=== PATIENT | female | born 1935 | race African-American/Black ===

== ENCOUNTER 2018-05-03 12:08 | Emergency (ER) | payer OTHER ==
[~2018-05-03] VITALS: Ht 167.6 cm; Wt 79.9 kg
[~2018-05-03 12:08] MED LIST: AMLO5TAB4 PO; CLOP75TA PO; DOXA4TAB2 PO; GLIM4TAB2 PO; HYDR-2868 PO; LISI20TA PO; LOSA100T6 PO; LOSA50TA6 PO; METO200T46 PO; OLME40TA12 PO; POTA20TA12 PO; PRAV40TA2 PO; UNABLE MC; VERA240C2 PO
--- NOTE | 2018-05-03 12:20 | PHYS DOC ---
Past Medical History Past Medical History: Cancer, Diabetes-Type II, Hypertension, Other Additional Past Medical Histor: HTN, CANCER "anal" has had chemo rad, no surgery Past Surgical History: Hysterectomy, Other Alcohol Use: None Drug Use: None Adult General Chief Complaint Chief Complaint: HYPOTENSION HPI HPI Patient is a 82 year old brought in by ambulance with generalized weakness apparently she had a pacemaker replaced [address] Omer she was doing okay and no chest pain no shortness of breath however this morning she woke up and she was feeling quite weak overall. Blood pressure in the field was in the mid 80s over 50s paramedics did give 250 of normal saline. Denies vomiting denies chest pain just overall very weak. She is compliant with her medications she says normally her blood pressure is quite high. Review of Systems Review of Systems Limited by acuity Current Medications Current Medications Current Medications Medications (Trade) Dose Ordered Sig/Sebastián Start Time Stop Time Status Last Admin Dose Admin Calcium Gluconate (Calcium Gluconate) 1,000 mg 1X ONCE 05/03/18 14:00 05/03/18 14:01 DC 05/03/18 14:34 1,000 MG Dextrose (Dextrose 50%-Water Syringe) 25 gm 1X ONCE 05/03/18 14:00 05/03/18 14:01 DC 05/03/18 14:34 25 GM Fentanyl Citrate (Fentanyl 2ml Vial) 25 mcg 1X ONCE 05/03/18 13:30 05/03/18 13:31 DC 05/03/18 13:31 25 MCG Glucagon (Glucagen) 1 mg 1X ONCE 05/03/18 15:00 05/03/18 15:34 DC Hydrocortisone Sodium Succinate (Solu-CORTEF) 80 mg 1X ONCE 05/03/18 14:45 05/03/18 15:34 DC Insulin Human Regular (HumuLIN R VIAL) 10 unit 1X ONCE 05/03/18 14:00 05/03/18 14:01 DC 05/03/18 14:36 10 UNIT Iohexol (Omnipaque 300 Mg/ml) 50 ml 1X ONCE 05/03/18 13:30 05/03/18 13:31 DC 05/03/18 13:30 50 ML Norepinephrine Bitartrate 250 ml @ As Directed STK-MED ONCE 05/03/18 13:16 05/03/18 13:17 DC Ondansetron HCl (Zofran) 4 mg 1X ONCE 05/03/18 15:00 05/03/18 15:14 DC Piperacillin Sod/ Tazobactam Sod 3.375 gm/Sodium Chloride 50 ml @ 100 mls/hr 1X ONCE 05/03/18 14:30 05/03/18 14:59 DC 05/03/18 14:45 100 MLS/HR Sodium Bicarbonate (Sodium Bicarb Adult 8.4% Syr) 50 meq 1X ONCE 05/03/18 14:00 05/03/18 14:01 DC 05/03/18 14:35 50 MEQ Sodium Chloride 1,000 ml @ 1,000 mls/hr 1X ONCE 05/03/18 14:45 05/03/18 15:44 DC 05/03/18 14:46 1,000 MLS/HR Vancomycin HCl (Vanco Per Pharmacy) 1 each PRN DAILY PRN 05/03/18 12:30 UNV Vancomycin HCl 2 gm/Sodium Chloride 500 ml @ 250 mls/hr 1X ONCE 05/03/18 13:00 05/03/18 14:59 DC 05/03/18 13:01 250 MLS/HR Allergies Allergies Allergies Coded Allergies Type Severity Reaction Last Updated Verified No Known Drug Allergies 09/19/13 No Physical Exam Physical Exam Constitutional: Well developed, well nourished mildly ill appearing HENT: Normocephalic, atraumatic, bilateral external ears normal, oropharynx moist, no oral exudates, nose normal. [] Eyes: PERRLA, EOMI, conjunctiva normal, no discharge. [] Neck: Normal range of motion, no tenderness, supple, no stridor. [] Cardiovascular:Heart rate regular rhythm, 2/6 systolic murmur. The pacemaker pocket does have some mild erythema surrounding and no obvious fluctuance. Lungs & Thorax: Faint crackles at the lung bases Abdomen: Bowel sounds normal, soft, no tenderness, no masses, no pulsatile masses. [] Skin: Warm, dry, no erythema, no rash. [] Back: No tenderness, no CVA tenderness. [] Extremities: No tenderness, no cyanosis, no clubbing, ROM intact, no edema. [] Neurologic: Alert and oriented X 3, normal motor function, normal sensory function, no focal deficits noted. [] Psychologic: Affect normal, judgement normal, mood normal. [] Current Patient Data Vital Signs Vital Signs Date Time Temp Pulse Resp B/P (MAP) Pulse Ox O2 Delivery O2 Flow Rate FiO2 05/03/18 15:45 60 30 106/67 (80) 94 Nasal Cannula 2.0 05/03/18 12:08 98.3 98.3 Lab Values Laboratory Tests Test 05/03/18 12:17 05/03/18 12:30 05/03/18 12:33 05/03/18 15:20 Glucose (Fingerstick) 280 mg/dL (70-99) H White Blood Count 6.2 x10^3/uL (4.0-11.0) Red Blood Count 3.16 x10^6/uL (3.50-5.40) L Hemoglobin 9.7 g/dL (12.0-15.5) L Hematocrit 29.5 % (36.0-47.0) L Mean Corpuscular Volume 94 fL (79-100) Mean Corpuscular Hemoglobin 31 pg (25-35) Mean Corpuscular Hemoglobin Concent 33 g/dL (31-37) Red Cell Distribution Width 14.1 % (11.5-14.5) Platelet Count 223 x10^3/uL (140-400) Neutrophils (%) (Auto) 66 % (31-73) Lymphocytes (%) (Auto) 25 % (24-48) Monocytes (%) (Auto) 6 % (0-9) Eosinophils (%) (Auto) 3 % (0-3) Basophils (%) (Auto) 1 % (0-3) Neutrophils # (Auto) 4.1 x10^3uL (1.8-7.7) Lymphocytes # (Auto) 1.5 x10^3/uL (1.0-4.8) Monocytes # (Auto) 0.4 x10^3/uL (0.0-1.1) Eosinophils # (Auto) 0.2 x10^3/uL (0.0-0.7) Basophils # (Auto) 0.0 x10^3/uL (0.0-0.2) Sodium Level 134 mmol/L (136-145) L Potassium Level 6.0 mmol/L (3.5-5.1) H Chloride Level 104 mmol/L (98-107) Carbon Dioxide Level 22 mmol/L (21-32) Anion Gap 8 (6-14) Blood Urea Nitrogen 36 mg/dL (7-20) H Creatinine 1.6 mg/dL (0.6-1.0) H Estimated GFR (Cockcroft-Gault) 37.4 BUN/Creatinine Ratio 23 (6-20) H Glucose Level 353 mg/dL (70-99) H Lactic Acid Level 2.3 mmol/L (0.4-2.0) H Calcium Level 8.7 mg/dL (8.5-10.1) Total Bilirubin 0.7 mg/dL (0.2-1.0) Aspartate Amino Transferase (AST) 36 U/L (15-37) Alanine Aminotransferase (ALT) 27 U/L (14-59) Alkaline Phosphatase 76 U/L (46-116) Troponin I Quantitative < 0.017 ng/mL (0.000-0.055) HC-Vep-X-Type Natriuretic Peptide 330 pg/mL (0-449) Total Protein 6.4 g/dL (6.4-8.2) Albumin 2.8 g/dL (3.4-5.0) L Albumin/Globulin Ratio 0.8 (1.0-1.7) L Prothrombin Time 13.9 SEC (11.7-14.0) Prothrombin Time INR 1.1 (0.8-1.1) Urine Collection Type Unknown Urine Color Yellow Urine Clarity Clear Urine pH 6.0 Urine Specific [place] >=1.030 Urine Protein >=300 mg/dL (NEG-TRACE) Urine Glucose (UA) 250 mg/dL (NEG) Urine Ketones (Stick) Negative mg/dL (NEG) Urine Blood Negative (NEG) Urine Nitrite Negative (NEG) Urine Bilirubin Negative (NEG) Urine Urobilinogen Dipstick 1.0 mg/dL (0.2 mg/dL) Urine Leukocyte Esterase Negative (NEG) Urine RBC Occ /HPF (0-2) Urine WBC Occ /HPF (0-4) Urine Squamous Epithelial Cells Few /LPF Urine Transitional Epithelial Cells Occ /LPF Urine Bacteria 0 /HPF (0-FEW) Urine Mucus Slight /LPF Laboratory Tests 05/03/18 12:30 Laboratory Tests 05/03/18 12:30 EKG EKG [] Interpretation Time: EKG shows a paced rhythm probably underlying A. fib rate of 62 in light of the paced rhythm no obvious ischemia was identified. Radiology/Procedures Radiology/Procedures [] Impressions: t, abdomen and pelvis with intravenous contrast. HISTORY: Pacemaker placement. Pain. Dissection. TECHNIQUE: Computed tomographic images of the chest, abdomen and pelvis were obtained following the administration of 50 cc Omnipaque 300 intravenous contrast according to angiography protocol. Multiplanar reformatting was performed and 3-dimensional maximum intensity projection images were obtained. *One or more of the following individualized dose reduction techniques were utilized for this examination: 1. Automated exposure control. 2. Adjustment of the mA and/or kV according to patient size. 3. Use of iterative reconstruction technique. COMPARISON: None. FINDINGS: There is suboptimal contrast opacification of the aorta and iliac bifurcation due to timing of contrast administration and a decreased contrast bolus due to renal insufficiency at the time of the exam. There is mixing of contrast within the thoracic aorta and distal abdominal aorta and iliac bifurcation. There is ill-defined somewhat linear decreased opacification the distal abdominal aorta which extends into the right common iliac artery, also likely due to mixing of contrast. The imaging appearance does not favor a dissection in this location. There is fluid density along the left aspect of the descending thoracic aorta measuring approximately 11 cm in length and 10 mm in maximum thickness. This is hypodense to the aorta on precontrast images. The differential includes a descending periaortic hematoma, or less likely, intramural hematoma. The imaging appearance does not favor a thrombosed dissection. There is a common origin of the right innominate and left common carotid arteries, a normal variant. There is no aortic aneurysm. There is a tortuous proximal left subclavian artery. No aortic great vessel occlusion or dissection is seen. There is a left chest wall cardiac pacemaker generator. There are foci of gas within the subclavian and internal jugular veins due to recent peripheral catheterization. There is a right internal jugular catheter with the tip in the superior right atrium. The pacemaker leads are within the right atrium and right ventricle. There is a circumscribed hypodense lesion within the anterior mediastinum measuring 3.4 cm, possibly thymic in etiology. The imaging appearance does not favor a hematoma. There is a small amount of fluid within the pericardial recesses. There are prominent bilateral hilar lymph nodes. There is cardiomegaly. There is no pneumothorax. There is bilateral posterior dependent and basilar atelectasis. There is trace right pleural fluid. There is a heterogeneously enlarged left thyroid lobe possibly due to underlying nodule. There is a 1.7 cm nodule within the inferior left breast. There is hepatomegaly. No hepatic lesion is seen. There is trace perihepatic ascites. The spleen is relatively small in size. The adrenal glands and pancreas are grossly unremarkable. The kidneys are unremarkable. There are colonic diverticula. There is moderate colonic stool. There are calcifications within the gonadal veins. The uterus is surgically absent. The bladder is decompressed. There is degenerative change throughout the thoracolumbar spine. There is bone demineralization. No pathologically enlarged lymph node is seen. There is calcified plaque at the origin of the celiac axis, resulting in approximately 50 percent stenosis. There is also calcified plaque within the origins and proximal renal arteries with suspected greater than 75 percent stenosis on the right and 50 percent stenosis on the left. The distal aspects of these vessels are not adequately opacified to assess patency. There is a punctate right renal stone. There are tiny hypodense lesions within the left kidney which may be due to tiny hemorrhagic cysts. IMPRESSION: 1. Elongated hypodense collection along the left lateral aspect of the descending thoracic aorta measuring approximately 11.0 cm in length and 10 mm in thickness. Given a history of recent cardiac pacemaker surgery, the possibility of a periaortic hematoma or intramural hematoma is not excluded. The imaging appearance does not suggest a thrombosed dissection. Evaluation of the aorta and aortic branch vessels is significantly limited due to the limited contrast bolus and timing of contrast administration. This is due to renal insufficiency at the time of the exam. 2. Mixing of contrast within the thoracic and abdominal aorta was suboptimal contrast opacification of the iliac bifurcation and abdominal aortic branch vessels. There is suspected hemodynamically significant stenosis involving the right renal artery which cannot be characterized on this exam due to aforementioned study limitations. 3. Cardiomegaly. There is a cardiac pacemaker with leads in the right atrium and right ventricle. There is also a right internal jugular catheter in the right atrium. 4. 3.4 cm anterior superior mediastinal mass. The attenuation of this collection is greater than expected for a cystic lesion. This may be thymic in etiology. Correlation with any prior studies is recommended. 5. Bilateral posterior dependent and basilar atelectasis with trace right pleural effusion. 6. Hepatomegaly and trace perihepatic ascites. 7. Colonic diverticulosis. 8. Suspected left thyroid nodule or nodules. This can be assessed with a thyroid sonogram. 9. Inferior left breast nodule. Correlate with mammography findings. Findings were discussed with Dr. Sanchez at 1500 hours on 05/03/2018. Electronically signed by: Chantel Michelle MD (05/03/2018 3:01 PM) [facility] DICTATED and SIGNED BY: CHANTEL MICHELLE MD DATE: 05/03/18 1436 Course & Med Decision Making Course & Med Decision Making Pertinent Labs and Imaging studies reviewed. (See chart for details) []Hypotension following pacemaker placement differential is broad infection, tamponade, pe, lead complication, hypovolemia. 82-year-old female brought in by ambulance with generalized weakness and hypotension initially on my first eval was in the 90s over 50s however approximately 20-30 minutes into the ER course the patient developed a blood pressure of 60/40 and began to complain of severe epigastric abdominal pain radiating to the back she was noted to have distended neck veins I was quite concerned about the possibility of obstructive shock such as cardiac Or not. I did speak with Dr. Omer who did confirm that he did not go into the blood vessels he just change the back. The pacemaker couple days back nevertheless he was quite gracious to come to the emergency room and evaluate the patient he did a echocardiogram which showed generalized hypokinesis but no laterality at all. no tamponade on echo per dr rinaldi. Patient was given 2 L of fluid and still was hypotensive so I placed a central line I did also give some antibiotics in case of sepsis some front given the initial hypotension of unclear etiology. In addition the potassium level was elevated and I did give treatment for that as noted above. Central line note: Verbal consent was obtained emergent conditions the area was prepped and draped in the usual sterile fashion a triple lumen pressure injectable catheter was inserted into the right IJ under ultrasound guidance in the usual Seldinger technique patient tolerated this well there was a small amount of oozing that was controlled with pressure this was confirmed by chest x -ray with no pneumothorax it was sutured in place patient tolerated well overall. Patient was then placed on levo fed blood pressure came up into the low 90s the low 100s at one point. Then patient went to a stat CT scanner with the following above results in summary there was a periaortic descending hematoma and visualization of the intra-aortic area was difficult due to contrast timing and limited contrast secondary to renal insufficiency. Differential would be a contained rupture versus a dissection although I dissection was not clearly seen. I did review these test results with multiple specialists including mitchell from vascular surgery who recommended to talk to the CT surgery . from cardiothoracic surgery who said this treatment if there is in fact a contained rupture would be a Tva R which he does not do recommend to talk to vascular surgery Then I spoke with Dr. medrano again who said that he does not do [facility] and recommended transfer to . I did also confirm with IR automation technician himsel who agreed. I spoke with the transfer Center accepting cardiothoracic surgeon is Dr. zabala On reevaluation the patient's blood pressure was in the 110 systolic range asked the nurses to try titrated to keep a systolic pressure around 100-110. Patient's was much more alert had improved pain after dose of fentanyl. 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 I discussed at length with the patient in their family the likely diagnosis and disposition to they're aware of the risks and benefits of transfer and consent to the transfer. Critical care time was 110 minutes exclusive of procedures. Dragon Disclaimer Dragon Disclaimer This electronic medical record was generated, in whole or in part, using a voice recognition dictation system. Departure Departure Impression: Primary Impression: Hypotension Disposition: 02 TRANSFER [facility] Condition: STABLE Referrals: LUPE SCHAEFER MD (PCP) BLAIR SANCHEZ MD May 03, 2018 12:20
--- NOTE | 2018-05-03 12:21 | EKG ---
[facility] [address] [place] [address] Test Date: 2018-05-03 Test Time: 12:08:59 Pat Name: BARRY GONZALEZ Department: Room: Gender: F Survey Interviewer: : 1935 Requested By: BLAIR VALLADARES Order Number: [id number] Reading MD: August Omer MD Measurements Intervals [place] Rate: 62 P: PA: QRS: -56 QRSD: 178 T: 100 QT: 474 QTc: 483 Interpretive Statements ATRIAL FIBRILLATION V-PACING Electronically Signed On 05-06-2018 9:09:10 CDT by August Omer MD
[2018-05-03] MEDS ORDERED: IV NORMAL SALINE 500ML BAG 500 ML IV ONE (12:30)
[2018-05-03] MEDS ORDERED: VANCOMYCIN PER PHARMACY MC PRN (12:30)
[2018-05-03 12:44] LABS: BASO % 1 % (0-3); EOS # 0.2 x10^3/uL (0.0-0.7); EOS % 3 % (0-3); HEMATOCRIT 29.5 % (36.0-47.0); HEMOGLOBIN 9.7 g/dL (12.0-15.5); LYMPH # 1.5 x10^3/uL (1.0-4.8); LYMPH % 25 % (24-48); MEAN CORPUSCULAR HEMOGLOBIN 31 pg (25-35); MEAN CORPUSCULAR HGB CONC 33 g/dL (31-37); MEAN CORPUSCULAR VOLUME 94 fL (79-100); MONO # 0.4 x10^3/uL (0.0-1.1); MONO % 6 % (0-9); NEUT # 4.1 x10^3uL (1.8-7.7); NEUT % 66 % (31-73); PLATELET COUNT 223 x10^3/uL (140-400); RED BLOOD COUNT 3.16 x10^6/uL (3.50-5.40); RED CELL DISTRIBUTION WIDTH 14.1 % (11.5-14.5); WHITE BLOOD COUNT 6.2 x10^3/uL (4.0-11.0)
[2018-05-03 12:52] LABS: CALCIUM 8.7 mg/dL (8.5-10.1); CREATININE 1.6 mg/dL (0.6-1.0); GFR 37.4
[2018-05-03 12:58] LABS: ALBUMIN 2.8 g/dL (3.4-5.0); ALBUMIN/GLOBULIN RATIO 0.8 (1.0-1.7); TOTAL BILIRUBIN 0.7 mg/dL (0.2-1.0); TOTAL PROTEIN 6.4 g/dL (6.4-8.2)
[2018-05-03] MEDS ORDERED: IV NORMAL SALINE 1000ML BAG 1,000 ML IV ONE ×2 (13:00→14:45)
[2018-05-03] MEDS ORDERED: VANCOMYCIN 2 GM in IV NORMAL SALINE 500ML BAG 500 ML IV ONE (13:00)
--- NOTE | 2018-05-03 13:13 | RAD ---
Exam: AP portable chest History: Shortness air. Recent pacemaker procedure. Hypotension. Comparison: March 11, 2013. Findings: The heart and mediastinal structures are within normal limits for size. Lungs are without infiltrate. No pleural effusion or pneumothorax is identified. Bilateral shoulder degeneration is seen. Impression: 1. No acute cardiopulmonary process. Electronically signed by: Efraín Patel MD (05/03/2018 1:10 PM) [facility]
[2018-05-03 13:15] LABS: PROTHROMBIN TIME PATIENT 13.9 SEC (11.7-14.0)
[2018-05-03] MEDS ORDERED: ONDANSETRON PF 4 MG/2 ML VIAL. IV ONE ×2 (13:15→15:00)
[2018-05-03] MEDS ORDERED: NOREPINEPHRIN 8MG/250ML PREMIX 250 ML IV ONE (13:16)
[2018-05-03] MEDS ORDERED: fentaNYL PF VIAL 100 MCG/2 ML VIAL IV ONE (13:30)
[2018-05-03] MEDS ORDERED: IOHEXOL 300 MG/ML 100ML VIAL. IV ONE (13:30)
--- NOTE | 2018-05-03 13:38 | EKG ---
[facility] [address] [place] [address] Test Date: 2018-05-03 Test Time: 13:14:44 Pat Name: BARRY GONZALEZ Department: Room: Gender: F Jewel Stringer: : 1935 Requested By: BLAIR VALLADARES Order Number: [id number] Reading MD: August Omer MD Measurements Intervals [place] Rate: 67 P: TN: QRS: 24 QRSD: 84 T: -8 QT: 408 QTc: 434 Interpretive Statements INTERMITTENT PACED RHYTHM, PVCS Electronically Signed On 05-06-2018 9:11:12 CDT by August Omer MD
[2018-05-03] MEDS ORDERED: DEXTROSE 50% 25 GM / 50ML DISP.SYRIN. IV ONE (14:00)
[2018-05-03] MEDS ORDERED: SODIUM BICARB ADULT 8.4% 50 MEQ/50 ML DISP.SYRIN. IV ONE (14:00)
[2018-05-03] MEDS ORDERED: CALCIUM GLUCONATE 1,000 MG/10 ML VIAL. IVP ONE (14:00)
[2018-05-03] MEDS ORDERED: INSULIN REGULAR 100 UNIT/ML 3ML VIAL. IV ONE (14:00)
--- NOTE | 2018-05-03 14:04 | RAD ---
EXAM: Chest, single view. HISTORY: Central line placement. COMPARISON: 05/03/2018 FINDINGS: A frontal view of the chest is obtained. There is a right internal jugular catheter with the tip in the superior right atrium. There is a cardiac pacemaker with lead overlying expected position. There is no pneumothorax or pleural effusion. There is stable interstitial prominence. There is a stable prominent cardiac silhouette. IMPRESSION: 1. Right internal jugular catheter with the tip in the superior right atrium. 2. No acute pulmonary finding. Electronically signed by: Chantel Carbone MD (05/03/2018 2:01 PM) [facility]
[2018-05-03] MEDS ORDERED: PIPERACILLIN/TAZOBACTAM 3.375 GM in IV NORMAL SALINE 50ML 50 ML IV ONE (14:30)
[2018-05-03] MEDS ORDERED: HYDROCORTISONE SOD SUCC/PF 100 MG/2 ML VIAL. IV ONE (14:45)
[2018-05-03] MEDS ORDERED: GLUCAGON,HUMAN RECOMBINANT 1 MG/ML VIAL. IV ONE (15:00)
--- NOTE | 2018-05-03 15:04 | RAD ---
EXAM: CT angiography of the chest, abdomen and pelvis with intravenous contrast. HISTORY: Pacemaker placement. Pain. Dissection. TECHNIQUE: Computed tomographic images of the chest, abdomen and pelvis were obtained following the administration of 50 cc Omnipaque 300 intravenous contrast according to angiography protocol. Multiplanar reformatting was performed and 3-dimensional maximum intensity projection images were obtained. *One or more of the following individualized dose reduction techniques were utilized for this examination: 1. Automated exposure control. 2. Adjustment of the mA and/or kV according to patient size. 3. Use of iterative reconstruction technique. COMPARISON: None. FINDINGS: There is suboptimal contrast opacification of the aorta and iliac bifurcation due to timing of contrast administration and a decreased contrast bolus due to renal insufficiency at the time of the exam. There is mixing of contrast within the thoracic aorta and distal abdominal aorta and iliac bifurcation. There is ill-defined somewhat linear decreased opacification the distal abdominal aorta which extends into the right common iliac artery, also likely due to mixing of contrast. The imaging appearance does not favor a dissection in this location. There is fluid density along the left aspect of the descending thoracic aorta measuring approximately 11 cm in length and 10 mm in maximum thickness. This is hypodense to the aorta on precontrast images. The differential includes a descending periaortic hematoma, or less likely, intramural hematoma. The imaging appearance does not favor a thrombosed dissection. There is a common origin of the right innominate and left common carotid arteries, a normal variant. There is no aortic aneurysm. There is a tortuous proximal left subclavian artery. No aortic great vessel occlusion or dissection is seen. There is a left chest wall cardiac pacemaker generator. There are foci of gas within the subclavian and internal jugular veins due to recent peripheral catheterization. There is a right internal jugular catheter with the tip in the superior right atrium. The pacemaker leads are within the right atrium and right ventricle. There is a circumscribed hypodense lesion within the anterior mediastinum measuring 3.4 cm, possibly thymic in etiology. The imaging appearance does not favor a hematoma. There is a small amount of fluid within the pericardial recesses. There are prominent bilateral hilar lymph nodes. There is cardiomegaly. There is no pneumothorax. There is bilateral posterior dependent and basilar atelectasis. There is trace right pleural fluid. There is a heterogeneously enlarged left thyroid lobe possibly due to underlying nodule. There is a 1.7 cm nodule within the inferior left breast. There is hepatomegaly. No hepatic lesion is seen. There is trace perihepatic ascites. The spleen is relatively small in size. The adrenal glands and pancreas are grossly unremarkable. The kidneys are unremarkable. There are colonic diverticula. There is moderate colonic stool. There are calcifications within the gonadal veins. The uterus is surgically absent. The bladder is decompressed. There is degenerative change throughout the thoracolumbar spine. There is bone demineralization. No pathologically enlarged lymph node is seen. There is calcified plaque at the origin of the celiac axis, resulting in approximately 50 percent stenosis. There is also calcified plaque within the origins and proximal renal arteries with suspected greater than 75 percent stenosis on the right and 50 percent stenosis on the left. The distal aspects of these vessels are not adequately opacified to assess patency. There is a punctate right renal stone. There are tiny hypodense lesions within the left kidney which may be due to tiny hemorrhagic cysts. IMPRESSION: 1. Elongated hypodense collection along the left lateral aspect of the descending thoracic aorta measuring approximately 11.0 cm in length and 10 mm in thickness. Given a history of recent cardiac pacemaker surgery, the possibility of a periaortic hematoma or intramural hematoma is not excluded. The imaging appearance does not suggest a thrombosed dissection. Evaluation of the aorta and aortic branch vessels is significantly limited due to the limited contrast bolus and timing of contrast administration. This is due to renal insufficiency at the time of the exam. 2. Mixing of contrast within the thoracic and abdominal aorta was suboptimal contrast opacification of the iliac bifurcation and abdominal aortic branch vessels. There is suspected hemodynamically significant stenosis involving the right renal artery which cannot be characterized on this exam due to aforementioned study limitations. 3. Cardiomegaly. There is a cardiac pacemaker with leads in the right atrium and right ventricle. There is also a right internal jugular catheter in the right atrium. 4. 3.4 cm anterior superior mediastinal mass. The attenuation of this collection is greater than expected for a cystic lesion. This may be thymic in etiology. Correlation with any prior studies is recommended. 5. Bilateral posterior dependent and basilar atelectasis with trace right pleural effusion. 6. Hepatomegaly and trace perihepatic ascites. 7. Colonic diverticulosis. 8. Suspected left thyroid nodule or nodules. This can be assessed with a thyroid sonogram. 9. Inferior left breast nodule. Correlate with mammography findings. Findings were discussed with Dr. Sanchez at 1500 hours on 05/03/2018. Electronically signed by: Chantel Carbone MD (05/03/2018 3:01 PM) [facility]
[2018-05-03 15:31] LABS: BILIRUBIN,URINE NEGATIVE (NEG); CLARITY,URINE CLEAR; COLOR,URINE YELLOW; NITRITE,URINE NEGATIVE (NEG); PROTEIN,URINE >=300 mg/dL (NEG-TRACE)
[2018-05-03 15:48] LABS: RBC,URINE OCC /HPF (0-2); WBC,URINE OCC /HPF (0-4)
[2018-05-03 15:49] LABS: BACTERIA,URINE 0 /HPF (0-FEW); SQUAMOUS EPITHELIAL CELL,UR FEW /LPF
[2018-05-03 16:45] VITALS: BP 105/68
--- NOTE | 2018-05-05 09:37 | CARD ---
MR#: [id number] Date of Study: 05/03/2018 Ordering Physician: SUREKHA FAUST, Referring Physician: BLAIR VALLADARES, Tech: JUAN MIGUEL Escudero APPROVED REPORT EXAM: Two-dimensional and M-mode echocardiogram with Doppler and color Doppler. Other Information Quality : AverageHR: 62bpm INDICATION Post Op, Hypotension Surgery/Intervention Pacemaker: Date: 04/29/2018 2D DIMENSIONS RVDd3.5 (2.9-3.5cm)Left Atrium(2D)3.6 (1.6-4.0cm) IVSd1.9 (0.7-1.1cm)Aortic Root(2D)2.5 (2.0-3.7cm) LVDd3.5 (3.9-5.9cm)LVOT Diameter1.8 (1.8-2.4cm) PWd1.9 (0.7-1.1cm)IVSs1.8 (0.8-1.2cm) LVDs3.2 (2.5-4.0cm)FS (%) 15.0 % PWs1.9 (0.8-1.2cm)SV9.4 ml LVEF(%)30.0 (>50%) M-Mode DIMENSIONS IVSd1.10 (0.7-1.1cm)LVDd5.51 (4.0-5.6cm) PWd1.07 (0.7-1.1cm)IVSs1.74 cm LVDs3.77 (2.0-3.8cm)PWs1.78 cm Aortic Valve AoV Peak Mino.103.1cm/sAoV VTI17.9cm AO Peak GR.4.2mmHgLVOT Peak Mino.57.9cm/s LVOT VTI 10.13cmAO Mean GR.2mmHg WALKER (VMAX)1.25eo2PEQ (VTI)1.49cm2 Mitral Valve MV E Jtalrdeo70.0cm/sMV E Peak Gr.42mmHg MV DECEL [id number] A Xsdzzbuh24.3cm/s MV BFK11miL/A Ratio2.7 MVA (PHT)3.57cm2 TDI E/Lateral E'24.6E/Medial E'27.1 Pulmonary Valve PV Peak Kahaithq02.9cm/sPV Peak Grad.1mmHg Tricuspid Valve TR P. Gqcajzbd503yh/sRAP ABWBATXQ90wpEv TR Peak Gr.76ocIoWKUD98ztUl LEFT VENTRICLE The left ventricle cavity is small. There is moderate concentric left ventricular hypertrophy. Left v entricle systolic function is moderately to severely impaired. The Ejection Fraction is 25-30%. There is global hypokinesis of the left ventricle. Tissue Doppler imaging reveals moderate left ventricula r diastolic dysfunction. RIGHT VENTRICLE The right ventricle is borderline dilated. Systolic function is mildly reduced. There is a pacemaker lead in the right ventricle. ATRIA The left atrium size is normal. A pacemaker is seen in the right atrium consistent with history. The right atrium size is normal. The interatrial septum is intact with no evidence for an atrial septal d efect or patent foramen ovale as noted on 2-D or Doppler imaging. AORTIC VALVE The aortic valve is thickened but opens well. Doppler and Color Flow revealed trace aortic regurgitat ion. There is no significant aortic valvular stenosis. There is no aortic valvular vegetation. MITRAL VALVE The mitral valve is mildly thickened. There is no evidence of mitral valve prolapse. There is no mitr al valve stenosis. Doppler and Color-flow revealed mild mitral regurgitation. TRICUSPID VALVE The tricuspid valve leaflets are thickened , but open well. Doppler and Color Flow revealed moderate to severe tricuspid regurgitation. There is mild pulmonary hypertension. The PA pressure was estimate d at 33 mmHg. There is no tricuspid valve prolapse or vegetation. There is no tricuspid valve stenosi s. PULMONIC VALVE The pulmonic valve is not well visualized. Doppler and Color Flow revealed no pulmonic valvular regur gitation. There is no pulmonic valvular stenosis. GREAT VESSELS The aortic root is normal in size. The IVC is dilated and collapses <50% with inspiration. PERICARDIAL EFFUSION There is no pleural effusion. There is no evidence of significant pericardial effusion. Critical Notification Critical Value: No <Conclusion> Left ventricle systolic function is moderately to severely impaired. The Ejection Fraction is 25-30%. There is global hypokinesis of the left ventricle. There is a pacemaker lead in the right ventricle. Signed by : Surekha Faust, Electronically Approved : 05/05/2018 09:36:47
== END 2018-05-03 17:00 | disposition short-term general hospital (02) ==
LOC: ER 12:08
DX: I95.9 Hypotension, unspecified (principal); R53.1 Weakness; E11.9 Type 2 diabetes mellitus without complications; I10 Essential (primary) hypertension
CPT/HCPCS: 36415; 36556; 51702; 71045; 71275; 74174; 80053; 81001; 82962; 83605; 83880; 84484; 85025; 85610; 87040; 93005; 93306; 96365; 96366; 96375; 99291; 99292; J0610; J1815; J2405; J2543; J3010; J3370; J7030; J7040; Q9967; J7042

== ENCOUNTER 2018-12-26 12:05 | Emergency (ER) | payer OTHER ==
[~2018-12-26] VITALS: Ht 167.6 cm; Wt 81.6 kg
[~2018-12-26 12:05] MED LIST changes: +LOSA-73 PO; +LOSA100T14 PO; -LOSA100T6 PO; -LOSA50TA6 PO
[2018-12-26] MEDS ORDERED: cloNIDine HCL 0.1 MG TABLET PO ONE (12:30)
[2018-12-26 12:34] VITALS: BP 227/105
--- NOTE | 2018-12-26 13:16 | RAD ---
Lumbar spine, 3 views, 12/26/2018: HISTORY: Fall, back and right hip pain The lumbar vertebral heights are well-maintained. There is mild disc space narrowing with vacuum disc phenomena at multiple levels. There are mild scattered marginal spurs. There are moderate degenerative changes involving the facet joints in the lower lumbar spine. There is a mild associated anterolisthesis at L4-5, and a minimal anterolisthesis at L3-4. No fracture is identified. Scattered vascular calcifications are noted. IMPRESSION: 1. Moderate multilevel degenerative change. 2. Mild anterolisthesis at L4-5 and to a lesser degree at L3-4, due to facet joint arthropathy. 3. No acute bony abnormality is detected. Electronically signed by: Alexi Pearson MD (12/26/2018 1:13 PM) [facility]
--- NOTE | 2018-12-26 13:18 | RAD ---
Pelvis with right hip, 3 views, 12/26/2018: HISTORY: Fall, hip and back pain No fracture or dislocation is identified. There is mild narrowing of both hip joints. There are mild degenerative changes at the symphysis pubis and the sacroiliac joints. IMPRESSION: No acute bony abnormality is detected. Electronically signed by: Alexi Pearson MD (12/26/2018 1:15 PM) [facility]
--- NOTE | 2018-12-26 13:35 | PHYS DOC ---
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 She denies any loss of consciousness. Denies hitting her head on the ground. She describes the pain as sharp and intermittent. Denies anything specifically exacerbating or alleviating the pain. Patient states she has been ambulating with no difficulties. Review of Systems Review of Systems Constitutional: Denies fever or chills [] Musculoskeletal: Reports right hip pain radiating to the right lower extremity Integument: Denies rash or skin lesions [] Neurologic: Denies headache, focal weakness or sensory changes [] All other systems were reviewed and found to be within normal limits, except as documented in this note. Current Medications Current Medications Current Medications Medications (Trade) Dose Ordered Sig/Sebastián Start Time Stop Time Status Last Admin Dose Admin Clonidine HCl (Catapres) 0.2 mg 1X ONCE 12/26/18 12:30 12/26/18 12:31 DC 12/26/18 12:34 0.2 MG Allergies Allergies Allergies Coded Allergies Type Severity Reaction Last Updated Verified No Known Drug Allergies 09/19/13 No Physical Exam Physical Exam Constitutional: Well developed, well nourished, no acute distress, non-toxic appearance. [] Neck: Normal range of motion, no tenderness, supple, no stridor. [] Cardiovascular:Heart rate regular rhythm, no murmur [] Lungs & Thorax: Bilateral breath sounds clear to auscultation [] Abdomen: Bowel sounds normal, soft, no tenderness, no masses, no pulsatile masses. [] Skin: Warm, dry, no erythema, no rash. [] Back: No tenderness, no CVA tenderness. [] Extremities: Bilateral lower extremities extremity with no obvious deformity. No tenderness on palpation of the right lower extremity. Full active active as well as passive range of motion to the right lower extremity. +2 bilateral pedal pulses. Sensation intact to bilateral lower extremities. Neurologic: Alert and oriented X 3, normal motor function, normal sensory function, no focal deficits noted. [] Psychologic: Affect normal, judgement normal, mood normal. [] Current Patient Data Vital Signs Vital Signs Date Time Temp Pulse Resp B/P (MAP) Pulse Ox O2 Delivery O2 Flow Rate FiO2 12/26/18 12:34 64 227/105 12/26/18 12:22 97.9 14 95 Room Air 97.9 EKG EKG [] Radiology/Procedures Radiology/Procedures []PROCEDURE: LUMBAR SPINE 2-3V Lumbar spine, 3 views, 12/26/2018: HISTORY: Fall, back and right hip pain The lumbar vertebral heights are well-maintained. There is mild disc space narrowing with vacuum disc phenomena at multiple levels. There are mild scattered marginal spurs. There are moderate degenerative changes involving the facet joints in the lower lumbar spine. There is a mild associated anterolisthesis at L4-5, and a minimal anterolisthesis at L3-4. No fracture is identified. Scattered vascular calcifications are noted. IMPRESSION: 1. Moderate multilevel degenerative change. 2. Mild anterolisthesis at L4-5 and to a lesser degree at L3-4, due to facet joint arthropathy. 3. No acute bony abnormality is detected. Electronically signed by: Alexi Pearson MD (12/26/2018 1:13 PM) [facility] DICTATED and SIGNED BY: ALEXI PEARSON MD DATE: 12/26/18 1313 PROCEDURE: HIP RIGHT 2V WITH PELVIS Pelvis with right hip, 3 views, 12/26/2018: HISTORY: Fall, hip and back pain No fracture or dislocation is identified. There is mild narrowing of both hip joints. There are mild degenerative changes at the symphysis pubis and the sacroiliac joints. IMPRESSION: No acute bony abnormality is detected. Electronically signed by: Alexi Pearson MD (12/26/2018 1:15 PM) [facility] DICTATED and SIGNED BY: ALEXI PEARSON MD DATE: 12/26/18 1310 Course & Med Decision Making Course & Med Decision Making Pertinent Labs and Imaging studies reviewed. (See chart for details) This is a 83-year-old female patient presenting to the ED today with right hip pain that began 2 weeks ago after she fell. Right hip x-rays including pelvis, lumbar spine x-rays are negative for any acute findings. Informed patient if she is not able to ambulate to be we need to do a CT to make sure nothing is fractured. patient refused. Her blood pressure was 246/120 with a heart rate of 66 and oriented to the ED. She states she takes a lot of blood pressure medications and did not take any of them prior to coming to the ED. She does not remember the name of the medications either. She is denying any chest pain, denies any headache. She was given clonidine in the ED. Blood pressure coming down currently 203/100. Offered admission, patient refused, she states she can ambulate, i requested patient to get up and ambulate with me in the room, she was actually able to get up and ambulated from the bed to the door with standby assist, I recommended she gets a walker to use at home. She declined. She states she will return if she has to. Follow-up with PCP and orthopedic doctor in 1-2 weeks. Dragon Disclaimer Dragon Disclaimer This electronic medical record was generated, in whole or in part, using a voice recognition dictation system. Departure Departure Impression: Primary Impression: Accelerated hypertension Additional Impressions: Contusion of hip, right Fall from standing Disposition: 01 HOME, SELF-CARE Condition: STABLE Referrals: LUPE SCHAEFER MD (PCP) follow up next week Patient Instructions: Contusion, Magb-yl-Kpvy, Fall Prevention and Home Safety Additional Instructions: You were evaluated in the emergency room hip pain after falling. Your x-rays of the hip as well as low back are negative. Take yacj-[id number] pain medication as needed. Try to ice and elevate the extremity. Ensure you take your blood pressure medications every day as prescribed. Problem Qualifiers Additional Impressions: Contusion of hip, right Encounter type: initial encounter Qualified Codes: S70.01XA - Contusion of right hip, initial encounter Fall from standing Encounter type: initial encounter Qualified Codes: W19.XXXA - Unspecified fall, initial encounter DONATONED [employer] Dec 26, 2018 13:35
[2018-12-27] MEDS ORDERED: TRAM50TA PO (17:26)
== END 2018-12-26 13:45 | disposition home or self-care (01) ==
LOC: ER 12:05
DX: S70.01XA Contusion of right hip, initial encounter (principal); I10 Essential (primary) hypertension; M79.604 Pain in right leg; Z90.710 Acquired absence of both cervix and uterus; W18.39XA Other fall on same level, initial encounter; Y93.89 Activity, other specified; Y92.090 Kitchen in other non-institutional residence as the place of occurrence of the external cause; Y99.8 Other external cause status
CPT/HCPCS: 72100; 73502; 99284-25

== ENCOUNTER 2018-12-27 14:54 | Emergency (ER) | payer OTHER ==
[~2018-12-27] VITALS: Ht 162.6 cm; Wt 72.6 kg
[2018-12-27] MEDS ORDERED: cloNIDine HCL 0.1 MG TABLET PO ONE (16:15)
--- NOTE | 2018-12-27 16:49 | RAD ---
PQRS Compliance Statement: One or more of the following individualized dose reduction techniques were utilized for this examination: 1. Automated exposure control 2. Adjustment of the mA and/or kV according to patient size 3. Use of iterative reconstruction technique CT PELVIS WO CONTRAST, CT LUMBAR SPINE WO CONTRAST Clinical Indication: FALL X2 DAYS AGO PAIN AT LOWER BACK, AND PELVIS Comparison: None. TECHNIQUE: Helical CT imaging of the lumbar spine and of the pelvis is performed without IV contrast. Findings: Grade 1 anterolisthesis of L4 on L5 and L3 on L4. Mild grade 1 retrolisthesis of L2 on L3. No acute vertebral body fracture is identified. There is vacuum disc phenomenon at each level. There is degenerative endplate spurring. Disc space narrowing of T12/L1 and L1/L2. There is minimal left convexity lumbar scoliosis. There is multilevel facet hypertrophy of the lumbar spine. There are multilevel spondylitic discs of the lumbar spine. Central canal stenosis of L1/L2 is mild, L2/L3 is moderate to severe, L3/L4 is moderate. And at L4/L5 central canal stenosis is severe. There appears to be a large disc extrusion extending superior to the disc space. Minimal atelectasis or scarring in the posterior lower lobes bilaterally. There is ectasia of the infrarenal abdominal aorta. Left adrenal gland hyperplasia. The appendix is normal. There is no acute pelvic fracture. The sacral alignment appears maintained on the sagittal view. There is mild degenerative arthropathy of the hips. Urinary bladder is normal. Hysterectomy. No pelvic free fluid. No intramuscular or subcutaneous hematoma in the region of the hips. IMPRESSION: 1. No acute lumbar spine or pelvis fracture. 2. 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 There is severe central canal stenosis of L4/L5. Electronically signed by: Yoan Vyas MD (12/27/2018 4:46 PM) [facility]
--- NOTE | 2018-12-27 17:19 | PHYS DOC ---
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 Patient was in the ED yesterday, we did x-rays which were negative, she decided to go home. She is back today, she states we did not give her anything for pain and she still has pain. I had recommended CT is yesterday, she declined, today she would like the CT is done. Patient denies any loss of consciousness when she fell. Review of Systems Review of Systems Constitutional: Denies fever or chills [] Eyes: Denies change in visual acuity, redness, or eye pain [] HENT: Denies nasal congestion or sore throat [] Respiratory: Denies cough or shortness of breath [] Cardiovascular: No additional information not addressed in HPI [] GI: Denies abdominal pain, nausea, vomiting, bloody stools or diarrhea [] : Denies dysuria or hematuria [] Musculoskeletal: Reports right hip pain for 2 weeks Integument: Denies rash or skin lesions [] Neurologic: Denies headache, focal weakness or sensory changes [] All other systems were reviewed and found to be within normal limits, except as documented in this note. Current Medications Current Medications Current Medications Medications (Trade) Dose Ordered Sig/Sebastián Start Time Stop Time Status Last Admin Dose Admin Clonidine HCl (Catapres) 0.2 mg 1X ONCE 12/27/18 16:15 12/27/18 16:16 DC 12/27/18 16:38 0.2 MG Allergies Allergies Allergies Coded Allergies Type Severity Reaction Last Updated Verified No Known Drug Allergies 09/19/13 No Physical Exam Physical Exam Constitutional: Well developed, well nourished, no acute distress, non-toxic appearance. [] HENT: Normocephalic, atraumatic, bilateral external ears normal, oropharynx moist, no oral exudates, nose normal. [] Eyes: PERRLA, EOMI, conjunctiva normal, no discharge. [] Neck: Normal range of motion, no tenderness, supple, no stridor. [] Cardiovascular:Heart rate regular rhythm, no murmur [] Lungs & Thorax: Bilateral breath sounds clear to auscultation [] Abdomen: Bowel sounds normal, soft, no tenderness, no masses, no pulsatile masses. [] Skin: Warm, dry, no erythema, no rash. [] Back: No tenderness, no CVA tenderness. [] Extremities: Bilateral lower extremities extremity with no obvious deformity. No tenderness on palpation of the right lower extremity. Full active active as well as passive range of motion to the right lower extremity. +2 bilateral pedal pulses. Sensation intact to bilateral lower extremities. Patient is up and ambulating in the room. Neurologic: Alert and oriented X 3, normal motor function, normal sensory function, no focal deficits noted. [] Psychologic: Affect normal, judgement normal, mood normal. [] Current Patient Data Vital Signs Vital Signs Date Time Temp Pulse Resp B/P (MAP) Pulse Ox O2 Delivery O2 Flow Rate FiO2 12/27/18 16:38 69 262/132 12/27/18 15:14 98.1 16 100 Room Air 98.1 EKG EKG [] Radiology/Procedures Radiology/Procedures []PROCEDURE: CT LUMBAR SPINE WO CONTRAST PQRS Compliance Statement: One or more of the following individualized dose reduction techniques were utilized for this examination: 1. Automated exposure control 2. Adjustment of the mA and/or kV according to patient size 3. Use of iterative reconstruction technique CT PELVIS WO CONTRAST, CT LUMBAR SPINE WO CONTRAST Clinical Indication: FALL X2 DAYS AGO PAIN AT LOWER BACK, AND PELVIS Comparison: None. TECHNIQUE: Helical CT imaging of the lumbar spine and of the pelvis is performed without IV contrast. Findings: Grade 1 anterolisthesis of L4 on L5 and L3 on L4. Mild grade 1 retrolisthesis of L2 on L3. No acute vertebral body fracture is identified. There is vacuum disc phenomenon at each level. There is degenerative endplate spurring. Disc space narrowing of T12/L1 and L1/L2. There is minimal left convexity lumbar scoliosis. There is multilevel facet hypertrophy of the lumbar spine. There are multilevel spondylitic discs of the lumbar spine. Central canal stenosis of L1/L2 is mild, L2/L3 is moderate to severe, L3/L4 is moderate. And at L4/L5 central canal stenosis is severe. There appears to be a large disc extrusion extending superior to the disc space. Minimal atelectasis or scarring in the posterior lower lobes bilaterally. There is ectasia of the infrarenal abdominal aorta. Left adrenal gland hyperplasia. The appendix is normal. There is no acute pelvic fracture. The sacral alignment appears maintained on the sagittal view. There is mild degenerative arthropathy of the hips. Urinary bladder is normal. Hysterectomy. No pelvic free fluid. No intramuscular or subcutaneous hematoma in the region of the hips. IMPRESSION: 1. No acute lumbar spine or pelvis fracture. 2. 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 There is severe central canal stenosis of L4/L5. Electronically signed by: Yoan Vyas MD (12/27/2018 4:46 PM) [facility] [place] DICTATED and SIGNED BY: YOAN VYAS MD DATE: 12/27/18 6339 Course & Med Decision Making Course & Med Decision Making Pertinent Labs and Imaging studies reviewed. (See chart for details) This is a 83-year-old. Patient presenting to the ED today for right hip pain for 2 weeks, patient fell down 2 weeks ago, with sore in the ED yesterday, we did x-rays which were negative, she refused CTs yesterday, she presents today complaining of right hip pain and stating we did not send her home with any pain medication. She would like the CT done to make sure nothing is broken. CT of the lumbar spine and pelvic were done which are negative for any acute findings. Patient is up and ambulating with no difficulties. Discharged with tramadol. Follow-up with her PCP or orthopedic doctor provided in the course of this week. Her blood pressures were in the low 200s over 80s, she again did not take her blood pressure medications today. She was given clonidine. She was encouraged to consider taking her medications every day as prescribed. Dragon Disclaimer Dragon Disclaimer This electronic medical record was generated, in whole or in part, using a voice recognition dictation system. Departure Departure Impression: Primary Impression: Accelerated hypertension Additional Impressions: Fall from standing Contusion of hip, right Disposition: 01 HOME, SELF-CARE Condition: STABLE Referrals: LUPE SCHAEFER MD (PCP) Follow-up next week CHARITY HAYDEN II, MD Follow-up in one week Patient Instructions: Hip Pain, Hypertension Additional Instructions: You were evaluated in the medicine for right hip pain, take the prescribed medication as needed for pain. Please ensure you take your blood pressure medicines. Follow-up with the orthopedic doctor provided or your own primary care doctor in the next 1 week. Scripts Tramadol Hcl (TRAMADOL HCL) 50 Mg Tablet 50 MG PO Q8HRS PRN for PAIN, #20 TAB Prov: NED CASILLAS APRN 12/27/18 Problem Qualifiers Additional Impressions: Fall from standing Encounter type: initial encounter Qualified Codes: W19.XXXA - Unspecified fall, initial encounter Contusion of hip, right Encounter type: initial encounter Qualified Codes: S70.01XA - Contusion of right hip, initial encounter NED CASILLAS APRN Dec 27, 2018 17:19
[2018-12-27] MEDS ORDERED: TRAM50TA PO (17:26)
[2018-12-27 17:30] VITALS: BP 174/101
== END 2018-12-27 17:32 | disposition home or self-care (01) ==
LOC: ER 14:54
DX: S70.01XA Contusion of right hip, initial encounter (principal); I10 Essential (primary) hypertension; Z90.710 Acquired absence of both cervix and uterus; W18.39XA Other fall on same level, initial encounter; Y93.89 Activity, other specified; Y92.090 Kitchen in other non-institutional residence as the place of occurrence of the external cause; Y99.8 Other external cause status
CPT/HCPCS: 72131; 72192; 99284-25

== ENCOUNTER 2019-01-17 11:24 | Emergency (ER) | payer OTHER ==
[~2019-01-17] VITALS: Ht 172.7 cm; Wt 74.8 kg
[~2019-01-17 11:24] MED LIST changes: +TRAM50TA PO
--- NOTE | 2019-01-17 12:08 | PHYS DOC ---
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 Patient complaining of intermittent episodes of right hip pain with standing up and bearing weight for the last 3 weeks and states she was seen in emergency room and had unremarkable x-ray and treated with pain medication without improvement of her condition. Patient states she had a fall 3 weeks ago and denies focal neurodeficit. Patient states she did not take her blood pressure medication today. Blood pressure was 230/115 on arrival to ER. Review of Systems Review of Systems Constitutional: Denies fever or chills [] Eyes: Denies change in visual acuity, redness, or eye pain [] HENT: Denies nasal congestion or sore throat [] Respiratory: Denies cough or shortness of breath [] Cardiovascular: No additional information not addressed in HPI [] GI: Denies abdominal pain, nausea, vomiting, bloody stools or diarrhea [] : Denies dysuria or hematuria [] Musculoskeletal: Denies back pain, joint pain [] Integument: Denies rash or skin lesions [] Neurologic: Denies headache, focal weakness or sensory changes [] Endocrine: Denies polyuria or polydipsia [] All other systems were reviewed and found to be within normal limits, except as documented in this note. Current Medications Current Medications Current Medications Medications (Trade) Dose Ordered Sig/Sebastián Start Time Stop Time Status Last Admin Dose Admin Clonidine HCl (Catapres) 0.2 mg 1X ONCE 01/17/19 12:30 01/17/19 12:31 DC 01/17/19 12:11 0.2 MG Fentanyl Citrate (Fentanyl 2ml Vial) 50 mcg 1X ONCE 01/17/19 12:30 01/17/19 12:31 DC 01/17/19 12:43 50 MCG Allergies Allergies Allergies Coded Allergies Type Severity Reaction Last Updated Verified No Known Drug Allergies 01/17/19 No Physical Exam Physical Exam Constitutional: Well nourished, mild distress, non-toxic appearance, poor hygiene, smell of urine. [] HENT: Normocephalic, atraumatic. Eyes: PERRLA, EOMI, conjunctiva normal, no discharge. [] Neck: Normal range of motion, no tenderness, supple, no stridor. [] Cardiovascular:Heart rate regular rhythm, no murmur [] Lungs & Thorax: Bilateral breath sounds clear to auscultation [] Abdomen: Bowel sounds normal, soft, no tenderness, no masses, no pulsatile masses. [] Skin: Warm, dry, no erythema, no rash. [] Back: No tenderness, no CVA tenderness. [] Extremities: Right hip without deformity or shortening, normal range of motion, no tenderness, no cyanosis, no clubbing, ROM intact, no edema. [] Neurologic: Alert and oriented X 3, normal motor function, normal sensory function, no focal deficits noted. [] Psychologic: Affect normal, judgement normal, mood normal. [] Current Patient Data Vital Signs Vital Signs Date Time Temp Pulse Resp B/P (MAP) Pulse Ox O2 Delivery O2 Flow Rate FiO2 01/17/19 14:21 80 16 178/84 (115 96 01/17/19 11:30 97.8 Room Air 97.8 EKG EKG [] Radiology/Procedures Radiology/Procedures [facility] [address] [place] [address] IMAGING REPORT Signed PATIENT: BARRY GONZALEZ ACCOUNT: [id number] : 1935 LOCATION: ER AGE: 83 SEX: F EXAM STATUS: REG ER ORD. PHYSICIAN: MAYRA PICHARDO MD REASON: right hip pain, FALL x1 month, negative x-ray PROCEDURE: CT PELVIS WO CONTRAST CT scan of the pelvis without contrast 01/17/2019 CLINICAL HISTORY: Fall last month. Right hip pain. TECHNIQUE: Unenhanced, contiguous, 0.625 mm axial sections were obtained through the pelvis and both hips. 3 mm reconstructed sagittal, axial and coronal images were obtained. One or more of the following individualized dose reduction techniques were utilized for this study: 1. Automated exposure control. 2. Adjustment of the mA and/or kV according to patient size. 3. Use of iterative reconstruction technique. FINDINGS: Comparison study is dated 12/27/2018. No pelvic bone fracture is seen. No fracture or dislocation of either hip is noted. Mild to moderate degenerative changes are seen involving both hips. Degenerative changes are seen involving the facet joints of the lower lumbar spine. Mild degenerative changes are seen involving both SI joints. Atherosclerotic calcification of the abdominal aorta and its branches is noted. Calcifications are seen within the pelvis consistent with phleboliths. Scattered diverticula are seen involving the sigmoid colon. No inflammatory changes are seen adjacent fat. IMPRESSION: No acute abnormality is seen. Electronically signed by: Mansoor Hills MD (01/17/2019 12:39 PM) [facility] DICTATED and SIGNED BY: MANSOOR HILLS MD DATE: 01/17/19 1231 Course & Med Decision Making Course & Med Decision Making Pertinent Imaging studies reviewed. (See chart for details) Evaluation of patient in ER showed 83-year-old female patient with complaining of right hip pain after fall 3 weeks ago with unremarkable physical exam and CT of the week. Patient had blood pressure of more than 200 and stated she didn't take her blood pressure medication today. Blood pressure improved with treatment in ER and patient was advised to take her medication and follow up with her primary care physician regarding hip pain. Dragon Disclaimer Dragon Disclaimer This electronic medical record was generated, in whole or in part, using a voice recognition dictation system. Departure Departure Impression: Primary Impression: Injury of hip, right Additional Impressions: Right hip pain Hypertensive urgency Disposition: 01 HOME, SELF-CARE (at 1414) Condition: IMPROVED Referrals: UNKNOWN PCP NAME (PCP) CHARITY HAYDEN II, MD Patient Instructions: Form - Blood Pressure Record Sheet, Hip Pain, How to Take Your Blood Pressure, [id number], Managing Your High Blood Pressure Additional Instructions: Take your blood pressure medication Follow-up with your primary care physician in 3-5 days Return to ER if not getting better Scripts Acetaminophen With Codeine (TYLENOL WITH CODEINE #3 TABLET) 1 Each Tablet 1 TAB PO PRN Q6HRS PRN for PAIN, #10 TAB Prov: MAYRA PICHARDO MD 01/17/19 Problem Qualifiers Primary Impression: Injury of hip, right Encounter type: subsequent encounter Qualified Codes: S79.911D - Unspecified injury of right hip, subsequent encounter MAYRA PICHARDO MD January 17, 2019 12:08
[2019-01-17] MEDS ORDERED: cloNIDine HCL 0.1 MG TABLET PO ONE (12:30)
[2019-01-17] MEDS ORDERED: fentaNYL PF VIAL 100 MCG/2 ML VIAL IV ONE (12:30)
--- NOTE | 2019-01-17 12:42 | RAD ---
CT scan of the pelvis without contrast 01/17/2019 CLINICAL HISTORY: Fall last month. Right hip pain. TECHNIQUE: Unenhanced, contiguous, 0.625 mm axial sections were obtained through the pelvis and both hips. 3 mm reconstructed sagittal, axial and coronal images were obtained. One or more of the following individualized dose reduction techniques were utilized for this study: 1. Automated exposure control. 2. Adjustment of the mA and/or kV according to patient size. 3. Use of iterative reconstruction technique. FINDINGS: Comparison study is dated 12/27/2018. No pelvic bone fracture is seen. No fracture or dislocation of either hip is noted. Mild to moderate degenerative changes are seen involving both hips. Degenerative changes are seen involving the facet joints of the lower lumbar spine. Mild degenerative changes are seen involving both SI joints. Atherosclerotic calcification of the abdominal aorta and its branches is noted. Calcifications are seen within the pelvis consistent with phleboliths. Scattered diverticula are seen involving the sigmoid colon. No inflammatory changes are seen adjacent fat. IMPRESSION: No acute abnormality is seen. Electronically signed by: Mansoor Hills MD (01/17/2019 12:39 PM) [facility] [place]
[2019-01-17 14:21] VITALS: BP 178/84
[2019-01-17] MEDS ORDERED: ACET-704 PO (14:21)
== END 2019-01-17 14:30 | disposition home or self-care (01) ==
LOC: ER 11:24
DX: S79.911D Unspecified injury of right hip, subsequent encounter (principal); M25.551 Pain in right hip; I16.0 Hypertensive urgency; I10 Essential (primary) hypertension; W18.39XD Other fall on same level, subsequent encounter
CPT/HCPCS: 72192; 96374; 99284; J3010

== ENCOUNTER 2019-01-30 14:38 | Emergency (ER) | payer OTHER ==
[~2019-01-30] VITALS: Ht 167.6 cm; Wt 72.6 kg
[~2019-01-30 14:38] MED LIST changes: +ACET-704 PO
[2019-01-30] MEDS ORDERED: CYCLOBENZAPRINE 10 MG TABLET. PO ONE (15:15)
[2019-01-30] MEDS ORDERED: fentaNYL PF VIAL 100 MCG/2 ML VIAL IV ONE (15:15)
[2019-01-30] MEDS ORDERED: LABETALOL 20 MG/4 ML DISP.SYRIN. IVP ONE (15:15)
--- NOTE | 2019-01-30 15:30 | EKG ---
[facility] [address] [place] [address] Test Date: 2019-01-30 Test Time: 15:24:31 Pat Name: BARRY GONZALEZ Department: Room: Gender: F [place]: : 1935 Requested By: KENNEDI HERCULES Order Number: [id number] Reading MD: Measurements Intervals [place] Rate: 80 P: 30 OR: 210 QRS: -9 QRSD: 94 T: -20 QT: 360 QTc: 419 Interpretive Statements SINUS RHYTHM LEFTWARD AXIS T ABNORMALITY IN INFERIOR LEADS ABNORMAL ECG RI6.01 Unconfirmed report No previous ECG available for comparison
[2019-01-30 16:23] LABS: BASO % 1 % (0-3); EOS # 0.1 x10^3/uL (0.0-0.7); EOS % 2 % (0-3); HEMATOCRIT 32.9 % (36.0-47.0); HEMOGLOBIN 10.7 g/dL (12.0-15.5); LYMPH # 1.4 x10^3/uL (1.0-4.8); LYMPH % 25 % (24-48); MEAN CORPUSCULAR HEMOGLOBIN 30 pg (25-35); MEAN CORPUSCULAR HGB CONC 33 g/dL (31-37); MEAN CORPUSCULAR VOLUME 91 fL (79-100); MONO # 0.4 x10^3/uL (0.0-1.1); MONO % 7 % (0-9); NEUT # 3.8 x10^3uL (1.8-7.7); NEUT % 65 % (31-73); PLATELET COUNT 214 x10^3/uL (140-400); RED BLOOD COUNT 3.62 x10^6/uL (3.50-5.40); RED CELL DISTRIBUTION WIDTH 14.6 % (11.5-14.5); WHITE BLOOD COUNT 5.8 x10^3/uL (4.0-11.0)
[2019-01-30 16:28] LABS: BILIRUBIN,URINE NEGATIVE (NEG); CLARITY,URINE CLOUDY; COLOR,URINE YELLOW; NITRITE,URINE NEGATIVE (NEG); PROTEIN,URINE NEGATIVE (NEG-TRACE)
[2019-01-30 16:40] LABS: BACTERIA,URINE FEW /HPF (0-FEW); RBC,URINE OCC /HPF (0-2); SQUAMOUS EPITHELIAL CELL,UR OCC /LPF
[2019-01-30 17:38] LABS: CALCIUM 9.7 mg/dL (8.5-10.1); CREATININE 0.8 mg/dL (0.6-1.0); GFR 83.1; POTASSIUM 3.8 mmol/L (3.5-5.1)
[2019-01-30 17:44] LABS: ALBUMIN 3.3 g/dL (3.4-5.0); ALBUMIN/GLOBULIN RATIO 0.9 (1.0-1.7); MAGNESIUM 1.5 mg/dL (1.8-2.4); TOTAL BILIRUBIN 0.6 mg/dL (0.2-1.0); TOTAL PROTEIN 6.9 g/dL (6.4-8.2)
[2019-01-30] MEDS ORDERED: ORPH100T PO (18:24)
[2019-01-30] MEDS ORDERED: ACET-704 PO (18:24)
--- NOTE | 2019-01-30 18:24 | PHYS DOC ---
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, no surgery Past Surgical History: Hysterectomy Alcohol Use: None Drug Use: None Adult General Chief Complaint Chief Complaint: HIP PAIN HPI HPI Patient is a 83 year old [f__sex] who presents with [] Review of Systems Review of Systems Constitutional: Denies fever or chills [] Eyes: Denies change in visual acuity, redness, or eye pain [] HENT: Denies nasal congestion or sore throat [] Respiratory: Denies cough or shortness of breath [] Cardiovascular: No additional information not addressed in HPI [] GI: Denies abdominal pain, nausea, vomiting, bloody stools or diarrhea [] : Denies dysuria or hematuria [] Musculoskeletal: Denies back pain or joint pain [] Integument: Denies rash or skin lesions [] Neurologic: Denies headache, focal weakness or sensory changes [] Endocrine: Denies polyuria or polydipsia [] All other systems were reviewed and found to be within normal limits, except as documented in this note. Current Medications Current Medications Current Medications Medications (Trade) Dose Ordered Sig/Sebastián Start Time Stop Time Status Last Admin Dose Admin Cyclobenzaprine HCl (Flexeril) 10 mg 1X ONCE 01/30/19 15:15 01/30/19 15:18 DC 01/30/19 15:46 10 MG Fentanyl Citrate (Fentanyl 2ml Vial) 50 mcg 1X ONCE 01/30/19 15:15 01/30/19 15:18 DC 01/30/19 15:53 50 MCG Labetalol HCl (Normodyne Iv Push) 10 mg 1X ONCE 01/30/19 15:15 01/30/19 15:18 DC 01/30/19 16:25 10 MG Allergies Allergies Allergies Coded Allergies Type Severity Reaction Last Updated Verified No Known Drug Allergies 01/17/19 No Physical Exam Physical Exam Constitutional: Well developed, well nourished, no acute distress, non-toxic appearance. [] HENT: Normocephalic, atraumatic, bilateral external ears normal, oropharynx moist, no oral exudates, nose normal. [] Eyes: PERRLA, EOMI, conjunctiva normal, no discharge. [] Neck: Normal range of motion, no tenderness, supple, no stridor. [] Cardiovascular:Heart rate regular rhythm, no murmur [] Lungs & Thorax: Bilateral breath sounds clear to auscultation [] Abdomen: Bowel sounds normal, soft, no tenderness, no masses, no pulsatile masses. [] Skin: Warm, dry, no erythema, no rash. [] Back: No tenderness, no CVA tenderness. [] Extremities: No tenderness, no cyanosis, no clubbing, ROM intact, no edema. [] Neurologic: Alert and oriented X 3, normal motor function, normal sensory function, no focal deficits noted. [] Psychologic: Affect normal, judgement normal, mood normal. [] Current Patient Data Vital Signs Vital Signs Date Time Temp Pulse Resp B/P (MAP) Pulse Ox O2 Delivery O2 Flow Rate FiO2 01/30/19 16:25 83 253/131 01/30/19 15:05 98.4 18 97 Room Air 98.4 Lab Values Laboratory Tests Test 01/30/19 15:45 01/30/19 16:20 01/30/19 17:05 White Blood Count 5.8 x10^3/uL (4.0-11.0) Red Blood Count 3.62 x10^6/uL (3.50-5.40) Hemoglobin 10.7 g/dL (12.0-15.5) L Hematocrit 32.9 % (36.0-47.0) L Mean Corpuscular Volume 91 fL (79-100) Mean Corpuscular Hemoglobin 30 pg (25-35) Mean Corpuscular Hemoglobin Concent 33 g/dL (31-37) Red Cell Distribution Width 14.6 % (11.5-14.5) H Platelet Count 214 x10^3/uL (140-400) Neutrophils (%) (Auto) 65 % (31-73) Lymphocytes (%) (Auto) 25 % (24-48) Monocytes (%) (Auto) 7 % (0-9) Eosinophils (%) (Auto) 2 % (0-3) Basophils (%) (Auto) 1 % (0-3) Neutrophils # (Auto) 3.8 x10^3uL (1.8-7.7) Lymphocytes # (Auto) 1.4 x10^3/uL (1.0-4.8) Monocytes # (Auto) 0.4 x10^3/uL (0.0-1.1) Eosinophils # (Auto) 0.1 x10^3/uL (0.0-0.7) Basophils # (Auto) 0.0 x10^3/uL (0.0-0.2) Urine Color Yellow Urine Clarity Cloudy Urine pH 7.0 Urine Specific [place] 1.020 Urine Protein Negative mg/dL (NEG-TRACE) Urine Glucose (UA) Negative mg/dL (NEG) Urine Ketones (Stick) Negative mg/dL (NEG) Urine Blood Negative (NEG) Urine Nitrite Negative (NEG) Urine Bilirubin Negative (NEG) Urine Urobilinogen Dipstick 1.0 mg/dL (0.2 mg/dL) Urine Leukocyte Esterase Small (NEG) Urine RBC Occ /HPF (0-2) Urine WBC 1-4 /HPF (0-4) Urine Squamous Epithelial Cells Occ /LPF Urine Bacteria Few /HPF (0-FEW) Urine Mucus Slight /LPF Sodium Level 141 mmol/L (136-145) Potassium Level 3.8 mmol/L (3.5-5.1) Chloride Level 105 mmol/L (98-107) Carbon Dioxide Level 24 mmol/L (21-32) Anion Gap 12 (6-14) Blood Urea Nitrogen 13 mg/dL (7-20) Creatinine 0.8 mg/dL (0.6-1.0) Estimated GFR (Cockcroft-Gault) 83.1 BUN/Creatinine Ratio 16 (6-20) Glucose Level 149 mg/dL (70-99) H Calcium Level 9.7 mg/dL (8.5-10.1) Magnesium Level 1.5 mg/dL (1.8-2.4) L Total Bilirubin 0.6 mg/dL (0.2-1.0) Aspartate Amino Transferase (AST) 15 U/L (15-37) Alanine Aminotransferase (ALT) 12 U/L (14-59) L Alkaline Phosphatase 62 U/L (46-116) Creatine Kinase 93 U/L (26-192) Creatine Kinase MB (Mass) 1.1 ng/mL (0.0-3.6) Creatine Kinase MB Relative Index 1.2 % (0-4) Troponin I Quantitative 0.022 ng/mL (0.000-0.055) Total Protein 6.9 g/dL (6.4-8.2) Albumin 3.3 g/dL (3.4-5.0) L Albumin/Globulin Ratio 0.9 (1.0-1.7) L Laboratory Tests 01/30/19 15:45 Laboratory Tests 01/30/19 17:05 EKG EKG @1524 NSR at 80bpm, NO ST elevation, t wave inversion III Radiology/Procedures Radiology/Procedures [] Course & Med Decision Making Course & Med Decision Making Pertinent Labs and Imaging studies reviewed. (See chart for details) [] Dragon Disclaimer Dragon Disclaimer This electronic medical record was generated, in whole or in part, using a voice recognition dictation system. Departure Departure Impression: Primary Impression: Back pain Additional Impressions: Hip pain Hypertension Disposition: HOME, SELF-CARE Condition: STABLE Referrals: LUPE SCHAEFER MD (PCP) GREGORIO FERRO MD Patient Instructions: Back Pain, Adult, [id number], Hip Pain, Hypertension, [id number] Scripts Acetaminophen With Codeine (TYLENOL WITH CODEINE #3 TABLET) 1 Each Tablet 1 TAB PO PRN Q6HRS PRN for PAIN, #14 TAB Prov: KENNEDI HERCULES DO 01/30/19 Orphenadrine Citrate (ORPHENADRINE CITRATE) 100 Mg Tablet.er 100 MG PO BID PRN for MUSCLE PAIN, #14 Prov: KENNEDI HERCULES DO 01/30/19 Problem Qualifiers Primary Impression: Back pain Back pain location: low back pain Chronicity: acute Back pain laterality: right Sciatica presence: with sciatica Sciatica laterality: sciatica of right side Qualified Codes: M54.41 - Lumbago with sciatica, right side Additional Impressions: Hip pain Laterality: right Qualified Codes: M25.551 - Pain in right hip Hypertension Hypertension type: unspecified Qualified Codes: I10 - Essential (primary) hypertension KENNEDI HERCULES DO January 30, 2019 18:24
[2019-01-30 18:34] VITALS: BP 188/98
== END 2019-01-30 18:36 | disposition home or self-care (01) ==
LOC: ER 14:38
DX: M25.551 Pain in right hip (principal); M54.41 Lumbago with sciatica, right side; I10 Essential (primary) hypertension
CPT/HCPCS: 36415; 80053; 81001; 82553; 83735; 84484; 85025; 87086; 93005; 96374; 96375; 99285; J3010; J3490

== ENCOUNTER 2019-07-19 12:54 | Emergency (ER) | payer OTHER ==
[~2019-07-19] VITALS: Ht 165.1 cm; Wt 72.6 kg
[~2019-07-19 12:54] MED LIST changes: -GLIM4TAB2 PO; +GLIM4TAB4 PO; +ORPH100T PO
--- NOTE | 2019-07-19 13:29 | PHYS DOC ---
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 She states she's had a headache for a couple of days and presents to the emergency department for treatment. She states that she has had similar headaches numerous times in the past, and gets such headaches "frequently". She denies any vision changes, numbness, weakness, chest pain, shortness of breath, dizziness, or lightheadedness. She has not had any fevers, chills, or neck pain. She has a history of hypertension and her blood pressure is noted to be elevated. She states she is uncertain of what blood pressure medications she t akes, but states that she had been taking them until today when she has not taken any medication today. There are no alleviating or exacerbating factors to her symptoms. Review of Systems Review of Systems Constitutional: Denies fever or chills [] Eyes: Denies change in visual acuity, redness, or eye pain [] HENT: Denies nasal congestion or sore throat [] Respiratory: Denies cough or shortness of breath [] Cardiovascular: The patient denies any shortness of breath, chest pain, palpitations, or orthopnea [] GI: Denies abdominal pain, nausea, vomiting, bloody stools or diarrhea [] : Denies dysuria or hematuria [] Musculoskeletal: Denies back pain or joint pain [] Integument: Denies rash or skin lesions [] Neurologic: Denies focal weakness or sensory changes [] Endocrine: Denies polyuria or polydipsia [] All other systems were reviewed and found to be within normal limits, except as documented in this note. Current Medications Current Medications Current Medications Medications (Trade) Dose Ordered Sig/Sebastián Start Time Stop Time Status Last Admin Dose Admin Acetaminophen (Tylenol) 1,000 mg 1X ONCE 07/19/19 13:30 07/19/19 13:31 DC 07/19/19 13:59 1,000 MG Clonidine HCl (Catapres) 0.1 mg 1X ONCE 07/19/19 13:30 07/19/19 13:31 DC 07/19/19 13:59 0.1 MG Labetalol HCl (Normodyne Iv Push) 40 mg 1X ONCE 07/19/19 15:45 07/19/19 15:46 DC 07/19/19 15:41 40 MG Allergies Allergies Allergies Coded Allergies Type Severity Reaction Last Updated Verified No Known Drug Allergies 01/17/19 No Physical Exam Physical Exam PHYSICAL EXAM: CONSTITUTIONAL: Well developed, well nourished HEAD: normocephalic, atraumatic. Temporal arteries are palpable bilaterally and nontender. EENT: PERRL, EOMI. Conjunctivae normal color, sclerae non-icteric; moist mucous membranes. NECK: Supple, non-tender; no meningismus. LUNGS: Lungs CTA, breathing even and unlabored. Normal air movement. HEART: Regular rate and rhythm, no murmur CHEST: No deformity; non-tender ABDOMEN: The abdomen is soft, and non-tender, no masses or bruits. EXTREM: Normal ROM; no deformity, no calf tenderness. Normal pulses palpable in all extremities. There is no pedal edema. SKIN: No rash; no diaphoresis NEURO: Alert; normal speech and cognition; CN's grossly intact; strength grossly intact without focal deficit. There is no cerebellar deficit. BACK: No CVA TTP. Current Patient Data Vital Signs Vital Signs Date Time Temp Pulse Resp B/P (MAP) Pulse Ox O2 Delivery O2 Flow Rate FiO2 07/19/19 15:41 65 196/103 07/19/19 15:07 15 95 07/19/19 13:00 98.1 Room Air 98.1 Lab Values Laboratory Tests Test 07/19/19 13:50 White Blood Count 6.6 x10^3/uL (4.0-11.0) Red Blood Count 3.81 x10^6/uL (3.50-5.40) Hemoglobin 11.2 g/dL (12.0-15.5) L Hematocrit 34.9 % (36.0-47.0) L Mean Corpuscular Volume 92 fL (79-100) Mean Corpuscular Hemoglobin 30 pg (25-35) Mean Corpuscular Hemoglobin Concent 32 g/dL (31-37) Red Cell Distribution Width 14.8 % (11.5-14.5) H Platelet Count 228 x10^3/uL (140-400) Neutrophils (%) (Auto) 65 % (31-73) Lymphocytes (%) (Auto) 25 % (24-48) Monocytes (%) (Auto) 7 % (0-9) Eosinophils (%) (Auto) 2 % (0-3) Basophils (%) (Auto) 1 % (0-3) Neutrophils # (Auto) 4.3 x10^3/uL (1.8-7.7) Lymphocytes # (Auto) 1.6 x10^3/uL (1.0-4.8) Monocytes # (Auto) 0.4 x10^3/uL (0.0-1.1) Eosinophils # (Auto) 0.2 x10^3/uL (0.0-0.7) Basophils # (Auto) 0.1 x10^3/uL (0.0-0.2) Erythrocyte Sedimentation Rate 41 (0-25) H Prothrombin Time 12.7 SEC (11.7-14.0) Prothrombin Time INR 1.0 (0.8-1.1) Sodium Level 142 mmol/L (136-145) Potassium Level 4.4 mmol/L (3.5-5.1) Chloride Level 106 mmol/L (98-107) Carbon Dioxide Level 28 mmol/L (21-32) Anion Gap 8 (6-14) Blood Urea Nitrogen 18 mg/dL (7-20) Creatinine 1.0 mg/dL (0.6-1.0) Estimated GFR (Cockcroft-Gault) 64.2 BUN/Creatinine Ratio 18 (6-20) Glucose Level 145 mg/dL (70-99) H Calcium Level 9.5 mg/dL (8.5-10.1) Total Bilirubin 0.5 mg/dL (0.2-1.0) Aspartate Amino Transferase (AST) 21 U/L (15-37) Alanine Aminotransferase (ALT) 11 U/L (14-59) L Alkaline Phosphatase 88 U/L (46-116) Troponin I Quantitative < 0.017 ng/mL (0.000-0.055) C-Reactive Protein, Quantitative 6.7 mg/L (0-3.3) H Total Protein 8.1 g/dL (6.4-8.2) Albumin 3.4 g/dL (3.4-5.0) Albumin/Globulin Ratio 0.7 (1.0-1.7) L Laboratory Tests 07/19/19 13:50 Laboratory Tests 07/19/19 13:50 EKG EKG Normal sinus rhythm at a rate of 60 beats for minute, left axis deviation, first-degree AV block with otherwise normal intervals, left ventricular hypertrophy, nonspecific ST/T changes.[] Radiology/Procedures Radiology/Procedures PROCEDURE: CT HEAD WO CONTRAST CT HEAD WO CONTRAST Indication: Headaches, worse today. Exposure: One or more of the following individualized dose reduction techniques were utilized for this examination: 1. Automated exposure control 2. Adjustment of the mA and/or kV according to patient size 3. Use of iterative reconstruction technique. Technique: Standard imaging without intravenous contrast. Comparison: 04/27/2018 No acute intracranial hemorrhage, mass effect, midline shift or abnormal extra-axial fluid collection. Enlargement of ventricles and sulci compatible with atrophy is again seen. Low-density in the white matter bilaterally, a nonspecific finding, but which is commonly due to chronic small vessel ischemic disease in a patient of this age. Orbits appear unremarkable. No significant scalp swelling. Partially visualized sinuses are essentially clear. Mastoids and auditory canals are grossly clear. No evidence of acute skull abnormality. IMPRESSION: 1. No evidence of acute intracranial hemorrhage. 2. Chronic findings as discussed above.[] Course & Med Decision Making Course & Med Decision Making Pertinent Labs and Imaging studies reviewed. (See chart for details) []2:45 PM: The patient's condition remains stable. She is feeling significantly better at this time. Her headache has improved. I discussed importance of close follow-up, compliance with her blood pressure medication, and return precautions in detail. 3:50 PM: The patient's condition remains stable. She is feeling somewhat better. I do not think she has temporal arteritis, she has no temporal artery tenderness, and her sedimentation rate is too low. She will be given a short course of steroids and I discussed importance of close PCP follow-up for further evaluation and return precautions. The patient states she did not take her blood pressure medication today. However she states she knows where it is at home and has an adequate supply. I stressed importance of compliance including taking her blood pressure medication upon returning home. Dragon Disclaimer Dragon Disclaimer This electronic medical record was generated, in whole or in part, using a voice recognition dictation system. Departure Departure Impression: Primary Impression: Headache Additional Impression: Hypertension Disposition: HOME, SELF-CARE Condition: STABLE Referrals: LUPE SCHAEFER MD (PCP) Patient Instructions: General Headache Without Cause, Hypertension Scripts Prednisone (PREDNISONE) 20 Mg Tablet 40 MG PO DAILY for 5 Days, #10 TAB Prov: YUDI LOPEZ MD 07/19/19 Problem Qualifiers YUDI LOPEZ MD Jul 19, 2019 13:29
[2019-07-19] MEDS ORDERED: cloNIDine HCL 0.1 MG TABLET PO ONE (13:30)
[2019-07-19] MEDS ORDERED: ACETAMINOPHEN 500 MG TABLET PO ONE (13:30)
[2019-07-19 14:00] LABS: BASO # 0.1 x10^3/uL (0.0-0.2); BASO % 1 % (0-3); EOS # 0.2 x10^3/uL (0.0-0.7); EOS % 2 % (0-3); HEMATOCRIT 34.9 % (36.0-47.0); HEMOGLOBIN 11.2 g/dL (12.0-15.5); LYMPH # 1.6 x10^3/uL (1.0-4.8); LYMPH % 25 % (24-48); MEAN CORPUSCULAR HEMOGLOBIN 30 pg (25-35); MEAN CORPUSCULAR HGB CONC 32 g/dL (31-37); MEAN CORPUSCULAR VOLUME 92 fL (79-100); MONO # 0.4 x10^3/uL (0.0-1.1); MONO % 7 % (0-9); NEUT # 4.3 x10^3/uL (1.8-7.7); NEUT % 65 % (31-73); PLATELET COUNT 228 x10^3/uL (140-400); RED BLOOD COUNT 3.81 x10^6/uL (3.50-5.40); RED CELL DISTRIBUTION WIDTH 14.8 % (11.5-14.5); WHITE BLOOD COUNT 6.6 x10^3/uL (4.0-11.0)
[2019-07-19 14:11] LABS: CALCIUM 9.5 mg/dL (8.5-10.1); GFR 64.2; POTASSIUM 4.4 mmol/L (3.5-5.1)
[2019-07-19 14:13] LABS: PROTHROMBIN TIME PATIENT 12.7 SEC (11.7-14.0)
--- NOTE | 2019-07-19 14:15 | RAD ---
CT HEAD WO CONTRAST Indication: Headaches, worse today. Exposure: One or more of the following individualized dose reduction techniques were utilized for this examination: 1. Automated exposure control 2. Adjustment of the mA and/or kV according to patient size 3. Use of iterative reconstruction technique. Technique: Standard imaging without intravenous contrast. Comparison: 04/27/2018 No acute intracranial hemorrhage, mass effect, midline shift or abnormal extra-axial fluid collection. Enlargement of ventricles and sulci compatible with atrophy is again seen. Low-density in the white matter bilaterally, a nonspecific finding, but which is commonly due to chronic small vessel ischemic disease in a patient of this age. Orbits appear unremarkable. No significant scalp swelling. Partially visualized sinuses are essentially clear. Mastoids and auditory canals are grossly clear. No evidence of acute skull abnormality. IMPRESSION: 1. No evidence of acute intracranial hemorrhage. 2. Chronic findings as discussed above. Electronically signed by: Efraín Joe MD (07/19/2019 2:12 PM) [facility]
[2019-07-19 14:17] LABS: ALBUMIN 3.4 g/dL (3.4-5.0); ALBUMIN/GLOBULIN RATIO 0.7 (1.0-1.7); C-REACTIVE PROTEIN 6.7 mg/L (0-3.3); TOTAL BILIRUBIN 0.5 mg/dL (0.2-1.0); TOTAL PROTEIN 8.1 g/dL (6.4-8.2)
--- NOTE | 2019-07-19 14:37 | EKG ---
[facility] [address] [place] [address] Test Date: 2019-07-19 Test Time: 13:48:20 Pat Name: BARRY GONZALEZ Department: Room: Gender: F Newsagent: : 1935 Requested By: YUDI LOPEZ Order Number: [id number] Reading MD: Measurements Intervals Rutledge Rate: 60 P: 35 IA: 224 QRS: -8 QRSD: 96 T: -15 QT: 404 QTc: 408 Interpretive Statements SINUS RHYTHM PROLONGED IA INTERVAL LEFTWARD AXIS QRS(T) CONTOUR ABNORMALITY CONSIDER ANTEROSEPTAL MYOCARDIAL DAMAGE T ABNORMALITY IN INFERIOR LEADS ABNORMAL ECG RI6.01 No previous ECG available for comparison
[2019-07-19] MEDS ORDERED: LABETALOL 20 MG/4 ML DISP.SYRIN. IVP ONE ×2 (14:45→15:45)
[2019-07-19] MEDS ORDERED: PRED20TA PO (15:52)
[2019-07-19 15:57] VITALS: BP 161/92
[2019-07-20] MEDS ORDERED: AMLO10TA8 PO (09:43)
[2019-07-20] MEDS ORDERED: CHLO25TA10 PO (09:43)
[2019-07-20] MEDS ORDERED: POTA20TA82 PO (09:43)
[2019-07-20] MEDS ORDERED: LOSA-73 PO ×2 (09:43→09:58)
[2019-07-20] MEDS ORDERED: ACET500T68 PO (09:43)
[2019-07-20] MEDS ORDERED: HYDR-2869 PO (09:43)
[2019-07-24] MEDS ORDERED: DONE10TA61 PO (17:26)
== END 2019-07-19 16:00 | disposition home or self-care (01) ==
LOC: ER 12:54
DX: R51 Headache (principal); I10 Essential (primary) hypertension
CPT/HCPCS: 99285; J3490; 36415; 70450; 80053; 84484; 85025; 85610; 85651; 86140; 93005; 96374; 96376

== ENCOUNTER 2019-07-25 01:37 | Emergency (ER) | payer OTHER ==
[~2019-07-25] VITALS: Ht 162.6 cm; Wt 68.0 kg
[~2019-07-25 01:37] MED LIST changes: +ACET500T68 PO; +AMLO10TA8 PO; +CHLO25TA10 PO; +DONE10TA61 PO; +HYDR-2869 PO; +POTA20TA82 PO; +PRED20TA PO
[2019-07-25] MEDS ORDERED: HYDROcodone/APAP 5/325MG 1 TAB TABLET PO ONE (02:15)
--- NOTE | 2019-07-25 02:51 | RAD ---
THORACOLUMBAR 2V History: Back pain Technique: 2 views thoracic lumbar spine. Comparison: December 27, 2018. Findings: Mild leftward curvature of the lumbar spine. Grade 1 anterolisthesis L4 on L5, unchanged. Advanced multilevel degenerative disc changes and facet arthropathy. Chronic T11 and T12 anterior vertebral body wedging, unchanged. No acute fracture. Impression: 1. Advanced multilevel thoracal lumbar spondylosis. 2. Grade 1 anterolisthesis L4 on L5, unchanged. Electronically signed by: Jay Jay Islas DO (07/25/2019 2:48 AM) [facility]
[2019-07-25 02:54] VITALS: BP 167/81
[2019-07-25] MEDS ORDERED: HYDR-2163 PO (02:58)
--- NOTE | 2019-07-25 03:12 | PHYS DOC ---
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 Symptom onset was earlier this evening. Patient has history of chronic intermittent back pain hypertension and anal cancer. She recently enrolled in hospice. Denies trauma or repetitive strain injury. Pain does reproduce with palpation and movement. Pain is rated moderate. [] Review of Systems Review of Systems Review symptoms as per history of present illness. All other review symptoms are negative. All other systems were reviewed and found to be within normal limits, except as documented in this note. Current Medications Current Medications Current Medications Medications (Trade) Dose Ordered Sig/Sebastián Start Time Stop Time Status Last Admin Dose Admin Acetaminophen/ Hydrocodone Bitart (Lortab 5/325) 1 tab 1X ONCE 07/25/19 02:15 07/25/19 02:16 DC 07/25/19 02:20 1 TAB Allergies Allergies Allergies Coded Allergies Type Severity Reaction Last Updated Verified No Known Drug Allergies 01/17/19 No Physical Exam Physical Exam Constitutional: Well developed, well nourished, no acute distress, non-toxic appearance. [] HENT: Normocephalic, atraumatic, bilateral external ears normal, oropharynx moist, nose normal. [] Eyes: PERRLA, EOMI, conjunctiva normal. [] Neck: Normal range of motion, no tenderness. [] Cardiovascular:Heart rate regular rhythm, no murmur. [] Lungs & Thorax: Bilateral breath sounds clear to auscultation [] Abdomen: Bowel sounds normal, soft, no tenderness, no masses, no pulsatile masses. [] Back: Lower thoracic pain, tenderness to palpation, no CVA tenderness. [] Neurologic: Alert and oriented X 3, normal motor function, normal sensory function, no focal deficits noted. [] Psychologic: Affect normal, judgement normal, mood normal. [] Current Patient Data Vital Signs Vital Signs Date Time Temp Pulse Resp B/P (MAP) Pulse Ox O2 Delivery O2 Flow Rate FiO2 07/25/19 01:42 98.5 67 18 152/92 (112) 96 Room Air 98.5 EKG EKG [] Radiology/Procedures Radiology/Procedures Thoraco-lumbar x-ray: No acute disease per radiology report] Course & Med Decision Making Course & Med Decision Making Pertinent Labs and Imaging studies reviewed. (See chart for details) [Mechanical back pain improved with tx. No acute xr findings. No neuro deficits. Recommendations are supportive care with hospice follow-up] Ailyn Disclaimer Dragon Disclaimer This electronic medical record was generated, in whole or in part, using a voice recognition dictation system. Departure Departure Impression: Primary Impression: Thoracolumbar back pain Disposition: HOME/RESIDENCE PRIOR TO ADM Condition: GOOD Patient Instructions: Back Pain, Adult, [id number] Additional Instructions: Please take medications as directed and follow up with your PCP and hospice provider. Scripts Hydrocodone Bit/Acetaminophen (HYDROCODONE-APAP 5-300) 1 Each Tablet 1 TAB PO PRN TID PRN for pain MDD 3 Tablet(s) for 5 Days, #15 TAB 0 Refills Prov: LELAND SCHAEFER DO 07/25/19 LELAND SCHAEFER DO Jul 25, 2019 03:12
== END 2019-07-25 03:05 | disposition home or self-care (01) ==
LOC: ER 01:37
DX: M54.5 Low back pain (principal); M54.6 Pain in thoracic spine; G89.29 Other chronic pain; I10 Essential (primary) hypertension; E11.9 Type 2 diabetes mellitus without complications; Z90.710 Acquired absence of both cervix and uterus; Z95.0 Presence of cardiac pacemaker
CPT/HCPCS: 72080; 99284

== ENCOUNTER 2019-07-30 06:26 | Inpatient (IN) | payer MEDICARE, OTHER ==
[~2019-07-30] VITALS: Ht 162.6 cm; Wt 68.0 kg
[~2019-07-30 06:26] MED LIST changes: +HYDR-2163 PO
[2019-07-30] MEDS ORDERED: IV NORMAL SALINE 1000ML BAG 1,000 ML IV ONE (06:45)
[2019-07-30 07:06] LABS: BASO % 1 % (0-3); EOS % 1 % (0-3); HEMATOCRIT 31.6 % (36.0-47.0); HEMOGLOBIN 10.1 g/dL (12.0-15.5); LYMPH % 12 % (24-48); MEAN CORPUSCULAR HEMOGLOBIN 29 pg (25-35); MEAN CORPUSCULAR HGB CONC 32 g/dL (31-37); MEAN CORPUSCULAR VOLUME 91 fL (79-100); MONO # 0.7 x10^3/uL (0.0-1.1); MONO % 8 % (0-9); NEUT # 6.5 x10^3/uL (1.8-7.7); NEUT % 79 % (31-73); PLATELET COUNT 357 x10^3/uL (140-400); RED BLOOD COUNT 3.48 x10^6/uL (3.50-5.40); RED CELL DISTRIBUTION WIDTH 14.4 % (11.5-14.5); WHITE BLOOD COUNT 8.2 x10^3/uL (4.0-11.0)
--- NOTE | 2019-07-30 07:19 | PHYS DOC ---
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 Patient lives at home with her daughter had several recent emergency room visits and hospitalization including 5 days admission for altered level of consciousness. Patient able to give history and family member stated that she is dehydrated because she is not eating and drinking and her blood sugar was high. EMS reported blood sugar was 225 that according to family member it is her usual blood sugar. Review of Systems Review of Systems Unable to obtain because of advanced dementia Current Medications Current Medications Current Medications Medications (Trade) Dose Ordered Sig/Sebastián Start Time Stop Time Status Last Admin Dose Admin Sodium Chloride 1,000 ml @ 125 mls/hr 1X ONCE 07/30/19 06:45 07/30/19 14:44 DC 07/30/19 07:08 125 MLS/HR Allergies Allergies Allergies Coded Allergies Type Severity Reaction Last Updated Verified No Known Drug Allergies 01/17/19 No Physical Exam Physical Exam Constitutional: Patient keeps her eyes closed, no distress, non-toxic appearance. [] HENT: Normocephalic, atraumatic. Eyes: Does not open her eyes Neck: Normal range of motion, no tenderness, supple, no stridor. [] Cardiovascular:Heart rate regular rhythm, no murmur [] Lungs & Thorax: Bilateral breath sounds clear to auscultation [] Abdomen: Bowel sounds normal, soft, no tenderness, no masses, no pulsatile masses. [] Skin: Warm, dry, no erythema, no rash. [] Extremities: Moves all extremities Neurologic: awake but closing her eyes Psychologic: unable to evaluate Current Patient Data Vital Signs Vital Signs Date Time Temp Pulse Resp B/P (MAP) Pulse Ox O2 Delivery O2 Flow Rate FiO2 07/30/19 07:30 62 18 96 07/30/19 06:27 98.3 127/73 (91) Room Air 98.3 Lab Values Laboratory Tests Test 07/30/19 06:50 White Blood Count 8.2 x10^3/uL (4.0-11.0) Red Blood Count 3.48 x10^6/uL (3.50-5.40) L Hemoglobin 10.1 g/dL (12.0-15.5) L Hematocrit 31.6 % (36.0-47.0) L Mean Corpuscular Volume 91 fL (79-100) Mean Corpuscular Hemoglobin 29 pg (25-35) Mean Corpuscular Hemoglobin Concent 32 g/dL (31-37) Red Cell Distribution Width 14.4 % (11.5-14.5) Platelet Count 357 x10^3/uL (140-400) Neutrophils (%) (Auto) 79 % (31-73) H Lymphocytes (%) (Auto) 12 % (24-48) L Monocytes (%) (Auto) 8 % (0-9) Eosinophils (%) (Auto) 1 % (0-3) Basophils (%) (Auto) 1 % (0-3) Neutrophils # (Auto) 6.5 x10^3/uL (1.8-7.7) Lymphocytes # (Auto) 1.0 x10^3/uL (1.0-4.8) Monocytes # (Auto) 0.7 x10^3/uL (0.0-1.1) Eosinophils # (Auto) 0.0 x10^3/uL (0.0-0.7) Basophils # (Auto) 0.0 x10^3/uL (0.0-0.2) Laboratory Tests 07/30/19 06:50 EKG EKG [] Radiology/Procedures Radiology/Procedures [] Course & Med Decision Making Course & Med Decision Making Pertinent Labs reviewed. (See chart for details) Evaluation of patient in ER showed 83-year-old male patient with history of advanced dementia who lives at home brought in by EMS because of altered level of consciousness and not eating and drinking. Patient started on IV fluids. Family member requesting admission for retirement placement. Patient requiring admission for further evaluation and treatment. Discussed with Dr. Morrow agreed with admission. Discussed findings and plan with patient and family, who acknowledge understanding and agreement. Dragon Disclaimer Dragon Disclaimer This electronic medical record was generated, in whole or in part, using a voice recognition dictation system. Departure Departure Impression: Primary Impression: Generalized weakness Additional Impressions: Advanced dementia Chronic anemia Renal insufficiency Disposition: ADMITTED INPATIENT (at 0801) Admitting Physician: MAURICIO (Dr. Morrow accepted admission at 0800) Condition: IMPROVED Referrals: LUPE SCHAEFER MD (PCP) Problem Qualifiers MAYRA PICHARDO MD Jul 30, 2019 07:18
[2019-07-30] MEDS: IV NORMAL SALINE 1000ML BAG 1,000 ML IV SCH ×4 (08:06→21:19)
[2019-07-30 09:32] LABS: POTASSIUM 4.5 mmol/L (3.5-5.1)
[2019-07-30 09:33] LABS: CREATININE 1.3 mg/dL (0.6-1.0); GFR 47.5
[2019-07-30 09:42] LABS: MAGNESIUM 1.8 mg/dL (1.8-2.4)
[2019-07-30 09:47] VITALS: BP 137/80
--- NOTE | 2019-07-30 11:02 | PDOC1 ---
History and Physical Date of Admission Date of Admission DATE: 07/30/19 TIME: 11:02 Identification/Chief Complaint Chief Complaint seen in er , 83 year old female with history of hypertension, diabetes mellitus and advanced dementia on hospice care who presents via EMS with complaint of confusion not eating and drinking. Patient lives at home with her daughter had several recent emergency room visits and hospitalization including 5 days admission for altered level of consciousness. Patient able to give history and family member stated that she is dehydrated family member stated that she is dehydrated because she is not eating and drinking and her blood sugar was high. EMS reported blood sugar was 225 that according to family member it is her usual blood sugar. 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 PAST SURGICAL HISTORY: Pacemaker, hysterectomy. FAMILY HISTORY: As per HPI. ALLERGIES: No known drug allergies. SOCIAL HISTORY: Lives with her son at home. Denies smoking, ETOH, or illicit drug use. Family History: Diabetes Social History Smoke: No ALCOHOL: none Drugs: None Current Problem List Problem List Problems Medical Problems: (1) Advanced dementia Status: Acute (2) Chronic anemia Status: Acute (3) Generalized weakness Status: Acute Current Medications Current Medications Current Medications Sodium Chloride 1,000 ml @ 125 mls/hr 1X ONCE IV Last administered on 07/30/19at 07:08; Start 07/30/19 at 06:45; Stop 07/30/19 at 14:44 Sodium Chloride 1,000 ml @ 125 mls/hr Q8H IV ; Start 07/30/19 at 08:06; Stop 07/31/19 at 08:05 Active Scripts Active Hydrocodone-Apap 5-300 (Hydrocodone Bit/Acetaminophen) 1 Each Tablet 1 Tab PO PRN TID PRN MDD 3 Tablet(s) 5 Days Reported Aricept (Donepezil Hcl) 10 Mg Tablet 10 Mg PO DAILY Losartan Potassium 50 Mg Tablet 50 Mg PO DAILY Potassium Chloride 20 Meq Tablet.er 1 Tab PO DAILY 30 Days Losartan Potassium 50 Mg Tablet 50 Mg PO DAILY Hydralazine Hcl 50 Mg Tablet 1 Tab PO TID Chlorthalidone (Chlorthalidone) 25 Mg Tablet 25 Mg PO DAILY Amlodipine Besylate 10 Mg Tablet 10 Mg PO DAILY Acetaminophen 500 Mg Tablet 2 Tab PO PRN Q6HRS PRN 15 Days Metoprolol Succinate ( Xl ) (Metoprolol Succinate) 200 Mg Tab.er.24h 1 Tab PO IN THE MORNING Glimepiride 4 Mg Tablet 1 Tab PO DAILY Allergies Allergies: Coded Allergies: No Known Drug Allergies (Unverified , 01/17/19) ROS Review of System unable to review due to AMS General: YES: Fatigue PSYCHOLOGICAL ROS: YES: Disorientation ALLERGY AND IMMUNOLOGY: No: Hives, Insect Bite Sensitivity, Itchy/Watery Eyes, Nasal Congestion, Post Nasal Drip, Seasonal Allergies, Other Neurological: Yes Confusion, Yes Gait Disturbance, Yes Memory Loss Physical Exam Physical Exam Neck: Normal range of motion, no tenderness, supple, no stridor. [] FEW TEETH REMAIN Cardiovascular:Heart rate regular rhythm, no murmur [] Lungs & Thorax: Bilateral breath sounds clear to auscultation [] Abdomen: Bowel sounds normal, soft, no tenderness, no masses, no pulsatile masses. [] Skin: Warm, dry, no erythema, no rash. [] Extremities: Moves all extremities Neurologic: awake but closing her eyes, SEEMS MORE AWAKE NOW IN NAD Psychologic: unable to evaluate General: Cooperative, No acute distress HEENT: Atraumatic, Mucous membr. moist/pink Lungs: Clear to auscultation, Normal air movement Heart: RRR Breasts: Not examined Abdomen: Soft Rectal Exam: not examined PELVIC: Examination not indicated Extremities: No cyanosis Neuro: Normal speech, Cranial nerves 3-12 NL Vitals Vitals Vital Signs Date Time Temp Pulse Resp B/P (MAP) Pulse Ox O2 Delivery O2 Flow Rate FiO2 07/30/19 09:47 98.2 68 18 137/80 (99) 97 Room Air 98.2 Labs Labs Laboratory Tests Test 07/30/19 06:50 07/30/19 08:33 07/30/19 08:35 White Blood Count 8.2 x10^3/uL (4.0-11.0) Red Blood Count 3.48 x10^6/uL (3.50-5.40) Hemoglobin 10.1 g/dL (12.0-15.5) Hematocrit 31.6 % (36.0-47.0) Mean Corpuscular Volume 91 fL (79-100) Mean Corpuscular Hemoglobin 29 pg (25-35) Mean Corpuscular Hemoglobin Concent 32 g/dL (31-37) Red Cell Distribution Width 14.4 % (11.5-14.5) Platelet Count 357 x10^3/uL (140-400) Neutrophils (%) (Auto) 79 % (31-73) Lymphocytes (%) (Auto) 12 % (24-48) Monocytes (%) (Auto) 8 % (0-9) Eosinophils (%) (Auto) 1 % (0-3) Basophils (%) (Auto) 1 % (0-3) Neutrophils # (Auto) 6.5 x10^3/uL (1.8-7.7) Lymphocytes # (Auto) 1.0 x10^3/uL (1.0-4.8) Monocytes # (Auto) 0.7 x10^3/uL (0.0-1.1) Eosinophils # (Auto) 0.0 x10^3/uL (0.0-0.7) Basophils # (Auto) 0.0 x10^3/uL (0.0-0.2) DM-Inn-T-Type Natriuretic Peptide 393 pg/mL (0-449) Sodium Level 138 mmol/L (136-145) Potassium Level 4.5 mmol/L (3.5-5.1) Chloride Level 102 mmol/L (98-107) Carbon Dioxide Level 25 mmol/L (21-32) Anion Gap 11 (6-14) Blood Urea Nitrogen 30 mg/dL (7-20) Creatinine 1.3 mg/dL (0.6-1.0) Estimated GFR (Cockcroft-Gault) 47.5 Glucose Level 154 mg/dL (70-99) Calcium Level 10.0 mg/dL (8.5-10.1) Magnesium Level 1.8 mg/dL (1.8-2.4) Laboratory Tests Test 07/30/19 06:50 07/30/19 08:33 07/30/19 08:35 White Blood Count 8.2 x10^3/uL (4.0-11.0) Red Blood Count 3.48 x10^6/uL (3.50-5.40) Hemoglobin 10.1 g/dL (12.0-15.5) Hematocrit 31.6 % (36.0-47.0) Mean Corpuscular Volume 91 fL (79-100) Mean Corpuscular Hemoglobin 29 pg (25-35) Mean Corpuscular Hemoglobin Concent 32 g/dL (31-37) Red Cell Distribution Width 14.4 % (11.5-14.5) Platelet Count 357 x10^3/uL (140-400) Neutrophils (%) (Auto) 79 % (31-73) Lymphocytes (%) (Auto) 12 % (24-48) Monocytes (%) (Auto) 8 % (0-9) Eosinophils (%) (Auto) 1 % (0-3) Basophils (%) (Auto) 1 % (0-3) Neutrophils # (Auto) 6.5 x10^3/uL (1.8-7.7) Lymphocytes # (Auto) 1.0 x10^3/uL (1.0-4.8) Monocytes # (Auto) 0.7 x10^3/uL (0.0-1.1) Eosinophils # (Auto) 0.0 x10^3/uL (0.0-0.7) Basophils # (Auto) 0.0 x10^3/uL (0.0-0.2) WF-Ech-D-Type Natriuretic Peptide 393 pg/mL (0-449) Sodium Level 138 mmol/L (136-145) Potassium Level 4.5 mmol/L (3.5-5.1) Chloride Level 102 mmol/L (98-107) Carbon Dioxide Level 25 mmol/L (21-32) Anion Gap 11 (6-14) Blood Urea Nitrogen 30 mg/dL (7-20) Creatinine 1.3 mg/dL (0.6-1.0) Estimated GFR (Cockcroft-Gault) 47.5 Glucose Level 154 mg/dL (70-99) Calcium Level 10.0 mg/dL (8.5-10.1) Magnesium Level 1.8 mg/dL (1.8-2.4) VTE Prophylaxis Ordered VTE Prophylaxis Devices: No VTE Pharmacological Prophylaxi: Yes Assessment/Plan Assessment/Plan impression acute Metabolic encephalopathy, NOW IMPROVING hypertensive encephalopathy, dementia, history of anal cancer. 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 EEG, not able to perform after 2 attempts. MRI contraindicated due to non compatible of her pacemaker. 54 min pt exam, chart review, > 50% of time spent with exam, chart review, pt care coordination VASILE PUGH MD Jul 30, 2019 11:02
[2019-07-30] MEDS ORDERED: ALBUTEROL SULFATE 2.5 MG/3 ML NEBU. NEB PRN (11:30)
[2019-07-30] MEDS ORDERED: 0.9 % SODIUM CHLORIDE 10 ML DISP.SYRIN. IV PRN (11:30)
[2019-07-30] MEDS ORDERED: SODIUM PHOSPHATES 19/7GM 133 ML ENEMA. PR PRN (11:30)
[2019-07-30] MEDS ORDERED: guaiFENesin ORAL 200 MG/10 ML LIQUID. PO PRN (11:30)
[2019-07-30] MEDS ORDERED: DOCUSATE SODIUM 100 MG CAPSULE. PO PRN (11:30)
[2019-07-30] MEDS ORDERED: cloNIDine HCL 0.1 MG TABLET PO PRN (11:30)
[2019-07-30] MEDS ORDERED: ONDANSETRON PF 4 MG/2 ML VIAL. IV PRN (11:30)
[2019-07-30] MEDS ORDERED: ACETAMINOPHEN 325 MG TABLET. PO PRN (11:30)
[2019-07-30] MEDS: POTASSIUM CHLORIDE 20 MEQ TABLET.ER. PO SCH (12:00)
[2019-07-30] MEDS: CHLORTHALIDONE 25 MG TABLET. PO SCH (12:00)
[2019-07-30] MEDS: GLIMEPIRIDE 2 MG TABLET. PO SCH (12:00)
[2019-07-30] MEDS: METOPROLOL SUCC 24HR ER 100 MG TAB.ER.24H. PO SCH (12:00)
[2019-07-30] MEDS: amLODIPine BESYLATE 10 MG TABLET PO SCH (12:00)
[2019-07-30] MEDS: LOSARTAN POTASSIUM 50 MG TABLET. PO SCH (12:00)
[2019-07-30] MEDS: DONEPEZIL HCL 10 MG TABLET. PO SCH (12:00)
[2019-07-30 15:00] VITALS: BP 147/79
--- NOTE | 2019-07-30 16:11 | NUR ---
SW following for discharge planning. Chart reviewed, discussed with RN. Pt is from home with [facility]. SW contacted [facility] to confirm. SW also discussed with [facility] if they are able to assist families get their family members placement if this is what a family wants. [facility] reported their social workers can assist with this, however the [facility] addiction social worker did not know this is what the family wanted. SW to contact pt's family tomorrow (07/31/19) to discuss placement and discharge planning. Pt's chart is not showing medicaid, family may have to pay out of pocket for half-way placement if this is what they are wanting. SW will continue to follow.
[2019-07-30 19:00] VITALS: BP 155/87
[2019-07-30 23:00] VITALS: BP 149/90
[2019-07-31] MEDS: IV NORMAL SALINE 1000ML BAG 1,000 ML IV SCH ×3 (00:06→19:23)
[2019-07-31 03:00] VITALS: BP 131/65
[2019-07-31] MEDS: HYDROmorphone 2 MG/ML VIAL IV PRN (03:15)
[2019-07-31 07:00] VITALS: BP 136/70
[2019-07-31] MEDS: POTASSIUM CHLORIDE 20 MEQ TABLET.ER. PO SCH (08:00)
[2019-07-31] MEDS: CHLORTHALIDONE 25 MG TABLET. PO SCH (09:00)
[2019-07-31] MEDS: DONEPEZIL HCL 10 MG TABLET. PO SCH (09:00)
[2019-07-31] MEDS: GLIMEPIRIDE 2 MG TABLET. PO SCH (09:00)
[2019-07-31] MEDS: LOSARTAN POTASSIUM 50 MG TABLET. PO SCH (09:00)
[2019-07-31] MEDS: METOPROLOL SUCC 24HR ER 100 MG TAB.ER.24H. PO SCH (09:00)
[2019-07-31] MEDS: amLODIPine BESYLATE 10 MG TABLET PO SCH ×2 (09:00→17:10)
--- NOTE | 2019-07-31 10:40 | NUR ---
JULIEN following. Discussed with RN. JULIEN met with pt and pt's granddaughter at bedside. Pt's granddaughter advised her mom is on the way and would like JULIEN to come back when her mom is here. RN notified to contact JULIEN to return. Addendum: 07/31/19 at 1233 by ISIS VICTORIA JULIEN attempted to contact pt's daughter, Lacey ([phone]) to discuss discharge planning. JULIEN left voicemail requesting a call back. Addendum: 07/31/19 at 4068 by [facility] VICTORIA JULIEN finally able to meet with pt's daughterLacey at 1605 today. Lacey says pt needs 24 hour care and they cannot provide this at home. Lacey believes pt has Medicaid and the card is at home. Family is going to check for the medicaid card at home and visit some facilities over the weekend. SW needs doctor input to determine if pt would be appropriate for a hospice house, and where pt is at in her end of life journey. PT/OT recommending SNU, family could possibly decide to do SNU to [facility]. RN notified. SW will continue to follow.
[2019-07-31 11:00] VITALS: BP 135/76
--- NOTE | 2019-07-31 11:41 | PDOC ---
[employer] PROGRESS NOTE Chief Complaint Chief Complaint acute Metabolic encephalopathy, NOW IMPROVING hypertensive encephalopathy, dementia, history of anal cancer. 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, pacemaker in place, diabetes, hypertension, FAILED OUT PT HOSPICE MANAGEMENT History of Present Illness History of Present Illness 07/31 Pt seen and examined Family states that she has deteriorated from baseline quickly during this episode and looking to rule out other causes of mental status change Vitals/I&O Vitals/I&O: Vital Signs Date Time Temp Pulse Resp B/P (MAP) Pulse Ox O2 Delivery O2 Flow Rate FiO2 07/31/19 11:00 98.1 70 13 135/76 (95) 92 Room Air 98.1 I & O 07/30/19 07/30/19 07/31/19 15:00 23:00 07:00 Intake Total 0 ml Balance 0 ml Physical Exam General: Cooperative, No acute distress Heart: Regular rate, Normal S1, Normal S2 Lungs: Clear, Other Abdomen: Soft, No tenderness Extremities: No cyanosis Skin: No rashes, No breakdown Labs Labs: Laboratory Tests Test 07/30/19 20:01 07/31/19 07:50 07/31/19 11:09 Glucose (Fingerstick) 66 mg/dL (70-99) 96 mg/dL (70-99) 127 mg/dL (70-99) Review of Systems Review of Systems: No CP, SOB Assessment and Plan Assessmemt and Plan Problems Medical Problems: (1) Advanced dementia Status: Acute (2) Chronic anemia Status: Acute (3) Generalized weakness Status: Acute (4) Renal insufficiency Status: Acute Assessment acute Metabolic encephalopathy, NOW IMPROVING hypertensive encephalopathy, dementia, history of anal cancer. 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 CAMMIE CHONG III DO Jul 31, 2019 11:41
[2019-07-31 13:23] LABS: BILIRUBIN,URINE NEGATIVE (NEG); CLARITY,URINE CLEAR; COLOR,URINE YELLOW; NITRITE,URINE NEGATIVE (NEG); PROTEIN,URINE NEGATIVE (NEG-TRACE); SQUAMOUS EPITHELIAL CELL,UR MOD /LPF; UROBILINOGEN,URINE 0.2 mg/dL (0.2 mg/dL)
[2019-07-31 13:24] LABS: AMORPHOUS SEDIMENT,UR PRESENT /HPF; BACTERIA,URINE 0 /HPF (0-FEW); RBC,URINE 0 /HPF (0-2)
[2019-07-31] MEDS ORDERED: POLYVINYL ALCOHOL 1.4% OPHTH SOLUTION 15ML BOTTLE. OU PRN (14:30)
[2019-07-31 14:57] VITALS: BP 163/83
[2019-07-31] MEDS: HYDROcodone/APAP 5/325MG 1 TAB TABLET PO PRN (17:11)
[2019-07-31] MEDS: ENOXAPARIN 40 MG/0.4 ML SYRINGE. SQ SCH (17:18)
[2019-07-31 19:00] VITALS: BP 137/69
[2019-07-31 21:38] VITALS: BP 144/77
[2019-08-01 03:00] VITALS: BP 150/86
[2019-08-01] MEDS: HYDROcodone/APAP 5/325MG 1 TAB TABLET PO PRN ×2 (04:47→19:37)
[2019-08-01 04:48] LABS: BASO # 0.1 x10^3/uL (0.0-0.2); BASO % 1 % (0-3); EOS # 0.2 x10^3/uL (0.0-0.7); EOS % 2 % (0-3); HEMATOCRIT 29.7 % (36.0-47.0); HEMOGLOBIN 9.5 g/dL (12.0-15.5); LYMPH # 2.2 x10^3/uL (1.0-4.8); LYMPH % 23 % (24-48); MEAN CORPUSCULAR HEMOGLOBIN 29 pg (25-35); MEAN CORPUSCULAR HGB CONC 32 g/dL (31-37); MEAN CORPUSCULAR VOLUME 91 fL (79-100); MONO # 0.7 x10^3/uL (0.0-1.1); MONO % 7 % (0-9); NEUT # 6.5 x10^3/uL (1.8-7.7); NEUT % 68 % (31-73); PLATELET COUNT 310 x10^3/uL (140-400); RED BLOOD COUNT 3.26 x10^6/uL (3.50-5.40); RED CELL DISTRIBUTION WIDTH 14.2 % (11.5-14.5); WHITE BLOOD COUNT 9.7 x10^3/uL (4.0-11.0)
[2019-08-01 04:58] LABS: CALCIUM 9.3 mg/dL (8.5-10.1); CREATININE 0.8 mg/dL (0.6-1.0); GFR 83.1; POTASSIUM 3.4 mmol/L (3.5-5.1)
[2019-08-01] MEDS: IV NORMAL SALINE 1000ML BAG 1,000 ML IV SCH (06:15)
[2019-08-01 07:00] VITALS: BP 158/75
[2019-08-01] MEDS: HYDROmorphone 2 MG/ML VIAL IV PRN ×2 (08:07→22:03)
[2019-08-01] MEDS: GLIMEPIRIDE 2 MG TABLET. PO SCH (09:00)
[2019-08-01] MEDS: METOPROLOL SUCC 24HR ER 100 MG TAB.ER.24H. PO SCH ×2 (09:00→14:47)
[2019-08-01 11:00] VITALS: BP 143/74
--- NOTE | 2019-08-01 11:17 | PDOC ---
[employer] [facility] PROGRESS NOTE Chief Complaint Chief Complaint acute Metabolic encephalopathy, NOW IMPROVING hypertensive encephalopathy, dementia, history of anal cancer. 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 Patient has been confused. Vitals/I&O Vitals/I&O: Vital Signs Date Time Temp Pulse Resp B/P (MAP) Pulse Ox O2 Delivery O2 Flow Rate FiO2 08/01/19 08:07 94 Room Air 08/01/19 07:00 98.2 88 16 158/75 (102) 98.2 I & O 07/31/19 07/31/19 08/01/19 15:00 23:00 07:00 Intake Total 0 ml 0 ml Balance 0 ml 0 ml Physical Exam Physical Exam: HEENT: nose-midline head-atraumatic General: No acute distress, Other (Patient sleeping in bed on exam) Heart: Regular rate, No murmurs Lungs: Other (No respiratory distress. No crackles) Abdomen: Soft, Other (Non distended) Extremities: No clubbing, No cyanosis Skin: Other (No rash or significant lesion on visible skin) Labs Labs: Laboratory Tests Test 07/31/19 11:50 07/31/19 16:50 07/31/19 20:06 08/01/19 04:10 Urine Collection Type Unknown Urine Color Yellow Urine Clarity Clear Urine pH 5.0 Urine Specific [place] 1.015 Urine Protein Negative mg/dL (NEG-TRACE) Urine Glucose (UA) Negative mg/dL (NEG) Urine Ketones (Stick) Trace mg/dL (NEG) Urine Blood Negative (NEG) Urine Nitrite Negative (NEG) Urine Bilirubin Negative (NEG) Urine Urobilinogen Dipstick 0.2 mg/dL (0.2 mg/dL) Urine Leukocyte Esterase Trace (NEG) Urine RBC 0 /HPF (0-2) Urine WBC 1-4 /HPF (0-4) Urine Squamous Epithelial Cells Mod /LPF Urine Amorphous Sediment Present /HPF Urine Bacteria 0 /HPF (0-FEW) Urine Mucus Mod /LPF Glucose (Fingerstick) 112 mg/dL (70-99) 84 mg/dL (70-99) White Blood Count 9.7 x10^3/uL (4.0-11.0) Red Blood Count 3.26 x10^6/uL (3.50-5.40) Hemoglobin 9.5 g/dL (12.0-15.5) Hematocrit 29.7 % (36.0-47.0) Mean Corpuscular Volume 91 fL (79-100) Mean Corpuscular Hemoglobin 29 pg (25-35) Mean Corpuscular Hemoglobin Concent 32 g/dL (31-37) Red Cell Distribution Width 14.2 % (11.5-14.5) Platelet Count 310 x10^3/uL (140-400) Neutrophils (%) (Auto) 68 % (31-73) Lymphocytes (%) (Auto) 23 % (24-48) Monocytes (%) (Auto) 7 % (0-9) Eosinophils (%) (Auto) 2 % (0-3) Basophils (%) (Auto) 1 % (0-3) Neutrophils # (Auto) 6.5 x10^3/uL (1.8-7.7) Lymphocytes # (Auto) 2.2 x10^3/uL (1.0-4.8) Monocytes # (Auto) 0.7 x10^3/uL (0.0-1.1) Eosinophils # (Auto) 0.2 x10^3/uL (0.0-0.7) Basophils # (Auto) 0.1 x10^3/uL (0.0-0.2) Sodium Level 139 mmol/L (136-145) Potassium Level 3.4 mmol/L (3.5-5.1) Chloride Level 105 mmol/L (98-107) Carbon Dioxide Level 22 mmol/L (21-32) Anion Gap 12 (6-14) Blood Urea Nitrogen 14 mg/dL (7-20) Creatinine 0.8 mg/dL (0.6-1.0) Estimated GFR (Cockcroft-Gault) 83.1 Glucose Level 94 mg/dL (70-99) Calcium Level 9.3 mg/dL (8.5-10.1) Test 08/01/19 07:26 Glucose (Fingerstick) 115 mg/dL (70-99) Review of Systems Review of Systems: Unable to obtain Assessment and Plan Assessmemt and Plan Problems Medical Problems: (1) Advanced dementia Status: Acute (2) Chronic anemia Status: Acute (3) Generalized weakness Status: Acute (4) Renal insufficiency Status: Acute PLAN - Home medications - DVT prophylaxis - Await neurology input - Start Levaquin IV q day for UTI Full code Comment Review of Relevant I have reviewed the following items presley (where applicable) has been applied. Medications: Current Medications Medications (Trade) Dose Ordered Sig/Sebastián Route PRN Reason Start Time Stop Time Status Last Admin Dose Admin Artificial Tears (Artificial Tears) 1 drop PRN Q1HR PRN OU DRY EYE 07/31/19 14:30 08/01/19 05:16 CAMMIE CHONG III DO Aug 01, 2019 11:17
[2019-08-01] MEDS: ENOXAPARIN 40 MG/0.4 ML SYRINGE. SQ SCH (11:49)
[2019-08-01] MEDS: POTASSIUM CHLORIDE 20 MEQ TABLET.ER. PO SCH (14:48)
[2019-08-01] MEDS: CHLORTHALIDONE 25 MG TABLET. PO SCH (14:48)
[2019-08-01] MEDS: LOSARTAN POTASSIUM 50 MG TABLET. PO SCH (14:48)
[2019-08-01] MEDS: ACETAMINOPHEN 500 MG TABLET PO PRN (14:53)
[2019-08-01 15:00] VITALS: BP 180/85
[2019-08-01] MEDS ORDERED: OLANZapine IM 10 MG VIAL. IM ONE (15:45)
[2019-08-01] MEDS: ASPIRIN CHEWABLE 81 MG TABLET. PO SCH (16:00)
[2019-08-01 19:00] VITALS: BP 144/70
[2019-08-01] MEDS: OLANZapine IM 10 MG VIAL. IM PRN (19:39)
[2019-08-01] MEDS ORDERED: METHYL SALICYLATE/MENTHOL TOPICAL CREAM 57GM TUBE. TP PRN (20:15)
[2019-08-01] MEDS: LACTOBACILLUS RHAMNOSUS GG 1 CAPSULE. PO SCH (21:01)
--- NOTE | 2019-08-01 21:37 | PDOC2 ---
CONSULT Date of Consult Date of Consult DATE: 08/01/19 TIME: 21:35 Identification/Chief Complaint Chief Complaint AMS History of Present Illness Reason for Visit: This patient is 83 a year old woman with past medical history of multiple medical problems information obtained from patient, patient's family member at bedside. Patient has history of advanced dementia, hypertension, diabetes was on hospice previously patient presented to emergency room for not feeling well over last few days. Patient had worsening of confusion patient had decrease in by mouth intake. Patient had elevated blood sugars on presentation. Patient currently denies any complaint of headache nausea or vomiting chest pain focal extremity weakness 83-year-old woman with past medical history of multiple medical problems history of dementia and diabetes hypertension presented with worsening of confusion to present the you intake. Encephalopathy with underlying dementia check for infectious, metabolic etiology. 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 Patient also has pacemaker in place. MRI of brain cannot be done due to current medical condition. Will get CT scan brain to evaluate for any interval change. Further workup depending on initial test resul ts. Diabetes continue treat and monitor. Hypertension continue treat and monitor Past Medical History Cardiovascular: HTN, Hyperlipidemia Pulmonary: Bronchitis GI: GERD Heme/Onc: Cancer Renal/: Chronic renal insuff Endocrine: Diabetes Past Surgical History Past Surgical History: Pacemaker, Hysterectomy Family History Family History: Diabetes Social History No ALCOHOL: none Drugs: None Lives: with Family Current Problem List Problem List Problems Medical Problems: (1) Advanced dementia Status: Acute (2) Chronic anemia Status: Acute (3) Generalized weakness Status: Acute (4) Renal insufficiency Status: Acute Current Medications Current Medications Current Medications Sodium Chloride 1,000 ml @ 125 mls/hr 1X ONCE IV Last administered on 07/30/19at 07:08; Start 07/30/19 at 06:45; Stop 07/30/19 at 14:44; Status DC Sodium Chloride 1,000 ml @ 125 mls/hr Q8H IV Last administered on 07/31/19at 00:06; Start 07/30/19 at 08:06; Stop 07/31/19 at 08:05; Status DC Acetaminophen (Tylenol) 1,000 mg PRN Q6HRS PRN PO mild pain or fever Last administered on 08/01/19at 14:53; Start 07/30/19 at 11:30 Amlodipine Besylate (Norvasc) 10 mg DAILY PO Last administered on 07/31/19at 17:10; Start 07/30/19 at 12:00 Chlorthalidone (Thalitone) 25 mg DAILY PO Last administered on 08/01/19at 14:48; Start 07/30/19 at 12:00 Donepezil HCl (Aricept) 10 mg DAILY PO ; Start 07/30/19 at 12:00; Stop 07/31/19 at 19:48; Status DC Hydralazine HCl (Apresoline) 50 mg TID PO Last administered on 08/01/19at 21:01; Start 07/30/19 at 14:00 Losartan Potassium (Cozaar) 50 mg DAILY PO Last administered on 08/01/19at 14:48; Start 07/30/19 at 12:00 Glimepiride (Amaryl) 4 mg DAILY PO ; Start 07/30/19 at 12:00 Acetaminophen/ Hydrocodone Bitart (Lortab 5/325) 1 tab PRN TID PRN PO MODERATE - SEVERE PAIN Last administered on 08/01/19at 19:37; Start 07/30/19 at 11:30 Metoprolol Succinate (Toprol Xl) 200 mg DAILY PO ; Start 07/30/19 at 12:00 Potassium Chloride (Klor-Con) 20 meq DAILYWBKFT PO Last administered on 08/01/19at 14:48; Start 07/30/19 at 12:00 Sodium Chloride (Normal Saline Flush) 3 ml QSHIFT PRN IV AFTER MEDS AND BLOOD DRAWS; Start 07/30/19 at 11:30 Sodium Chloride 1,000 ml @ 100 mls/hr Q10H IV Last administered on 08/01/19at 06:15; Start 07/30/19 at 11:19 Ondansetron HCl (Zofran) 4 mg PRN Q4HRS PRN IV NAUSEA/VOMITING; Start 07/30/19 at 11:30 Acetaminophen (Tylenol) 650 mg PRN Q4HRS PRN PO TEMP OVER 100.4F; Start 07/30/19 at 11:30 Clonidine HCl (Catapres) 0.1 mg PRN Q6HRS PRN PO SBP>160 OR DBP>90; Start 07/30/19 at 11:30 Sodium Monofluorophosphate (Fleet Adult) 133 ml PRN DAILY PRN VA CONSTIPATION; Start 07/30/19 at 11:30 Docusate Sodium (Colace) 100 mg PRN BID PRN PO HARD STOOLS; Start 07/30/19 at 11:30 Albuterol Sulfate (Ventolin Neb Soln) 2.5 mg PRN Q4HRS PRN NEB SHORTNESS OF BREATH; Start 07/30/19 at 11:30 Guaifenesin (Robitussin) 200 mg PRN Q4HRS PRN PO COUGH; Start 07/30/19 at 11:30 Lorazepam (Ativan) 0.5 mg PRN Q4HRS PRN PO ANXIETY / AGITATION; Start 07/30/19 at 11:30 Lorazepam (Ativan Inj) 2 mg PRN Q4HRS PRN IV ANXIETY / AGITATION Last administered on 08/01/19at 03:45; Start 07/30/19 at 11:30 Enoxaparin Sodium (Lovenox 40mg Syringe) 40 mg DAILY SQ Last administered on 08/01/19at 11:49; Start 07/31/19 at 09:00 Hydromorphone HCl (Dilaudid) 1 mg PRN Q4HRS PRN IV PAIN Last administered on 08/01/19at 08:07; Start 07/30/19 at 11:30; Stop 08/01/19 at 10:47; Status DC Artificial Tears (Artificial Tears) 1 drop PRN Q1HR PRN OU DRY EYE Last administered on 08/01/19at 05:16; Start 07/31/19 at 14:30 Hydromorphone HCl (Dilaudid) 0.5 mg PRN Q4HRS PRN IV PAIN; Start 08/01/19 at 11:00 Levofloxacin/ Dextrose 50 ml @ 50 mls/hr Q24H IV Last administered on 08/01/19at 12:19; Start 08/01/19 at 12:00 Lactobacillus Rhamnosus (Culturelle) 1 cap BID PO Last administered on 08/01/19at 21:01; Start 08/01/19 at 21:00 Aspirin (Children'S Aspirin) 81 mg DAILYWBKFT PO ; Start 08/01/19 at 16:00 Olanzapine (ZyPREXA IM) 5 mg PRN Q12HR ONCE IM ; Start 08/01/19 at 15:45; Stop 08/01/19 at 16:13; Status DC Olanzapine (ZyPREXA IM) 5 mg PRN Q12HR PRN IM ANXIETY / AGITATION Last administered on 08/01/19at 19:39; Start 08/01/19 at 16:15 Menthol/Methyl Salicylate (Bengay Greaseless Cream) 1 beto PRN QID PRN TP MUSCLE PAIN Last administered on 08/01/19at 21:01; Start 08/01/19 at 20:15 Active Scripts Active Hydrocodone-Apap 5-300 (Hydrocodone Bit/Acetaminophen) 1 Each Tablet 1 Tab PO PRN TID PRN MDD 3 Tablet(s) 5 Days Reported Aricept (Donepezil Hcl) 10 Mg Tablet 10 Mg PO DAILY Potassium Chloride 20 Meq Tablet.er 1 Tab PO DAILY 30 Days Losartan Potassium 50 Mg Tablet 50 Mg PO DAILY Hydralazine Hcl 50 Mg Tablet 1 Tab PO TID Chlorthalidone (Chlorthalidone) 25 Mg Tablet 25 Mg PO DAILY Amlodipine Besylate 10 Mg Tablet 10 Mg PO DAILY Acetaminophen 500 Mg Tablet 2 Tab PO PRN Q6HRS PRN 15 Days Metoprolol Succinate ( Xl ) (Metoprolol Succinate) 200 Mg Tab.er.24h 1 Tab PO IN THE MORNING Glimepiride 4 Mg Tablet 1 Tab PO DAILY Allergies Allergies: Coded Allergies: No Known Drug Allergies (Unverified , 01/17/19) ROS Review of System A 10-point review of systems was obtained. Other than the history of present illness the remainder of the review of systems is negative. Physical Exam Physical Exam General no acute distress. HEENT: Normocephalic and atraumatic. NECK: Supple without bruit Respiratory: Clear to auscultation bilaterally Heart: Regular rate and rhythm, S1S2 normal NEUROLOGIC: Mental status Alert Able to tell her name right place able to follow simple commands no meningeal signs Cranial nerve equally reactive pupils, and intact extraocular movements. No facial asymmetry. Palate elevates and tongue protrudes in midline. Reflexes are 1-2 with flexor plantar responses. Strength able to move all exts not giving full effort. Sensory exam is intact for light touch and pinprick. Gait in bed. Vitals VITALS Vital Signs Date Time Temp Pulse Resp B/P (MAP) Pulse Ox O2 Delivery O2 Flow Rate FiO2 08/01/19 21:01 80 144/70 08/01/19 19:37 20 Room Air 08/01/19 19:00 98.4 95 98.4 Labs Labs Laboratory Tests Test 07/31/19 07:50 07/31/19 11:09 07/31/19 11:50 07/31/19 16:50 Glucose (Fingerstick) 96 mg/dL (70-99) 127 mg/dL (70-99) 112 mg/dL (70-99) Urine Collection Type Unknown Urine Color Yellow Urine Clarity Clear Urine pH 5.0 Urine Specific [place] 1.015 Urine Protein Negative mg/dL (NEG-TRACE) Urine Glucose (UA) Negative mg/dL (NEG) Urine Ketones (Stick) Trace mg/dL (NEG) Urine Blood Negative (NEG) Urine Nitrite Negative (NEG) Urine Bilirubin Negative (NEG) Urine Urobilinogen Dipstick 0.2 mg/dL (0.2 mg/dL) Urine Leukocyte Esterase Trace (NEG) Urine RBC 0 /HPF (0-2) Urine WBC 1-4 /HPF (0-4) Urine Squamous Epithelial Cells Mod /LPF Urine Amorphous Sediment Present /HPF Urine Bacteria 0 /HPF (0-FEW) Urine Mucus Mod /LPF Test 07/31/19 20:06 08/01/19 04:10 08/01/19 07:26 08/01/19 11:48 Glucose (Fingerstick) 84 mg/dL (70-99) 115 mg/dL (70-99) 96 mg/dL (70-99) White Blood Count 9.7 x10^3/uL (4.0-11.0) Red Blood Count 3.26 x10^6/uL (3.50-5.40) Hemoglobin 9.5 g/dL (12.0-15.5) Hematocrit 29.7 % (36.0-47.0) Mean Corpuscular Volume 91 fL (79-100) Mean Corpuscular Hemoglobin 29 pg (25-35) Mean Corpuscular Hemoglobin Concent 32 g/dL (31-37) Red Cell Distribution Width 14.2 % (11.5-14.5) Platelet Count 310 x10^3/uL (140-400) Neutrophils (%) (Auto) 68 % (31-73) Lymphocytes (%) (Auto) 23 % (24-48) Monocytes (%) (Auto) 7 % (0-9) Eosinophils (%) (Auto) 2 % (0-3) Basophils (%) (Auto) 1 % (0-3) Neutrophils # (Auto) 6.5 x10^3/uL (1.8-7.7) Lymphocytes # (Auto) 2.2 x10^3/uL (1.0-4.8) Monocytes # (Auto) 0.7 x10^3/uL (0.0-1.1) Eosinophils # (Auto) 0.2 x10^3/uL (0.0-0.7) Basophils # (Auto) 0.1 x10^3/uL (0.0-0.2) Sodium Level 139 mmol/L (136-145) Potassium Level 3.4 mmol/L (3.5-5.1) Chloride Level 105 mmol/L (98-107) Carbon Dioxide Level 22 mmol/L (21-32) Anion Gap 12 (6-14) Blood Urea Nitrogen 14 mg/dL (7-20) Creatinine 0.8 mg/dL (0.6-1.0) Estimated GFR (Cockcroft-Gault) 83.1 Glucose Level 94 mg/dL (70-99) Calcium Level 9.3 mg/dL (8.5-10.1) Test 08/01/19 17:11 08/01/19 20:25 Glucose (Fingerstick) 109 mg/dL (70-99) 143 mg/dL (70-99) Laboratory Tests Test 08/01/19 04:10 08/01/19 07:26 08/01/19 11:48 08/01/19 17:11 White Blood Count 9.7 x10^3/uL (4.0-11.0) Red Blood Count 3.26 x10^6/uL (3.50-5.40) Hemoglobin 9.5 g/dL (12.0-15.5) Hematocrit 29.7 % (36.0-47.0) Mean Corpuscular Volume 91 fL (79-100) Mean Corpuscular Hemoglobin 29 pg (25-35) Mean Corpuscular Hemoglobin Concent 32 g/dL (31-37) Red Cell Distribution Width 14.2 % (11.5-14.5) Platelet Count 310 x10^3/uL (140-400) Neutrophils (%) (Auto) 68 % (31-73) Lymphocytes (%) (Auto) 23 % (24-48) Monocytes (%) (Auto) 7 % (0-9) Eosinophils (%) (Auto) 2 % (0-3) Basophils (%) (Auto) 1 % (0-3) Neutrophils # (Auto) 6.5 x10^3/uL (1.8-7.7) Lymphocytes # (Auto) 2.2 x10^3/uL (1.0-4.8) Monocytes # (Auto) 0.7 x10^3/uL (0.0-1.1) Eosinophils # (Auto) 0.2 x10^3/uL (0.0-0.7) Basophils # (Auto) 0.1 x10^3/uL (0.0-0.2) Sodium Level 139 mmol/L (136-145) Potassium Level 3.4 mmol/L (3.5-5.1) Chloride Level 105 mmol/L (98-107) Carbon Dioxide Level 22 mmol/L (21-32) Anion Gap 12 (6-14) Blood Urea Nitrogen 14 mg/dL (7-20) Creatinine 0.8 mg/dL (0.6-1.0) Estimated GFR (Cockcroft-Gault) 83.1 Glucose Level 94 mg/dL (70-99) Calcium Level 9.3 mg/dL (8.5-10.1) Glucose (Fingerstick) 115 mg/dL (70-99) 96 mg/dL (70-99) 109 mg/dL (70-99) Test 08/01/19 20:25 Glucose (Fingerstick) 143 mg/dL (70-99) Assessment/Plan Assessment/Plan This patient is 83 a year old woman with past medical history of multiple medical problems information obtained from patient, patient's family member at bedside. Patient has history of advanced dementia, hypertension, diabetes was on hospice previously patient presented to emergency room for not feeling well over last few days. Patient had worsening of confusion patient had decrease in by mouth intake. Patient had elevated blood sugars on presentation. Patient currently denies any complaint of headache nausea or vomiting chest pain focal extremity weakness 83-year-old woman with past medical history of multiple medical problems history of dementia and diabetes hypertension presented with worsening of confusion. Encephalopathy with underlying dementia check for infectious, metabolic etiology. 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 Patient also has pacemaker in place. MRI of brain cannot be done due to current medical condition. Will get CT scan brain to evaluate for any interval change. Further workup depending on initial test results. Diabetes continue treat and monitor. Hypertension continue treat and monitor Thank you for allowing me to take part in this patient's care. Please not hesitate to contact me with questions. Transcribed using dictation device. The dictation could contain irregularities inherent in the voice to text conversion software, which may not be detected during the document review process. Please contact our office in case of any confusion or for any clarification, as needed. ASHLI GRIJALVA MD Aug 01, 2019 21:37
[2019-08-01 23:00] VITALS: BP 143/68
[2019-08-02] MEDS: IV NORMAL SALINE 1000ML BAG 1,000 ML IV SCH ×3 (00:45→18:29)
[2019-08-02 03:00] VITALS: BP 148/83
[2019-08-02 03:46] LABS: BASO # 0.2 x10^3/uL (0.0-0.2); BASO % 2 % (0-3); EOS # 0.2 x10^3/uL (0.0-0.7); EOS % 3 % (0-3); HEMATOCRIT 27.8 % (36.0-47.0); HEMOGLOBIN 9.3 g/dL (12.0-15.5); LYMPH # 2.2 x10^3/uL (1.0-4.8); LYMPH % 26 % (24-48); MEAN CORPUSCULAR HEMOGLOBIN 30 pg (25-35); MEAN CORPUSCULAR HGB CONC 33 g/dL (31-37); MEAN CORPUSCULAR VOLUME 90 fL (79-100); MONO # 0.8 x10^3/uL (0.0-1.1); MONO % 9 % (0-9); NEUT # 5.1 x10^3/uL (1.8-7.7); NEUT % 61 % (31-73); PLATELET COUNT 308 x10^3/uL (140-400); RED BLOOD COUNT 3.09 x10^6/uL (3.50-5.40); WHITE BLOOD COUNT 8.4 x10^3/uL (4.0-11.0)
[2019-08-02 03:59] LABS: CREATININE 0.8 mg/dL (0.6-1.0); GFR 83.1; POTASSIUM 3.7 mmol/L (3.5-5.1)
[2019-08-02 07:00] VITALS: BP 165/87
--- NOTE | 2019-08-02 07:47 | RAD ---
EXAM: CT HEAD WITHOUT CONTRAST. HISTORY: Weakness, altered mental status. TECHNIQUE: Computed tomography of the head was performed without intravenous contrast. One or more of the following individualized dose reduction techniques were utilized for this examination: 1. Automated exposure control. 2. Adjustment of the mA and/or kV according to patient size. 3. Use of iterative reconstruction technique. COMPARISON: 07/19/2019. FINDINGS: There is no intracranial hemorrhage. There is a chronic infarct within the left medial thalamus. There is mild chronic microangiopathic white matter change elsewhere. Prominence of the lateral ventricles and hemispheric sulci indicates moderate atrophy. The visualized paranasal sinuses appear clear. There are changes of left cataract surgery. The temporal bones are unremarkable. The calvarium reveals no suspicious lesions. There are atherosclerotic calcifications of the internal carotid arteries. IMPRESSION: 1. Chronic left thalamic infarct. 2. Moderate atrophy and mild chronic microangiopathic white matter change. Electronically signed by: Alice Garza MD (08/02/2019 7:44 AM) [facility]
[2019-08-02] MEDS: LACTOBACILLUS RHAMNOSUS GG 1 CAPSULE. PO SCH ×2 (07:54→21:13)
[2019-08-02] MEDS: CHLORTHALIDONE 25 MG TABLET. PO SCH (07:54)
[2019-08-02] MEDS: LOSARTAN POTASSIUM 50 MG TABLET. PO SCH (07:54)
[2019-08-02] MEDS: amLODIPine BESYLATE 10 MG TABLET PO SCH (07:54)
[2019-08-02] MEDS: POTASSIUM CHLORIDE 20 MEQ TABLET.ER. PO SCH (07:55)
[2019-08-02] MEDS: ACETAMINOPHEN 500 MG TABLET PO PRN (07:56)
[2019-08-02] MEDS: METOPROLOL SUCC 24HR ER 100 MG TAB.ER.24H. PO SCH (07:56)
[2019-08-02] MEDS: ENOXAPARIN 40 MG/0.4 ML SYRINGE. SQ SCH (07:57)
[2019-08-02] MEDS: HYDROmorphone 2 MG/ML VIAL IV PRN ×3 (08:04→22:12)
[2019-08-02] MEDS: ASPIRIN CHEWABLE 81 MG TABLET. PO SCH (08:05)
[2019-08-02 11:00] VITALS: BP 124/77
--- NOTE | 2019-08-02 11:00 | PDOC ---
[employer] PROGRESS NOTE Chief Complaint Chief Complaint acute Metabolic encephalopathy, NOW IMPROVING hypertensive encephalopathy, dementia, history of anal cancer. 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 Patient has been confused. 08/02 Pt seen and examined Pt resting comfortably No family at bedside to discuss case with DWRN Vitals/I&O Vitals/I&O: Vital Signs Date Time Temp Pulse Resp B/P (MAP) Pulse Ox O2 Delivery O2 Flow Rate FiO2 08/02/19 08:07 82 165/87 08/02/19 08:04 18 Room Air 08/02/19 07:00 98.2 96 98.2 I & O 08/01/19 08/01/19 08/02/19 15:00 23:00 07:00 Intake Total 0 ml 1620 ml Balance 0 ml 1620 ml Physical Exam Physical Exam: HEENT: nose-midline head-atraumatic General: No acute distress, Other (Patient sleeping in bed on exam) Heart: Regular rate, No murmurs Lungs: Other (No respiratory distress. No crackles) Abdomen: Soft, Other (Non distended) Extremities: No clubbing, No cyanosis Skin: Other (No rash or significant lesion on visible skin) Labs Labs: Laboratory Tests Test 08/01/19 11:48 08/01/19 17:11 08/01/19 20:25 08/02/19 03:30 Glucose (Fingerstick) 96 mg/dL (70-99) 109 mg/dL (70-99) 143 mg/dL (70-99) White Blood Count 8.4 x10^3/uL (4.0-11.0) Red Blood Count 3.09 x10^6/uL (3.50-5.40) Hemoglobin 9.3 g/dL (12.0-15.5) Hematocrit 27.8 % (36.0-47.0) Mean Corpuscular Volume 90 fL (79-100) Mean Corpuscular Hemoglobin 30 pg (25-35) Mean Corpuscular Hemoglobin Concent 33 g/dL (31-37) Red Cell Distribution Width 14.0 % (11.5-14.5) Platelet Count 308 x10^3/uL (140-400) Neutrophils (%) (Auto) 61 % (31-73) Lymphocytes (%) (Auto) 26 % (24-48) Monocytes (%) (Auto) 9 % (0-9) Eosinophils (%) (Auto) 3 % (0-3) Basophils (%) (Auto) 2 % (0-3) Neutrophils # (Auto) 5.1 x10^3/uL (1.8-7.7) Lymphocytes # (Auto) 2.2 x10^3/uL (1.0-4.8) Monocytes # (Auto) 0.8 x10^3/uL (0.0-1.1) Eosinophils # (Auto) 0.2 x10^3/uL (0.0-0.7) Basophils # (Auto) 0.2 x10^3/uL (0.0-0.2) Sodium Level 140 mmol/L (136-145) Potassium Level 3.7 mmol/L (3.5-5.1) Chloride Level 105 mmol/L (98-107) Carbon Dioxide Level 26 mmol/L (21-32) Anion Gap 9 (6-14) Blood Urea Nitrogen 11 mg/dL (7-20) Creatinine 0.8 mg/dL (0.6-1.0) Estimated GFR (Cockcroft-Gault) 83.1 Glucose Level 92 mg/dL (70-99) Calcium Level 9.0 mg/dL (8.5-10.1) Test 08/02/19 07:55 Glucose (Fingerstick) 98 mg/dL (70-99) Review of Systems Review of Systems: No CP, SOB Assessment and Plan Assessmemt and Plan Problems Medical Problems: (1) Advanced dementia Status: Acute (2) Chronic anemia Status: Acute (3) Generalized weakness Status: Acute (4) Renal insufficiency Status: Acute Assessment acute Metabolic encephalopathy, NOW IMPROVING hypertensive encephalopathy, dementia, history of anal cancer. 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 Medications: Current Medications Medications (Trade) Dose Ordered Sig/Sebastián Route PRN Reason Start Time Stop Time Status Last Admin Dose Admin Hydromorphone HCl (Dilaudid) 0.5 mg PRN Q4HRS PRN IV PAIN 08/01/19 11:00 08/02/19 08:04 Levofloxacin/ Dextrose 50 ml @ 50 mls/hr Q24H IV 08/01/19 12:00 08/01/19 12:19 Lactobacillus Rhamnosus (Culturelle) 1 cap BID PO 08/01/19 21:00 08/02/19 07:54 Aspirin (Children'S Aspirin) 81 mg DAILYWBKFT PO 08/01/19 16:00 08/02/19 08:05 Olanzapine (ZyPREXA IM) 5 mg PRN Q12HR PRN IM ANXIETY / AGITATION 08/01/19 16:15 08/01/19 19:39 Menthol/Methyl Salicylate (Bengay Greaseless Cream) 1 beto PRN QID PRN TP MUSCLE PAIN 08/01/19 20:15 08/01/19 21:01 CAMMIE CHONG III DO Aug 02, 2019 11:00
[2019-08-02] MEDS: GLIMEPIRIDE 2 MG TABLET. PO SCH (12:28)
[2019-08-02 15:00] VITALS: BP 137/82
--- NOTE | 2019-08-02 15:02 | PDOC ---
PROGRESS NOTES Assessment Problems Medical Problems: (1) Advanced dementia Status: Acute (2) Chronic anemia Status: Acute (3) Generalized weakness Status: Acute (4) Renal insufficiency Status: Acute Plan This patient is 83 a year old woman with past medical history of multiple medical problems information obtained from patient, patient's family member at bedside. Patient has history of advanced dementia, hypertension, diabetes was on hospice previously patient presented to emergency room for not feeling well over last few days. Patient had worsening of confusion patient had decrease in by mouth intake. Patient had elevated blood sugars on presentation. Patient currently denies any complaint of headache nausea or vomiting chest pain focal extremity weakness 83-year-old woman with past medical history of multiple medical problems history of dementia and diabetes hypertension presented with worsening of confusion to present the you intake. Encephalopathy with underlying dementia check for infectious, metabolic etiology. 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 Patient also has pacemaker in place. MRI of brain cannot be done due to current medical condition. CT scan brain no interval change. Further workup depending on initial test results. Neuro exam stable Diabetes continue treat and monitor. Hypertension continue treat and monitor Subjective Patient is resting in bed. She is feeling better. Denies any complaint of headache nausea or vomiting chest pain. Objective Vital Signs Date Time Temp Pulse Resp B/P (MAP) Pulse Ox O2 Delivery O2 Flow Rate FiO2 08/02/19 14:45 89 117/75 08/02/19 11:00 98.1 16 95 Room Air 98.1 Intake and Output 08/02/19 07:00 Intake Total 1620 ml Balance 1620 ml Intake Oral 20 ml IV Total 800 ml Other 800 ml # Voids 6 PHYSICAL EXAM General no acute distress. HEENT: Normocephalic and atraumatic. NECK: Supple without bruit Respiratory: Clear to auscultation bilaterally Heart: Regular rate and rhythm, S1S2 normal NEUROLOGIC: Mental status Alert Able to tell her name right place able to follow simple commands no meningeal signs Cranial nerve equally reactive pupils, and intact extraocular movements. No facial asymmetry. Palate elevates and tongue protrudes in midline. Reflexes are 1-2 with flexor plantar responses. Strength able to move all exts not giving full effort. Sensory exam is intact for light touch and pinprick. Gait in bed. Review of Relevant I have reviewed the following items presley (where applicable) has been applied. Labs Laboratory Tests Test 07/31/19 16:50 11/22/19 20:06 08/01/19 04:10 08/01/19 07:26 Glucose (Fingerstick) 112 mg/dL (70-99) 84 mg/dL (70-99) 115 mg/dL (70-99) White Blood Count 9.7 x10^3/uL (4.0-11.0) Red Blood Count 3.26 x10^6/uL (3.50-5.40) Hemoglobin 9.5 g/dL (12.0-15.5) Hematocrit 29.7 % (36.0-47.0) Mean Corpuscular Volume 91 fL (79-100) Mean Corpuscular Hemoglobin 29 pg (25-35) Mean Corpuscular Hemoglobin Concent 32 g/dL (31-37) Red Cell Distribution Width 14.2 % (11.5-14.5) Platelet Count 310 x10^3/uL (140-400) Neutrophils (%) (Auto) 68 % (31-73) Lymphocytes (%) (Auto) 23 % (24-48) Monocytes (%) (Auto) 7 % (0-9) Eosinophils (%) (Auto) 2 % (0-3) Basophils (%) (Auto) 1 % (0-3) Neutrophils # (Auto) 6.5 x10^3/uL (1.8-7.7) Lymphocytes # (Auto) 2.2 x10^3/uL (1.0-4.8) Monocytes # (Auto) 0.7 x10^3/uL (0.0-1.1) Eosinophils # (Auto) 0.2 x10^3/uL (0.0-0.7) Basophils # (Auto) 0.1 x10^3/uL (0.0-0.2) Sodium Level 139 mmol/L (136-145) Potassium Level 3.4 mmol/L (3.5-5.1) Chloride Level 105 mmol/L (98-107) Carbon Dioxide Level 22 mmol/L (21-32) Anion Gap 12 (6-14) Blood Urea Nitrogen 14 mg/dL (7-20) Creatinine 0.8 mg/dL (0.6-1.0) Estimated GFR (Cockcroft-Gault) 83.1 Glucose Level 94 mg/dL (70-99) Calcium Level 9.3 mg/dL (8.5-10.1) Test 08/01/19 11:48 08/01/19 17:11 08/01/19 20:25 08/02/19 03:30 Glucose (Fingerstick) 96 mg/dL (70-99) 109 mg/dL (70-99) 143 mg/dL (70-99) White Blood Count 8.4 x10^3/uL (4.0-11.0) Red Blood Count 3.09 x10^6/uL (3.50-5.40) Hemoglobin 9.3 g/dL (12.0-15.5) Hematocrit 27.8 % (36.0-47.0) Mean Corpuscular Volume 90 fL (79-100) Mean Corpuscular Hemoglobin 30 pg (25-35) Mean Corpuscular Hemoglobin Concent 33 g/dL (31-37) Red Cell Distribution Width 14.0 % (11.5-14.5) Platelet Count 308 x10^3/uL (140-400) Neutrophils (%) (Auto) 61 % (31-73) Lymphocytes (%) (Auto) 26 % (24-48) Monocytes (%) (Auto) 9 % (0-9) Eosinophils (%) (Auto) 3 % (0-3) Basophils (%) (Auto) 2 % (0-3) Neutrophils # (Auto) 5.1 x10^3/uL (1.8-7.7) Lymphocytes # (Auto) 2.2 x10^3/uL (1.0-4.8) Monocytes # (Auto) 0.8 x10^3/uL (0.0-1.1) Eosinophils # (Auto) 0.2 x10^3/uL (0.0-0.7) Basophils # (Auto) 0.2 x10^3/uL (0.0-0.2) Sodium Level 140 mmol/L (136-145) Potassium Level 3.7 mmol/L (3.5-5.1) Chloride Level 105 mmol/L (98-107) Carbon Dioxide Level 26 mmol/L (21-32) Anion Gap 9 (6-14) Blood Urea Nitrogen 11 mg/dL (7-20) Creatinine 0.8 mg/dL (0.6-1.0) Estimated GFR (Cockcroft-Gault) 83.1 Glucose Level 92 mg/dL (70-99) Calcium Level 9.0 mg/dL (8.5-10.1) Test 08/02/19 07:55 08/02/19 11:11 Glucose (Fingerstick) 98 mg/dL (70-99) 110 mg/dL (70-99) Laboratory Tests Test 08/01/19 17:11 08/01/19 20:25 08/02/19 03:30 08/02/19 07:55 Glucose (Fingerstick) 109 mg/dL (70-99) 143 mg/dL (70-99) 98 mg/dL (70-99) White Blood Count 8.4 x10^3/uL (4.0-11.0) Red Blood Count 3.09 x10^6/uL (3.50-5.40) Hemoglobin 9.3 g/dL (12.0-15.5) Hematocrit 27.8 % (36.0-47.0) Mean Corpuscular Volume 90 fL (79-100) Mean Corpuscular Hemoglobin 30 pg (25-35) Mean Corpuscular Hemoglobin Concent 33 g/dL (31-37) Red Cell Distribution Width 14.0 % (11.5-14.5) Platelet Count 308 x10^3/uL (140-400) Neutrophils (%) (Auto) 61 % (31-73) Lymphocytes (%) (Auto) 26 % (24-48) Monocytes (%) (Auto) 9 % (0-9) Eosinophils (%) (Auto) 3 % (0-3) Basophils (%) (Auto) 2 % (0-3) Neutrophils # (Auto) 5.1 x10^3/uL (1.8-7.7) Lymphocytes # (Auto) 2.2 x10^3/uL (1.0-4.8) Monocytes # (Auto) 0.8 x10^3/uL (0.0-1.1) Eosinophils # (Auto) 0.2 x10^3/uL (0.0-0.7) Basophils # (Auto) 0.2 x10^3/uL (0.0-0.2) Sodium Level 140 mmol/L (136-145) Potassium Level 3.7 mmol/L (3.5-5.1) Chloride Level 105 mmol/L (98-107) Carbon Dioxide Level 26 mmol/L (21-32) Anion Gap 9 (6-14) Blood Urea Nitrogen 11 mg/dL (7-20) Creatinine 0.8 mg/dL (0.6-1.0) Estimated GFR (Cockcroft-Gault) 83.1 Glucose Level 92 mg/dL (70-99) Calcium Level 9.0 mg/dL (8.5-10.1) Test 08/02/19 11:11 Glucose (Fingerstick) 110 mg/dL (70-99) Microbiology 07/31/19 Urine Culture - Final, Complete 07/31/19 Urine Culture Result 1 (ENRICO) - Final, Complete Medications Current Medications Sodium Chloride 1,000 ml @ 125 mls/hr 1X ONCE IV Last administered on 07/30/19at 07:08; Start 07/30/19 at 06:45; Stop 07/30/19 at 14:44; Status DC Sodium Chloride 1,000 ml @ 125 mls/hr Q8H IV Last administered on 07/31/19at 00:06; Start 07/30/19 at 08:06; Stop 07/31/19 at 08:05; Status DC Acetaminophen (Tylenol) 1,000 mg PRN Q6HRS PRN PO mild pain or fever Last administered on 08/02/19at 07:56; Start 07/30/19 at 11:30 Amlodipine Besylate (Norvasc) 10 mg DAILY PO Last administered on 08/02/19at 07:54; Start 07/30/19 at 12:00 Chlorthalidone (Thalitone) 25 mg DAILY PO Last administered on 08/02/19at 0 7:54; Start 07/30/19 at 12:00 Donepezil HCl (Aricept) 10 mg DAILY PO ; Start 07/30/19 at 12:00; Stop 07/31/19 at 19:48; Status DC Hydralazine HCl (Apresoline) 50 mg TID PO Last administered on 08/02/19at 14:45; Start 07/30/19 at 14:00 Losartan Potassium (Cozaar) 50 mg DAILY PO Last administered on 08/02/19at 07:54; Start 07/30/19 at 12:00 Glimepiride (Amaryl) 4 mg DAILY PO Last administered on 08/02/19at 12:28; Start 07/30/19 at 12:00 Acetaminophen/ Hydrocodone Bitart (Lortab 5/325) 1 tab PRN TID PRN PO MODERATE - SEVERE PAIN Last administered on 08/01/19at 19:37; Start 07/30/19 at 11:30 Metoprolol Succinate (Toprol Xl) 200 mg DAILY PO Last administered on 08/02/19at 07:56; Start 07/30/19 at 12:00 Potassium Chloride (Klor-Con) 20 meq DAILYWBKFT PO Last administered on 08/02/19at 07:55; Start 07/30/19 at 12:00 Sodium Chloride (Normal Saline Flush) 3 ml QSHIFT PRN IV AFTER MEDS AND BLOOD DRAWS; Start 07/30/19 at 11:30 Sodium Chloride 1,000 ml @ 100 mls/hr Q10H IV Last administered on 08/02/19at 00:45; Start 07/30/19 at 11:19 Ondansetron HCl (Zofran) 4 mg PRN Q4HRS PRN IV NAUSEA/VOMITING; Start 07/30/19 at 11:30 Acetaminophen (Tylenol) 650 mg PRN Q4HRS PRN PO TEMP OVER 100.4F; Start 07/30/19 at 11:30 Clonidine HCl (Catapres) 0.1 mg PRN Q6HRS PRN PO SBP>160 OR DBP>90; Start 07/30/19 at 11:30 Sodium Monofluorophosphate (Fleet Adult) 133 ml PRN DAILY PRN [place] CONSTIPATION; Start 07/30/19 at 11:30 Docusate Sodium (Colace) 100 mg PRN BID PRN PO HARD STOOLS; Start 07/30/19 at 11:30 Albuterol Sulfate (Ventolin Neb Soln) 2.5 mg PRN Q4HRS PRN NEB SHORTNESS OF BREATH; Start 07/30/19 at 11:30 Guaifenesin (Robitussin) 200 mg PRN Q4HRS PRN PO COUGH; Start 07/30/19 at 11:30 Lorazepam (Ativan) 0.5 mg PRN Q4HRS PRN PO ANXIETY / AGITATION; Start 07/30/19 at 11:30 Lorazepam (Ativan Inj) 2 mg PRN Q4HRS PRN IV ANXIETY / AGITATION Last administered on 08/01/19 03:45; Start 07/30/19 at 11:30 Enoxaparin Sodium (Lovenox 40mg Syringe) 40 mg DAILY SQ Last administered on 08/02/19 07:57; Start 07/31/19 at 09:00 Hydromorphone HCl (Dilaudid) 1 mg PRN Q4HRS PRN IV PAIN Last administered on 08/01/19 08:07; Start 07/30/19 at 11:30; Stop 08/01/19 at 10:47; Status DC Artificial Tears (Artificial Tears) 1 drop PRN Q1HR PRN OU DRY EYE Last administered on 08/01/19 05:16; Start 07/31/19 at 14:30 Hydromorphone HCl (Dilaudid) 0.5 mg PRN Q4HRS PRN IV PAIN Last administered on 08/02/19 08:04; Start 08/01/19 at 11:00 Levofloxacin/ Dextrose 50 ml @ 50 mls/hr Q24H IV Last administered on 08/02/19 12:30; Start 08/01/19 at 12:00 Lactobacillus Rhamnosus (Culturelle) 1 cap BID PO Last administered on 08/02/19 07:54; Start 08/01/19 at 21:00 Aspirin (Children'S Aspirin) 81 mg DAILYWBKFT PO Last administered on 08/02/19 08:05; Start 08/01/19 at 16:00 Olanzapine (ZyPREXA IM) 5 mg PRN Q12HR ONCE IM ; Start 08/01/19 at 15:45; Stop 08/01/19 at 16:13; Status DC Olanzapine (ZyPREXA IM) 5 mg PRN Q12HR PRN IM ANXIETY / AGITATION Last administered on 08/01/19 19:39; Start 08/01/19 at 16:15 Menthol/Methyl Salicylate (Bengay Greaseless Cream) 1 beto PRN QID PRN TP MUSCLE PAIN Last administered on 08/01/19 21:01; Start 08/01/19 at 20:15 Active Scripts Active Hydrocodone-Apap 5-300 (Hydrocodone Bit/Acetaminophen) 1 Each Tablet 1 Tab PO PRN TID PRN MDD 3 Tablet(s) 5 Days Reported Aricept (Donepezil Hcl) 10 Mg Tablet 10 Mg PO DAILY Potassium Chloride 20 Meq Tablet.er 1 Tab PO DAILY 30 Days Losartan Potassium 50 Mg Tablet 50 Mg PO DAILY Hydralazine Hcl 50 Mg Tablet 1 Tab PO TID Chlorthalidone (Chlorthalidone) 25 Mg Tablet 25 Mg PO DAILY Amlodipine Besylate 10 Mg Tablet 10 Mg PO DAILY Acetaminophen 500 Mg Tablet 2 Tab PO PRN Q6HRS PRN 15 Days Metoprolol Succinate ( Xl ) (Metoprolol Succinate) 200 Mg Tab.er.24h 1 Tab PO IN THE MORNING Glimepiride 4 Mg Tablet 1 Tab PO DAILY Vitals/I & O Vital Sign - Last 24 Hours 08/01/19 08/01/19 08/01/19 08/01/19 19:00 19:37 20:00 20:37 Temp 98.4 98.4 Pulse 80 Resp 18 20 20 B/P (MAP) 144/70 (94) Pulse Ox 95 O2 Delivery Room Air Room Air Room Air Room Air 08/01/19 08/01/19 08/01/19 08/01/19 21:01 22:03 22:33 23:00 Temp 98.5 98.5 Pulse 80 78 Resp 20 20 18 B/P (MAP) 144/70 143/68 (93) Pulse Ox 96 O2 Delivery Room Air Room Air Room Air 08/02/19 08/02/19 08/02/19 08/02/19 03:00 07:00 07:54 07:54 Temp 98.7 98.2 98.7 98.2 Pulse 69 83 82 82 Resp 18 16 B/P (MAP) 148/83 (104) 165/87 (113) 165/87 165/87 Pulse Ox 95 96 O2 Delivery Room Air Room Air 08/02/19 08/02/19 08/02/19 08/02/19 07:56 08:00 08:04 08:07 Pulse 82 82 Resp 18 B/P (MAP) 165/87 165/87 O2 Delivery Room Air Room Air 08/02/19 08/02/19 08/02/19 08:34 11:00 14:45 Temp 98.1 98.1 Pulse 60 89 Resp 18 16 B/P (MAP) 124/77 (93) 117/75 Pulse Ox 95 O2 Delivery Room Air Intake and Output 08/01/19 08/01/19 08/02/19 15:00 23:00 07:00 Intake Total 0 ml 1620 ml Balance 0 ml 1620 ml ASHLI GRIJALVA MD Aug 02, 2019 15:02
[2019-08-02 19:00] VITALS: BP 133/73
--- NOTE | 2019-08-02 19:51 | NUR ---
non admin ns on emar. Current bag still infusing.
[2019-08-02 23:00] VITALS: BP 133/73
[2019-08-03] MEDS: HYDROmorphone 2 MG/ML VIAL IV PRN ×2 (02:18→07:23)
[2019-08-03 03:00] VITALS: BP 118/57
[2019-08-03 04:27] LABS: BASO % 0 % (0-3); EOS # 0.2 x10^3/uL (0.0-0.7); EOS % 3 % (0-3); HEMATOCRIT 28.7 % (36.0-47.0); HEMOGLOBIN 9.4 g/dL (12.0-15.5); LYMPH # 1.7 x10^3/uL (1.0-4.8); LYMPH % 23 % (24-48); MEAN CORPUSCULAR HEMOGLOBIN 30 pg (25-35); MEAN CORPUSCULAR HGB CONC 33 g/dL (31-37); MEAN CORPUSCULAR VOLUME 91 fL (79-100); MONO # 0.6 x10^3/uL (0.0-1.1); MONO % 8 % (0-9); NEUT # 4.8 x10^3/uL (1.8-7.7); NEUT % 66 % (31-73); PLATELET COUNT 323 x10^3/uL (140-400); RED BLOOD COUNT 3.15 x10^6/uL (3.50-5.40); RED CELL DISTRIBUTION WIDTH 14.3 % (11.5-14.5); WHITE BLOOD COUNT 7.2 x10^3/uL (4.0-11.0)
[2019-08-03 04:47] LABS: CALCIUM 8.9 mg/dL (8.5-10.1); CREATININE 0.9 mg/dL (0.6-1.0); GFR 72.5; POTASSIUM 3.3 mmol/L (3.5-5.1)
[2019-08-03] MEDS: IV NORMAL SALINE 1000ML BAG 1,000 ML IV SCH ×2 (05:19→15:19)
[2019-08-03 07:00] VITALS: BP 151/85
--- NOTE | 2019-08-03 08:38 | NUR ---
Non-admin NS current bag still infusing.
[2019-08-03] MEDS: ENOXAPARIN 40 MG/0.4 ML SYRINGE. SQ SCH (09:18)
[2019-08-03] MEDS: METOPROLOL SUCC 24HR ER 100 MG TAB.ER.24H. PO SCH (09:19)
[2019-08-03] MEDS: ASPIRIN CHEWABLE 81 MG TABLET. PO SCH (09:19)
[2019-08-03] MEDS: LACTOBACILLUS RHAMNOSUS GG 1 CAPSULE. PO SCH ×4 (09:19→23:06)
[2019-08-03] MEDS: GLIMEPIRIDE 2 MG TABLET. PO SCH (09:20)
[2019-08-03] MEDS: CHLORTHALIDONE 25 MG TABLET. PO SCH (09:21)
[2019-08-03] MEDS: amLODIPine BESYLATE 10 MG TABLET PO SCH (09:21)
[2019-08-03] MEDS: LOSARTAN POTASSIUM 50 MG TABLET. PO SCH (09:21)
[2019-08-03] MEDS: POTASSIUM CHLORIDE 20 MEQ TABLET.ER. PO SCH (09:21)
--- NOTE | 2019-08-03 10:29 | PDOC ---
PROGRESS NOTES Assessment Problems Medical Problems: (1) Advanced dementia Status: Acute (2) Chronic anemia Status: Acute (3) Generalized weakness Status: Acute (4) Renal insufficiency Status: Acute Advanced dementia She was just in 2 weeks ago for hypertensive encephalopathy in the setting of [facility]. This time she has some mild hyperglycemia, renal insufficiency, and hypertension Chronic left thalamic infarct Hypertension Diabetes History of anal cancer Pacemaker, cannot have MRI Has been on hospice Plan No additional neurological studies needed or possible Aim for retirement placement this time Subjective Denies complaints Objective Vital Signs Date Time Temp Pulse Resp B/P (MAP) Pulse Ox O2 Delivery O2 Flow Rate FiO2 08/03/19 09:21 75 151/85 08/03/19 08:00 Room Air 08/03/19 07:53 18 08/03/19 07:00 98.2 94 98.2 Intake and Output 08/03/19 07:00 Intake Total 2400 ml Balance 2400 ml IV Total 1200 ml Other 1200 ml # Voids 6 PHYSICAL EXAM Alert. Oriented to place and person, foes not know the date. PERRL. EOMI. CN: no focal findings. Muscle tone: normal. Muscle strength: 4/5 DTR: 1+ Plantar reflex: flexor Has bilateral grasp reflexes Gait: not examined in bed. Sensory exam: no abnormal findings. No cerebellar signs elicited. Review of Relevant I have reviewed the following items presley (where applicable) has been applied. Labs Laboratory Tests Test 08/01/19 11:48 08/01/19 17:11 08/01/19 20:25 08/02/19 03:30 Glucose (Fingerstick) 96 mg/dL (70-99) 109 mg/dL (70-99) 143 mg/dL (70-99) White Blood Count 8.4 x10^3/uL (4.0-11.0) Red Blood Count 3.09 x10^6/uL (3.50-5.40) Hemoglobin 9.3 g/dL (12.0-15.5) Hematocrit 27.8 % (36.0-47.0) Mean Corpuscular Volume 90 fL (79-100) Mean Corpuscular Hemoglobin 30 pg (25-35) Mean Corpuscular Hemoglobin Concent 33 g/dL (31-37) Red Cell Distribution Width 14.0 % (11.5-14.5) Platelet Count 308 x10^3/uL (140-400) Neutrophils (%) (Auto) 61 % (31-73) Lymphocytes (%) (Auto) 26 % (24-48) Monocytes (%) (Auto) 9 % (0-9) Eosinophils (%) (Auto) 3 % (0-3) Basophils (%) (Auto) 2 % (0-3) Neutrophils # (Auto) 5.1 x10^3/uL (1.8-7.7) Lymphocytes # (Auto) 2.2 x10^3/uL (1.0-4.8) Monocytes # (Auto) 0.8 x10^3/uL (0.0-1.1) Eosinophils # (Auto) 0.2 x10^3/uL (0.0-0.7) Basophils # (Auto) 0.2 x10^3/uL (0.0-0.2) Sodium Level 140 mmol/L (136-145) Potassium Level 3.7 mmol/L (3.5-5.1) Chloride Level 105 mmol/L (98-107) Carbon Dioxide Level 26 mmol/L (21-32) Anion Gap 9 (6-14) Blood Urea Nitrogen 11 mg/dL (7-20) Creatinine 0.8 mg/dL (0.6-1.0) Estimated GFR (Cockcroft-Gault) 83.1 Glucose Level 92 mg/dL (70-99) Calcium Level 9.0 mg/dL (8.5-10.1) Test 08/02/19 07:55 08/02/19 11:11 08/02/19 16:56 08/03/19 03:25 Glucose (Fingerstick) 98 mg/dL (70-99) 110 mg/dL (70-99) 122 mg/dL (70-99) White Blood Count 7.2 x10^3/uL (4.0-11.0) Red Blood Count 3.15 x10^6/uL (3.50-5.40) Hemoglobin 9.4 g/dL (12.0-15.5) Hematocrit 28.7 % (36.0-47.0) Mean Corpuscular Volume 91 fL (79-100) Mean Corpuscular Hemoglobin 30 pg (25-35) Mean Corpuscular Hemoglobin Concent 33 g/dL (31-37) Red Cell Distribution Width 14.3 % (11.5-14.5) Platelet Count 323 x10^3/uL (140-400) Neutrophils (%) (Auto) 66 % (31-73) Lymphocytes (%) (Auto) 23 % (24-48) Monocytes (%) (Auto) 8 % (0-9) Eosinophils (%) (Auto) 3 % (0-3) Basophils (%) (Auto) 0 % (0-3) Neutrophils # (Auto) 4.8 x10^3/uL (1.8-7.7) Lymphocytes # (Auto) 1.7 x10^3/uL (1.0-4.8) Monocytes # (Auto) 0.6 x10^3/uL (0.0-1.1) Eosinophils # (Auto) 0.2 x10^3/uL (0.0-0.7) Basophils # (Auto) 0.0 x10^3/uL (0.0-0.2) Sodium Level 142 mmol/L (136-145) Potassium Level 3.3 mmol/L (3.5-5.1) Chloride Level 106 mmol/L (98-107) Carbon Dioxide Level 28 mmol/L (21-32) Anion Gap 8 (6-14) Blood Urea Nitrogen 11 mg/dL (7-20) Creatinine 0.9 mg/dL (0.6-1.0) Estimated GFR (Cockcroft-Gault) 72.5 Glucose Level 89 mg/dL (70-99) Calcium Level 8.9 mg/dL (8.5-10.1) Test 08/03/19 07:26 Glucose (Fingerstick) 109 mg/dL (70-99) Laboratory Tests Test 08/02/19 11:11 08/02/19 16:56 08/03/19 03:25 08/03/19 07:26 Glucose (Fingerstick) 110 mg/dL (70-99) 122 mg/dL (70-99) 109 mg/dL (70-99) White Blood Count 7.2 x10^3/uL (4.0-11.0) Red Blood Count 3.15 x10^6/uL (3.50-5.40) Hemoglobin 9.4 g/dL (12.0-15.5) Hematocrit 28.7 % (36.0-47.0) Mean Corpuscular Volume 91 fL (79-100) Mean Corpuscular Hemoglobin 30 pg (25-35) Mean Corpuscular Hemoglobin Concent 33 g/dL (31-37) Red Cell Distribution Width 14.3 % (11.5-14.5) Platelet Count 323 x10^3/uL (140-400) Neutrophils (%) (Auto) 66 % (31-73) Lymphocytes (%) (Auto) 23 % (24-48) Monocytes (%) (Auto) 8 % (0-9) Eosinophils (%) (Auto) 3 % (0-3) Basophils (%) (Auto) 0 % (0-3) Neutrophils # (Auto) 4.8 x10^3/uL (1.8-7.7) Lymphocytes # (Auto) 1.7 x10^3/uL (1.0-4.8) Monocytes # (Auto) 0.6 x10^3/uL (0.0-1.1) Eosinophils # (Auto) 0.2 x10^3/uL (0.0-0.7) Basophils # (Auto) 0.0 x10^3/uL (0.0-0.2) Sodium Level 142 mmol/L (136-145) Potassium Level 3.3 mmol/L (3.5-5.1) Chloride Level 106 mmol/L (98-107) Carbon Dioxide Level 28 mmol/L (21-32) Anion Gap 8 (6-14) Blood Urea Nitrogen 11 mg/dL (7-20) Creatinine 0.9 mg/dL (0.6-1.0) Estimated GFR (Cockcroft-Gault) 72.5 Glucose Level 89 mg/dL (70-99) Calcium Level 8.9 mg/dL (8.5-10.1) Microbiology 07/31/19 Urine Culture - Final, Complete 07/31/19 Urine Culture Result 1 (ENRICO) - Final, Complete Medications Current Medications Sodium Chloride 1,000 ml @ 125 mls/hr 1X ONCE IV Last administered on 07/30/19at 07:08; Start 07/30/19 at 06:45; Stop 07/30/19 at 14:44; Status DC Sodium Chloride 1,000 ml @ 125 mls/hr Q8H IV Last administered on 07/31/19 00:06; Start 07/30/19 at 08:06; Stop 07/31/19 at 08:05; Status DC Acetaminophen (Tylenol) 1,000 mg PRN Q6HRS PRN PO mild pain or fever Last administered on 08/02/19 07:56; Start 07/30/19 at 11:30 Amlodipine Besylate (Norvasc) 10 mg DAILY PO Last administered on 08/03/19 09:21; Start 07/30/19 at 12:00 Chlorthalidone (Thalitone) 25 mg DAILY PO Last administered on 08/03/19 09:21; Start 07/30/19 at 12:00 Donepezil HCl (Aricept) 10 mg DAILY PO ; Start 07/30/19 at 12:00; Stop 07/31/19 at 19:48; Status DC Hydralazine HCl (Apresoline) 50 mg TID PO Last administered on 08/03/19 09:18; Start 07/30/19 at 14:00 Losartan Potassium (Cozaar) 50 mg DAILY PO Last administered on 08/03/19 09:21; Start 07/30/19 at 12:00 Glimepiride (Amaryl) 4 mg DAILY PO Last administered on 08/03/19 09:20; Start 07/30/19 at 12:00 Acetaminophen/ Hydrocodone Bitart (Lortab 5/325) 1 tab PRN TID PRN PO MODERATE - SEVERE PAIN Last administered on 08/01/19 19:37; Start 07/30/19 at 11:30 Metoprolol Succinate (Toprol Xl) 200 mg DAILY PO Last administered on 08/03/19 09:19; Start 07/30/19 at 12:00 Potassium Chloride (Klor-Con) 20 meq DAILYWBKFT PO Last administered on 08/03/19 09:21; Start 07/30/19 at 12:00 Sodium Chloride (Normal Saline Flush) 3 ml QSHIFT PRN IV AFTER MEDS AND BLOOD DRAWS; Start 07/30/19 at 11:30 Sodium Chloride 1,000 ml @ 100 mls/hr Q10H IV Last administered on 08/02/19at 18:29; Start 07/30/19 at 11:19 Ondansetron HCl (Zofran) 4 mg PRN Q4HRS PRN IV NAUSEA/VOMITING; Start 07/30/19 at 11:30 Acetaminophen (Tylenol) 650 mg PRN Q4HRS PRN PO TEMP OVER 100.4F; Start 07/30/19 at 11:30 Clonidine HCl (Catapres) 0.1 mg PRN Q6HRS PRN PO SBP>160 OR DBP>90; Start 07/30/19 at 11:30 Sodium Monofluorophosphate (Fleet Adult) 133 ml PRN DAILY PRN [place] CONSTIPATION; Start 07/30/19 at 11:30 Docusate Sodium (Colace) 100 mg PRN BID PRN PO HARD STOOLS; Start 07/30/19 at 11:30 Albuterol Sulfate (Ventolin Neb Soln) 2.5 mg PRN Q4HRS PRN NEB SHORTNESS OF BREATH; Start 07/30/19 at 11:30 Guaifenesin (Robitussin) 200 mg PRN Q4HRS PRN PO COUGH; Start 07/30/19 at 11:30 Lorazepam (Ativan) 0.5 mg PRN Q4HRS PRN PO ANXIETY / AGITATION; Start 07/30/19 at 11:30 Lorazepam (Ativan Inj) 2 mg PRN Q4HRS PRN IV ANXIETY / AGITATION Last administered on 08/03/19at 00:33; Start 07/30/19 at 11:30 Enoxaparin Sodium (Lovenox 40mg Syringe) 40 mg DAILY SQ Last administered on 08/03/19 09:18; Start 07/31/19 at 09:00 Hydromorphone HCl (Dilaudid) 1 mg PRN Q4HRS PRN IV PAIN Last administered on 08/01/19 08:07; Start 07/30/19 at 11:30; Stop 08/01/19 at 10:47; Status DC Artificial Tears (Artificial Tears) 1 drop PRN Q1HR PRN OU DRY EYE Last administered on 08/01/19at 05:16; Start 07/31/19 at 14:30 Hydromorphone HCl (Dilaudid) 0.5 mg PRN Q4HRS PRN IV PAIN Last administered on 08/03/19at 07:23; Start 08/01/19 at 11:00 Levofloxacin/ Dextrose 50 ml @ 50 mls/hr Q24H IV Last administered on 08/02/19at 12:30; Start 08/01/19 at 12:00 Lactobacillus Rhamnosus (Culturelle) 1 cap BID PO Last administered on 08/03/19at 09:19; Start 08/01/19 at 21:00 Aspirin (Children'S Aspirin) 81 mg DAILYWBKFT PO Last administered on 08/03/19at 09:19; Start 08/01/19 at 16:00 Olanzapine (ZyPREXA IM) 5 mg PRN Q12HR ONCE IM ; Start 08/01/19 at 15:45; Stop 08/01/19 at 16:13; Status DC Olanzapine (ZyPREXA IM) 5 mg PRN Q12HR PRN IM ANXIETY / AGITATION Last administered on 08/01/19at 19:39; Start 08/01/19 at 16:15 Menthol/Methyl Salicylate (Bengay Greaseless Cream) 1 beto PRN QID PRN TP MUSCLE PAIN Last administered on 08/01/19at 21:01; Start 08/01/19 at 20:15 Active Scripts Active Hydrocodone-Apap 5-300 (Hydrocodone Bit/Acetaminophen) 1 Each Tablet 1 Tab PO PRN TID PRN MDD 3 Tablet(s) 5 Days Reported Aricept (Donepezil Hcl) 10 Mg Tablet 10 Mg PO DAILY Potassium Chloride 20 Meq Tablet.er 1 Tab PO DAILY 30 Days Losartan Potassium 50 Mg Tablet 50 Mg PO DAILY Hydralazine Hcl 50 Mg Tablet 1 Tab PO TID Chlorthalidone (Chlorthalidone) 25 Mg Tablet 25 Mg PO DAILY Amlodipine Besylate 10 Mg Tablet 10 Mg PO DAILY Acetaminophen 500 Mg Tablet 2 Tab PO PRN Q6HRS PRN 15 Days Metoprolol Succinate ( Xl ) (Metoprolol Succinate) 200 Mg Tab.er.24h 1 Tab PO IN THE MORNING Glimepiride 4 Mg Tablet 1 Tab PO DAILY Vitals/I & O Vital Sign - Last 24 Hours 08/02/19 08/02/19 08/02/19 08/02/19 11:00 14:45 15:00 18:12 Temp 98.1 98.4 98.1 98.4 Pulse 60 89 61 Resp 16 18 B/P (MAP) 124/77 (93) 117/75 137/82 (100) Pulse Ox 95 95 95 O2 Delivery Room Air Room Air Room Air 08/02/19 08/02/19 08/02/19 08/02/19 18:42 19:00 19:55 21:12 Temp 98.3 98.3 Pulse 62 62 Resp 18 18 B/P (MAP) 133/73 (93) 133/73 Pulse Ox 94 O2 Delivery Room Air Room Air Room Air 08/02/19 08/02/19 08/02/19 08/03/19 22:12 22:42 23:00 02:18 Temp 98.6 98.6 Pulse 63 Resp 20 20 18 20 B/P (MAP) 133/73 (93) Pulse Ox 94 O2 Delivery Room Air Room Air Room Air Room Air 08/03/19 08/03/19 08/03/19 08/03/19 02:48 03:00 07:00 07:23 Temp 98.0 98.2 98.0 98.2 Pulse 65 75 Resp 20 18 18 18 B/P (MAP) 118/57 (77) 151/85 (107) Pulse Ox 94 94 O2 Delivery Room Air Room Air Room Air 08/03/19 08/03/19 08/03/19 08/03/19 07:53 08:00 09:18 09:19 Pulse 75 75 Resp 18 B/P (MAP) 151/85 151/85 O2 Delivery Room Air Room Air 08/03/19 08/03/19 09:21 09:21 Pulse 75 75 B/P (MAP) 151/85 151/85 Intake and Output 08/02/19 08/02/19 08/03/19 15:00 23:00 07:00 Intake Total 2400 ml Balance [address] HEAD WITHOUT CONTRAST, 08/02 There is no intracranial hemorrhage. There is a chronic infarct within the left medial thalamus. There is mild chronic microangiopathic white matter change elsewhere. Prominence of the lateral ventricles and hemispheric sulci indicates moderate atrophy. The visualized paranasal sinuses appear clear. There are changes of left cataract surgery. The temporal bones are unremarkable. The calvarium reveals no suspicious lesions. There are atherosclerotic calcifications of the internal carotid arteries. IMPRESSION: 1. Chronic left thalamic infarct. 2. Moderate atrophy and mild chronic microangiopathic white matter change. IRAIS SCHMID MD Aug 03, 2019 10:29
--- NOTE | 2019-08-03 11:24 | PDOC ---
[employer] PROGRESS NOTE Chief Complaint Chief Complaint acute Metabolic encephalopathy, NOW IMPROVING hypertensive encephalopathy, dementia, history of anal cancer. 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 Patient has been confused. 08/02 Pt seen and examined Pt resting comfortably No family at bedside to discuss case with DWRN 08/03 Pt seen and examined Pt resting comfortably Pt and family ok with DC plan Vitals/I&O Vitals/I&O: Vital Signs Date Time Temp Pulse Resp B/P (MAP) Pulse Ox O2 Delivery O2 Flow Rate FiO2 08/03/19 09:21 75 151/85 08/03/19 08:00 Room Air 08/03/19 07:53 18 08/03/19 07:00 98.2 94 98.2 I & O 08/02/19 08/02/19 08/03/19 15:00 23:00 07:00 Intake Total 2400 ml Balance 2400 ml Physical Exam Physical Exam: HEENT: nose-midline head-atraumatic General: No acute distress, Other (Patient sleeping in bed on exam) Heart: Regular rate, No murmurs Lungs: Other (No respiratory distress. No crackles) Abdomen: Soft, Other (Non distended) Extremities: No clubbing, No cyanosis Skin: Other (No rash or significant lesion on visible skin) Labs Labs: Laboratory Tests Test 08/02/19 16:56 08/03/19 03:25 08/03/19 07:26 Glucose (Fingerstick) 122 mg/dL (70-99) 109 mg/dL (70-99) White Blood Count 7.2 x10^3/uL (4.0-11.0) Red Blood Count 3.15 x10^6/uL (3.50-5.40) Hemoglobin 9.4 g/dL (12.0-15.5) Hematocrit 28.7 % (36.0-47.0) Mean Corpuscular Volume 91 fL (79-100) Mean Corpuscular Hemoglobin 30 pg (25-35) Mean Corpuscular Hemoglobin Concent 33 g/dL (31-37) Red Cell Distribution Width 14.3 % (11.5-14.5) Platelet Count 323 x10^3/uL (140-400) Neutrophils (%) (Auto) 66 % (31-73) Lymphocytes (%) (Auto) 23 % (24-48) Monocytes (%) (Auto) 8 % (0-9) Eosinophils (%) (Auto) 3 % (0-3) Basophils (%) (Auto) 0 % (0-3) Neutrophils # (Auto) 4.8 x10^3/uL (1.8-7.7) Lymphocytes # (Auto) 1.7 x10^3/uL (1.0-4.8) Monocytes # (Auto) 0.6 x10^3/uL (0.0-1.1) Eosinophils # (Auto) 0.2 x10^3/uL (0.0-0.7) Basophils # (Auto) 0.0 x10^3/uL (0.0-0.2) Sodium Level 142 mmol/L (136-145) Potassium Level 3.3 mmol/L (3.5-5.1) Chloride Level 106 mmol/L (98-107) Carbon Dioxide Level 28 mmol/L (21-32) Anion Gap 8 (6-14) Blood Urea Nitrogen 11 mg/dL (7-20) Creatinine 0.9 mg/dL (0.6-1.0) Estimated GFR (Cockcroft-Gault) 72.5 Glucose Level 89 mg/dL (70-99) Calcium Level 8.9 mg/dL (8.5-10.1) Review of Systems Review of Systems: No CP, SOB Assessment and Plan Assessmemt and Plan Problems Medical Problems: (1) Advanced dementia Status: Acute (2) Chronic anemia Status: Acute (3) Generalized weakness Status: Acute (4) Renal insufficiency Status: Acute Assessment acute Metabolic encephalopathy, NOW IMPROVING hypertensive encephalopathy, dementia, history of anal cancer. 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 CAMMIE CHONG III DO Aug 03, 2019 11:24
--- NOTE | 2019-08-03 11:37 | NUR ---
JULIEN following. Discussed with RN. JULIEN met with pt's daughter, Lacey - they would like referral sent to [facility] and plan to take pt home after SNU. JULIEN faxed referral to [facility] (ph: [phone], fax: [phone]). SW awaiting acceptance decision. Family could not find the medicaid card, but feel strongly that pt has [employer]. JULIEN contacted [facility] to determine if she could check in the system. [facility] reported she could not see any medicaid - family notified, and advised to speak with SNU about assisting with medicaid application. RN notified.
--- NOTE | 2019-08-03 12:29 | SNU/HH DC ---
DISCHARGE ORDERS DISCHARGE INFORMATION: FINAL DIAGNOSIS Problems Medical Problems: (1) Advanced dementia Status: Acute (2) Chronic anemia Status: Acute (3) Generalized weakness Status: Acute (4) Renal insufficiency Status: Acute CONDITION ON DISCHARGE: Stable CODE STATUS: Code Status: Full FPC: SNF STAY <30 DAYS: Yes HOSPICE: HOSPICE: No HOSPICE EVAL & TREAT: No LTAC: ADMIT TO LTAC: No POST DISCHARGE ORDERS: ACTIVITY ORDERS: Resume previous activity WEIGHT BEARING STATUS: As tolerated DIET AFTER DISCHARGE: Cardiac CHECKS AFTER DISCHARGE: CHECKS AFTER DISCHARGE: Check blood sugar, ac/hs TREATMENT/EQUIPMENT ORDERS: ADAPTIVE EQUIPMENT NEEDED: Walker Physical Therapy For: Evalulation/Treatment Occupational Therapy For: Evaluation/Treatment Speech Language Pathology For: Evaluation/Treatment DISCHARGE MEDICATIONS: Home Meds Active Scripts Hydrocodone Bit/Acetaminophen (HYDROCODONE-APAP 5-300) 1 Each Tablet, 1 TAB PO PRN TID PRN for pain MDD 3 Tablet(s) for 5 Days, #15 TAB 0 Refills Prov:LELAND SCHAEFER DO 07/25/19 Reported Medications Donepezil Hcl (ARICEPT) 10 Mg Tablet, 10 MG PO DAILY for , TAB 07/24/19 Potassium Chloride (POTASSIUM CHLORIDE) 20 Meq Tablet.er, 1 TAB PO DAILY for rplacement for 30 Days, #30 TAB 0 Refills 07/20/19 Losartan Potassium (LOSARTAN POTASSIUM) 50 Mg Tablet, 50 MG PO DAILY for HYPERTENSION, TAB 07/20/19 Hydralazine Hcl (HYDRALAZINE HCL) 50 Mg Tablet, 1 TAB PO TID for bp, #270 TAB 3 Refills 07/20/19 Chlorthalidone (CHLORTHALIDONE ) 25 Mg Tablet, 25 MG PO DAILY for DIURETIC, TAB 07/20/19 Amlodipine Besylate (AMLODIPINE BESYLATE) 10 Mg Tablet, 10 MG PO DAILY for BP, TAB 07/20/19 Acetaminophen (ACETAMINOPHEN) 500 Mg Tablet, 2 TAB PO PRN Q6HRS PRN for pain or fever for 15 Days, #60 TAB 0 Refills 07/20/19 Metoprolol Succinate (METOPROLOL SUCCINATE ( XL )) 200 Mg Tab.er.24h, 1 TAB PO in the morning, #30 TAB 5 Refills 09/26/14 Glimepiride (GLIMEPIRIDE) 4 Mg Tablet, 1 TAB PO DAILY, #30 TAB 5 Refills 09/24/14 CAMMIE CHONG III DO Aug 03, 2019 12:29
[2019-08-03 15:00] VITALS: BP 168/94
[2019-08-03] MEDS: LORazepam 0.5 MG TABLET PO PRN ×3 (15:27→23:06)
[2019-08-03 21:10] VITALS: BP 125/73
[2019-08-03] MEDS: HYDROcodone/APAP 5/325MG 1 TAB TABLET PO PRN (21:42)
[2019-08-03 23:10] VITALS: BP 136/82
[2019-08-04] MEDS: OLANZapine IM 10 MG VIAL. IM PRN (00:52)
[2019-08-04] MEDS: IV NORMAL SALINE 1000ML BAG 1,000 ML IV SCH ×3 (01:19→21:19)
[2019-08-04] MEDS ORDERED: OLANZapine IM 10 MG VIAL. IM ONE (02:30)
[2019-08-04 04:12] LABS: BASO % 0 % (0-3); EOS # 0.3 x10^3/uL (0.0-0.7); EOS % 3 % (0-3); HEMATOCRIT 33.2 % (36.0-47.0); HEMOGLOBIN 10.7 g/dL (12.0-15.5); LYMPH # 1.7 x10^3/uL (1.0-4.8); LYMPH % 20 % (24-48); MEAN CORPUSCULAR HEMOGLOBIN 29 pg (25-35); MEAN CORPUSCULAR HGB CONC 32 g/dL (31-37); MEAN CORPUSCULAR VOLUME 91 fL (79-100); MONO # 0.8 x10^3/uL (0.0-1.1); MONO % 9 % (0-9); NEUT # 5.8 x10^3/uL (1.8-7.7); NEUT % 67 % (31-73); PLATELET COUNT 386 x10^3/uL (140-400); RED BLOOD COUNT 3.67 x10^6/uL (3.50-5.40); RED CELL DISTRIBUTION WIDTH 14.4 % (11.5-14.5); WHITE BLOOD COUNT 8.6 x10^3/uL (4.0-11.0)
[2019-08-04 04:35] LABS: CALCIUM 9.8 mg/dL (8.5-10.1); GFR 64.2; POTASSIUM 3.5 mmol/L (3.5-5.1)
[2019-08-04 07:00] VITALS: BP 164/95
--- NOTE | 2019-08-04 07:10 | NUR ---
Pt.'s hydralazine was found on the floor this morning by NGUYEN Marie and this nurse.
[2019-08-04] MEDS: POTASSIUM CHLORIDE 20 MEQ TABLET.ER. PO SCH (08:00)
[2019-08-04] MEDS: ASPIRIN CHEWABLE 81 MG TABLET. PO SCH (08:00)
[2019-08-04] MEDS: GLIMEPIRIDE 2 MG TABLET. PO SCH (09:00)
[2019-08-04] MEDS: LOSARTAN POTASSIUM 50 MG TABLET. PO SCH (09:00)
[2019-08-04] MEDS: amLODIPine BESYLATE 10 MG TABLET PO SCH (09:00)
[2019-08-04] MEDS: METOPROLOL SUCC 24HR ER 100 MG TAB.ER.24H. PO SCH (09:00)
[2019-08-04] MEDS: CHLORTHALIDONE 25 MG TABLET. PO SCH (09:00)
[2019-08-04] MEDS: LACTOBACILLUS RHAMNOSUS GG 1 CAPSULE. PO SCH ×2 (09:00→21:00)
--- NOTE | 2019-08-04 09:41 | PDOC ---
PROGRESS NOTES Assessment Problems Medical Problems: (1) Advanced dementia Status: Acute (2) Chronic anemia Status: Acute (3) Generalized weakness Status: Acute (4) Renal insufficiency Status: Acute Advanced dementia She was just in 2 weeks ago for hypertensive encephalopathy in the setting of [facility]. This time she has some mild hyperglycemia, renal insufficiency, and hypertension Chronic left thalamic infarct Hypertension Diabetes History of anal cancer Pacemaker, cannot have MRI Has been on hospice Plan No additional neurological studies needed or possible Aim for long term placement this time Discussed with niece Subjective none Objective Vital Signs Date Time Temp Pulse Resp B/P (MAP) Pulse Ox O2 Delivery O2 Flow Rate FiO2 08/04/19 07:00 97.9 86 18 164/95 (118) 100 Room Air 97.9 PHYSICAL EXAM More sleepy, knows her name PERRL. EOMI. CN: no focal findings. Muscle tone: normal. Muscle strength: 4/5 DTR: 1+ Plantar reflex: flexor Has bilateral grasp reflexes Gait: not examined in bed. Sensory exam: no abnormal findings. No cerebellar signs elicited. Review of Relevant I have reviewed the following items presley (where applicable) has been applied. Labs Laboratory Tests Test 08/02/19 11:11 08/02/19 16:56 08/03/19 03:25 08/03/19 07:26 Glucose (Fingerstick) 110 mg/dL (70-99) 122 mg/dL (70-99) 109 mg/dL (70-99) White Blood Count 7.2 x10^3/uL (4.0-11.0) Red Blood Count 3.15 x10^6/uL (3.50-5.40) Hemoglobin 9.4 g/dL (12.0-15.5) Hematocrit 28.7 % (36.0-47.0) Mean Corpuscular Volume 91 fL (79-100) Mean Corpuscular Hemoglobin 30 pg (25-35) Mean Corpuscular Hemoglobin Concent 33 g/dL (31-37) Red Cell Distribution Width 14.3 % (11.5-14.5) Platelet Count 323 x10^3/uL (140-400) Neutrophils (%) (Auto) 66 % (31-73) Lymphocytes (%) (Auto) 23 % (24-48) Monocytes (%) (Auto) 8 % (0-9) Eosinophils (%) (Auto) 3 % (0-3) Basophils (%) (Auto) 0 % (0-3) Neutrophils # (Auto) 4.8 x10^3/uL (1.8-7.7) Lymphocytes # (Auto) 1.7 x10^3/uL (1.0-4.8) Monocytes # (Auto) 0.6 x10^3/uL (0.0-1.1) Eosinophils # (Auto) 0.2 x10^3/uL (0.0-0.7) Basophils # (Auto) 0.0 x10^3/uL (0.0-0.2) Sodium Level 142 mmol/L (136-145) Potassium Level 3.3 mmol/L (3.5-5.1) Chloride Level 106 mmol/L (98-107) Carbon Dioxide Level 28 mmol/L (21-32) Anion Gap 8 (6-14) Blood Urea Nitrogen 11 mg/dL (7-20) Creatinine 0.9 mg/dL (0.6-1.0) Estimated GFR (Cockcroft-Gault) 72.5 Glucose Level 89 mg/dL (70-99) Calcium Level 8.9 mg/dL (8.5-10.1) Test 08/03/19 20:51 08/04/19 03:00 08/04/19 07:40 Glucose (Fingerstick) 77 mg/dL (70-99) 113 mg/dL (70-99) White Blood Count 8.6 x10^3/uL (4.0-11.0) Red Blood Count 3.67 x10^6/uL (3.50-5.40) Hemoglobin 10.7 g/dL (12.0-15.5) Hematocrit 33.2 % (36.0-47.0) Mean Corpuscular Volume 91 fL (79-100) Mean Corpuscular Hemoglobin 29 pg (25-35) Mean Corpuscular Hemoglobin Concent 32 g/dL (31-37) Red Cell Distribution Width 14.4 % (11.5-14.5) Platelet Count 386 x10^3/uL (140-400) Neutrophils (%) (Auto) 67 % (31-73) Lymphocytes (%) (Auto) 20 % (24-48) Monocytes (%) (Auto) 9 % (0-9) Eosinophils (%) (Auto) 3 % (0-3) Basophils (%) (Auto) 0 % (0-3) Neutrophils # (Auto) 5.8 x10^3/uL (1.8-7.7) Lymphocytes # (Auto) 1.7 x10^3/uL (1.0-4.8) Monocytes # (Auto) 0.8 x10^3/uL (0.0-1.1) Eosinophils # (Auto) 0.3 x10^3/uL (0.0-0.7) Basophils # (Auto) 0.0 x10^3/uL (0.0-0.2) Sodium Level 139 mmol/L (136-145) Potassium Level 3.5 mmol/L (3.5-5.1) Chloride Level 102 mmol/L (98-107) Carbon Dioxide Level 24 mmol/L (21-32) Anion Gap 13 (6-14) Blood Urea Nitrogen 12 mg/dL (7-20) Creatinine 1.0 mg/dL (0.6-1.0) Estimated GFR (Cockcroft-Gault) 64.2 Glucose Level 137 mg/dL (70-99) Calcium Level 9.8 mg/dL (8.5-10.1) Laboratory Tests Test 08/03/19 20:51 08/04/19 03:00 08/04/19 07:40 Glucose (Fingerstick) 77 mg/dL (70-99) 113 mg/dL (70-99) White Blood Count 8.6 x10^3/uL (4.0-11.0) Red Blood Count 3.67 x10^6/uL (3.50-5.40) Hemoglobin 10.7 g/dL (12.0-15.5) Hematocrit 33.2 % (36.0-47.0) Mean Corpuscular Volume 91 fL (79-100) Mean Corpuscular Hemoglobin 29 pg (25-35) Mean Corpuscular Hemoglobin Concent 32 g/dL (31-37) Red Cell Distribution Width 14.4 % (11.5-14.5) Platelet Count 386 x10^3/uL (140-400) Neutrophils (%) (Auto) 67 % (31-73) Lymphocytes (%) (Auto) 20 % (24-48) Monocytes (%) (Auto) 9 % (0-9) Eosinophils (%) (Auto) 3 % (0-3) Basophils (%) (Auto) 0 % (0-3) Neutrophils # (Auto) 5.8 x10^3/uL (1.8-7.7) Lymphocytes # (Auto) 1.7 x10^3/uL (1.0-4.8) Monocytes # (Auto) 0.8 x10^3/uL (0.0-1.1) Eosinophils # (Auto) 0.3 x10^3/uL (0.0-0.7) Basophils # (Auto) 0.0 x10^3/uL (0.0-0.2) Sodium Level 139 mmol/L (136-145) Potassium Level 3.5 mmol/L (3.5-5.1) Chloride Level 102 mmol/L (98-107) Carbon Dioxide Level 24 mmol/L (21-32) Anion Gap 13 (6-14) Blood Urea Nitrogen 12 mg/dL (7-20) Creatinine 1.0 mg/dL (0.6-1.0) Estimated GFR (Cockcroft-Gault) 64.2 Glucose Level 137 mg/dL (70-99) Calcium Level 9.8 mg/dL (8.5-10.1) Microbiology 07/31/19 Urine Culture - Final, Complete 07/31/19 Urine Culture Result 1 (ENRICO) - Final, Complete Medications Current Medications Sodium Chloride 1,000 ml @ 125 mls/hr 1X ONCE IV Last administered on 07/30/19at 07:08; Start 07/30/19 at 06:45; Stop 07/30/19 at 14:44; Status DC Sodium Chloride 1,000 ml @ 125 mls/hr Q8H IV Last administered on 07/31/19at 00:06; Start 07/30/19 at 08:06; Stop 07/31/19 at 08:05; Status DC Acetaminophen (Tylenol) 1,000 mg PRN Q6HRS PRN PO mild pain or fever Last administered on 08/02/19at 07:56; Start 07/30/19 at 11:30 Amlodipine Besylate (Norvasc) 10 mg DAILY PO Last administered on 08/03/19at 09:21; Start 07/30/19 at 12:00 Chlorthalidone (Thalitone) 25 mg DAILY PO Last administered on 08/03/19 09:21; Start 07/30/19 at 12:00 Donepezil HCl (Aricept) 10 mg DAILY PO ; Start 07/30/19 at 12:00; Stop 07/31/19 at 19:48; Status DC Hydralazine HCl (Apresoline) 50 mg TID PO Last administered on 08/03/19 23:06; Start 07/30/19 at 14:00 Losartan Potassium (Cozaar) 50 mg DAILY PO Last administered on 08/03/19 09:21; Start 07/30/19 at 12:00 Glimepiride (Amaryl) 4 mg DAILY PO Last administered on 08/03/19 09:20; Start 07/30/19 at 12:00 Acetaminophen/ Hydrocodone Bitart (Lortab 5/325) 1 tab PRN TID PRN PO MODERATE - SEVERE PAIN Last administered on 08/01/19at 19:37; Start 07/30/19 at 11:30 Metoprolol Succinate (Toprol Xl) 200 mg DAILY PO Last administered on 08/03/19 09:19; Start 07/30/19 at 12:00 Potassium Chloride (Klor-Con) 20 meq DAILYWBKFT PO Last administered on 08/03/19 09:21; Start 07/30/19 at 12:00 Sodium Chloride (Normal Saline Flush) 3 ml QSHIFT PRN IV AFTER MEDS AND BLOOD DRAWS; Start 07/30/19 at 11:30 Sodium Chloride 1,000 ml @ 100 mls/hr Q10H IV Last administered on 08/02/19at 18:29; Start 07/30/19 at 11:19 Ondansetron HCl (Zofran) 4 mg PRN Q4HRS PRN IV NAUSEA/VOMITING; Start 07/30/19 at 11:30 Acetaminophen (Tylenol) 650 mg PRN Q4HRS PRN PO TEMP OVER 100.4F; Start 07/30/19 at 11:30; Stop 08/03/19 at 11:27; Status DC Clonidine HCl (Catapres) 0.1 mg PRN Q6HRS PRN PO SBP>160 OR DBP>90; Start 07/30/19 at 11:30 Sodium Monofluorophosphate (Fleet Adult) 133 ml PRN DAILY PRN GA CONSTIPATION; Start 07/30/19 at 11:30 Docusate Sodium (Colace) 100 mg PRN BID PRN PO HARD STOOLS; Start 07/30/19 at 11:30 Albuterol Sulfate (Ventolin Neb Soln) 2.5 mg PRN Q4HRS PRN NEB SHORTNESS OF BREATH; Start 07/30/19 at 11:30 Guaifenesin (Robitussin) 200 mg PRN Q4HRS PRN PO COUGH; Start 07/30/19 at 11:30 Lorazepam (Ativan) 0.5 mg PRN Q4HRS PRN PO ANXIETY / AGITATION Last administered on 08/03/19at 23:06; Start 07/30/19 at 11:30 Lorazepam (Ativan Inj) 2 mg PRN Q4HRS PRN IV ANXIETY / AGITATION Last administered on 08/03/19at 00:33; Start 07/30/19 at 11:30 Enoxaparin Sodium (Lovenox 40mg Syringe) 40 mg DAILY SQ Last administered on 08/03/19 09:18; Start 07/31/19 at 09:00 Hydromorphone HCl (Dilaudid) 1 mg PRN Q4HRS PRN IV PAIN Last administered on 08/01/19at 08:07; Start 07/30/19 at 11:30; Stop 08/01/19 at 10:47; Status DC Artificial Tears (Artificial Tears) 1 drop PRN Q1HR PRN OU DRY EYE Last administered on 08/01/19at 05:16; Start 07/31/19 at 14:30 Hydromorphone HCl (Dilaudid) 0.5 mg PRN Q4HRS PRN IV PAIN Last administered on 08/03/19 07:23; Start 08/01/19 at 11:00 Levofloxacin/ Dextrose 50 ml @ 50 mls/hr Q24H IV Last administered on 08/02/19at 12:30; Start 08/01/19 at 12:00; Stop 08/03/19 at 12:09; Status DC Lactobacillus Rhamnosus (Culturelle) 1 cap BID PO Last administered on 08/03/19at 23:06; Start 08/01/19 at 21:00 Aspirin (Children'S Aspirin) 81 mg DAILYWBKFT PO Last administered on at 09:19; Start 08/01/19 at 16:00 Olanzapine (ZyPREXA IM) 5 mg PRN Q12HR ONCE IM ; Start 08/01/19 at 15:45; Stop 08/01/19 at 16:13; Status DC Olanzapine (ZyPREXA IM) 5 mg PRN Q12HR PRN IM ANXIETY / AGITATION Last administered on 08/04/19at 00:52; Start 08/01/19 at 16:15 Menthol/Methyl Salicylate (Bengay Greaseless Cream) 1 beto PRN QID PRN TP MUSCLE PAIN Last administered on 08/01/19at 21:01; Start 08/01/19 at 20:15 Levofloxacin (Levaquin) 250 mg DAILY06 PO Last administered on 08/03/19at 12: 53; Start 08/03/19 at 12:00 Olanzapine (ZyPREXA IM) 10 mg 1X ONCE IM Last administered on 08/04/19at 04:02; Start 08/04/19 at 02:30; Stop 08/04/19 at 02:31; Status DC Active Scripts Active Hydrocodone-Apap 5-300 (Hydrocodone Bit/Acetaminophen) 1 Each Tablet 1 Tab PO PRN TID PRN MDD 3 Tablet(s) 5 Days Reported Aricept (Donepezil Hcl) 10 Mg Tablet 10 Mg PO DAILY Potassium Chloride 20 Meq Tablet.er 1 Tab PO DAILY 30 Days Losartan Potassium 50 Mg Tablet 50 Mg PO DAILY Hydralazine Hcl 50 Mg Tablet 1 Tab PO TID Chlorthalidone (Chlorthalidone) 25 Mg Tablet 25 Mg PO DAILY Amlodipine Besylate 10 Mg Tablet 10 Mg PO DAILY Acetaminophen 500 Mg Tablet 2 Tab PO PRN Q6HRS PRN 15 Days Metoprolol Succinate ( Xl ) (Metoprolol Succinate) 200 Mg Tab.er.24h 1 Tab PO IN THE MORNING Glimepiride 4 Mg Tablet 1 Tab PO DAILY Vitals/I & O Vital Sign - Last 24 Hours 08/03/19 08/03/19 08/03/19 08/03/19 14:16 15:00 20:00 21:10 Temp 98.2 98.7 98.2 98.7 Pulse 68 90 71 Resp 18 18 B/P (MAP) 161/91 168/94 (118) 125/73 (90) Pulse Ox 95 97 O2 Delivery Room Air Room Air Room Air 08/03/19 08/03/19 08/04/19 23:06 23:10 07:00 Temp 98.8 97.9 98.8 97.9 Pulse 71 74 86 Resp 18 18 B/P (MAP) 125/73 136/82 (100) 164/95 (118) Pulse Ox 96 100 O2 Delivery Room Air Room Air IRAIS SCHMID MD Aug 04, 2019 09:41
--- NOTE | 2019-08-04 10:19 | PDOC ---
[employer] PROGRESS NOTE Chief Complaint Chief Complaint acute Metabolic encephalopathy, NOW IMPROVING hypertensive encephalopathy, dementia, history of anal cancer. 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 Patient has been confused. 08/02 Pt seen and examined Pt resting comfortably No family at bedside to discuss case with DWRN 08/03 Pt seen and examined Pt resting comfortably Pt and family ok with DC plan 08/04 Pt seen and examined Pt resting comfortably Pt and family ok with DC plan Awaiting bed placement Vitals/I&O Vitals/I&O: Vital Signs Date Time Temp Pulse Resp B/P (MAP) Pulse Ox O2 Delivery O2 Flow Rate FiO2 08/04/19 07:00 97.9 86 18 164/95 (118) 100 Room Air 97.9 Physical Exam Physical Exam: HEENT: nose-midline head-atraumatic General: No acute distress, Other (Patient sleeping in bed on exam) Heart: Regular rate, No murmurs Lungs: Other (No respiratory distress. No crackles) Abdomen: Soft, Other (Non distended) Extremities: No clubbing, No cyanosis Skin: Other (No rash or significant lesion on visible skin) Labs Labs: Laboratory Tests Test 08/03/19 20:51 08/04/19 03:00 08/04/19 07:40 Glucose (Fingerstick) 77 mg/dL (70-99) 113 mg/dL (70-99) White Blood Count 8.6 x10^3/uL (4.0-11.0) Red Blood Count 3.67 x10^6/uL (3.50-5.40) Hemoglobin 10.7 g/dL (12.0-15.5) Hematocrit 33.2 % (36.0-47.0) Mean Corpuscular Volume 91 fL (79-100) Mean Corpuscular Hemoglobin 29 pg (25-35) Mean Corpuscular Hemoglobin Concent 32 g/dL (31-37) Red Cell Distribution Width 14.4 % (11.5-14.5) Platelet Count 386 x10^3/uL (140-400) Neutrophils (%) (Auto) 67 % (31-73) Lymphocytes (%) (Auto) 20 % (24-48) Monocytes (%) (Auto) 9 % (0-9) Eosinophils (%) (Auto) 3 % (0-3) Basophils (%) (Auto) 0 % (0-3) Neutrophils # (Auto) 5.8 x10^3/uL (1.8-7.7) Lymphocytes # (Auto) 1.7 x10^3/uL (1.0-4.8) Monocytes # (Auto) 0.8 x10^3/uL (0.0-1.1) Eosinophils # (Auto) 0.3 x10^3/uL (0.0-0.7) Basophils # (Auto) 0.0 x10^3/uL (0.0-0.2) Sodium Level 139 mmol/L (136-145) Potassium Level 3.5 mmol/L (3.5-5.1) Chloride Level 102 mmol/L (98-107) Carbon Dioxide Level 24 mmol/L (21-32) Anion Gap 13 (6-14) Blood Urea Nitrogen 12 mg/dL (7-20) Creatinine 1.0 mg/dL (0.6-1.0) Estimated GFR (Cockcroft-Gault) 64.2 Glucose Level 137 mg/dL (70-99) Calcium Level 9.8 mg/dL (8.5-10.1) Review of Systems Review of Systems: No CP, SOB Assessment and Plan Assessmemt and Plan Problems Medical Problems: (1) Advanced dementia Status: Acute (2) Chronic anemia Status: Acute (3) Generalized weakness Status: Acute (4) Renal insufficiency Status: Acute Assessment acute Metabolic encephalopathy, NOW IMPROVING hypertensive encephalopathy, dementia, history of anal cancer. 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 Medications: Current Medications Medications (Trade) Dose Ordered Sig/Sebastián Route PRN Reason Start Time Stop Time Status Last Admin Dose Admin Levofloxacin (Levaquin) 250 mg DAILY06 PO 08/03/19 12:00 08/03/19 12:53 Olanzapine (ZyPREXA IM) 10 mg 1X ONCE IM 08/04/19 02:30 08/04/19 02:31 DC 08/04/19 04:02 CAMMIE CHONG III DO Aug 04, 2019 10:19
[2019-08-04 11:00] VITALS: BP 136/80
--- NOTE | 2019-08-04 12:42 | NUR ---
SW following. Discussed with RN, [facility] declined to take pt due to advanced dementia. JULIEN met with family, they would like referral sent to [facility]. JULIEN faxed referral to [facility], awaiting acceptance decision. NGUYEN notified. Addendum: 08/04/19 at 1554 by [facility] VICTORIA [facility] has accepted pt, they will transport pt tomorrow (08/05/19) at 1000. RN notified. JULIEN will continue to follow.
[2019-08-04 15:00] VITALS: BP 124/79
[2019-08-04] MEDS: ENOXAPARIN 40 MG/0.4 ML SYRINGE. SQ SCH (16:49)
[2019-08-04 19:46] VITALS: BP 113/77
[2019-08-04 23:24] VITALS: BP 115/65
[2019-08-05 02:47] VITALS: BP 143/99
[2019-08-05] MEDS: IV NORMAL SALINE 1000ML BAG 1,000 ML IV SCH (05:37)
[2019-08-05 07:00] VITALS: BP 143/78
[2019-08-05] MEDS: POTASSIUM CHLORIDE 20 MEQ TABLET.ER. PO SCH (07:47)
[2019-08-05] MEDS: ASPIRIN CHEWABLE 81 MG TABLET. PO SCH (07:47)
[2019-08-05] MEDS: GLIMEPIRIDE 2 MG TABLET. PO SCH (07:47)
[2019-08-05] MEDS: LOSARTAN POTASSIUM 50 MG TABLET. PO SCH (07:48)
[2019-08-05] MEDS: LACTOBACILLUS RHAMNOSUS GG 1 CAPSULE. PO SCH (07:49)
[2019-08-05] MEDS: amLODIPine BESYLATE 10 MG TABLET PO SCH (07:50)
[2019-08-05] MEDS: CHLORTHALIDONE 25 MG TABLET. PO SCH (07:50)
[2019-08-05] MEDS: METOPROLOL SUCC 24HR ER 100 MG TAB.ER.24H. PO SCH (07:51)
[2019-08-05] MEDS: ENOXAPARIN 40 MG/0.4 ML SYRINGE. SQ SCH (07:51)
[2019-08-05] MEDS: ACETAMINOPHEN 500 MG TABLET PO PRN (08:44)
--- NOTE | 2019-08-05 09:02 | PDOC ---
PROGRESS NOTES Assessment Problems Medical Problems: (1) Advanced dementia Status: Acute (2) Chronic anemia Status: Acute (3) Generalized weakness Status: Acute (4) Renal insufficiency Status: Acute Advanced dementia She was just in 2 weeks ago for hypertensive encephalopathy in the setting of [facility]. This time she has some mild hyperglycemia, renal insufficiency, and hypertension Chronic left thalamic infarct Hypertension Diabetes History of anal cancer Pacemaker, cannot have MRI Has been on hospice Plan No additional neurological studies needed or possible [facility] placement this time Subjective none Objective Vital Signs Date Time Temp Pulse Resp B/P (MAP) Pulse Ox O2 Delivery O2 Flow Rate FiO2 08/05/19 07:00 99.0 65 16 143/78 (99) 95 Room Air 99.0 Intake and Output 08/05/19 07:00 Intake Total 120 ml Balance 120 ml Intake Oral 120 ml # Voids 2 PHYSICAL EXAM Alert, knows her name, pseudobulbar crying, stops quickly PERRL. EOMI. CN: no focal findings. Muscle tone: normal. Muscle strength: 4/5 DTR: 1+ Plantar reflex: flexor Has bilateral grasp reflexes Gait: not examined in bed. Sensory exam: no abnormal findings. No cerebellar signs elicited. Review of Relevant I have reviewed the following items presley (where applicable) has been applied. Labs Laboratory Tests Test 08/03/19 20:51 08/04/19 03:00 08/04/19 07:40 08/04/19 11:09 Glucose (Fingerstick) 77 mg/dL (70-99) 113 mg/dL (70-99) 87 mg/dL (70-99) White Blood Count 8.6 x10^3/uL (4.0-11.0) Red Blood Count 3.67 x10^6/uL (3.50-5.40) Hemoglobin 10.7 g/dL (12.0-15.5) Hematocrit 33.2 % (36.0-47.0) Mean Corpuscular Volume 91 fL (79-100) Mean Corpuscular Hemoglobin 29 pg (25-35) Mean Corpuscular Hemoglobin Concent 32 g/dL (31-37) Red Cell Distribution Width 14.4 % (11.5-14.5) Platelet Count 386 x10^3/uL (140-400) Neutrophils (%) (Auto) 67 % (31-73) Lymphocytes (%) (Auto) 20 % (24-48) Monocytes (%) (Auto) 9 % (0-9) Eosinophils (%) (Auto) 3 % (0-3) Basophils (%) (Auto) 0 % (0-3) Neutrophils # (Auto) 5.8 x10^3/uL (1.8-7.7) Lymphocytes # (Auto) 1.7 x10^3/uL (1.0-4.8) Monocytes # (Auto) 0.8 x10^3/uL (0.0-1.1) Eosinophils # (Auto) 0.3 x10^3/uL (0.0-0.7) Basophils # (Auto) 0.0 x10^3/uL (0.0-0.2) Sodium Level 139 mmol/L (136-145) Potassium Level 3.5 mmol/L (3.5-5.1) Chloride Level 102 mmol/L (98-107) Carbon Dioxide Level 24 mmol/L (21-32) Anion Gap 13 (6-14) Blood Urea Nitrogen 12 mg/dL (7-20) Creatinine 1.0 mg/dL (0.6-1.0) Estimated GFR (Cockcroft-Gault) 64.2 Glucose Level 137 mg/dL (70-99) Calcium Level 9.8 mg/dL (8.5-10.1) Test 08/04/19 17:15 08/04/19 20:37 08/05/19 07:15 Glucose (Fingerstick) 97 mg/dL (70-99) 97 mg/dL (70-99) 116 mg/dL (70-99) Laboratory Tests Test 08/04/19 11:09 08/04/19 17:15 08/04/19 20:37 08/05/19 07:15 Glucose (Fingerstick) 87 mg/dL (70-99) 97 mg/dL (70-99) 97 mg/dL (70-99) 116 mg/dL (70-99) Microbiology 07/31/19 Urine Culture - Final, Complete 07/31/19 Urine Culture Result 1 (ENRICO) - Final, Complete Medications Current Medications Sodium Chloride 1,000 ml @ 125 mls/hr 1X ONCE IV Last administered on 07/30/19at 07:08; Start 07/30/19 at 06:45; Stop 07/30/19 at 14:44; Status DC Sodium Chloride 1,000 ml @ 125 mls/hr Q8H IV Last administered on 07/31/19at 00:06; Start 07/30/19 at 08:06; Stop 07/31/19 at 08:05; Status DC Acetaminophen (Tylenol) 1,000 mg PRN Q6HRS PRN PO mild pain or fever Last administered on 08/05/19at 08:44; Start 07/30/19 at 11:30 Amlodipine Besylate (Norvasc) 10 mg DAILY PO Last administered on 08/03/19 09:21; Start 07/30/19 at 12:00 Chlorthalidone (Thalitone) 25 mg DAILY PO Last administered on 08/03/19 09:21; Start 07/30/19 at 12:00 Donepezil HCl (Aricept) 10 mg DAILY PO ; Start 07/30/19 at 12:00; Stop 07/31/19 at 19:48; Status DC Hydralazine HCl (Apresoline) 50 mg TID PO Last administered on 08/03/19 23:06; Start 07/30/19 at 14:00 Losartan Potassium (Cozaar) 50 mg DAILY PO Last administered on 08/03/19 09:21; Start 07/30/19 at 12:00 Glimepiride (Amaryl) 4 mg DAILY PO Last administered on 08/03/19 09:20; Start 07/30/19 at 12:00 Acetaminophen/ Hydrocodone Bitart (Lortab 5/325) 1 tab PRN TID PRN PO MODERATE - SEVERE PAIN Last administered on 08/01/19at 19:37; Start 07/30/19 at 11:30 Metoprolol Succinate (Toprol Xl) 200 mg DAILY PO Last administered on 08/03/19 09:19; Start 07/30/19 at 12:00 Potassium Chloride (Klor-Con) 20 meq DAILYWBKFT PO Last administered on 08/03/19 09:21; Start 07/30/19 at 12:00 Sodium Chloride (Normal Saline Flush) 3 ml QSHIFT PRN IV AFTER MEDS AND BLOOD DRAWS; Start 07/30/19 at 11:30 Sodium Chloride 1,000 ml @ 100 mls/hr Q10H IV Last administered on 08/02/19at 18:29; Start 07/30/19 at 11:19 Ondansetron HCl (Zofran) 4 mg PRN Q4HRS PRN IV NAUSEA/VOMITING; Start 07/30/19 at 11:30 Acetaminophen (Tylenol) 650 mg PRN Q4HRS PRN PO TEMP OVER 100.4F; Start 07/30/19 at 11:30; Stop 08/03/19 at 11:27; Status DC Clonidine HCl (Catapres) 0.1 mg PRN Q6HRS PRN PO SBP>160 OR DBP>90; Start 07/30/19 at 11:30 Sodium Monofluorophosphate (Fleet Adult) 133 ml PRN DAILY PRN MS CONSTIPATION; Start 07/30/19 at 11:30 Docusate Sodium (Colace) 100 mg PRN BID PRN PO HARD STOOLS; Start 07/30/19 at 11:30 Albuterol Sulfate (Ventolin Neb Soln) 2.5 mg PRN Q4HRS PRN NEB SHORTNESS OF BREATH; Start 07/30/19 at 11:30 Guaifenesin (Robitussin) 200 mg PRN Q4HRS PRN PO COUGH; Start 07/30/19 at 11:30 Lorazepam (Ativan) 0.5 mg PRN Q4HRS PRN PO ANXIETY / AGITATION Last administered on 08/03/19at 23:06; Start 07/30/19 at 11:30 Lorazepam (Ativan Inj) 2 mg PRN Q4HRS PRN IV ANXIETY / AGITATION Last administered on 08/03/19at 00:33; Start 07/30/19 at 11:30; Stop 08/04/19 at 17:10; Status DC Enoxaparin Sodium (Lovenox 40mg Syringe) 40 mg DAILY SQ Last administered on 08/04/19at 16:49; Start 07/31/19 at 09:00 Hydromorphone HCl (Dilaudid) 1 mg PRN Q4HRS PRN IV PAIN Last administered on 08/01/19 08:07; Start 07/30/19 at 11:30; Stop 08/01/19 at 10:47; Status DC Artificial Tears (Artificial Tears) 1 drop PRN Q1HR PRN OU DRY EYE Last administered on 08/01/19at 05:16; Start 07/31/19 at 14:30 Hydromorphone HCl (Dilaudid) 0.5 mg PRN Q4HRS PRN IV PAIN Last administered on 08/03/19at 07:23; Start 08/01/19 at 11:00; Stop 08/04/19 at 17:10; Status DC Levofloxacin/ Dextrose 50 ml @ 50 mls/hr Q24H IV Last administered on 08/02/19at 12:30; Start 08/01/19 at 12:00; Stop 08/03/19 at 12:09; Status DC Lactobacillus Rhamnosus (Culturelle) 1 cap BID PO Last administered on 08/03/19at 23:06; Start 08/01/19 at 21:00 Aspirin (Children'S Aspirin) 81 mg DAILYWBKFT PO Last administered on 08/03/19at 09:19; Start 08/01/19 at 16:00 Olanzapine (ZyPREXA IM) 5 mg PRN Q12HR ONCE IM ; Start 08/01/19 at 15:45; Stop 08/01/19 at 16:13; Status DC Olanzapine (ZyPREXA IM) 5 mg PRN Q12HR PRN IM ANXIETY / AGITATION Last administered on 08/04/19at 00:52; Start 08/01/19 at 16:15; Stop 08/04/19 at 17:10; Status DC Menthol/Methyl Salicylate (Bengay Greaseless Cream) 1 beto PRN QID PRN TP MUSCLE PAIN Last administered on 08/01/19at 21:01; Start 08/01/19 at 20:15 Levofloxacin (Levaquin) 250 mg DAILY06 PO Last administered on 08/03/19at 12:53; Start 08/03/19 at 12:00 Olanzapine (ZyPREXA IM) 10 mg 1X ONCE IM Last administered on 08/04/19at 04:02; Start 08/04/19 at 02:30; Stop 08/04/19 at 02:31; Status DC Active Scripts Active Hydrocodone-Apap 5-300 (Hydrocodone Bit/Acetaminophen) 1 Each Tablet 1 Tab PO PRN TID PRN MDD 3 Tablet(s) 5 Days Reported Aricept (Donepezil Hcl) 10 Mg Tablet 10 Mg PO DAILY Potassium Chloride 20 Meq Tablet.er 1 Tab PO DAILY 30 Days Losartan Potassium 50 Mg Tablet 50 Mg PO DAILY Hydralazine Hcl 50 Mg Tablet 1 Tab PO TID Chlorthalidone (Chlorthalidone) 25 Mg Tablet 25 Mg PO DAILY Amlodipine Besylate 10 Mg Tablet 10 Mg PO DAILY Acetaminophen 500 Mg Tablet 2 Tab PO PRN Q6HRS PRN 15 Days Metoprolol Succinate ( Xl ) (Metoprolol Succinate) 200 Mg Tab.er.24h 1 Tab PO IN THE MORNING Glimepiride 4 Mg Tablet 1 Tab PO DAILY Vitals/I & O Vital Sign - Last 24 Hours 08/04/19 08/04/19 08/04/19 08/04/19 11:00 15:00 15:25 19:46 Temp 97.8 97.7 98.2 97.8 97.7 98.2 Pulse 66 68 63 Resp 18 18 16 B/P (MAP) 136/80 (98) 124/79 (94) 113/77 (89) Pulse Ox 98 96 94 O2 Delivery Room Air Room Air Room Air Room Air 08/04/19 08/04/19 08/05/19 08/05/19 20:00 23:24 02:47 07:00 Temp 97.8 98.1 99.0 97.8 98.1 99.0 Pulse 61 92 65 Resp 16 18 16 B/P (MAP) 115/65 (82) 143/99 (114) 143/78 (99) Pulse Ox 95 96 95 O2 Delivery Room Air Room Air Room Air Room Air Intake and Output 08/04/19 08/04/19 08/05/19 15:00 23:00 07:00 Intake Total 0 ml 120 ml Balance 0 ml 120 ml IRAIS SCHMID MD Aug 05, 2019 09:02
--- NOTE | 2019-08-05 09:13 | NUR ---
SW following. Pt discharging to [facility] today at 1000. RN and family notified. No further SW needs.
--- NOTE | 2019-08-05 11:30 | PDOC ---
[employer] PROGRESS NOTE Chief Complaint Chief Complaint acute Metabolic encephalopathy, NOW IMPROVING hypertensive encephalopathy, dementia, history of anal cancer. 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 Patient has been confused. 08/02 Pt seen and examined Pt resting comfortably No family at bedside to discuss case with D[facility] 08/03 Pt seen and examined Pt resting comfortably Pt and family ok with DC plan 08/04 Pt seen and examined Pt resting comfortably Pt and family ok with DC plan Awaiting bed placement 08/05 Pt seen and examined Pt resting comfortably Pt and family ok with DC plan Pt to leave later today Vitals/I&O Vitals/I&O: Vital Signs Date Time Temp Pulse Resp B/P (MAP) Pulse Ox O2 Delivery O2 Flow Rate FiO2 08/05/19 08:00 Room Air 08/05/19 07:00 99.0 65 16 143/78 (99) 95 99.0 I & O 08/04/19 08/04/19 08/05/19 15:00 23:00 07:00 Intake Total 0 ml 120 ml Balance 0 ml 120 ml Physical Exam Physical Exam: HEENT: nose-midline head-atraumatic General: No acute distress, Other (Patient sleeping in bed on exam) Heart: Regular rate, No murmurs Lungs: Other (No respiratory distress. No crackles) Abdomen: Soft, Other (Non distended) Extremities: No clubbing, No cyanosis Skin: Other (No rash or significant lesion on visible skin) Labs Labs: Laboratory Tests Test 08/04/19 17:15 08/04/19 20:37 08/05/19 07:15 Glucose (Fingerstick) 97 mg/dL (70-99) 97 mg/dL (70-99) 116 mg/dL (70-99) Review of Systems Review of Systems: No CP, SOB Assessment and Plan Assessmemt and Plan Problems Medical Problems: (1) Advanced dementia Status: Acute (2) Chronic anemia Status: Acute (3) Generalized weakness Status: Acute (4) Renal insufficiency Status: Acute Assessment acute Metabolic encephalopathy, NOW IMPROVING hypertensive encephalopathy, dementia, history of anal cancer. 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 CAMMIE CHONG III DO Aug 05, 2019 11:30
--- NOTE | 2019-08-10 11:51 | DS ---
DATE OF DISCHARGE: 08/05/2019 ADMISSION DIAGNOSIS: Generalized weakness. DISCHARGE DIAGNOSIS: Failure to thrive. HOSPITAL COURSE: The patient is a pleasant 83-year-old female, who presented with the generalized weakness and failure to thrive. She had some underlying dementia as well. We admitted the patient. We consulted Physical Therapy, Occupational Therapy, encouraged p.o. intake. Over the next few days, she improved, but was still quite debilitated. The family was considering hospice. We discharged to home with hospice for information visit. DISPOSITION: Home. ACTIVITY: As tolerated. DIET: Low sodium. MEDICATIONS: Please see MRAD. TOTAL TIME: 34 minutes. CAMMIE CHONG DO DR: ALEE/ozzie JOB#: [id number] / [id number]
== END 2019-08-05 10:08 | DRG 682 ==
LOC: ER 06:26 → 4 NORTH 07:56
PROVIDERS: ADMIT Family Medicine; ATTEND Family Medicine
DX: N17.0 Acute kidney failure with tubular necrosis (principal); G93.41 Metabolic encephalopathy; Z66 Do not resuscitate; E11.65 Type 2 diabetes mellitus with hyperglycemia; F03.90 Unspecified dementia, unspecified severity, without behavioral disturbance, psychotic disturbance, mood disturbance, and anxiety; E86.0 Dehydration; K21.9 Gastro-esophageal reflux disease without esophagitis; Z51.5 Encounter for palliative care; E78.5 Hyperlipidemia, unspecified; I12.9 Hypertensive chronic kidney disease with stage 1 through stage 4 chronic kidney disease, or unspecified chronic kidney disease; E11.22 Type 2 diabetes mellitus with diabetic chronic kidney disease; N18.9 Chronic kidney disease, unspecified; Z92.3 Personal history of irradiation; Z92.21 Personal history of antineoplastic chemotherapy; Z90.710 Acquired absence of both cervix and uterus; Z85.048 Personal history of other malignant neoplasm of rectum, rectosigmoid junction, and anus; Z86.73 Personal history of transient ischemic attack (TIA), and cerebral infarction without residual deficits; Z95.0 Presence of cardiac pacemaker; Z83.3 Family history of diabetes mellitus
CPT/HCPCS: 36415; 70450; 80048; 81001; 82962; 83735; 83880; 85025; 87086; 96360; 96361; J1170; J1650; J1956; J2060; J3490; J7030; 97530; 97535; 99285-25; G0378

== ENCOUNTER 2019-08-12 12:04 | Emergency (ER) | payer OTHER ==
[~2019-08-12] VITALS: Ht 167.6 cm; Wt 59.0 kg
[~2019-08-12 12:04] MED LIST changes: +POTA20TA4 PO; -POTA20TA82 PO
[2019-08-12] MEDS ORDERED: HYDROcodone/APAP 5/325MG 1 TAB TABLET PO ONE (13:00)
[2019-08-12 13:10] LABS: BILIRUBIN,URINE NEGATIVE (NEG); CLARITY,URINE CLEAR; COLOR,URINE YELLOW; NITRITE,URINE NEGATIVE (NEG); PH,URINE 5.5; PROTEIN,URINE 30 mg/dL (NEG-TRACE)
[2019-08-12 13:15] LABS: HYALINE CASTS, URINE MANY /HPF; SQUAMOUS EPITHELIAL CELL,UR MOD /LPF
[2019-08-12 13:16] LABS: AMORPHOUS SEDIMENT,UR PRESENT /HPF; BACTERIA,URINE MODERATE /HPF (0-FEW); RBC,URINE 0 /HPF (0-2)
--- NOTE | 2019-08-12 13:16 | PHYS DOC ---
Past Medical History Past Medical History: Cancer, Diabetes-Type II, Hypertension Additional Past Medical Histor: CANCER "anal" has had chemo rad, no surgery Past Surgical History: Hysterectomy Additional Past Surgical Histo: pacemaker Alcohol Use: None Drug Use: None Adult General Chief Complaint Chief Complaint: BACK PAIN - NO INJURY [facility] HPI Patient is a 84 year old female patient with history of hypertension, diabetes, dementia and frequent emergency room visits and hospitalization who presents with complaining of back pain.Patient complaining of low back pain for 4 days with radiation to upper back without abdominal pain, focal neuro deficit, urinary symptom. Patient's daughter states she was discharged from [facility] yesterday and used to take hydrocodone for pain but did not have prescription of pain medication and only took Tylenol without improvement of her pain. Review of Systems Review of Systems Constitutional: Denies fever or chills [] Eyes: Denies change in visual acuity, redness, or eye pain [] HENT: Denies nasal congestion or sore throat [] Respiratory: Denies cough or shortness of breath [] Cardiovascular: No additional information not addressed in HPI [] GI: Denies abdominal pain, nausea, vomiting, bloody stools or diarrhea [] : Denies dysuria or hematuria [] Musculoskeletal: Denies back pain or joint pain [] Integument: Denies rash or skin lesions [] Neurologic: Denies headache, focal weakness or sensory changes [] Endocrine: Denies polyuria or polydipsia [] All other systems were reviewed and found to be within normal limits, except as documented in this note. Current Medications Current Medications Current Medications Medications (Trade) Dose Ordered Sig/Sebastián Start Time Stop Time Status Last Admin Dose Admin Acetaminophen/ Hydrocodone Bitart (Lortab 5/325) 1 tab 1X ONCE 08/12/19 13:00 08/12/19 13:01 DC 08/12/19 13:09 1 TAB Allergies Allergies Allergies Coded Allergies Type Severity Reaction Last Updated Verified No Known Drug Allergies 01/17/19 No Physical Exam Physical Exam Constitutional: Well developed, well nourished, no acute distress, non-toxic appearance. [] HENT: Normocephalic, atraumatic, bilateral external ears normal, oropharynx moist, no oral exudates, nose normal. [] Eyes: PERRLA, EOMI, conjunctiva normal, no discharge. [] Neck: Normal range of motion, no tenderness, supple, no stridor. [] Cardiovascular:Heart rate regular rhythm, no murmur [] Lungs & Thorax: Bilateral breath sounds clear to auscultation [] Abdomen: Bowel sounds normal, soft, no tenderness, no masses, no pulsatile masses. [] Skin: Warm, dry, no erythema, no rash. [] Back: No tenderness, no CVA tenderness. [] Extremities: No tenderness, no cyanosis, no clubbing, ROM intact, no edema. [] Neurologic: Alert and oriented X 3, normal motor function, normal sensory function, no focal deficits noted. [] Psychologic: Affect normal, judgement normal, mood normal. [] Current Patient Data Vital Signs Vital Signs Date Time Temp Pulse Resp B/P (MAP) Pulse Ox O2 Delivery O2 Flow Rate FiO2 08/12/19 15:07 60 134/81 (98) 98 08/12/19 13:09 16 Room Air 08/12/19 12:05 98.2 98.2 Lab Values Laboratory Tests Test 08/12/19 13:00 Urine Collection Type Unknown Urine Color Yellow Urine Clarity Clear Urine pH 5.5 Urine Specific [place] 1.020 Urine Protein 30 mg/dL (NEG-TRACE) Urine Glucose (UA) Negative mg/dL (NEG) Urine Ketones (Stick) Negative mg/dL (NEG) Urine Blood Negative (NEG) Urine Nitrite Negative (NEG) Urine Bilirubin Negative (NEG) Urine Urobilinogen Dipstick 1.0 mg/dL (0.2 mg/dL) Urine Leukocyte Esterase Trace (NEG) Urine RBC 0 /HPF (0-2) Urine WBC 5-10 /HPF (0-4) Urine Squamous Epithelial Cells Mod /LPF Urine Transitional Epithelial Cells Few /LPF Urine Amorphous Sediment Present /HPF Urine Bacteria Moderate /HPF (0-FEW) Urine Hyaline Casts Many /HPF Urine Mucus Mod /LPF EKG EKG [] Radiology/Procedures Radiology/Procedures [][facility] [address] [place] [address] IMAGING REPORT Signed PATIENT: BARRY GONZALEZ ACCOUNT: [id number] : 1935 LOCATION: ER AGE: 84 SEX: F EXAM STATUS: REG ER ORD. PHYSICIAN: MAYRA PICHARDO MD REASON: pain without injury PROCEDURE: CT LUMBAR SPINE WO CONTRAST CT STUDY OF THE THORACIC SPINE WITHOUT CONTRAST CT STUDY OF THE LUMBAR SPINE WITHOUT CONTRAST Clinical indications: Back pain. No known injury. TECHNIQUE: Noncontrast helical CT scanning of the thoracic and lumbar spine was performed. Multiplanar 2-D reconstructions were generated. PQRS compliance Statement One or more of the following individualized dose reduction techniques were utilized for this study: 1. Automated exposure control 2. Adjustment of the mA and/or kV according to patient size 3. Use of iterative reconstruction technique CT STUDY OF THE THORACIC SPINE: No compression fracture or discitis or lytic process is evident. No prominent focal disc protrusion is seen. IMPRESSION: No acute compression fracture. CT STUDY OF THE LUMBAR SPINE: No compression fracture or discitis or lytic process is evident. Grade 1 anterolisthesis of L3-4 and L4-5 is seen due to facet arthropathy. No spondylolysis is evident. Mild levoscoliosis is seen. The transverse processes are intact. There is diffuse disc protrusion and associated endplate spurring at T12-L1 and L1-L2 and L2-L3 and L3-L4 and L4-L5 and L5-S1. The disc protrusion is most severe at L4-5. There is a severe spinal canal stenosis at this level accentuated by facet arthropathy and the grade 1 anterolisthesis. There is severe spinal canal stenosis at L5-S1 as well for the same reasons. Moderate spinal canal stenosis is seen at L2-3 and L3-4. Mild spinal canal stenosis is seen at T12-L1 and L1-L2. There is neural foraminal narrowing bilaterally at all levels of the lumbar spine. IMPRESSION: No acute compression fracture. Degenerative lumbar spondylosis and degenerative spondylolisthesis resulting in multilevel spinal canal stenosis and neural foraminal narrowing. Spinal canal stenosis is most severe at L4-5 and L5-S1. The disc protrusion is most severe at L4-5. Electronically signed by: Mookie Norman MD (08/12/2019 2:32 PM) [place] DICTATED and SIGNED BY: MOOKIE NORMAN MD DATE: 08/12/19 1432 Course & Med Decision Making Course & Med Decision Making Pertinent Labs and Imaging studies reviewed. (See chart for details) I've spoken with the patient and/or caregivers. I've explained the patient's condition, diagnosis and treatment plan based on information available to me at this time. I've answered the patient's and/or caregivers questions and addressed any concerns. The patient and/or caregivers have a good understanding the patient's diagnosis, condition and treatment plan as can be expected at this point. Vital signs have been stabilized. The patient's condition is stable for discharge from the emergency department. The patient will pursue further outpatient evaluation with her primary care provider or other designated consulting physician as outlined in the discharge instructions. Patient and/or caregivers are agreeable to this plan of care and follow-up instructions have been explained in detail. The patient and/or caregivers have received these instructions in written format and expressed understanding of these discharge instructions. The patient and her caregivers are aware that if any significant change in condition or worsening of symptoms should prompt him to immediately return to this of the closest emergency department. If an emergent department is not readily available I would encourage him to call 911. Cynthiaon Disclaimer Dragon Disclaimer This electronic medical record was generated, in whole or in part, using a voice recognition dictation system. Departure Departure Impression: Primary Impression: Exacerbation of chronic back pain Disposition: HOME, SELF-CARE (at 1453) Condition: IMPROVED Referrals: LUPE SCHAEFER MD (PCP) Patient Instructions: Back Pain, Adult Additional Instructions: Apply ice on your back Follow-up with your primary care physician in 3-5 days Return to ER if not getting better Scripts Hydrocodone/Apap 5-325 (NORCO 5-325 TABLET) 1 Each Tablet 1 TAB PO PRN Q6HRS PRN for PAIN, #10 TAB 0 Refills Prov: MAYRA PICHARDO MD 08/12/19 MAYRA PICHARDO MD Aug 12, 2019 13:16
--- NOTE | 2019-08-12 14:35 | RAD ---
CT STUDY OF THE THORACIC SPINE WITHOUT CONTRAST CT STUDY OF THE LUMBAR SPINE WITHOUT CONTRAST Clinical indications: Back pain. No known injury. TECHNIQUE: Noncontrast helical CT scanning of the thoracic and lumbar spine was performed. Multiplanar 2-D reconstructions were generated. PQRS compliance Statement One or more of the following individualized dose reduction techniques were utilized for this study: 1. Automated exposure control 2. Adjustment of the mA and/or kV according to patient size 3. Use of iterative reconstruction technique CT STUDY OF THE THORACIC SPINE: No compression fracture or discitis or lytic process is evident. No prominent focal disc protrusion is seen. IMPRESSION: No acute compression fracture. CT STUDY OF THE LUMBAR SPINE: No compression fracture or discitis or lytic process is evident. Grade 1 anterolisthesis of L3-4 and L4-5 is seen due to facet arthropathy. No spondylolysis is evident. Mild levoscoliosis is seen. The transverse processes are intact. There is diffuse disc protrusion and associated endplate spurring at T12-L1 and L1-L2 and L2-L3 and L3-L4 and L4-L5 and L5-S1. The disc protrusion is most severe at L4-5. There is a severe spinal canal stenosis at this level accentuated by facet arthropathy and the grade 1 anterolisthesis. There is severe spinal canal stenosis at L5-S1 as well for the same reasons. Moderate spinal canal stenosis is seen at L2-3 and L3-4. Mild spinal canal stenosis is seen at T12-L1 and L1-L2. There is neural foraminal narrowing bilaterally at all levels of the lumbar spine. IMPRESSION: No acute compression fracture. Degenerative lumbar spondylosis and degenerative spondylolisthesis resulting in multilevel spinal canal stenosis and neural foraminal narrowing. Spinal canal stenosis is most severe at L4-5 and L5-S1. The disc protrusion is most severe at L4-5. Electronically signed by: Gilmer Norman MD (08/12/2019 2:32 PM) [facility]
[2019-08-12] MEDS ORDERED: HYDR-3164 PO (14:54)
[2019-08-12 15:07] VITALS: BP 134/81
== END 2019-08-12 15:15 | disposition home or self-care (01) ==
LOC: ER 12:04
DX: G89.29 Other chronic pain (principal); M54.5 Low back pain; M54.6 Pain in thoracic spine; I10 Essential (primary) hypertension; E11.9 Type 2 diabetes mellitus without complications; Z95.0 Presence of cardiac pacemaker; Z90.710 Acquired absence of both cervix and uterus
CPT/HCPCS: 72128; 72131; 81001; 87086; 99285-25

== ENCOUNTER 2019-08-17 23:51 | Emergency (ER) | payer OTHER ==
[~2019-08-17] VITALS: Ht 167.6 cm; Wt 62.1 kg
[~2019-08-17 23:51] MED LIST changes: +HYDR-3164 PO
--- NOTE | 2019-08-18 00:29 | PHYS DOC ---
Past Medical History Past Medical History: Cancer, Diabetes-Type II, Hypertension Additional Past Medical Histor: CANCER "anal" has had chemo rad, no surgery Past Surgical History: Hysterectomy Additional Past Surgical Histo: pacemaker Alcohol Use: None Drug Use: None Adult General Chief Complaint Chief Complaint: BLURRED/DOUBLE VISION HPI HPI 84 old female presents to the emergency Department complaints of blurry vision. She states is been ongoing 2 days worse today. She denies any chest pain, shortness breath, nausea, vomiting, headache. Patient's underlying history of hypertension as well as diabetes. On physical examination patient has no evidence of nystagmus, she has no blurry vision appreciated to the left side, appears to be more so she with the right eye. She has no weakness appreciated on examination. No evidence of lateralizing symptoms. BP noted to be 205/91, BS Nothing makes pain worse, nothing makes her pain better. She denies pain in the eyes. Review of Systems Review of Systems Constitutional: Denies fever or chills [] Eyes: blurry vision, right eye, no redness, or eye pain [] HENT: Denies nasal congestion or sore throat [] Respiratory: Denies cough or shortness of breath [] Cardiovascular: No additional information not addressed in HPI [] GI: Denies abdominal pain, nausea, vomiting, bloody stools or diarrhea [] : Denies dysuria or hematuria [] Musculoskeletal: Denies back pain or joint pain [] Neurologic: Denies headache, focal weakness or sensory changes [] All other systems were reviewed and found to be within normal limits, except as documented in this note. Allergies Allergies Allergies Coded Allergies Type Severity Reaction Last Updated Verified No Known Drug Allergies 01/17/19 No Physical Exam Physical Exam Constitutional: Well developed, well nourished, no acute distress, non-toxic appearance. [] HENT: Normocephalic, atraumatic, bilateral external ears normal, oropharynx moist, no oral exudates, nose normal. [] Eyes: PERRLA, EOMI, conjunctiva normal, no discharge. [] Cardiovascular:Heart rate regular rhythm, no murmur [] Lungs & Thorax: Bilateral breath sounds clear to auscultation [] Abdomen: Bowel sounds normal, soft, no tenderness, no masses, no pulsatile masses. [] Skin: Warm, dry, no erythema, no rash. [] Extremities: No tenderness, no edema. [] Neurologic: Alert and oriented X 3, no focal deficits noted. [] Psychologic: Affect normal, judgement normal, mood normal. [] Current Patient Data Lab Values Laboratory Tests Test 08/18/19 00:37 08/18/19 01:50 Glucose (Fingerstick) 130 mg/dL (70-99) H White Blood Count 8.9 x10^3/uL (4.0-11.0) Red Blood Count 3.06 x10^6/uL (3.50-5.40) L Hemoglobin 9.0 g/dL (12.0-15.5) L Hematocrit 27.6 % (36.0-47.0) L Mean Corpuscular Volume 90 fL (79-100) Mean Corpuscular Hemoglobin 29 pg (25-35) Mean Corpuscular Hemoglobin Concent 33 g/dL (31-37) Red Cell Distribution Width 14.8 % (11.5-14.5) H Platelet Count 254 x10^3/uL (140-400) Neutrophils (%) (Auto) 58 % (31-73) Lymphocytes (%) (Auto) 29 % (24-48) Monocytes (%) (Auto) 8 % (0-9) Eosinophils (%) (Auto) 3 % (0-3) Basophils (%) (Auto) 1 % (0-3) Neutrophils # (Auto) 5.2 x10^3/uL (1.8-7.7) Lymphocytes # (Auto) 2.6 x10^3/uL (1.0-4.8) Monocytes # (Auto) 0.7 x10^3/uL (0.0-1.1) Eosinophils # (Auto) 0.2 x10^3/uL (0.0-0.7) Basophils # (Auto) 0.1 x10^3/uL (0.0-0.2) Sodium Level 142 mmol/L (136-145) Potassium Level 3.6 mmol/L (3.5-5.1) Chloride Level 105 mmol/L (98-107) Carbon Dioxide Level 26 mmol/L (21-32) Anion Gap 11 (6-14) Blood Urea Nitrogen 26 mg/dL (7-20) H Creatinine 1.0 mg/dL (0.6-1.0) Estimated GFR (Cockcroft-Gault) 64.1 BUN/Creatinine Ratio 26 (6-20) H Glucose Level 121 mg/dL (70-99) H Calcium Level 9.4 mg/dL (8.5-10.1) Total Bilirubin 0.2 mg/dL (0.2-1.0) Aspartate Amino Transferase (AST) 13 U/L (15-37) L Alanine Aminotransferase (ALT) 8 U/L (14-59) L Alkaline Phosphatase 77 U/L (46-116) Total Protein 7.4 g/dL (6.4-8.2) Albumin 3.1 g/dL (3.4-5.0) L Albumin/Globulin Ratio 0.7 (1.0-1.7) L Laboratory Tests 08/18/19 01:50 Laboratory Tests 08/18/19 01:50 EKG EKG [] Radiology/Procedures Radiology/Procedures [facility] [address] [place] [address] IMAGING REPORT Signed PATIENT: BARRY GONZALEZ ACCOUNT: [id number] : 1935 LOCATION: ER AGE: 84 SEX: F EXAM STATUS: PRE ER ORD. PHYSICIAN: DOMENICO LLOYD MD REASON: Blurry vision, elevated BP PROCEDURE: CT HEAD WO CONTRAST CT HEAD INDICATION: Blurry vision, elevated blood pressure COMPARISON: 08/02/2019 Exposure: One or more of the following individualized dose reduction techniques were utilized for this examination: 1. Automated exposure control 2. Adjustment of the mA and/or kV according to patient size 3. Use of iterative reconstruction technique TECHNIQUE: 5 mm contiguous axial images were obtained from the skull base to the vertex in both bone and soft tissue algorithm. FINDINGS: No abnormal attenuation within the brain parenchyma. No evidence of acute intracranial hemorrhage. No extra-axial fluid collections. No mass effect or midline shift. Ventricular size is appropriate. Basal cisterns are patent. No fractures identified.Tatum-white differentiation is preserved.Globes and orbits are within normal limits. Small fluid level identified in the left maxillary sinus. IMPRESSION: 1. No acute intracranial findings. 2. Left maxillary sinus disease. Electronically signed by: Av Martinez MD (08/18/2019 12:40 AM) [facility] DICTATED and SIGNED BY: AV MARTINEZ MD DATE: 08/18/1939 [] Course & Med Decision Making Course & Med Decision Making Pertinent Labs and Imaging studies reviewed. (See chart for details) []84 old female presents to the emergency Department complaints of blurry vision. She states is been ongoing 2 days worse today. She denies any chest pain, shortness breath, nausea, vomiting, headache. Patient's underlying history of hypertension as well as diabetes. On physical examination patient has no evidence of nystagmus, she has no blurry vision appreciated to the left side, appears to be more so she with the right eye. She has no weakness appreciated on examination. No evidence of lateralizing symptoms. BP noted to be 205/91, BS Nothing makes pain worse, nothing makes her pain better. She denies pain in the eyes. CT head without acute process Labs unremarkable UAD not performed, patient states not what she is here for Given negative workup - recommend follow up with optho/optometry as outpatient Discussed findings with patient and family at bedside Recommend dc home with return precautions provided Dragon Disclaimer Dragon Disclaimer This electronic medical record was generated, in whole or in part, using a voice recognition dictation system. NIHSS Stroke Scale NIH Stroke Scale: NIH Stroke Scale Response (Comments) Value Level of Consciousness: 0 Alert/Responsive 0 LOC Questions: 0 Answers both correctly 0 LOC Commands: 0 Performs both tasks 0 Best Gaze: 0 Normal 0 Visual: 0 No visual loss 0 Facial Palsy: 0 Normal, symmetrical 0 Motor - Left Arm 0 No drift 0 Motor - Right Arm 0 No drift 0 Motor - Left Leg 0 No drift 0 Motor: Right Leg 0 No drift 0 Limb Ataxia: 0 Absent 0 Sensory: 0 No loss 0 Best Language: 0 Normal 0 Dysathria: 0 Normal 0 Extinction and Inattention: 0 Normal 0 Total 0 Departure Departure Impression: Primary Impression: Blurred vision, right eye Additional Impression: Hypertension Disposition: 01 HOME, SELF-CARE Condition: STABLE Referrals: LUPE SCHAEFER MD (PCP) Patient Instructions: Eye - Blurred Vision Additional Instructions: Recommend follow up with PCP 3 - 5 days Return to the ER with worsening symptoms, intractable pain, fever, altered mental status Tylenol/Motrin as needed for pain CT without evidence of acute stroke Recommend calling eye doctor for follow up and repeat eye exam Problem Qualifiers Additional Impression: Hypertension Hypertension type: essential hypertension Qualified Codes: I10 - Essential (primary) hypertension DOMENICO LLOYD MD Aug 18, 2019 00:29
--- NOTE | 2019-08-18 00:43 | RAD ---
CT HEAD INDICATION: Blurry vision, elevated blood pressure COMPARISON: 08/02/2019 Exposure: One or more of the following individualized dose reduction techniques were utilized for this examination: 1. Automated exposure control 2. Adjustment of the mA and/or kV according to patient size 3. Use of iterative reconstruction technique TECHNIQUE: 5 mm contiguous axial images were obtained from the skull base to the vertex in both bone and soft tissue algorithm. FINDINGS: No abnormal attenuation within the brain parenchyma. No evidence of acute intracranial hemorrhage. No extra-axial fluid collections. No mass effect or midline shift. Ventricular size is appropriate. Basal cisterns are patent. No fractures identified.Tatum-white differentiation is preserved.Globes and orbits are within normal limits. Small fluid level identified in the left maxillary sinus. IMPRESSION: 1. No acute intracranial findings. 2. Left maxillary sinus disease. Electronically signed by: Av Martinez MD (08/18/2019 12:40 AM) [facility]
[2019-08-18 02:00] VITALS: BP 174/64
[2019-08-18 02:00] LABS: BASO # 0.1 x10^3/uL (0.0-0.2); BASO % 1 % (0-3); EOS # 0.2 x10^3/uL (0.0-0.7); EOS % 3 % (0-3); HEMATOCRIT 27.6 % (36.0-47.0); LYMPH # 2.6 x10^3/uL (1.0-4.8); LYMPH % 29 % (24-48); MEAN CORPUSCULAR HEMOGLOBIN 29 pg (25-35); MEAN CORPUSCULAR HGB CONC 33 g/dL (31-37); MEAN CORPUSCULAR VOLUME 90 fL (79-100); MONO # 0.7 x10^3/uL (0.0-1.1); MONO % 8 % (0-9); NEUT # 5.2 x10^3/uL (1.8-7.7); NEUT % 58 % (31-73); PLATELET COUNT 254 x10^3/uL (140-400); RED BLOOD COUNT 3.06 x10^6/uL (3.50-5.40); RED CELL DISTRIBUTION WIDTH 14.8 % (11.5-14.5); WHITE BLOOD COUNT 8.9 x10^3/uL (4.0-11.0)
[2019-08-18 02:07] LABS: CALCIUM 9.4 mg/dL (8.5-10.1); GFR 64.1; POTASSIUM 3.6 mmol/L (3.5-5.1)
[2019-08-18 02:13] LABS: ALBUMIN 3.1 g/dL (3.4-5.0); ALBUMIN/GLOBULIN RATIO 0.7 (1.0-1.7); TOTAL BILIRUBIN 0.2 mg/dL (0.2-1.0); TOTAL PROTEIN 7.4 g/dL (6.4-8.2)
[2019-08-18] MEDS ORDERED: PRED20TA PO (15:50)
== END 2019-08-18 02:25 | disposition home or self-care (01) ==
LOC: ER 23:51
DX: H53.8 Other visual disturbances (principal); I10 Essential (primary) hypertension; E11.9 Type 2 diabetes mellitus without complications; Z95.0 Presence of cardiac pacemaker
CPT/HCPCS: 36415; 70450; 80053; 82962; 85025; 99285

== ENCOUNTER 2019-08-18 12:38 | Emergency (ER) | payer OTHER ==
[~2019-08-18] VITALS: Ht 165.1 cm; Wt 61.7 kg
[2019-08-18] MEDS ORDERED: TETRACAINE 0.5% OPHTH SOLUTION 4ML BOTTLE. OU ONE (13:15)
[2019-08-18] MEDS ORDERED: MORPHINE SULFATE 2 MG/ML VIAL. IV ONE (13:15)
[2019-08-18] MEDS ORDERED: TETRACAINE 0.5% OPHTH SOLUTION 4ML BOTTLE. ONE (13:15)
--- NOTE | 2019-08-18 13:17 | PHYS DOC ---
Past Medical History Past Medical History: Cancer, Dementia, Diabetes-Type II, Hypertension Additional Past Medical Histor: CANCER "anal" has had chemo rad, no surgery Past Surgical History: Hysterectomy Additional Past Surgical Histo: pacemaker Alcohol Use: None Drug Use: None Adult General Chief Complaint Chief Complaint: EYE PROBLEMS HPI HPI Patient is an 84-year-old female who presents to the emergency department for evaluation. She states that for the past few days, she has had a generalized headache. She has not had any fevers or chills, and denies any head injuries. She states she has had headaches similar to this several times in the past, but they usually go away. This headache is not "worst headache of her life", and it did not begin abruptly. She has not had any vision changes, speech difficulty, numbness, weakness, or change in mental status, although she does have some baseline dementia according to her family member who is with her. She denies any chest pain or shortness of breath, or any other painful areas. There are no alleviating or exacerbating factors to her symptoms. Patient did recently have her furnace worked on. Review of Systems Review of Systems Constitutional: Denies fever or chills [] Eyes: Denies change in visual acuity, redness, or eye pain [] HENT: Denies nasal congestion or sore throat [] Respiratory: Denies cough or shortness of breath [] Cardiovascular:The patient denies any shortness of breath, chest pain, palpitations, or orthopnea [] GI: Denies abdominal pain, nausea, vomiting, bloody stools or diarrhea [] : Denies dysuria or hematuria [] Musculoskeletal: Denies back pain or joint pain [] Integument: Denies rash or skin lesions [] Neurologic: Denies focal weakness or sensory changes [] Endocrine: Denies polyuria or polydipsia [] All other systems were reviewed and found to be within normal limits, except as documented in this note. Current Medications Current Medications Current Medications Medications (Trade) Dose Ordered Sig/Sebastián Start Time Stop Time Status Last Admin Dose Admin Insulin Human Regular (HumuLIN R VIAL) 10 unit 1X ONCE 08/18/19 15:15 08/18/19 15:16 DC 08/18/19 15:24 10 UNIT Lorazepam (Ativan Inj) 0.5 mg 1X ONCE 08/18/19 13:15 08/18/19 13:24 DC 08/18/19 14:14 0.5 MG Morphine Sulfate (Morphine Sulfate) 2 mg 1X ONCE 08/18/19 13:15 08/18/19 13:24 DC 08/18/19 14:15 2 MG Prednisone (Prednisone) 60 mg 1X ONCE 08/18/19 15:00 08/18/19 15:12 DC 08/18/19 15:18 60 MG Sodium Chloride 500 ml @ 500 mls/hr 1X ONCE 08/18/19 15:15 08/18/19 16:14 Tetracaine HCl (Tetracaine) 40 drop STK-MED ONCE 08/18/19 13:15 08/18/19 13:15 DC Allergies Allergies Allergies Coded Allergies Type Severity Reaction Last Updated Verified No Known Drug Allergies 01/17/19 No Physical Exam Physical Exam PHYSICAL EXAM: CONSTITUTIONAL: Well developed, well nourished HEAD: normocephalic, atraumatic. There is tenderness to palpation to the temporal area bilaterally, without definite focal temporal arterial tenderness to palpation. The arteries are palpable, bilaterally. IOP 22 on the right, 23 on the left, by Wojciech-Pen. EENT: PERRL, EOMI. Conjunctivae normal color, sclerae non-icteric; moist mucous membranes. NECK: Supple, non-tender; no meningismus. LUNGS: Lungs CTA, breathing even and unlabored. Normal air movement. HEART: Regular rate and rhythm, no murmur CHEST: No deformity; non-tender ABDOMEN: The abdomen is soft, and non-tender, no masses or bruits. EXTREM: Normal ROM; no deformity, no calf tenderness. Normal pulses palpable in all extremities. There is no pedal edema. SKIN: No rash; no diaphoresis NEURO: Alert; normal speech and cognition; CN's grossly intact; strength grossly intact without focal deficit. Visual blue are intact by confrontation. There is no cerebellar deficit. Sensation is grossly intact. BACK: No CVA TTP. Current Patient Data Vital Signs Vital Signs Date Time Temp Pulse Resp B/P (MAP) Pulse Ox O2 Delivery O2 Flow Rate FiO2 08/18/19 14:15 16 97 Room Air 08/18/19 12:50 95.2 92 179/100 (126) 95.2 Lab Values Laboratory Tests Test 08/18/19 13:14 08/18/19 13:23 Glucose (Fingerstick) 255 mg/dL (70-99) H White Blood Count 10.9 x10^3/uL (4.0-11.0) Red Blood Count 3.32 x10^6/uL (3.50-5.40) L Hemoglobin 9.8 g/dL (12.0-15.5) L Hematocrit 30.4 % (36.0-47.0) L Mean Corpuscular Volume 92 fL (79-100) Mean Corpuscular Hemoglobin 30 pg (25-35) Mean Corpuscular Hemoglobin Concent 32 g/dL (31-37) Red Cell Distribution Width 15.0 % (11.5-14.5) H Platelet Count 277 x10^3/uL (140-400) Neutrophils (%) (Auto) 82 % (31-73) H Lymphocytes (%) (Auto) 11 % (24-48) L Monocytes (%) (Auto) 5 % (0-9) Eosinophils (%) (Auto) 1 % (0-3) Basophils (%) (Auto) 1 % (0-3) Neutrophils # (Auto) 9.0 x10^3/uL (1.8-7.7) H Lymphocytes # (Auto) 1.2 x10^3/uL (1.0-4.8) Monocytes # (Auto) 0.5 x10^3/uL (0.0-1.1) Eosinophils # (Auto) 0.1 x10^3/uL (0.0-0.7) Basophils # (Auto) 0.1 x10^3/uL (0.0-0.2) Erythrocyte Sedimentation Rate 47 (0-25) H Sodium Level 143 mmol/L (136-145) Potassium Level 4.1 mmol/L (3.5-5.1) Chloride Level 104 mmol/L (98-107) Carbon Dioxide Level 26 mmol/L (21-32) Anion Gap 13 (6-14) Blood Urea Nitrogen 24 mg/dL (7-20) H Creatinine 1.1 mg/dL (0.6-1.0) H Estimated GFR (Cockcroft-Gault) 57.4 BUN/Creatinine Ratio 22 (6-20) H Glucose Level 266 mg/dL (70-99) H Calcium Level 10.0 mg/dL (8.5-10.1) Total Bilirubin 0.4 mg/dL (0.2-1.0) Aspartate Amino Transferase (AST) 14 U/L (15-37) L Alanine Aminotransferase (ALT) 12 U/L (14-59) L Alkaline Phosphatase 83 U/L (46-116) Troponin I Quantitative < 0.017 ng/mL (0.000-0.055) C-Reactive Protein, Quantitative 5.1 mg/L (0-3.3) H Total Protein 7.8 g/dL (6.4-8.2) Albumin 3.6 g/dL (3.4-5.0) Albumin/Globulin Ratio 0.9 (1.0-1.7) L Laboratory Tests 08/18/19 13:23 Laboratory Tests 08/18/19 13:23 EKG EKG []Atrial fibrillation at a rate of 88 bpm, left axis deviation, normal intervals. There are no acute ischemic ST/T changes. Radiology/Procedures Radiology/Procedures PROCEDURE: CT HEAD WO CONTRAST CT HEAD WO CONTRAST Indication: Headache for 2 years. Exposure: One or more of the following individualized dose reduction techniques were utilized for this examination: 1. Automated exposure control 2. Adjustment of the mA and/or kV according to patient size 3. Use of iterative reconstruction technique. Technique: Standard imaging without intravenous contrast. Comparison: Study of earlier the same day. FINDINGS: No evidence of acute infarct cranial hemorrhage, mass effect, midline shift or abnormal extra-axial fluid collection. Mild generalized atrophy. Tatum-white matter distinction is intact. No significant scalp hematoma or swelling. Partially included orbits appear unremarkable. Partially included paranasal sinuses are clear apart from mild mucosal thickening of the right sphenoid sinus. Mastoids and auditory canals appear clear. No evidence of depressed skull fracture. IMPRESSION: No evidence of acute intracranial hemorrhage.[] Course & Med Decision Making Course & Med Decision Making Pertinent Labs and Imaging studies reviewed. (See chart for details) []3:50 PM: The patient's condition remains stable. She is feeling significantly better at this time. Her headache has resolved. She is eating and appears comfortable. I do not suspect that she has temporal arteritisshe has had similar inflammatory marker elevation during an ER visit about a month ago. I discussed importance of close follow-up as a precaution, the need for medication compliance and return precautions in detail. The patient's blood pressure is significantly improved at this time. 142/68. Dragon Disclaimer Dragon Disclaimer This electronic medical record was generated, in whole or in part, using a voice recognition dictation system. Departure Departure Impression: Primary Impression: Headache Disposition: HOME, SELF-CARE Condition: STABLE Referrals: ERINN LUNA MD Patient Instructions: General Headache Without Cause Scripts Prednisone (PREDNISONE) 20 Mg Tablet 40 MG PO DAILY for 5 Days, #10 TAB Prov: YUDI LOPEZ MD 08/18/19 YUDI LOPEZ MD Aug 18, 2019 13:17
[2019-08-18 13:35] LABS: BASO # 0.1 x10^3/uL (0.0-0.2); BASO % 1 % (0-3); EOS # 0.1 x10^3/uL (0.0-0.7); EOS % 1 % (0-3); HEMATOCRIT 30.4 % (36.0-47.0); HEMOGLOBIN 9.8 g/dL (12.0-15.5); LYMPH # 1.2 x10^3/uL (1.0-4.8); LYMPH % 11 % (24-48); MEAN CORPUSCULAR HEMOGLOBIN 30 pg (25-35); MEAN CORPUSCULAR HGB CONC 32 g/dL (31-37); MEAN CORPUSCULAR VOLUME 92 fL (79-100); MONO # 0.5 x10^3/uL (0.0-1.1); MONO % 5 % (0-9); NEUT % 82 % (31-73); PLATELET COUNT 277 x10^3/uL (140-400); RED BLOOD COUNT 3.32 x10^6/uL (3.50-5.40); WHITE BLOOD COUNT 10.9 x10^3/uL (4.0-11.0)
[2019-08-18 14:03] LABS: CREATININE 1.1 mg/dL (0.6-1.0); GFR 57.4; POTASSIUM 4.1 mmol/L (3.5-5.1)
[2019-08-18 14:08] LABS: ALBUMIN 3.6 g/dL (3.4-5.0); ALBUMIN/GLOBULIN RATIO 0.9 (1.0-1.7); C-REACTIVE PROTEIN 5.1 mg/L (0-3.3); TOTAL BILIRUBIN 0.4 mg/dL (0.2-1.0); TOTAL PROTEIN 7.8 g/dL (6.4-8.2)
--- NOTE | 2019-08-18 14:11 | RAD ---
CT HEAD WO CONTRAST Indication: Headache for 2 years. Exposure: One or more of the following individualized dose reduction techniques were utilized for this examination: 1. Automated exposure control 2. Adjustment of the mA and/or kV according to patient size 3. Use of iterative reconstruction technique. Technique: Standard imaging without intravenous contrast. Comparison: Study of earlier the same day. FINDINGS: No evidence of acute infarct cranial hemorrhage, mass effect, midline shift or abnormal extra-axial fluid collection. Mild generalized atrophy. Tatum-white matter distinction is intact. No significant scalp hematoma or swelling. Partially included orbits appear unremarkable. Partially included paranasal sinuses are clear apart from mild mucosal thickening of the right sphenoid sinus. Mastoids and auditory canals appear clear. No evidence of depressed skull fracture. IMPRESSION: No evidence of acute intracranial hemorrhage. Electronically signed by: Efraín Joe MD (08/18/2019 2:08 PM) [id number]
--- NOTE | 2019-08-18 14:11 | EKG ---
[facility] [address] [place] [address] Test Date: 2019-08-18 Test Time: 13:45:06 Pat Name: BARRY GONZALEZ Department: Patient ID: [facility]-[id number] Room: Gender: F Pediatric Lpn: [facility] : 1935 Requested By: YUDI LOPEZ Order Number: [id number] Reading MD: Measurements Intervals [place] Rate: 87 P: SC: QRS: -6 QRSD: 98 T: 1 QT: 356 QTc: 434 Interpretive Statements ATRIAL FIBRILLATION LEFTWARD AXIS ABNORMAL ECG No previous ECG available for comparison
[2019-08-18] MEDS ORDERED: predniSONE 20 MG TABLET PO ONE (15:00)
[2019-08-18] MEDS ORDERED: IV NORMAL SALINE 500ML BAG 500 ML IV ONE (15:15)
[2019-08-18] MEDS ORDERED: INSULIN REGULAR 100 UNIT/ML 3ML VIAL. IV ONE (15:15)
[2019-08-18] MEDS ORDERED: PRED20TA PO (15:50)
[2019-08-18 15:57] VITALS: BP 130/83
== END 2019-08-18 16:04 | disposition home or self-care (01) ==
LOC: ER 12:38
DX: R51 Headache (principal); E11.9 Type 2 diabetes mellitus without complications; I10 Essential (primary) hypertension; F03.90 Unspecified dementia, unspecified severity, without behavioral disturbance, psychotic disturbance, mood disturbance, and anxiety; Z95.0 Presence of cardiac pacemaker
CPT/HCPCS: 36415; 70450; 80053; 82962; 84484; 85025; 85651; 86140; 93005; 96374; 96375; 99285; J1815; J2060; J2270; J7512

== ENCOUNTER 2019-08-20 22:03 | Emergency (ER) | payer OTHER ==
[~2019-08-20] VITALS: Ht 167.6 cm; Wt 61.2 kg
[2019-08-20 22:04] VITALS: BP 156/73
[2019-08-20] MEDS ORDERED: MECLIZINE HCL 12.5 MG TABLET. PO ONE (23:00)
[2019-08-20 23:04] LABS: BILIRUBIN,URINE NEGATIVE (NEG); COLOR,URINE YELLOW; NITRITE,URINE NEGATIVE (NEG); PROTEIN,URINE 30 mg/dL (NEG-TRACE)
[2019-08-20 23:05] LABS: CLARITY,URINE CLEAR
--- NOTE | 2019-08-20 23:10 | PHYS DOC ---
Past Medical History Past Medical History: Cancer, Dementia, Diabetes-Type II, Hypertension Additional Past Medical Histor: CANCER "anal" has had chemo rad, no surgery Past Surgical History: Hysterectomy, Pacemaker Additional Past Surgical Histo: pacemaker Alcohol Use: None Drug Use: None Adult General Chief Complaint Chief Complaint: DIZZY/LIGHT HEADED HPI HPI Patient is a 84 year old Female with a history of hypertension, DM II, Dementia, who presents to the ED today complaining of an episode of dizziness and blurry vision that occurred 1 hour prior to coming to the ED. Patient is a very poor historian right now. She reports she's had multiple episodes of this symptoms before. This is her fourth visit in the ED in the last 12 days. She was seen 3 days ago for headache. She has been seen for blurry vision as well in this month. Denies any chest pain or shortness of breath. Denies any headache. Review of Systems Review of Systems Constitutional: Denies fever or chills [] Eyes: Denies change in visual acuity, redness, or eye pain [] HENT: Denies nasal congestion or sore throat [] Respiratory: Denies cough or shortness of breath [] Cardiovascular: No additional information not addressed in HPI [] GI: Denies abdominal pain, nausea, vomiting, bloody stools or diarrhea [] : Denies dysuria or hematuria [] Musculoskeletal: Denies back pain or joint pain [] Integument: Denies rash or skin lesions [] Neurologic: reports blurry vision and dizziness.Denies headache, focal weakness or sensory changes [] All other systems were reviewed and found to be within normal limits, except as documented in this note. Current Medications Current Medications Current Medications Medications (Trade) Dose Ordered Sig/Sebastián Start Time Stop Time Status Last Admin Dose Admin Meclizine HCl (Antivert) 25 mg 1X ONCE 08/20/19 23:00 08/20/19 23:01 DC Allergies Allergies Allergies Coded Allergies Type Severity Reaction Last Updated Verified No Known Drug Allergies 01/17/19 No Physical Exam Physical Exam Constitutional: Well developed, well nourished, no acute distress, non-toxic appearance. [] HENT: Normocephalic, atraumatic, bilateral external ears normal, oropharynx moist, no oral exudates, nose normal. [] Eyes: PERRLA, EOMI, conjunctiva normal, no discharge. [] Neck: Normal range of motion, no tenderness, supple, no stridor. [] Cardiovascular:pacemaker noted on the left upper chest, paced rhythm Lungs & Thorax: Bilateral breath sounds clear to auscultation [] Abdomen: Bowel sounds normal, soft, no tenderness, no masses, no pulsatile masses. [] Skin: Warm, dry, no erythema, no rash. [] Back: No tenderness, no CVA tenderness. [] Extremities: No tenderness, no cyanosis, no clubbing, ROM intact, no edema. [] Neurologic: Alert and oriented X 3, normal motor function, normal sensory function, no focal deficits noted. cranial nerves II through XII intact Psychologic: Affect normal, judgement normal, mood normal. [] Current Patient Data Vital Signs Vital Signs Date Time Temp Pulse Resp B/P (MAP) Pulse Ox O2 Delivery O2 Flow Rate FiO2 08/20/19 22:04 97.9 68 16 156/73 (100) 98 Room Air 97.9 Lab Values Laboratory Tests Test 08/20/19 22:56 Urine Collection Type Unknown Urine Color Yellow Urine Clarity Clear Urine pH 6.0 Urine Specific [place] 1.025 Urine Protein 30 mg/dL (NEG-TRACE) Urine Glucose (UA) 250 mg/dL (NEG) Urine Ketones (Stick) Negative mg/dL (NEG) Urine Blood Negative (NEG) Urine Nitrite Negative (NEG) Urine Bilirubin Negative (NEG) Urine Urobilinogen Dipstick 1.0 mg/dL (0.2 mg/dL) Urine Leukocyte Esterase Small (NEG) Urine RBC 1-2 /HPF (0-2) Urine WBC 11-20 /HPF (0-4) Urine Squamous Epithelial Cells Mod /LPF Urine Bacteria Few /HPF (0-FEW) Urine Mucus Mod /LPF Urine Opiates Screen Neg (NEG) Urine Methadone Screen Neg (NEG) Urine Barbiturates Neg (NEG) Urine Phencyclidine Screen Neg (NEG) Urine Amphetamine/Methamphetamine Neg (NEG) Urine Benzodiazepines Screen Neg (NEG) Urine Cocaine Screen Neg (NEG) Urine Cannabinoids Screen Neg (NEG) Urine Ethyl Alcohol Neg (NEG) EKG EKG [] Radiology/Procedures Radiology/Procedures []PROCEDURE: PORTABLE CHEST 1V Indication: Dizziness TECHNIQUE:Portable AP chest X-ray COMPARISON: 05/03/2018 FINDINGS: Stable position of left chest wall cardiac pacer with leads projecting over the heart. Heart is normal in size. Lungs are clear. No pneumothorax or pleural effusion. Visualized bony thorax within normal limits. IMPRESSION: No acute pulmonary process. Electronically signed by: Bar Cates DO (08/20/2019 11:07 PM) [facility] DICTATED and SIGNED BY: BAR CATES DO DATE: 08/20/19 9526 PROCEDURE: CT HEAD WO CONTRAST CT HEAD INDICATION: Dizziness, blurry vision COMPARISON: 08/18/2019 Exposure: One or more of the following individualized dose reduction techniques were utilized for this examination: 1. Automated exposure control 2. Adjustment of the mA and/or kV according to patient size 3. Use of iterative reconstruction technique TECHNIQUE: 5 mm contiguous axial images were obtained from the skull base to the vertex in both bone and soft tissue algorithm. FINDINGS: No abnormal attenuation within the brain parenchyma. No evidence of acute intracranial hemorrhage. No extra-axial fluid collections. No mass effect or midline shift. Ventricular size is appropriate. Basal cisterns are patent. No fractures identified.Tatum-white differentiation is preserved.Globes and orbits are within normal limits. Paranasal sinuses and mastoid air cells are clear. IMPRESSION: No acute intracranial findings. Electronically signed by: Av Martinez MD (08/20/2019 11:25 PM) [facility] [id number] DICTATED and SIGNED BY: AV MARTINEZ MD DATE: 08/20/19 7779 Course & Med Decision Making Course & Med Decision Making Pertinent Labs and Imaging studies reviewed. (See chart for details) This is a 84-year-old female patient well known to this ED presenting today complaining of dizziness and blurry vision that began an hour ago.please note this patient has been seen in the ED multiple times for similar symptoms. This is her fourth visit in the last 12 days. Patient reports she's had multiple episodes of this similar dizziness and blurry vision before. NIHSS-0 CT of the head is negative, chest x-ray is negative. Labs were ordered. Patient refused lab work stating she was here 3 days ago she doesn't need anything she needs to go home. She reports the son dropped her off to go take care of the nieces. Patient is currently alert and oriented 4. Son is not available. She has refused all the workup. I spoke to patient with the nurse present. Informed patient I will discharge her home if she does not want to be worked up. She states there is nothing wrong with had this dizziness and blurry vision is chronic and goes away on its own. She was discharged to home. Ailyn Disclaimer Ailyn Disclaimer This electronic medical record was generated, in whole or in part, using a voice recognition dictation system. Departure Departure Impression: Primary Impression: Dizziness Disposition: HOME, SELF-CARE Condition: STABLE Referrals: NO PCP (PCP) Please follow-up with your own doctor in 1-3 days Patient Instructions: Dizziness Additional Instructions: We highly recommend you follow-up with your primary care doctor in the next 1-3 days. NIHSS Stroke Scale NIH Stroke Scale: NIH Stroke Scale Response (Comments) Value Level of Consciousness: 0 Alert/Responsive 0 LOC Questions: 0 Answers both correctly 0 Best Gaze: 0 Normal 0 Visual: 0 No visual loss 0 Facial Palsy: 0 Normal, symmetrical 0 Motor - Left Arm 0 No drift 0 Motor - Right Arm 0 No drift 0 Motor - Left Leg 0 No drift 0 Motor: Right Leg 0 No drift 0 Limb Ataxia: 0 Absent 0 Sensory: 0 No loss 0 Best Language: 0 Normal 0 Dysathria: 0 Normal 0 Extinction and Inattention: 0 Normal 0 Total 0 NED CASILLAS APRN Aug 20, 2019 23:10
[2019-08-20 23:15] LABS: BACTERIA,URINE FEW /HPF (0-FEW); SQUAMOUS EPITHELIAL CELL,UR MOD /LPF
[2019-08-20 23:17] LABS: BARBITURATES NEG (NEG); BENZODIAZEPINES NEG (NEG); CANNABINOIDS NEG (NEG); COCAINE NEG (NEG); METHADONE NEG (NEG); OPIATES NEG (NEG); PHENCYCLIDINE NEG (NEG)
[2019-08-20 23:20] LABS: AMPHETAMINE/METHAMPHETAMINE NEG (NEG)
--- NOTE | 2019-08-20 23:28 | RAD ---
CT HEAD INDICATION: Dizziness, blurry vision COMPARISON: 08/18/2019 Exposure: One or more of the following individualized dose reduction techniques were utilized for this examination: 1. Automated exposure control 2. Adjustment of the mA and/or kV according to patient size 3. Use of iterative reconstruction technique TECHNIQUE: 5 mm contiguous axial images were obtained from the skull base to the vertex in both bone and soft tissue algorithm. FINDINGS: No abnormal attenuation within the brain parenchyma. No evidence of acute intracranial hemorrhage. No extra-axial fluid collections. No mass effect or midline shift. Ventricular size is appropriate. Basal cisterns are patent. No fractures identified.Tatum-white differentiation is preserved.Globes and orbits are within normal limits. Paranasal sinuses and mastoid air cells are clear. IMPRESSION: No acute intracranial findings. Electronically signed by: Av Martinez MD (08/20/2019 11:25 PM) [facility]
== END 2019-08-20 23:50 | disposition home or self-care (01) ==
LOC: ER 22:03
DX: R42 Dizziness and giddiness (principal); H53.8 Other visual disturbances; E11.9 Type 2 diabetes mellitus without complications; I10 Essential (primary) hypertension; F03.90 Unspecified dementia, unspecified severity, without behavioral disturbance, psychotic disturbance, mood disturbance, and anxiety; Z90.710 Acquired absence of both cervix and uterus; Z95.0 Presence of cardiac pacemaker
CPT/HCPCS: 70450; 71045; 80307; 81001; 99285-25

== ENCOUNTER 2019-08-23 12:15 | Emergency (ER) | payer OTHER ==
[~2019-08-23] VITALS: Ht 167.6 cm; Wt 61.2 kg
[2019-08-23] MEDS ORDERED: IV NORMAL SALINE 1000ML BAG 1,000 ML IV SCH (12:34)
--- NOTE | 2019-08-23 13:02 | PHYS DOC ---
Past Medical History Past Medical History: Cancer, Dementia, Diabetes-Type II, Hypertension Additional Past Medical Histor: CANCER "anal" has had chemo rad, no surgery Past Surgical History: Hysterectomy, Pacemaker Additional Past Surgical Histo: pacemaker Alcohol Use: None Drug Use: None Adult General Chief Complaint Chief Complaint: Palpitations HPI HPI Patient is an 84-year-old female who presents with complaint of palpitations, stating that it feels like her heart is beating really fast. She also complains of some blurring of her vision, stating that that is been present for the last 3-4 days. She denies any eye pain. Patient does note that she does wear corrective lenses but she is not wearing any currently. She states it is been quite a while since her last eye check but is not able to stay just how long its been. Patient denies any headache. She denies any lateralizing weakness or sensory changes. Patient also denies any chest pain or shortness of breath.[] Review of Systems Review of Systems Constitutional: Denies fever or chills [] Eyes: Complains of blurred vision without eye pain [] HENT: Denies nasal congestion or sore throat [] Respiratory: Denies cough or shortness of breath [] Cardiovascular: No additional information not addressed in HPI [] GI: Denies abdominal pain, nausea, vomiting or diarrhea [] Integument: Denies rash or skin lesions [] Neurologic: Denies headache, focal weakness or sensory changes [] All other systems were reviewed and found to be within normal limits, except as documented in this note. Current Medications Current Medications Current Medications Medications (Trade) Dose Ordered Sig/[facility] Start Time Stop Time Status Last Admin Dose Admin Sodium Chloride 1,000 ml @ 1,000 mls/hr Q1H 08/23/19 12:34 08/23/19 13:33 DC 08/23/19 13:22 1,000 MLS/HR Allergies Allergies Allergies Coded Allergies Type Severity Reaction Last Updated Verified No Known Drug Allergies 01/17/19 No Physical Exam Physical Exam Constitutional: Well developed, well nourished, no acute distress, non-toxic appearance. [] HENT: Normocephalic, atraumatic, bilateral external ears normal, oropharynx moist, no oral exudates, nose normal. [] Eyes: PERRLA, EOMI, conjunctiva normal, no discharge. [] Neck: Normal range of motion, no tenderness, supple. [] Cardiovascular: Regular rate and rhythm[] Lungs & Thorax: Bilateral breath sounds clear to auscultation [] Abdomen: Bowel sounds normal, soft, no tenderness. [] Skin: Warm, dry, no erythema, no rash. [] Extremities: No tenderness, no cyanosis, no clubbing, ROM intact, no edema. [] Neurologic: Awake and alert, no focal deficits noted. [] Current Patient Data Vital Signs Vital Signs Date Time Temp Pulse Resp B/P (MAP) Pulse Ox O2 Delivery O2 Flow Rate FiO2 08/23/19 13:22 65 14 136/78 (97) 98 Room Air 08/23/19 12:30 97.4 97.4 Lab Values Laboratory Tests Test 08/23/19 13:00 08/23/19 13:35 Urine Collection Type Void Urine Color Yellow Urine Clarity Cloudy Urine pH 5.5 Urine Specific [place] 1.025 Urine Protein 30 mg/dL (NEG-TRACE) Urine Glucose (UA) Negative mg/dL (NEG) Urine Ketones (Stick) Negative mg/dL (NEG) Urine Blood Negative (NEG) Urine Nitrite Negative (NEG) Urine Bilirubin Negative (NEG) Urine Urobilinogen Dipstick 1.0 mg/dL (0.2 mg/dL) Urine Leukocyte Esterase Trace (NEG) Urine RBC 0 /HPF (0-2) Urine WBC 11-20 /HPF (0-4) Urine Squamous Epithelial Cells Few /LPF Urine Bacteria Few /HPF (0-FEW) Urine Hyaline Casts Moderate /HPF Urine Mucus Mod /LPF White Blood Count 10.3 x10^3/uL (4.0-11.0) Red Blood Count 3.58 x10^6/uL (3.50-5.40) Hemoglobin 10.7 g/dL (12.0-15.5) L Hematocrit 32.6 % (36.0-47.0) L Mean Corpuscular Volume 91 fL (79-100) Mean Corpuscular Hemoglobin 30 pg (25-35) Mean Corpuscular Hemoglobin Concent 33 g/dL (31-37) Red Cell Distribution Width 15.1 % (11.5-14.5) H Platelet Count 272 x10^3/uL (140-400) Neutrophils (%) (Auto) 89 % (31-73) H Lymphocytes (%) (Auto) 8 % (24-48) L Monocytes (%) (Auto) 4 % (0-9) Eosinophils (%) (Auto) 0 % (0-3) Basophils (%) (Auto) 0 % (0-3) Neutrophils # (Auto) 9.2 x10^3/uL (1.8-7.7) H Lymphocytes # (Auto) 0.8 x10^3/uL (1.0-4.8) L Monocytes # (Auto) 0.4 x10^3/uL (0.0-1.1) Eosinophils # (Auto) 0.0 x10^3/uL (0.0-0.7) Basophils # (Auto) 0.0 x10^3/uL (0.0-0.2) Platelet Estimate Pending Sodium Level 139 mmol/L (136-145) Potassium Level 3.9 mmol/L (3.5-5.1) Chloride Level 101 mmol/L (98-107) Carbon Dioxide Level 28 mmol/L (21-32) Anion Gap 10 (6-14) Blood Urea Nitrogen 29 mg/dL (7-20) H Creatinine 1.1 mg/dL (0.6-1.0) H Estimated GFR (Cockcroft-Gault) 57.4 BUN/Creatinine Ratio 26 (6-20) H Glucose Level 207 mg/dL (70-99) H Calcium Level 9.6 mg/dL (8.5-10.1) Magnesium Level 1.5 mg/dL (1.8-2.4) L Total Bilirubin 0.3 mg/dL (0.2-1.0) Aspartate Amino Transferase (AST) 18 U/L (15-37) Alanine Aminotransferase (ALT) 17 U/L (14-59) Alkaline Phosphatase 61 U/L (46-116) Troponin I Quantitative < 0.017 ng/mL (0.000-0.055) Total Protein 7.1 g/dL (6.4-8.2) Albumin 3.1 g/dL (3.4-5.0) L Albumin/Globulin Ratio 0.8 (1.0-1.7) L Laboratory Tests 08/23/19 13:35 Laboratory Tests 08/23/19 13:35 EKG EKG EKG demonstrates sinus rhythm with rate of 71.[] Radiology/Procedures Radiology/Procedures [] Impressions: PROCEDURE: PORTABLE CHEST 1V Single view chest dated 08/23/2019. No comparison available. Clinical data indication: Palpitations. FINDINGS: Single upright portable exam performed. Heart size is within normal limits. There is tortuosity and ectasia of the thoracic aorta. Dual lead left subclavian pacer in place. Lungs are clear. No consolidation or pleural effusion. No pneumothorax. IMPRESSION: No acute radiographic abnormality. Electronically signed by: Kennedi Erickson MD (08/23/2019 1:23 PM) [facility] [place] DICTATED and SIGNED BY: KENNEDI ERICKSON MD DATE: 08/23/19 1323 Course & Med Decision Making Course & Med Decision Making Pertinent Labs and Imaging studies reviewed. (See chart for details) [] Dragon Disclaimer Dragon Disclaimer This electronic medical record was generated, in whole or in part, using a voice recognition dictation system. Departure Departure Impression: Primary Impression: Palpitations Additional Impression: Dehydration Disposition: 01 HOME, SELF-CARE Condition: STABLE Referrals: NAKUL CROUCH (PCP) Patient Instructions: Dehydration, Adult, Palpitations Problem Qualifiers NARCISA GONZALEZ Jr. DO Aug 23, 2019 13:02
[2019-08-23 13:10] LABS: BILIRUBIN,URINE NEGATIVE (NEG); CLARITY,URINE CLOUDY; COLOR,URINE YELLOW; NITRITE,URINE NEGATIVE (NEG); PH,URINE 5.5; PROTEIN,URINE 30 mg/dL (NEG-TRACE)
[2019-08-23 13:22] VITALS: BP 136/78
[2019-08-23 13:22] LABS: BACTERIA,URINE FEW /HPF (0-FEW); HYALINE CASTS, URINE MODERATE /HPF; RBC,URINE 0 /HPF (0-2); SQUAMOUS EPITHELIAL CELL,UR FEW /LPF
--- NOTE | 2019-08-23 13:26 | RAD ---
Single view chest dated 08/23/2019. No comparison available. Clinical data indication: Palpitations. FINDINGS: Single upright portable exam performed. Heart size is within normal limits. There is tortuosity and ectasia of the thoracic aorta. Dual lead left subclavian pacer in place. Lungs are clear. No consolidation or pleural effusion. No pneumothorax. IMPRESSION: No acute radiographic abnormality. Electronically signed by: Efraín Erickson MD (08/23/2019 1:23 PM) [facility]
[2019-08-23 13:43] LABS: BASO % 0 % (0-3); EOS % 0 % (0-3); HEMATOCRIT 32.6 % (36.0-47.0); HEMOGLOBIN 10.7 g/dL (12.0-15.5); LYMPH # 0.8 x10^3/uL (1.0-4.8); LYMPH % 8 % (24-48); MEAN CORPUSCULAR HEMOGLOBIN 30 pg (25-35); MEAN CORPUSCULAR HGB CONC 33 g/dL (31-37); MEAN CORPUSCULAR VOLUME 91 fL (79-100); MONO # 0.4 x10^3/uL (0.0-1.1); MONO % 4 % (0-9); NEUT # 9.2 x10^3/uL (1.8-7.7); NEUT % 89 % (31-73); PLATELET COUNT 272 x10^3/uL (140-400); RED BLOOD COUNT 3.58 x10^6/uL (3.50-5.40); RED CELL DISTRIBUTION WIDTH 15.1 % (11.5-14.5); WHITE BLOOD COUNT 10.3 x10^3/uL (4.0-11.0)
[2019-08-23 13:52] LABS: CALCIUM 9.6 mg/dL (8.5-10.1); CREATININE 1.1 mg/dL (0.6-1.0); GFR 57.4; POTASSIUM 3.9 mmol/L (3.5-5.1)
[2019-08-23 13:58] LABS: ALBUMIN 3.1 g/dL (3.4-5.0); ALBUMIN/GLOBULIN RATIO 0.8 (1.0-1.7); MAGNESIUM 1.5 mg/dL (1.8-2.4); TOTAL BILIRUBIN 0.3 mg/dL (0.2-1.0); TOTAL PROTEIN 7.1 g/dL (6.4-8.2)
[2019-08-23 15:01] LABS: % BANDS 1 % (0-9); % LYMPHS 10 % (24-48); % MONOS 1 % (0-10); % SEGS 88 % (35-66)
[2019-08-23 15:04] LABS: PLT ESTIMATE ADEQUATE (ADEQUATE); TOXIC GRANULATION SLIGHT; TOXIC VACUOLATION MARKED
--- NOTE | 2019-08-24 07:13 | EKG ---
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
== END 2019-08-23 15:10 | disposition home or self-care (01) ==
LOC: ER 12:15
DX: R00.2 Palpitations (principal); E86.0 Dehydration; H53.8 Other visual disturbances; E11.9 Type 2 diabetes mellitus without complications; I10 Essential (primary) hypertension; F03.90 Unspecified dementia, unspecified severity, without behavioral disturbance, psychotic disturbance, mood disturbance, and anxiety; Z90.710 Acquired absence of both cervix and uterus; Z95.0 Presence of cardiac pacemaker
CPT/HCPCS: 36415; 71045; 80053; 81001; 83735; 84484; 85007; 85025; 87086; 93005; 96360; 99285; J7030

== ENCOUNTER 2019-11-27 12:04 | Emergency (ER) | payer MEDICARE, OTHER ==
[~2019-11-27] VITALS: Ht 165.1 cm; Wt 63.6 kg
[~2019-11-27 12:04] MED LIST changes: -GLIM4TAB4 PO; +GLIM4TAB8 PO
[2019-11-27] MEDS ORDERED: HYDROcodone/APAP 5/325MG 1 TAB TABLET PO ONE (12:45)
[2019-11-27] MEDS ORDERED: cloNIDine HCL 0.1 MG TABLET PO ONE (12:45)
[2019-11-27] MEDS ORDERED: ONDANSETRON ODT 4 MG TAB.RAPDIS. PO ONE (12:45)
[2019-11-27 13:35] VITALS: BP 181/93
--- NOTE | 2019-11-27 15:28 | PHYS DOC ---
Past Medical History Past Medical History: Cancer, Dementia, Diabetes-Type II, Hypertension Additional Past Medical Histor: CANCER "anal" has had chemo rad, no surgery Past Surgical History: Hysterectomy, Pacemaker Additional Past Surgical Histo: pacemaker Smoking Status: Former Smoker Alcohol Use: None Drug Use: None Adult General Chief Complaint Chief Complaint: HEADACHE HPI HPI Patient is a 84 year old [female presenting with headache. She had a headache on and off now for several months has been in the emergency room several times including 5 head [address]s for this same type of headache. She says is left-sided that comes and goes sometimes it is worse in the morning sometimes is worse later in the day it is mild to moderate kind of dull in nature no numbness tingling weakness or speech problem that she tells me about today. She said she forgot to take her blood pressure medication today. Gradual in onset ER course: Patient is neurologically intact there is no temporal artery tenderness she is very well-appearing we gave her blood pressure medication and pain medication and her blood pressure came down to a safer range. She has several visits for almost identical complaints with no acute pathology identified I do not think she has a subarachnoid hemorrhage I do not think we need to reimage her today I do not think she has intraparenchymal hemorrhage either she is neurologically intact I advised her to continue with her blood pressure medication take pain medication at home as needed return precautions discussed and she voiced understanding Review of Systems Review of Systems Constitutional: Denies fever or chills [] Eyes: Denies change in visual acuity, redness, or eye pain [] HENT: Denies nasal congestion or sore throat [] Respiratory: Denies cough or shortness of breath [] Cardiovascular: No additional information not addressed in HPI [] GI: Denies abdominal pain, nausea, vomiting, bloody stools or diarrhea [] : Denies dysuria or hematuria [] Musculoskeletal: Denies back pain or joint pain [] Integument: All other systems were reviewed and found to be within normal limits, except as documented in this note. Current Medications Current Medications Current Medications Medications (Trade) Dose Ordered Sig/Sebastián Start Time Stop Time Status Last Admin Dose Admin Acetaminophen/ Hydrocodone Bitart (Lortab 5/325) 2 tab 1X ONCE 11/27/19 12:45 11/27/19 12:46 DC 11/27/19 12:57 2 TAB Clonidine HCl (Catapres) 0.1 mg 1X ONCE 11/27/19 12:45 11/27/19 12:46 DC 11/27/19 12:57 0.1 MG Ondansetron HCl (Zofran Odt) 4 mg 1X ONCE 11/27/19 12:45 11/27/19 12:46 DC 11/27/19 12:56 4 MG Allergies Allergies Allergies Coded Allergies Type Severity Reaction Last Updated Verified No Known Drug Allergies 01/17/19 No Physical Exam Physical Exam Constitutional: Well developed, well nourished, no acute distress, non-toxic appearance. [] HENT: Normocephalic, atraumatic, bilateral external ears normal, oropharynx moist, no oral exudates, nose normal. [] No temporal artery tenderness Eyes: PERRLA, EOMI, conjunctiva normal, no discharge. [] Neck: Normal range of motion, no tenderness, supple, no stridor. [] Pulmonary: Normal respiratory effort no increased work of breathing no obvious chest wall trauma Abdomen: Bowel sounds normal, soft, no tenderness, no masses, no pulsatile masses. [] Skin: Warm, dry, no erythema, no rash. [] Back: No tenderness, no CVA tenderness. [] Extremities: No tenderness, no cyanosis, no clubbing, ROM intact, no edema. [] Neurologic: Alert and responsive moving all extremities strength and sensation intact throughout cranial nerves intact speech normal Current Patient Data Vital Signs Vital Signs Date Time Temp Pulse Resp B/P (MAP) Pulse Ox O2 Delivery O2 Flow Rate FiO2 11/27/19 13:35 60 94 11/27/19 12:57 20 Room Air 11/27/19 12:57 233/101 11/27/19 12:05 97.9 97.9 EKG EKG [] Radiology/Procedures Radiology/Procedures [] Course & Med Decision Making Course & Med Decision Making Pertinent Labs and Imaging studies reviewed. (See chart for details) [] See [facility] HPI Dragon Disclaimer Dragon Disclaimer This electronic medical record was generated, in whole or in part, using a voice recognition dictation system. Departure Departure Impression: Primary Impression: Headache Disposition: HOME, SELF-CARE Condition: IMPROVED Patient Instructions: Headache, FAQs BLAIR VALLADARES MD Nov 27, 2019 15:28
== END 2019-11-27 13:59 | disposition home or self-care (01) ==
LOC: ER 12:04
DX: R51 Headache (principal); E11.9 Type 2 diabetes mellitus without complications; I10 Essential (primary) hypertension; Z87.891 Personal history of nicotine dependence; Z95.0 Presence of cardiac pacemaker
CPT/HCPCS: 99284; Q0162

== ENCOUNTER 2019-12-14 10:51 | Emergency (ER) | payer MEDICARE ==
[~2019-12-14] VITALS: Ht 167.6 cm; Wt 65.9 kg
[2019-12-14] MEDS ORDERED: ACETAMINOPHEN 500 MG TABLET PO ONE (11:45)
[2019-12-14] MEDS ORDERED: cloNIDine HCL 0.1 MG TABLET PO ONE (11:45)
[2019-12-14 11:58] LABS: BASO # 0.1 x10^3/uL (0.0-0.2); BASO % 1 % (0-3); EOS # 0.2 x10^3/uL (0.0-0.7); EOS % 2 % (0-3); HEMATOCRIT 31.8 % (36.0-47.0); HEMOGLOBIN 10.3 g/dL (12.0-15.5); LYMPH # 1.8 x10^3/uL (1.0-4.8); LYMPH % 21 % (24-48); MEAN CORPUSCULAR HEMOGLOBIN 30 pg (25-35); MEAN CORPUSCULAR HGB CONC 32 g/dL (31-37); MEAN CORPUSCULAR VOLUME 91 fL (79-100); MONO # 0.5 x10^3/uL (0.0-1.1); MONO % 6 % (0-9); NEUT # 6.1 x10^3/uL (1.8-7.7); NEUT % 70 % (31-73); PLATELET COUNT 265 x10^3/uL (140-400); RED BLOOD COUNT 3.48 x10^6/uL (3.50-5.40); RED CELL DISTRIBUTION WIDTH 14.2 % (11.5-14.5); WHITE BLOOD COUNT 8.8 x10^3/uL (4.0-11.0)
[2019-12-14 12:07] LABS: PROTHROMBIN TIME PATIENT 12.7 SEC (11.7-14.0)
--- NOTE | 2019-12-14 12:21 | RAD ---
CT head without contrast PQRS statement: CT scans at this facility use dose reduction including either automated exposure control, iterative reconstructions, and /or weight based radiation dosing via mA and kV modification when appropriate to reduce radiation dose to as low as reasonably achievable. HISTORY: Headaches for many years. Hypertension. COMPARISON: CT head 08/20/2019. 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 Generalized brain atrophy stable. No new infarct since prior study. No acute ischemic changes evident. No intracranial hemorrhage, mass or hydrocephalus. Orbits, mastoids and bones are unremarkable. IMPRESSION: No acute abnormality. Stable exam. Electronically signed by: Mike Feliciano MD (12/14/2019 12:18 PM) [id number]
[2019-12-14 12:51] VITALS: BP 154/90
--- NOTE | 2019-12-14 13:01 | PHYS DOC ---
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 Patient says she had headache for a long time, however today she still has a headache, could not sleep last night so she came here for evaluation. Patient denies any blurry vision, no neck pain, no chest pain, no abdominal pain, no nausea vomiting. Patient has a history of hypertension, she is on multiple medication for her blood pressure but she had not taken her medication today. Patient says sometimes she do not remember taking her medication. Patient did not want anything done except something to take care of her headache. Patient denies any numbness or weakness anywhere, no slurred speech. Review of Systems Review of Systems Constitutional: Denies fever or chills [] Eyes: Denies change in visual acuity, redness, or eye pain [] HENT: Denies nasal congestion or sore throat [] Respiratory: Denies cough or shortness of breath [] Cardiovascular: No additional information not addressed in HPI [] GI: Denies abdominal pain, nausea, vomiting, bloody stools or diarrhea [] : Denies dysuria or hematuria [] Musculoskeletal: Denies back pain or joint pain [] Integument: Denies rash or skin lesions [] Neurologic: Positive for headache, NO focal weakness or sensory changes [] Endocrine: Denies polyuria or polydipsia [] All other systems were reviewed and found to be within normal limits, except as documented in this note. Current Medications Current Medications Current Medications Medications (Trade) Dose Ordered Sig/Sebastián Start Time Stop Time Status Last Admin Dose Admin Acetaminophen (Tylenol) 1,000 mg 1X ONCE 12/14/19 11:45 12/14/19 11:46 DC 12/14/19 11:52 1,000 MG Clonidine HCl (Catapres) 0.2 mg 1X ONCE 12/14/19 11:45 12/14/19 11:46 DC 12/14/19 11:56 0.2 MG Allergies Allergies Allergies Coded Allergies Type Severity Reaction Last Updated Verified No Known Drug Allergies 01/17/19 No Physical Exam Physical Exam Constitutional: Well developed, well nourished, no acute distress, non-toxic appearance. [] HENT: Normocephalic, atraumatic, bilateral external ears normal, oropharynx moist, no oral exudates, nose normal. [] Eyes: PERRLA, EOMI, conjunctiva normal, no discharge. [] Neck: Normal range of motion, no tenderness, supple, no stridor. [] Cardiovascular:Heart rate regular rhythm, no murmur [] Lungs & Thorax: Bilateral breath sounds clear to auscultation [] Abdomen: Bowel sounds normal, soft, no tenderness, no masses, no pulsatile masses. [] Skin: Warm, dry, no erythema, no rash. [] Back: No tenderness, no CVA tenderness. [] Extremities: No tenderness, no cyanosis, no clubbing, ROM intact, no edema. [] Neurologic: Alert and oriented X 3, normal motor function, normal sensory function, no focal deficits noted. [] Psychologic: Affect normal, judgement normal, mood normal. [] Current Patient Data Vital Signs Vital Signs Date Time Temp Pulse Resp B/P (MAP) Pulse Ox O2 Delivery O2 Flow Rate FiO2 12/14/19 12:51 60 95 12/14/19 11:56 246/123 12/14/19 11:08 97.7 18 Room Air 97.7 Lab Values Laboratory Tests Test 12/14/19 11:45 12/14/19 12:45 White Blood Count 8.8 x10^3/uL (4.0-11.0) Red Blood Count 3.48 x10^6/uL (3.50-5.40) L Hemoglobin 10.3 g/dL (12.0-15.5) L Hematocrit 31.8 % (36.0-47.0) L Mean Corpuscular Volume 91 fL (79-100) Mean Corpuscular Hemoglobin 30 pg (25-35) Mean Corpuscular Hemoglobin Concent 32 g/dL (31-37) Red Cell Distribution Width 14.2 % (11.5-14.5) Platelet Count 265 x10^3/uL (140-400) Neutrophils (%) (Auto) 70 % (31-73) Lymphocytes (%) (Auto) 21 % (24-48) L Monocytes (%) (Auto) 6 % (0-9) Eosinophils (%) (Auto) 2 % (0-3) Basophils (%) (Auto) 1 % (0-3) Neutrophils # (Auto) 6.1 x10^3/uL (1.8-7.7) Lymphocytes # (Auto) 1.8 x10^3/uL (1.0-4.8) Monocytes # (Auto) 0.5 x10^3/uL (0.0-1.1) Eosinophils # (Auto) 0.2 x10^3/uL (0.0-0.7) Basophils # (Auto) 0.1 x10^3/uL (0.0-0.2) Prothrombin Time 12.7 SEC (11.7-14.0) Prothrombin Time INR 1.0 (0.8-1.1) Activated Partial Thromboplast Time 27 SEC (24-38) Sodium Level 141 mmol/L (136-145) Potassium Level 4.3 mmol/L (3.5-5.1) Chloride Level 106 mmol/L (98-107) Carbon Dioxide Level 29 mmol/L (21-32) Anion Gap 6 (6-14) Blood Urea Nitrogen 19 mg/dL (7-20) Creatinine 0.9 mg/dL (0.6-1.0) Estimated GFR (Cockcroft-Gault) 72.4 BUN/Creatinine Ratio 21 (6-20) H Glucose Level 117 mg/dL (70-99) H Calcium Level 9.3 mg/dL (8.5-10.1) Total Bilirubin 0.4 mg/dL (0.2-1.0) Aspartate Amino Transferase (AST) 17 U/L (15-37) Alanine Aminotransferase (ALT) 10 U/L (14-59) L Alkaline Phosphatase 64 U/L (46-116) Total Protein 6.8 g/dL (6.4-8.2) Albumin 2.8 g/dL (3.4-5.0) L Albumin/Globulin Ratio 0.7 (1.0-1.7) L Laboratory Tests 12/14/19 11:45 Laboratory Tests 12/14/19 12:45 EKG EKG [] Radiology/Procedures Radiology/Procedures [][facility] [address] [place] [address] IMAGING REPORT Signed PATIENT: BARRY GONZALEZ ACCOUNT: [id number] : 1935 LOCATION: ER AGE: 84 SEX: F EXAM STATUS: REG ER ORD. PHYSICIAN: SUKHWINDER HENDRIX DO REASON: headache, hypertensive PROCEDURE: CT HEAD WO CONTRAST CT head without contrast PQRS statement: CT scans at this facility use dose reduction including either automated exposure control, iterative reconstructions, and /or weight based radiation dosing via mA and kV modification when appropriate to reduce radiation dose to as low as reasonably achievable. HISTORY: Headaches for many years. Hypertension. COMPARISON: CT head 08/20/2019. 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 Generalized brain atrophy stable. No new infarct since prior study. No acute ischemic changes evident. No intracranial hemorrhage, mass or hydrocephalus. Orbits, mastoids and bones are unremarkable. IMPRESSION: No acute abnormality. Stable exam. Electronically signed by: Stephany Feliciano MD (12/14/2019 12:18 PM) [id number] DICTATED and SIGNED BY: STEPHANY FELICIANO MD DATE: 12/14/19 1218 Course & Med Decision Making Course & Med Decision Making Pertinent Labs and Imaging studies reviewed. (See chart for details) Patient declined IV medication or IV placement. Patient wanted to be discharged home. Her CT scan her head was normal, she says when she got home she will take her blood pressure medication. Dragon Disclaimer Dragon Disclaimer This electronic medical record was generated, in whole or in part, using a voice recognition dictation system. Departure Departure Impression: Primary Impression: Hypertension Additional Impression: Headache Disposition: 01 HOME, SELF-CARE Condition: STABLE Referrals: UNKNOWN PCP NAME (PCP) follow up with your doctor this week in 2 days Patient Instructions: General Headache Without Cause, Hypertension Additional Instructions: Thank you for visiting our Emergency Department. We appreciate you trusting us with your care. If any additional problems come up don't hesitate to return to visit us. Please follow up with your primary care provider so they can plan additional care if needed and know about the problem that you had. If symptoms worsen come back to the Emergency Department. Any concerning symptoms that start such as chest pain, shortness of air, weakness or numbness on one side of the body, running high fevers or any other concerning symptoms return to the ER. Problem Qualifiers SUKHWINDER HENDRIX DO Dec 14, 2019 13:01
[2019-12-14 13:08] LABS: CALCIUM 9.3 mg/dL (8.5-10.1); CREATININE 0.9 mg/dL (0.6-1.0); GFR 72.4; POTASSIUM 4.3 mmol/L (3.5-5.1)
[2019-12-14 13:20] LABS: ALBUMIN 2.8 g/dL (3.4-5.0); ALBUMIN/GLOBULIN RATIO 0.7 (1.0-1.7); TOTAL BILIRUBIN 0.4 mg/dL (0.2-1.0); TOTAL PROTEIN 6.8 g/dL (6.4-8.2)
== END 2019-12-14 13:05 | disposition home or self-care (01) ==
LOC: ER 10:51
DX: R51 Headache (principal); I10 Essential (primary) hypertension; E11.9 Type 2 diabetes mellitus without complications; F03.90 Unspecified dementia, unspecified severity, without behavioral disturbance, psychotic disturbance, mood disturbance, and anxiety; Z95.0 Presence of cardiac pacemaker; Z87.891 Personal history of nicotine dependence
CPT/HCPCS: 36415; 70450; 80053; 85025; 85610; 85730; 99284-25

== ENCOUNTER 2019-12-18 12:42 | Emergency (ER) | payer MEDICARE ==
[~2019-12-18] VITALS: Ht 162.6 cm; Wt 68.1 kg
[2019-12-18] MEDS ORDERED: ACETAMINOPHEN 500 MG TABLET PO ONE (13:15)
[2019-12-18] MEDS ORDERED: cloNIDine HCL 0.1 MG TABLET PO ONE (13:15)
--- NOTE | 2019-12-18 13:38 | PHYS DOC ---
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 Patient denies any exacerbating or relieving factors. Patient was seen in the ED 4 days ago for the same complaint. She is noncompliant and refuses to be worked up. She is right now requesting something for her headache and to be discharged Review of Systems: Review of Systems: Constitutional: Denies fever or chills. [] Eyes: Denies change in visual acuity. [] HENT: Denies nasal congestion or sore throat. [] Respiratory: Denies cough or shortness of breath. [] Cardiovascular: Denies chest pain or edema. [] GI: Denies abdominal pain, nausea, vomiting, bloody stools or diarrhea. [] : Denies dysuria. [] Musculoskeletal: Denies back pain or joint pain. [] Integument: Denies rash. [] Neurologic: Reports headache, denies focal weakness or sensory changes. [] Lymphatic: Denies swollen glands. [] Psychiatric: Denies depression or anxiety. [] Heart Score: Risk Factors: Risk Factors: DM, Current or recent (<one month) smoker, HTN, HLP, family h istory of CAD, obesity. Risk Scores: Score 0 - 3: 2.5% MACE over next 6 weeks - Discharge Home Score 4 - 6: 20.3% MACE over next 6 weeks - Admit for Clinical Observation Score 7 - 10: 72.7% MACE over next 6 weeks - Early Invasive Strategies Current Medications: Current Medications Medications (Trade) Dose Ordered Sig/Sebastián Start Time Stop Time Status Last Admin Dose Admin Acetaminophen (Tylenol) 1,000 mg 1X ONCE 12/18/19 13:15 12/18/19 13:16 DC 12/18/19 13:15 1,000 MG Clonidine HCl (Catapres) 0.2 mg 1X ONCE 12/18/19 13:15 12/18/19 13:16 DC 12/18/19 13:15 0.2 MG Allergies: Allergies: Allergies Coded Allergies Type Severity Reaction Last Updated Verified No Known Drug Allergies 01/17/19 No Physical Exam: PE: Constitutional: Well developed, well nourished, no acute distress, non-toxic appearance. [] HENT: Normocephalic, atraumatic, bilateral external ears normal, oropharynx moist, no oral exudates, nose normal. [] Eyes: PERRLA, EOMI, conjunctiva normal, no discharge. [] Neck: Normal range of motion, no tenderness, supple, no stridor. [] Cardiovascular:Heart rate regular rhythm, no murmur [] Lungs & Thorax: Bilateral breath sounds clear to auscultation [] Abdomen: Bowel sounds normal, soft, no tenderness, no masses, no pulsatile masses. [] Skin: Warm, dry, no erythema, no rash. [] Back: No tenderness, no CVA tenderness. [] Extremities: No tenderness, no cyanosis, no clubbing, ROM intact, no edema. [] Neurologic: Alert and oriented X 3, normal motor function, normal sensory function, no focal deficits noted. Cranial nerves II through XII intact Psychologic: Affect normal, judgement normal, mood normal. [] Current Patient Data: Vital Signs: Vital Signs Date Time Temp Pulse Resp B/P (MAP) Pulse Ox O2 Delivery O2 Flow Rate FiO2 12/18/19 13:15 63 186/91 12/18/19 12:59 97.6 18 97 Room Air 97.6 EKG: EKG: [] Radiology/Procedures: Radiology/Procedures: [] Course & Med Decision Making: Course & Med Decision Making Pertinent Labs and Imaging studies reviewed. (See chart for details) This is a 84-year-old female patient presenting to the ED today complaining of left frontal headache, symptoms for 3 days. Patient was seen in the ED 4 days ago for the same complaint, she is noncompliant and refused to be worked up when she was seen. She is currently refusing any labs or any other testing. She states she needs medicine for her headache and be discharged. Blood pressure 210/98 with HR 63. Patient was given clonidine and Tylenol in the ED. She continued to refuse to be worked up. She was discharged to home. She is well-known to this ED for her headaches and uncontrolled blood pressure and refusing ED work ups. She is currently alert and oriented x4 and able to make her own decisions. Requested she follows up with her primary care doctor in the course of next week. Ailyn Disclaimer: Ailyn Disclaimer: This electronic medical record was generated, in whole or in part, using a voice recognition dictation system. Departure Departure Impression: Primary Impression: Accelerated hypertension Additional Impression: Headache Qualified Codes: R51 - Headache Disposition: HOME, SELF-CARE Condition: STABLE Referrals: UNKNOWN PCP NAME (PCP) Follow-up with your own doctor in the course of this week Patient Instructions: Headache, FAQs, Hypertension Additional Instructions: Please take your blood pressure medicines Please take Tylenol for headaches Please follow up with your doctor in the course of this week NED CASILLAS APRN Dec 18, 2019 13:38
[2019-12-18 13:47] VITALS: BP 184/89
== END 2019-12-18 13:48 | disposition home or self-care (01) ==
LOC: ER 12:42
DX: R51 Headache (principal); I10 Essential (primary) hypertension; E11.9 Type 2 diabetes mellitus without complications; F03.90 Unspecified dementia, unspecified severity, without behavioral disturbance, psychotic disturbance, mood disturbance, and anxiety; Z95.0 Presence of cardiac pacemaker; Z87.891 Personal history of nicotine dependence
CPT/HCPCS: 99284

== ENCOUNTER 2020-02-13 12:08 | Emergency (ER) | payer MEDICARE ==
[~2020-02-13] VITALS: Ht 162.6 cm; Wt 65.9 kg
[2020-02-13] MEDS ORDERED: cloNIDine HCL 0.1 MG TABLET PO ONE (13:00)
[2020-02-13 13:15] LABS: BASO # 0.1 x10^3/uL (0.0-0.2); BASO % 1 % (0-3); EOS # 0.3 x10^3/uL (0.0-0.7); EOS % 4 % (0-3); HEMATOCRIT 29.6 % (36.0-47.0); HEMOGLOBIN 9.8 g/dL (12.0-15.5); LYMPH # 1.7 x10^3/uL (1.0-4.8); LYMPH % 22 % (24-48); MEAN CORPUSCULAR HEMOGLOBIN 30 pg (25-35); MEAN CORPUSCULAR HGB CONC 33 g/dL (31-37); MEAN CORPUSCULAR VOLUME 91 fL (79-100); MONO # 0.6 x10^3/uL (0.0-1.1); MONO % 8 % (0-9); NEUT # 5.1 x10^3/uL (1.8-7.7); NEUT % 66 % (31-73); PLATELET COUNT 293 x10^3/uL (140-400); RED BLOOD COUNT 3.24 x10^6/uL (3.50-5.40); WHITE BLOOD COUNT 7.7 x10^3/uL (4.0-11.0)
[2020-02-13 13:16] VITALS: BP 165/88
[2020-02-13 13:25] LABS: PROTHROMBIN TIME PATIENT 12.9 SEC (11.7-14.0)
--- NOTE | 2020-02-13 13:29 | PHYS DOC ---
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 Patient not sure when exactly this began. Patient is a poor historian Review of Systems: Review of Systems: Constitutional: Denies fever or chills. [] Eyes: Denies change in visual acuity. [] HENT: Denies nasal congestion or sore throat. [] Respiratory: Denies cough or shortness of breath. [] Cardiovascular: Denies chest pain or edema. [] GI: Denies abdominal pain, nausea, vomiting, bloody stools or diarrhea. [] : Denies dysuria. [] Musculoskeletal: Denies back pain or joint pain. [] Integument: Reports left breast swelling Neurologic: Denies headache, focal weakness or sensory changes. [] Psychiatric: Denies depression or anxiety. [] Heart Score: Risk Factors: Risk Factors: DM, Current or recent (<one month) smoker, HTN, HLP, family history of CAD, obesity. Risk Scores: Score 0 - 3: 2.5% MACE over next 6 weeks - Discharge Home Score 4 - 6: 20.3% MACE over next 6 weeks - Admit for Clinical Observation Score 7 - 10: 72.7% MACE over next 6 weeks - Early Invasive Strategies Current Medications: Current Medications Medications (Trade) Dose Ordered Sig/[facility] Start Time Stop Time Status Last Admin Dose Admin Clonidine HCl (Catapres) 0.2 mg 1X ONCE 02/13/20 13:00 02/13/20 13:01 DC 02/13/20 13:16 0.2 MG Allergies: Allergies: Allergies Coded Allergies Type Severity Reaction Last Updated Verified No Known Drug Allergies 01/17/19 No Physical Exam: PE: Constitutional: Well developed, well nourished, no acute distress, non-toxic appearance. [] HENT: Normocephalic, atraumatic, bilateral external ears normal, oropharynx moist, no oral exudates, nose normal. [] Eyes: PERRLA, EOMI, conjunctiva normal, no discharge. [] Neck: Normal range of motion, no tenderness, supple, no stridor. [] Cardiovascular:Heart rate regular rhythm, no murmur [] Lungs & Thorax: Bilateral breath sounds clear to auscultation [] Abdomen: Bowel sounds normal, soft, no tenderness, no masses, no pulsatile nicky s. [] Skin: Warm, dry, left breast with moderate swelling,palpable mass noted at 1800 position with skin tightening, the nipple is dimpled. No drainage noted. Breast is non tender. Back: No tenderness, no CVA tenderness. [] Extremities: No tenderness, no cyanosis, no clubbing, ROM intact, no edema. [] Neurologic: Alert and oriented X 3, normal motor function, normal sensory function, no focal deficits noted. [] Psychologic: Affect normal, judgement normal, mood normal. [] Current Patient Data: Labs: Laboratory Tests Test 02/13/20 13:05 White Blood Count 7.7 x10^3/uL (4.0-11.0) Red Blood Count 3.24 x10^6/uL (3.50-5.40) L Hemoglobin 9.8 g/dL (12.0-15.5) L Hematocrit 29.6 % (36.0-47.0) L Mean Corpuscular Volume 91 fL (79-100) Mean Corpuscular Hemoglobin 30 pg (25-35) Mean Corpuscular Hemoglobin Concent 33 g/dL (31-37) Red Cell Distribution Width 15.0 % (11.5-14.5) H Platelet Count 293 x10^3/uL (140-400) Neutrophils (%) (Auto) 66 % (31-73) Lymphocytes (%) (Auto) 22 % (24-48) L Monocytes (%) (Auto) 8 % (0-9) Eosinophils (%) (Auto) 4 % (0-3) H Basophils (%) (Auto) 1 % (0-3) Neutrophils # (Auto) 5.1 x10^3/uL (1.8-7.7) Lymphocytes # (Auto) 1.7 x10^3/uL (1.0-4.8) Monocytes # (Auto) 0.6 x10^3/uL (0.0-1.1) Eosinophils # (Auto) 0.3 x10^3/uL (0.0-0.7) Basophils # (Auto) 0.1 x10^3/uL (0.0-0.2) Laboratory Tests 02/13/20 13:05 Vital Signs: Vital Signs Date Time Temp Pulse Resp B/P (MAP) Pulse Ox O2 Delivery O2 Flow Rate FiO2 02/13/20 13:16 60 165/88 02/13/20 12:26 98.1 18 98 Room Air 98.1 EKG: EKG: [] Radiology/Procedures: Radiology/Procedures: []PROCEDURE: BREAST LEFT BREAST LEFT 02/13/2020 12:46 PM INDICATION: Left breast swelling. COMPARISON: None available TECHNIQUE: Targeted sonographic evaluation of the left breast was performed. FINDINGS: Left breast was evaluated from the 5 to 12:00 position. There is an irregular hypoechoic mass with areas of posterior acoustic shadowing measuring 6.0 x 4.7 x 4.5 cm with areas of internal vascularity. There is subcutaneous edema with skin thickening. Findings are suspicious for underlying malignancy. This finding warrants ultrasound-guided core needle biopsy. IMPRESSION: Suspicious findings in the left breast at the 6:00 position. Ultrasound guided core needle biopsy is recommended. Findings were discussed with ER clinician at the time of image interpretation. BI-RADS category: 5; Highly Suggestive of Malignancy Recommendations: Recommend ultrasound-guided core needle biopsy. FOR INTERNAL CODING PURPOSES Critical result: Findings discussed with NED CASILLAS at 02/13/2020 1:31 PM. RESULT CODE: (C) Electronically signed by: Damaris Huber MD (02/13/2020 1:33 PM) [facility] DICTATED and SIGNED BY: DAMARIS HUBER MD DATE: 02/13/20 4075 Course & Med Decision Making: Course & Med Decision Making Pertinent Labs and Imaging studies reviewed. (See chart for details) This is a 84-year-old female patient well-known to this ED presenting today complaining of left breast swelling that began a couple days ago. Patient is a very poor historian. Currently refusing IVs. Breast is moderately swollen. Blood pressure 189/93 with a heart rate of 60 has history of hypertension. Noncompliant. Given clonidine. Ultrasound of the left breast -Suspicious findings in the left breast at the 6:00 position. Ultrasound guided core needle biopsy is recommended. I spoke with Dr. Crespo who requested outpatient f/u considering [facility] does not have oncologist/hematology group. Spoke with patient's daughter who is also her DPOA per her statement, she agreed patient can follow-up with [facility]. I gave her a day follow-up/contact information. Patient was discharged home. The daughter also states that this patient is full code and is not on hospice. Dragon Disclaimer: Dragon Disclaimer: This electronic medical record was generated, in whole or in part, using a voice recognition dictation system. Departure Departure Impression: Primary Impression: Accelerated hypertension Additional Impression: Breast mass in female Disposition: 01 HOME, SELF-CARE Condition: STABLE Referrals: UNKNOWN PCP NAME (PCP) Please follow-up with [facility]. Contact referall line on Saturday and set up a follow-up appointment. The phone number for referral line is [phone] Patient Instructions: Breast Biopsy Additional Instructions: You were evaluated in the emergency room and noted to have a left breast mass that is concerning for cancer. Please follow-up with [facility]. Contact referall line on Saturday and set up a follow-up appointment. The phone number for referral line is [phone] Justicifation of Admission Dx: Justifications for Admission: Justification of Admission Dx: N/A NED CASILLAS APRN Feb 13, 2020 13:29
--- NOTE | 2020-02-13 13:36 | RAD ---
BREAST LEFT 02/13/2020 12:46 PM INDICATION: Left breast swelling. COMPARISON: None available TECHNIQUE: Targeted sonographic evaluation of the left breast was performed. FINDINGS: Left breast was evaluated from the 5 to 12:00 position. There is an irregular hypoechoic mass with areas of posterior acoustic shadowing measuring 6.0 x 4.7 x 4.5 cm with areas of internal vascularity. There is subcutaneous edema with skin thickening. Findings are suspicious for underlying malignancy. This finding warrants ultrasound-guided core needle biopsy. IMPRESSION: Suspicious findings in the left breast at the 6:00 position. Ultrasound guided core needle biopsy is recommended. Findings were discussed with ER clinician at the time of image interpretation. BI-RADS category: 5; Highly Suggestive of Malignancy Recommendations: Recommend ultrasound-guided core needle biopsy. FOR INTERNAL CODING PURPOSES Critical result: Findings discussed with NED CASILLAS at 02/13/2020 1:31 PM. RESULT CODE: (C) Electronically signed by: Yanet Huber MD (02/13/2020 1:33 PM) NATHAN
[2020-02-13 13:41] LABS: CREATININE 1.1 mg/dL (0.6-1.0); GFR 57.4; POTASSIUM 4.3 mmol/L (3.5-5.1)
[2020-02-13 13:51] LABS: ALBUMIN 2.7 g/dL (3.4-5.0); ALBUMIN/GLOBULIN RATIO 0.6 (1.0-1.7); TOTAL BILIRUBIN 0.2 mg/dL (0.2-1.0); TOTAL PROTEIN 6.9 g/dL (6.4-8.2)
[2020-02-14] MEDS ORDERED: HYDR-3164 PO (13:29)
== END 2020-02-13 15:12 | disposition home or self-care (01) ==
LOC: ER 12:08
DX: I10 Essential (primary) hypertension (principal); N63.0 Unspecified lump in unspecified breast; E11.9 Type 2 diabetes mellitus without complications; Z85.9 Personal history of malignant neoplasm, unspecified; Z90.710 Acquired absence of both cervix and uterus; Z87.891 Personal history of nicotine dependence; Z95.0 Presence of cardiac pacemaker
CPT/HCPCS: 36415; 76641; 80053; 83605; 85025; 85610; 85730; 86140; 99284

== ENCOUNTER 2020-02-14 12:29 | Emergency (ER) | payer MEDICARE ==
[~2020-02-14] VITALS: Ht 160 cm; Wt 65.9 kg
[2020-02-14 12:58] VITALS: BP 155/72
[2020-02-14] MEDS ORDERED: HYDR-3164 PO (13:29)
--- NOTE | 2020-02-14 13:29 | PHYS DOC ---
Past Medical History Past Medical History: Cancer, Dementia, Diabetes-Type II, Hypertension Additional Past Medical Histor: CANCER "anal" has had chemo rad, no surgery Past Surgical History: Hysterectomy, Pacemaker Additional Past Surgical Histo: pacemaker Smoking Status: Former Smoker Alcohol Use: None Drug Use: None General Adult EDM: Chief Complaint: PAIN CONTROL HPI: HPI: Patient is a 84 year old female who presents with was here yesterday and seen and refused to be admitted to the hospital. She was here for hypertension and left breast pain. She was diagnosed with highly suspicious BI-RADS Category 5 left breast masses. Patient states that she was not given any pain medicine before she left. She states she is here today only for pain control. She states that she is going to go [facility] on Saturday for follow-up. Patient rates her pain an 8 out of 10. Review of Systems: Review of Systems: Musculoskeletal: Denies back pain or joint pain. Left breast pain. [] Heart Score: Risk Factors: Risk Factors: DM, Current or recent (<one month) smoker, HTN, HLP, family history of CAD, obesity. Risk Scores: Score 0 - 3: 2.5% MACE over next 6 weeks - Discharge Home Score 4 - 6: 20.3% MACE over next 6 weeks - Admit for Clinical Observation Score 7 - 10: 72.7% MACE over next 6 weeks - Early Invasive Strategies Allergies: Allergies: Allergies Coded Allergies Type Severity Reaction Last Updated Verified No Known Drug Allergies 01/17/19 No Physical Exam: PE: Constitutional: Well developed, well nourished, no acute distress, non-toxic appearance. [] HENT: Normocephalic, atraumatic, bilateral external ears normal, oropharynx moist, no oral exudates, nose normal. [] Eyes: PERRLA, EOMI, conjunctiva normal, no discharge. [] Neck: Normal range of motion, no tenderness, supple, no stridor. [] Cardiovascular:Heart rate regular rhythm, no murmur [] Lungs & Thorax: Bilateral breath sounds clear to auscultation. Left breast pain [] Abdomen: Bowel sounds normal, soft, no tenderness, no masses, no pulsatile masses. [] Skin: Warm, dry, no erythema, no rash. [] Back: No tenderness, no CVA tenderness. [] Extremities: No tenderness, no cyanosis, no clubbing, ROM intact, no edema. [] Neurologic: Alert and oriented X 3, normal motor function, normal sensory function, no focal deficits noted. [] Psychologic: Affect normal, judgement normal, mood normal. [] Current Patient Data: Vital Signs: Vital Signs Date Time Temp Pulse Resp B/P (MAP) Pulse Ox O2 Delivery O2 Flow Rate FiO2 02/14/20 12:58 98.6 95 12 155/72 (99) 98 Room Air 98.6 EKG: EKG: [] Radiology/Procedures: Radiology/Procedures: [] Course & Med Decision Making: Course & Med Decision Making Pertinent Labs and Imaging studies reviewed. (See chart for details) Patient has left breast tenderness with palpation. A mass approximately at 12:00 on the breast. Patient has no other complaints. She states she is here only for pain control. Patient did leave AGAINST MEDICAL ADVICE yesterday. Patient does have follow-up that she states at on Saturday. [] Dragon Disclaimer: Dragon Disclaimer: This electronic medical record was generated, in whole or in part, using a voice recognition dictation system. Departure Departure Impression: Primary Impression: Inadequate pain control Disposition: HOME, SELF-CARE Condition: STABLE Referrals: UNKNOWN PCP NAME (PCP) Patient Instructions: Pain Medicine Instructions Additional Instructions: Follow-up as scheduled with . Take medication with food and do not drink alcohol or drive with this medication. Scripts Hydrocodone/Apap 5-325 (NORCO 5-325 TABLET) 1 Each Tablet 1 TAB PO PRN Q6HRS PRN for PAIN, #12 TAB 0 Refills Prov: MAYITO VIDES APRN 02/14/20 Justicifation of Admission Dx: Justifications for Admission: Justification of Admission Dx: N/A (NOT INDICATED) MAYITO VIDES APRN Feb 14, 2020 13:29
== END 2020-02-14 13:40 | disposition home or self-care (01) ==
LOC: ER 12:29
DX: N64.4 Mastodynia (principal); E11.9 Type 2 diabetes mellitus without complications; I10 Essential (primary) hypertension; F03.90 Unspecified dementia, unspecified severity, without behavioral disturbance, psychotic disturbance, mood disturbance, and anxiety; Z87.891 Personal history of nicotine dependence; Z95.0 Presence of cardiac pacemaker
CPT/HCPCS: 99283

== ENCOUNTER 2020-03-05 16:19 | Emergency (ER) | payer MEDICARE ==
[~2020-03-05] VITALS: Ht 160 cm; Wt 68.1 kg
[2020-03-05 17:04] VITALS: BP 174/95
[2020-03-05] MEDS ORDERED: HYDR-2761 PO (17:45)
--- NOTE | 2020-03-05 17:45 | PHYS DOC ---
Past Medical History Past Medical History: Cancer, Dementia, Diabetes-Type II, Hypertension Additional Past Medical Histor: CANCER "anal" has had chemo rad, no surgery (QUYNH GRIMES APRN) Past Surgical History: Hysterectomy, Pacemaker Additional Past Surgical Histo: pacemaker (QUYNH GRIMES APRN) Smoking Status: Former Smoker Alcohol Use: None Drug Use: None (QUYNH GRIMES APRN) General Adult EDM: Chief Complaint: PAIN CONTROL HPI: HPI: Patient is a 84 year old AA female who presents to the emergency department with complaints of a need for pain medication. She complains of pain in her left breast and a recent diagnosis of breast cancer in her left breast. She reports that she was not prescribed any pain medication by her oncologist. She denies any bleeding or discharge from her breast she states that she is simply here for pain medication. She has an appointment with her oncologist again on Saturday of next week. She currently rates the pain a 10 out of 10 on the pain scale, she denies any alleviating factors, the pain is worse if the area is touched. She denies any radiation of the pain at this time. (QUYNH GRIMES APRN) Review of Systems: Review of Systems: Complete review of systems is negative unless otherwise documented in the HPI (QUYNH GRIMES APRN) Heart Score: Risk Factors: Risk Factors: DM, Current or recent (<one month) smoker, HTN, HLP, family history of CAD, obesity. Risk Scores: Score 0 - 3: 2.5% MACE over next 6 weeks - Discharge Home Score 4 - 6: 20.3% MACE over next 6 weeks - Admit for Clinical Observation Score 7 - 10: 72.7% MACE over next 6 weeks - Early Invasive Strategies (QUYNH GRIMES APRN) Allergies: Allergies: Allergies Coded Allergies Type Severity Reaction Last Updated Verified No Known Drug Allergies 01/17/19 No (QUYNH GRIMES APRN) Physical Exam: PE: Constitutional: Well developed, well nourished, no acute distress, non-toxic appearance. [] HENT: Normocephalic, atraumatic, bilateral external ears normal, nose normal. [] Eyes: PERRLA, EOMI, conjunctiva normal, no discharge. [] Neck: Normal range of motion, no stridor. [] Cardiovascular:Heart rate regular rhythm Lungs & Thorax: Respirations even and unlabored, no retractions, no respiratory distress Extremities: No cyanosis, ROM intact, no edema. [] Neurologic: Alert and oriented X 3, no focal deficits noted. [] Psychologic: Affect normal, judgement normal, mood normal. [] (QUYNH GRIMES APRN) Current Patient Data: Vital Signs: Vital Signs Date Time Temp Pulse Resp B/P (MAP) Pulse Ox O2 Delivery O2 Flow Rate FiO2 03/05/20 17:04 97.9 92 18 174/95 (121) 90 Room Air 97.9 (QUYNH GRIMES APRN) EKG: EKG: [] (QUYNH GRIMES APRN) Radiology/Procedures: Radiology/Procedures: [] (QUYNH GRIMES APRN) Course & Med Decision Making: Course & Med Decision Making Pertinent Labs and Imaging studies reviewed. (See chart for details) [] (QUYNH GRIMES APRN) Dragon Disclaimer: Dragon Disclaimer: This electronic medical record was generated, in whole or in part, using a voice recognition dictation system. (QUYNH GRIMES APRN) Departure Departure Impression: Primary Impression: Chronic pain Qualified Codes: G89.29 - Other chronic pain Additional Impression: Anxiety about health Disposition: 01 HOME, SELF-CARE Condition: STABLE Referrals: UNKNOWN PCP NAME (PCP) Patient Instructions: Chronic Pain Management-Brief Additional Instructions: Fill the prescription and use as directed for pain. Do not take more than 4000 mg of Tylenol in 24 hours. Return to the ER if symptoms worsen. Follow up with oncology next week as planned. Scripts Hydrocodone Bit/Acetaminophen (HYDROCODONE-APAP 5-325 ) 1 Tab Tablet 0.5 TAB PO PRN Q6HRS PRN for PAIN for 3 Days, #10 TAB 0 Refills Prov: QUYNH GRIMES APRN 03/05/20 Justicifation of Admission Dx: Justifications for Admission: Justification of Admission Dx: N/A (QUYNH GRIMES APRN) Attending Signature Attending Signature I have participated in the care of this patient and I have reviewed and agree with all pertinent clinical information above including history, exam, and recommendations. (CHERRY BROWN DO) QUYNH GRIMES APRN Mar 05, 2020 17:45 CHERRY BROWN DO Mar 06, 2020 11:56
== END 2020-03-05 17:56 | disposition home or self-care (01) ==
LOC: ER 16:19
DX: G89.29 Other chronic pain (principal); F41.9 Anxiety disorder, unspecified; N64.4 Mastodynia; E11.9 Type 2 diabetes mellitus without complications; I10 Essential (primary) hypertension; F03.90 Unspecified dementia, unspecified severity, without behavioral disturbance, psychotic disturbance, mood disturbance, and anxiety; Z90.710 Acquired absence of both cervix and uterus; Z95.0 Presence of cardiac pacemaker; Z87.891 Personal history of nicotine dependence
CPT/HCPCS: 99283

== ENCOUNTER 2020-03-19 18:24 | Emergency (ER) | payer MEDICARE ==
[~2020-03-19] VITALS: Ht 162.6 cm; Wt 63.6 kg
[~2020-03-19 18:24] MED LIST changes: +HYDR-2761 PO
--- NOTE | 2020-03-19 19:41 | PHYS DOC ---
Past Medical History Past Medical History: Cancer, Dementia, Diabetes-Type II, Hypertension Additional Past Medical Histor: CANCER "anal" has had chemo rad, no surgery Past Surgical History: Hysterectomy, Pacemaker Additional Past Surgical Histo: pacemaker Smoking Status: Former Smoker Alcohol Use: None Drug Use: None General Adult EDM: Chief Complaint: BREAST PROBLEM HPI: HPI: Patient is a 84 year old old female with a past medical history of hypertension and newly diagnosed breast cancer presents with a chief complaint of left breast pain and swelling. Patient states she was diagnosed with breast cancer 3 weeks ago. She states 2 weeks ago her left breast started swelling. Patient presents today complaining of pain in her left breast. Patient states she has been taking some prescription pain medications but they have not been helping. She does not know the name of the medications at this time. Patient denies any headache chest pain fever chills abdominal pain nausea vomiting or diarrhea. Review of Systems: Review of Systems: Constitutional: Denies fever or chills. [] Eyes: Denies change in visual acuity. [] HENT: Denies nasal congestion or sore throat. [] Respiratory: Denies cough or shortness of breath. [] Cardiovascular: Denies chest pain or edema. [] GI: Denies abdominal pain, nausea, vomiting, bloody stools or diarrhea. [] : Denies dysuria. [] Musculoskeletal: Denies back pain or joint pain. [] Integument: Positive left breast swelling positive breast pain Neurologic: Denies headache, focal weakness or sensory changes. [] Endocrine: Denies polyuria or polydipsia. [] Lymphatic: Denies swollen glands. [] Psychiatric: Denies depression or anxiety. [] Heart Score: Risk Factors: Risk Factors: DM, Current or recent (<one month) smoker, HTN, HLP, family history of CAD, obesity. Risk Scores: Score 0 - 3: 2.5% MACE over next 6 weeks - Discharge Home Score 4 - 6: 20.3% MACE over next 6 weeks - Admit for Clinical Observation Score 7 - 10: 72.7% MACE over next 6 weeks - Early Invasive Strategies Allergies: Allergies: Allergies Coded Allergies Type Severity Reaction Last Updated Verified No Known Drug Allergies 01/17/19 No Physical Exam: PE: Constitutional: Well developed, well nourished, no acute distress, non-toxic appearance. [] HENT: Normocephalic, atraumatic, bilateral external ears normal, oropharynx moist, no oral exudates, nose normal. [] Eyes: PERRLA, EOMI, conjunctiva normal, no discharge. [] Neck: Normal range of motion, no tenderness, supple, no stridor. [] Cardiovascular:Heart rate regular rhythm, no murmur [] Lungs & Thorax: Bilateral breath sounds clear to auscultation [] Abdomen: Bowel sounds normal, soft, no tenderness, no masses, no pulsatile masses. [] Skin: Left breast is swollen and approximately half the size larger than right breast. Nipple is slightly inverted there is no drainage, area is tender to palpation Back: No tenderness, no CVA tenderness. [] Extremities: No tenderness, no cyanosis, no clubbing, ROM intact, no edema. [] Neurologic: Alert and oriented X 3, normal motor function, normal sensory function, no focal deficits noted. [] Psychologic: Affect normal, judgement normal, mood normal. [] EKG: EKG: [] Radiology/Procedures: Radiology/Procedures: [] Course & Med Decision Making: Course & Med Decision Making Pertinent Labs and Imaging studies reviewed. (See chart for details) [] Patient was evaluated for chief complaint. Based upon history of present illness and physical exam no emergent lab or imaging indicated. Patient appears in no acute distress. Patient is currently being worked up on an outpatient basis for her breast cancer. Cussed with the patient treatment with oral pain medication and to see if it will help with patient's pain. Patient initially agreeable but then declined with nursing provided to the patient. Patient states she is concerned that if she takes the pain medicine she will get too sleepy and fall asleep. Patient is unsure of the pain medication she has at home. I will prescribe patient P ercocet 5 mg / 325 mg 1 to 2 tablets every 6 hours as needed needed for pain. Patient advised to follow-up with her primary care physician or her oncologist for further pain management. Ailyn Disclaimer: Ailyn Disclaimer: This electronic medical record was generated, in whole or in part, using a voice recognition dictation system. Departure Departure Impression: Primary Impression: Breast pain Additional Impression: Breast cancer Disposition: 01 HOME, SELF-CARE Condition: STABLE Referrals: UNKNOWN PCP NAME (PCP) Patient Instructions: Breast Cancer, What You Should Know Scripts Oxycodone Hcl/Acetaminophen (ENDOCET 5-325 TABLET) 1 Each Tablet 1 TAB PO PRN TID PRN for PAIN MDD 3 Tablet(s) for 30 Days, #20 TAB 0 Refills Prov: CLARA LEDESMA I DO 03/19/20 Justicifation of Admission Dx: Justifications for Admission: Justification of Admission Dx: N/A CLARA LEDESMA I DO Mar 19, 2020 19:41
[2020-03-19 19:52] VITALS: BP 137/87
[2020-03-19] MEDS ORDERED: oxyCODONE/APAP 5/325 1 TAB TABLET PO ONE (20:15)
[2020-03-19] MEDS ORDERED: OXYC-314 PO (20:24)
== END 2020-03-19 20:43 | disposition home or self-care (01) ==
LOC: ER 18:24
DX: N64.4 Mastodynia (principal); R60.0 Localized edema; F03.90 Unspecified dementia, unspecified severity, without behavioral disturbance, psychotic disturbance, mood disturbance, and anxiety; E11.9 Type 2 diabetes mellitus without complications; I10 Essential (primary) hypertension; Z90.710 Acquired absence of both cervix and uterus; Z95.0 Presence of cardiac pacemaker; Z85.9 Personal history of malignant neoplasm, unspecified; Z98.890 Other specified postprocedural states
CPT/HCPCS: 99283

== ENCOUNTER 2020-03-31 16:18 | Emergency (ER) | payer MEDICARE ==
[~2020-03-31] VITALS: Ht 149.9 cm; Wt 70.4 kg
[~2020-03-31 16:18] MED LIST changes: +OXYC-314 PO
--- NOTE | 2020-03-31 17:38 | PHYS DOC ---
Past Medical History Past Medical History: Cancer, Dementia, Diabetes-Type II, Hypertension Additional Past Medical Histor: CANCER "anal" has had chemo rad, no surgery Past Surgical History: Hysterectomy, Pacemaker Additional Past Surgical Histo: pacemaker Smoking Status: Former Smoker Alcohol Use: None Drug Use: None General Adult EDM: Chief Complaint: ABDOMINAL PAIN HPI: HPI: Patient is a 84 year old female patient who presents with left breast discomfort. Patient reports she has had a recent breast cancer diagnosis, and has noticed her breast to be more firm and tender compared to normal. States she had been seen in this hospital couple days earlier at which point she initially reports this is when she was diagnosed with breast cancer. However patient later reports she had been diagnosed by her primary care provider several months earlier, also reports she had an appointment to see oncologist or surgeon in February, but also reports she is has a first appointment in May. Patient denies fever, denies dizziness, denies abdominal pain, denies nausea, denies vomiting. Patient reports she just wants to feel better. Patient indicates that she is feeling that her breast is more swollen than it has been before, however reports this is been like this for a while. Review of Systems: Review of Systems: Constitutional: Denies fever or chills. [] Eyes: Denies change in visual acuity. [] HENT: Denies nasal congestion or sore throat. [] Respiratory: Denies cough or shortness of breath. [] Cardiovascular: Denies chest pain or edema. [] GI: Denies abdominal pain, nausea, vomiting, bloody stools or diarrhea. [] : Denies dysuria. [] Musculoskeletal: Denies back pain or joint pain. [] Integument: Denies rash. Does report some left breast swelling and discomfort [] Neurologic: Denies headache, focal weakness or sensory changes. [] Endocrine: Denies polyuria or polydipsia. [] Lymphatic: Denies swollen glands. [] Psychiatric: Denies depression or anxiety. [] Heart Score: Risk Factors: Risk Factors: DM, Current or recent (<one month) smoker, HTN, HLP, family history of CAD, obesity. Risk Scores: Score 0 - 3: 2.5% MACE over next 6 weeks - Discharge Home Score 4 - 6: 20.3% MACE over next 6 weeks - Admit for Clinical Observation Score 7 - 10: 72.7% MACE over next 6 weeks - Early Invasive Strategies Allergies: Allergies: Allergies Coded Allergies Type Severity Reaction Last Updated Verified No Known Drug Allergies 01/17/19 No Physical Exam: PE: Constitutional: Chronically frail, well nourished, no acute distress, non-toxic appearance. [] HENT: Normocephalic, atraumatic, bilateral external ears normal, oropharynx moist, no oral exudates, nose normal. [] Eyes: PERRLA, EOMI, conjunctiva normal, no discharge. [] Neck: Normal range of motion, no tenderness, supple, no stridor. [] Cardiovascular:Heart rate regular rhythm, no murmur [] Lungs & Thorax: Bilateral breath sounds clear to auscultation [] Abdomen: Bowel sounds normal, soft, no tenderness, no masses, no pulsatile masses. [] Skin: Warm, dry, no erythema, no rash. Left breast without erythema, warmth. Large amount of swelling noted, with breast tissue encircling areola [] Back: No tenderness, no CVA tenderness. [] Extremities: No tenderness, no cyanosis, no clubbing, ROM intact, no edema. [] Neurologic: Alert and oriented X 3, normal motor function, normal sensory function, no focal deficits noted. [] Psychologic: Affect normal, judgement normal, mood normal. [] Current Patient Data: Vital Signs: Vital Signs Date Time Temp Pulse Resp B/P (MAP) Pulse Ox O2 Delivery O2 Flow Rate FiO2 03/31/20 16:50 98.0 87 20 139/88 (105) 95 Room Air 98.0 EKG: EKG: [] Radiology/Procedures: Radiology/Procedures: [] Course & Med Decision Making: Course & Med Decision Making Pertinent Labs and Imaging studies reviewed. (See chart for Reviewed results, discussed findings with patient, do note some leukocytosis, however no physical symptoms. 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 Will provide short course of antibiotics, patient to follow-up with her primary care provider and oncologist as she has previously been scheduled. Ailyn Disclaimer: Ailyn Disclaimer: This electronic medical record was generated, in whole or in part, using a voice recognition dictation system. Departure Departure Impression: Primary Impression: Breast mass in female Additional Impression: Cellulitis Qualified Codes: L03.313 - Cellulitis of chest wall Disposition: 01 HOME, SELF-CARE Condition: GOOD Referrals: NAKUL CROUCH (PCP) Patient Instructions: Cellulitis Additional Instructions: As we discussed, you may take Tylenol or ibuprofen for your discomfort. Make sure you take the antibiotic as prescribed for the entire duration, even if you to start to feel better. Make sure you keep your follow-up appointments with your primary care provider or whoever was going to manage your breast mass. Scripts Cephalexin (CEPHALEXIN) 500 Mg Tablet 1 TAB PO TID for 10 Days, #30 TAB Prov: TAYLOR HUDSON APRN 03/31/20 Justicifation of Admission Dx: Justifications for Admission: Justification of Admission Dx: N/A TAYLOR HUDSON APRN Mar 31, 2020 17:38
[2020-03-31] MEDS ORDERED: ACETAMINOPHEN 325 MG TABLET. PO ONE (17:45)
[2020-03-31 18:35] VITALS: BP 134/87
[2020-03-31 18:47] LABS: BASO # 0.1 x10^3/uL (0.0-0.2); BASO % 1 % (0-3); EOS % 0 % (0-3); HEMATOCRIT 29.7 % (36.0-47.0); HEMOGLOBIN 9.8 g/dL (12.0-15.5); LYMPH # 0.3 x10^3/uL (1.0-4.8); LYMPH % 2 % (24-48); MEAN CORPUSCULAR HEMOGLOBIN 29 pg (25-35); MEAN CORPUSCULAR HGB CONC 33 g/dL (31-37); MEAN CORPUSCULAR VOLUME 88 fL (79-100); MONO # 0.6 x10^3/uL (0.0-1.1); MONO % 4 % (0-9); NEUT # 14.3 x10^3/uL (1.8-7.7); NEUT % 94 % (31-73); PLATELET COUNT 293 x10^3/uL (140-400); RED BLOOD COUNT 3.37 x10^6/uL (3.50-5.40); RED CELL DISTRIBUTION WIDTH 13.9 % (11.5-14.5); WHITE BLOOD COUNT 15.3 x10^3/uL (4.0-11.0)
[2020-03-31 18:57] LABS: CALCIUM 9.4 mg/dL (8.5-10.1); CREATININE 2.1 mg/dL (0.6-1.0); GFR 27.2; POTASSIUM 3.7 mmol/L (3.5-5.1)
[2020-03-31] MEDS ORDERED: CEPH500T PO (19:03)
[2020-03-31] MEDS ORDERED: CEPHALEXIN 250 MG CAPSULE. ONE (19:18)
[2020-03-31 20:01] LABS: % BANDS 1 % (0-9); % LYMPHS 4 % (24-48); % MONOS 4 % (0-10); % SEGS 91 % (35-66); PLT ESTIMATE ADEQUATE (ADEQUATE); POIKILOCYTOSIS SLIGHT
[2020-03-31 20:02] LABS: SCHISTOCYTES FEW
[2020-03-31] MEDS ORDERED: CEPHALEXIN 250 MG CAPSULE. PO SCH (21:00)
== END 2020-03-31 19:20 | disposition home or self-care (01) ==
LOC: ER 16:18
DX: N63.42 Unspecified lump in left breast, subareolar (principal); L03.313 Cellulitis of chest wall; E11.9 Type 2 diabetes mellitus without complications; I10 Essential (primary) hypertension; F03.90 Unspecified dementia, unspecified severity, without behavioral disturbance, psychotic disturbance, mood disturbance, and anxiety; Z95.0 Presence of cardiac pacemaker; Z87.891 Personal history of nicotine dependence; Z85.3 Personal history of malignant neoplasm of breast
CPT/HCPCS: 36415; 80048; 85007; 85025; 99283

== ENCOUNTER 2020-04-02 15:09 | Inpatient (IN) | payer MEDICARE ==
[~2020-04-02] VITALS: Ht 167.6 cm; Wt 60.9 kg
[~2020-04-02 15:09] MED LIST changes: +CEPH500T PO
--- NOTE | 2020-04-02 18:38 | PHYS DOC ---
Past Medical History Past Medical History: Cancer, Dementia, Diabetes-Type II, Hypertension Additional Past Medical Histor: CANCER "anal" has had chemo rad, no surgery Past Surgical History: Hysterectomy, Pacemaker Additional Past Surgical Histo: pacemaker Smoking Status: Former Smoker Alcohol Use: None Drug Use: None General Adult EDM: Chief Complaint: DEHYDRATION HPI: HPI: Patient is a 84 year old female who presents with a one-week history of mouth pain and decreased p.o. intake. When I went in to see the patient she had been here for a while and I was at the beginning my shift and she initially did not want to be seen. I convinced her to let me evaluate her. And she states that she has had decreased p.o. intake for the last week. Patient denies any pain other than in her mouth. Patient denies any fevers, chills, cough, vomiting or diarrhea although the room smells like stool. Patient showed me her prescriptions and she is on pain medicine as well as Keflex that was written 2 days ago. Patient does not know why she is on antibiotic. Pain in her mouth is worse with oral intake. Review of Systems: Review of Systems: Constitutional: Denies fever or chills. [] Eyes: Denies change in visual acuity. [] HENT: Denies nasal congestion but complains of pain in her mouth. Respiratory: Denies cough or shortness of breath. [] Cardiovascular: Denies chest pain or edema. [] GI: Denies abdominal pain, nausea, vomiting, bloody stools or diarrhea. [] : Denies dysuria. [] Musculoskeletal: Denies back pain or joint pain. [] Integument: Denies rash. [] Neurologic: Denies headache, focal weakness or sensory changes. [] Endocrine: Denies polyuria or polydipsia. [] Lymphatic: Denies swollen glands. [] Psychiatric: Denies depression or anxiety. [] Heart Score: Risk Factors: Risk Factors: DM, Current or recent (<one month) smoker, HTN, HLP, family history of CAD, obesity. Risk Scores: Score 0 - 3: 2.5% MACE over next 6 weeks - Discharge Home Score 4 - 6: 20.3% MACE over next 6 weeks - Admit for Clinical Observation Score 7 - 10: 72.7% MACE over next 6 weeks - Early Invasive Strategies Allergies: Allergies: Allergies Coded Allergies Type Severity Reaction Last Updated Verified No Known Drug Allergies 01/17/19 No Physical Exam: PE: Constitutional: Well developed, well nourished, no acute distress, non-toxic appearance. [] HENT: Normocephalic, atraumatic, bilateral external ears normal, mild dry oral mucosa. No abscesses nose normal. [] Eyes: PERRLA, EOMI, conjunctiva normal, no discharge. [] Neck: Normal range of motion, no tenderness, supple, no stridor. [] Cardiovascular:Heart rate regular rhythm, Lungs & Thorax: No respiratory distress Abdomen: soft, no tenderness, no masses, no pulsatile masses. [] Skin: Warm, dry, intact Back: No tenderness, no CVA tenderness. [] Extremities: No tenderness, no cyanosis, no clubbing, ROM intact, no edema. [] Neurologic: Alert and oriented X 3, normal motor function, normal sensory function, no focal deficits noted. [] Psychologic: Affect normal, judgement normal, mood normal. [] Current Patient Data: Labs: Laboratory Tests Test 04/02/20 19:00 White Blood Count 12.2 x10^3/uL Red Blood Count 3.31 x10^6/uL Hemoglobin 9.4 g/dL Hematocrit 28.8 % Mean Corpuscular Volume 87 fL Mean Corpuscular Hemoglobin 29 pg Mean Corpuscular Hemoglobin Concent 33 g/dL Red Cell Distribution Width 13.9 % Platelet Count 317 x10^3/uL Neutrophils (%) (Auto) 84 % Lymphocytes (%) (Auto) 10 % Monocytes (%) (Auto) 6 % Eosinophils (%) (Auto) 0 % Basophils (%) (Auto) 1 % Neutrophils # (Auto) 10.2 x10^3/uL Lymphocytes # (Auto) 1.2 x10^3/uL Monocytes # (Auto) 0.7 x10^3/uL Eosinophils # (Auto) 0.0 x10^3/uL Basophils # (Auto) 0.1 x10^3/uL Sodium Level 135 mmol/L Potassium Level 3.8 mmol/L Chloride Level 98 mmol/L Carbon Dioxide Level 22 mmol/L Anion Gap 15 Blood Urea Nitrogen 65 mg/dL Creatinine 2.2 mg/dL Estimated GFR (Cockcroft-Gault) 25.8 BUN/Creatinine Ratio 30 Glucose Level 228 mg/dL Calcium Level 10.1 mg/dL Total Bilirubin 0.5 mg/dL Aspartate Amino Transf (AST/SGOT) 55 U/L Alanine Aminotransferase (ALT/SGPT) 7 U/L Alkaline Phosphatase 68 U/L Total Protein 8.0 g/dL Albumin 2.8 g/dL Albumin/Globulin Ratio 0.5 Lipase 164 U/L Current Medications Medications (Trade) Dose Ordered Sig/Sebastián Route PRN Reason Start Time Stop Time Status Last Admin Dose Admin Sodium Chloride 1,000 ml @ 1,000 mls/hr 1X ONCE IV 04/02/20 20:30 04/02/20 21:29 Sodium Chloride 1,000 ml @ 100 mls/hr Q10H IV 04/02/20 22:00 04/03/20 07:59 Vital Signs: Vital Signs Date Time Temp Pulse Resp B/P (MAP) Pulse Ox O2 Delivery O2 Flow Rate FiO2 04/02/20 16:50 80 140/80 (100) 100 Room Air 04/02/20 15:56 98.4 20 98.4 EKG: EKG: [] Radiology/Procedures: Radiology/Procedures: [][facility] [address] [place] [address] IMAGING REPORT Signed PATIENT: BARRY GONZALEZ ACCOUNT: [id number] : 1935 LOCATION: ER AGE: 84 SEX: F EXAM STATUS: REG ER ORD. PHYSICIAN: SEAN MATHEWS MD REASON: WEAKNESS PROCEDURE: PORTABLE CHEST 1V EXAM: CHEST ONE VIEW. HISTORY: Weakness. COMPARISON: 08/23/2019. FINDINGS: A frontal view of the chest is obtained. A left-sided pacemaker has its leads in the right atrium and right ventricle. There are no confluent infiltrates. There is no pneumothorax or pleural effusion. The heart is mildly enlarged. The aorta is tortuous. IMPRESSION: 1. Mild cardiomegaly. Electronically signed by: Alice Gazra MD (04/02/2020 8:25 PM) [facility] DICTATED and SIGNED BY: LEEANNE GARZA MD DATE: 04/02/202024 Course & Med Decision Making: Course & Med Decision Making Pertinent Labs and Imaging studies reviewed. (See chart for details) [] According to the records the patient was here 2 days ago and diagnosed with a breast mass and cellulitis of her breast and started on antibiotics. 84-year-old female presents with decreased oral intake. Patient has a significant elevation of BUN and creatinine with elevated BUN to creatinine ratio. Patient will need IV fluids in observation admission overnight. Discussed the case with Dr. Crespo who will admit. Dragon Disclaimer: Ailyn Disclaimer: This electronic medical record was generated, in whole or in part, using a voice recognition dictation system. Departure Departure Impression: Primary Impression: Dehydration Additional Impression: MELISSA (acute kidney injury) Disposition: ADMITTED INPATIENT Admitting Physician: MAURICIO (lizeth) Condition: STABLE Referrals: NAKUL CROUCH (PCP) Justicifation of Admission Dx: Justifications for Admission: Justification of Admission Dx: Yes SEAN MATHEWS MD Apr 02, 2020 18:38
[2020-04-02 19:12] LABS: BASO # 0.1 x10^3/uL (0.0-0.2); BASO % 1 % (0-3); EOS % 0 % (0-3); HEMATOCRIT 28.8 % (36.0-47.0); HEMOGLOBIN 9.4 g/dL (12.0-15.5); LYMPH # 1.2 x10^3/uL (1.0-4.8); LYMPH % 10 % (24-48); MEAN CORPUSCULAR HEMOGLOBIN 29 pg (25-35); MEAN CORPUSCULAR HGB CONC 33 g/dL (31-37); MEAN CORPUSCULAR VOLUME 87 fL (79-100); MONO # 0.7 x10^3/uL (0.0-1.1); MONO % 6 % (0-9); NEUT # 10.2 x10^3/uL (1.8-7.7); NEUT % 84 % (31-73); PLATELET COUNT 317 x10^3/uL (140-400); RED BLOOD COUNT 3.31 x10^6/uL (3.50-5.40); RED CELL DISTRIBUTION WIDTH 13.9 % (11.5-14.5); WHITE BLOOD COUNT 12.2 x10^3/uL (4.0-11.0)
[2020-04-02 19:26] LABS: CALCIUM 10.1 mg/dL (8.5-10.1); CREATININE 2.2 mg/dL (0.6-1.0); GFR 25.8; POTASSIUM 3.8 mmol/L (3.5-5.1)
[2020-04-02 19:34] LABS: ALBUMIN 2.8 g/dL (3.4-5.0); ALBUMIN/GLOBULIN RATIO 0.5 (1.0-1.7); TOTAL BILIRUBIN 0.5 mg/dL (0.2-1.0)
--- NOTE | 2020-04-02 20:28 | RAD ---
EXAM: CHEST ONE VIEW. HISTORY: Weakness. COMPARISON: 08/23/2019. FINDINGS: A frontal view of the chest is obtained. A left-sided pacemaker has its leads in the right atrium and right ventricle. There are no confluent infiltrates. There is no pneumothorax or pleural effusion. The heart is mildly enlarged. The aorta is tortuous. IMPRESSION: 1. Mild cardiomegaly. Electronically signed by: Alice Garza MD (04/02/2020 8:25 PM) [facility]
[2020-04-02] MEDS ORDERED: IV NORMAL SALINE 1000ML BAG 1,000 ML IV ONE (20:30)
[2020-04-02] MEDS ORDERED: IV NORMAL SALINE 1000ML BAG 1,000 ML IV SCH (22:00)
--- NOTE | 2020-04-02 22:09 | PDOC1 ---
History and Physical Date of Admission Date of Admission April 02, 2020 Identification/Chief Complaint Chief Complaint My mouth is sore History of Present Illness History of Present Illness Patient is a an 84-year-old female with past medical history of rectal cancer who apparently has undergone chemotherapy and radiation. Patient comes with several days of mouth discomfort which has precluded her from having an appropriate oral intake. Patient has been found to be in acute renal failure by laboratory data from the ER. The patient does not recall the name of her oncologist and from review of records and ER physician documentation patient does not seem to remember everything since she has a degree of dementia. She is in no acute distress at the time of my evaluation no diarrhea has been reported overnight by nursing staff. Try to discuss with her the plan of care in detail but she does not seem to be interested in hematology or oncology consultations. She keeps asking me what I would recommend her to do. I have encouraged to follow-up with her oncologist once we are able to hydrate her and improve her overall functional status. ER history as follows: [facility] [address], [place] [phone] Emergency Room Patient: BARRY GONZALEZ Acct:[id number] Unit: [id number] : 1935 Loc: ER Room/Bed: Age/Sex: 84 / F ADM Status: REG ER ADM Date: 04/02/20 Past Medical History Past Medical History: Cancer, Dementia, Diabetes-Type II, Hypertension Additional Past Medical Histor: CANCER "anal" has had chemo rad, no surgery Past Surgical History: Hysterectomy, Pacemaker Additional Past Surgical Histo: pacemaker Smoking Status: Former Smoker Alcohol Use: None Drug Use: None General Adult EDM: Chief Complaint: DEHYDRATION HPI: HPI: Patient is a 84 year old female who presents with a one-week history of mouth pain and decreased p.o. intake. When I went in to see the patient she had been here for a while and I was at the beginning my shift and she initially did not want to be seen. I convinced her to let me evaluate her. And she states that s he has had decreased p.o. intake for the last week. Patient denies any pain other than in her mouth. Patient denies any fevers, chills, cough, vomiting or diarrhea although the room smells like stool. Patient showed me her prescriptions and she is on pain medicine as well as Keflex that was written 2 days ago. Patient does not know why she is on antibiotic. Pain in her mouth is worse with oral intake. Past Medical History Cardiovascular: HTN, Hyperlipidemia Pulmonary: Bronchitis GI: GERD Heme/Onc: Cancer Renal/: Chronic renal insuff Endocrine: Diabetes Past Surgical History Past Surgical History: Pacemaker, Hysterectomy Family History Family History: Diabetes Social History ALCOHOL: none Drugs: None Current Problem List Problem List Problems Medical Problems: (1) MELISSA (acute kidney injury) Status: Acute (2) Dehydration Status: Acute Current Medications Current Medications Current Medications Medications (Trade) Dose Ordered Sig/Sebastián Start Time Stop Time Status Last Admin Dose Admin Sodium Chloride 1,000 ml @ 100 mls/hr Q10H 04/02/20 22:00 04/03/20 07:59 Allergies Allergies Allergies Coded Allergies Type Severity Reaction Last Updated Verified No Known Drug Allergies 01/17/19 No ROS Review of System CONSTITUTIONAL: No fever or chills EYES: No recent changes SKIN: No rash or itching CARDIOVASCULAR: No chest pain, syncope, palpitations, or edema RESPIRATORY: No SOB or cough GASTROINTESTINAL: No nausea, vomiting or abdominal pain NEUROLOGICAL: No headaches or weakness ENDOCRINE: No cold or heat intolerance GENITOURINARY: No urgency or frequency of urination MUSCULOSKELETAL: No back pain or joint pain LYMPHATICS: No enlarged lymph nodes PSYCHIATRIC: No anxiety or depression Physical Exam Physical Exam GEN.: No apparent distress. Alert and oriented. HEENT: Head is normocephalic, atraumatic NECK: Supple. LUNGS: Clear to auscultation. HEART: RRR, S1, S2 present. Peripheral pulses intact ABDOMEN: Soft, nontender. Positive bowel sounds. EXTREMITIES: Without any cyanosis. NEUROLOGIC: Normal speech, normal tone PSYCHIATRIC: Normal affect, normal mood. SKIN: No ulcerations Vitals Vitals Vital Signs Date Time Temp Pulse Resp B/P (MAP) Pulse Ox O2 Delivery O2 Flow Rate FiO2 04/02/20 20:07 92 127/82 (97) 95 Room Air 04/02/20 15:56 98.4 20 98.4 Labs Labs Laboratory Tests Test 04/02/20 19:00 White Blood Count 12.2 x10^3/uL (4.0-11.0) Red Blood Count 3.31 x10^6/uL (3.50-5.40) Hemoglobin 9.4 g/dL (12.0-15.5) Hematocrit 28.8 % (36.0-47.0) Mean Corpuscular Volume 87 fL (79-100) Mean Corpuscular Hemoglobin 29 pg (25-35) Mean Corpuscular Hemoglobin Concent 33 g/dL (31-37) Red Cell Distribution Width 13.9 % (11.5-14.5) Platelet Count 317 x10^3/uL (140-400) Neutrophils (%) (Auto) 84 % (31-73) Lymphocytes (%) (Auto) 10 % (24-48) Monocytes (%) (Auto) 6 % (0-9) Eosinophils (%) (Auto) 0 % (0-3) Basophils (%) (Auto) 1 % (0-3) Neutrophils # (Auto) 10.2 x10^3/uL (1.8-7.7) Lymphocytes # (Auto) 1.2 x10^3/uL (1.0-4.8) Monocytes # (Auto) 0.7 x10^3/uL (0.0-1.1) Eosinophils # (Auto) 0.0 x10^3/uL (0.0-0.7) Basophils # (Auto) 0.1 x10^3/uL (0.0-0.2) Sodium Level 135 mmol/L (136-145) Potassium Level 3.8 mmol/L (3.5-5.1) Chloride Level 98 mmol/L (98-107) Carbon Dioxide Level 22 mmol/L (21-32) Anion Gap 15 (6-14) Blood Urea Nitrogen 65 mg/dL (7-20) Creatinine 2.2 mg/dL (0.6-1.0) Estimated GFR (Cockcroft-Gault) 25.8 BUN/Creatinine Ratio 30 (6-20) Glucose Level 228 mg/dL (70-99) Calcium Level 10.1 mg/dL (8.5-10.1) Total Bilirubin 0.5 mg/dL (0.2-1.0) Aspartate Amino Transf (AST/SGOT) 55 U/L (15-37) Alanine Aminotransferase (ALT/SGPT) 7 U/L (14-59) Alkaline Phosphatase 68 U/L (46-116) Total Protein 8.0 g/dL (6.4-8.2) Albumin 2.8 g/dL (3.4-5.0) Albumin/Globulin Ratio 0.5 (1.0-1.7) Lipase 164 U/L (73-393) Laboratory Tests Test 04/02/20 19:00 White Blood Count 12.2 x10^3/uL (4.0-11.0) Red Blood Count 3.31 x10^6/uL (3.50-5.40) Hemoglobin 9.4 g/dL (12.0-15.5) Hematocrit 28.8 % (36.0-47.0) Mean Corpuscular Volume 87 fL (79-100) Mean Corpuscular Hemoglobin 29 pg (25-35) Mean Corpuscular Hemoglobin Concent 33 g/dL (31-37) Red Cell Distribution Width 13.9 % (11.5-14.5) Platelet Count 317 x10^3/uL (140-400) Neutrophils (%) (Auto) 84 % (31-73) Lymphocytes (%) (Auto) 10 % (24-48) Monocytes (%) (Auto) 6 % (0-9) Eosinophils (%) (Auto) 0 % (0-3) Basophils (%) (Auto) 1 % (0-3) Neutrophils # (Auto) 10.2 x10^3/uL (1.8-7.7) Lymphocytes # (Auto) 1.2 x10^3/uL (1.0-4.8) Monocytes # (Auto) 0.7 x10^3/uL (0.0-1.1) Eosinophils # (Auto) 0.0 x10^3/uL (0.0-0.7) Basophils # (Auto) 0.1 x10^3/uL (0.0-0.2) Sodium Level 135 mmol/L (136-145) Potassium Level 3.8 mmol/L (3.5-5.1) Chloride Level 98 mmol/L (98-107) Carbon Dioxide Level 22 mmol/L (21-32) Anion Gap 15 (6-14) Blood Urea Nitrogen 65 mg/dL (7-20) Creatinine 2.2 mg/dL (0.6-1.0) Estimated GFR (Cockcroft-Gault) 25.8 BUN/Creatinine Ratio 30 (6-20) Glucose Level 228 mg/dL (70-99) Calcium Level 10.1 mg/dL (8.5-10.1) Total Bilirubin 0.5 mg/dL (0.2-1.0) Aspartate Amino Transf (AST/SGOT) 55 U/L (15-37) Alanine Aminotransferase (ALT/SGPT) 7 U/L (14-59) Alkaline Phosphatase 68 U/L (46-116) Total Protein 8.0 g/dL (6.4-8.2) Albumin 2.8 g/dL (3.4-5.0) Albumin/Globulin Ratio 0.5 (1.0-1.7) Lipase 164 U/L (73-393) VTE Prophylaxis Ordered VTE Prophylaxis Devices: Yes VTE Pharmacological Prophylaxi: Yes Assessment/Plan Assessment/Plan Acute renal failure vasomotor etiology most likely Stomatitis? History of rectal cancer status post chemoradiation Leukocytosis most likely secondary to hemoconcentration Hyponatremia Severe protein calorie malnutrition Normocytic anemia of chronic disease Plan IV fluid versus Pain management Magic mouthwash Resume home medications once available for review May need nutritional consultation early next week Encouraged to follow-up with oncology DVT prophylaxis with Lovenox Justicifation of Admission Dx: Justifications for Admission: Justification of Admission Dx: Yes KRISTI JONES MD Apr 02, 2020 22:09
[2020-04-02] MEDS ORDERED: DOCUSATE SODIUM 100 MG CAPSULE. PO PRN (22:30)
[2020-04-02] MEDS ORDERED: ACETAMINOPHEN 325 MG TABLET. PO PRN (22:30)
[2020-04-02] MEDS ORDERED: ALBUTEROL SULFATE 2.5 MG/3 ML NEBU. NEB PRN (22:30)
[2020-04-02] MEDS ORDERED: ACETAMINOPHEN PO PRN (22:30)
[2020-04-02] MEDS ORDERED: HYDROcodone/APAP 5/325MG 1 TAB TABLET PO PRN ×2 (22:30)
[2020-04-02] MEDS ORDERED: HYDROCODONE BIT PO PRN (22:30)
[2020-04-02] MEDS ORDERED: ONDANSETRON PF 4 MG/2 ML VIAL. IV PRN (22:30)
[2020-04-02] MEDS ORDERED: guaiFENesin ORAL 200 MG/10 ML LIQUID. PO PRN (22:30)
[2020-04-02] MEDS ORDERED: ZOLPIDEM 5 MG TABLET. PO PRN (22:30)
[2020-04-02 23:00] VITALS: BP 127/65
--- NOTE | 2020-04-02 23:03 | NUR ---
Pt. just arrived from ED via W/C w/ dehydration. She is A/O x3 and will make needs known. Called son twice to notify him and got voicemail.
[2020-04-02] MEDS: IV NORMAL SALINE 1000ML BAG 1,000 ML IV SCH (23:37)
[2020-04-02] MEDS: ENOXAPARIN 30 MG/0.3 ML SYRINGE. SQ SCH (23:38)
[2020-04-03 03:03] VITALS: BP 135/69
[2020-04-03 07:59] VITALS: BP 139/84
[2020-04-03] MEDS ORDERED: LIDO:MAALOX:BENADRYL 1:1:1 180 ML BOTTLE. PO PRN (09:15)
[2020-04-03] MEDS: IV NORMAL SALINE 1000ML BAG 1,000 ML IV SCH ×2 (09:39→17:44)
[2020-04-03] MEDS: predniSONE 20 MG TABLET PO SCH (09:42)
[2020-04-03] MEDS: POTASSIUM CHLORIDE 20 MEQ TABLET.ER. PO SCH (09:42)
[2020-04-03] MEDS: GLIMEPIRIDE 2 MG TABLET. PO SCH (09:43)
[2020-04-03] MEDS: DONEPEZIL HCL 10 MG TABLET. PO SCH (09:43)
[2020-04-03] MEDS: LOSARTAN POTASSIUM 50 MG TABLET. PO SCH (09:43)
[2020-04-03] MEDS: CHLORTHALIDONE 25 MG TABLET. PO SCH (09:44)
[2020-04-03] MEDS: amLODIPine BESYLATE 10 MG TABLET PO SCH (09:44)
[2020-04-03] MEDS: METOPROLOL SUCC 24HR ER 100 MG TAB.ER.24H. PO SCH (09:45)
[2020-04-03 11:14] LABS: BASO % 0 % (0-3); EOS % 0 % (0-3); HEMATOCRIT 27.2 % (36.0-47.0); HEMOGLOBIN 9.1 g/dL (12.0-15.5); LYMPH # 0.9 x10^3/uL (1.0-4.8); LYMPH % 8 % (24-48); MEAN CORPUSCULAR HEMOGLOBIN 30 pg (25-35); MEAN CORPUSCULAR HGB CONC 34 g/dL (31-37); MEAN CORPUSCULAR VOLUME 88 fL (79-100); MONO # 0.7 x10^3/uL (0.0-1.1); MONO % 7 % (0-9); NEUT # 8.6 x10^3/uL (1.8-7.7); NEUT % 84 % (31-73); PLATELET COUNT 305 x10^3/uL (140-400); RED BLOOD COUNT 3.09 x10^6/uL (3.50-5.40); WHITE BLOOD COUNT 10.2 x10^3/uL (4.0-11.0)
[2020-04-03 11:29] LABS: CALCIUM 9.4 mg/dL (8.5-10.1); CREATININE 1.7 mg/dL (0.6-1.0); GFR 34.7; POTASSIUM 3.8 mmol/L (3.5-5.1)
[2020-04-03 11:59] VITALS: BP 115/75
--- NOTE | 2020-04-03 14:58 | PDOC ---
PROGRESS NOTES Chief Complaint Chief Complaint Assessment/Plan Acute renal failure vasomotor etiology most likely Stomatitis? History of rectal cancer status post chemoradiation Leukocytosis most likely secondary to hemoconcentration Hyponatremia Severe protein calorie malnutrition Normocytic anemia of chronic disease Plan IV fluid resuscitation Pain management Magic mouthwash Resume home medications once available for review May need nutritional consultation early next week Encouraged to follow-up with oncology if she wants to pursue further treatment if not I will have the conversation with her son Efraín as well regarding hospice care which in this case will be quite appropriate attempt was made to contact son Efraín at [phone]. Detailed message was left and requested to call back, will try to call again later in the day DVT prophylaxis with Lovenox History of Present Illness History of Present Illness Patient quite tearful during my encounter, she is only interested in being discharged from the hospital and going home. She has asked me to call her son Efraín and hopefully I can discuss with him possibility of hospice care Vitals Vitals Vital Signs Date Time Temp Pulse Resp B/P (MAP) Pulse Ox O2 Delivery O2 Flow Rate FiO2 04/03/20 14:49 60 115/75 04/03/20 11:59 97.8 18 96 Room Air 97.8 Physical Exam Lungs: Other Labs LABS Laboratory Tests Test 04/02/20 19:00 04/03/20 10:50 White Blood Count 12.2 x10^3/uL (4.0-11.0) 10.2 x10^3/uL (4.0-11.0) Red Blood Count 3.31 x10^6/uL (3.50-5.40) 3.09 x10^6/uL (3.50-5.40) Hemoglobin 9.4 g/dL (12.0-15.5) 9.1 g/dL (12.0-15.5) Hematocrit 28.8 % (36.0-47.0) 27.2 % (36.0-47.0) Mean Corpuscular Volume 87 fL (79-100) 88 fL (79-100) Mean Corpuscular Hemoglobin 29 pg (25-35) 30 pg (25-35) Mean Corpuscular Hemoglobin Concent 33 g/dL (31-37) 34 g/dL (31-37) Red Cell Distribution Width 13.9 % (11.5-14.5) 14.0 % (11.5-14.5) Platelet Count 317 x10^3/uL (140-400) 305 x10^3/uL (140-400) Neutrophils (%) (Auto) 84 % (31-73) 84 % (31-73) Lymphocytes (%) (Auto) 10 % (24-48) 8 % (24-48) Monocytes (%) (Auto) 6 % (0-9) 7 % (0-9) Eosinophils (%) (Auto) 0 % (0-3) 0 % (0-3) Basophils (%) (Auto) 1 % (0-3) 0 % (0-3) Neutrophils # (Auto) 10.2 x10^3/uL (1.8-7.7) 8.6 x10^3/uL (1.8-7.7) Lymphocytes # (Auto) 1.2 x10^3/uL (1.0-4.8) 0.9 x10^3/uL (1.0-4.8) Monocytes # (Auto) 0.7 x10^3/uL (0.0-1.1) 0.7 x10^3/uL (0.0-1.1) Eosinophils # (Auto) 0.0 x10^3/uL (0.0-0.7) 0.0 x10^3/uL (0.0-0.7) Basophils # (Auto) 0.1 x10^3/uL (0.0-0.2) 0.0 x10^3/uL (0.0-0.2) Sodium Level 135 mmol/L (136-145) 138 mmol/L (136-145) Potassium Level 3.8 mmol/L (3.5-5.1) 3.8 mmol/L (3.5-5.1) Chloride Level 98 mmol/L (98-107) 102 mmol/L (98-107) Carbon Dioxide Level 22 mmol/L (21-32) 24 mmol/L (21-32) Anion Gap 15 (6-14) 12 (6-14) Blood Urea Nitrogen 65 mg/dL (7-20) 56 mg/dL (7-20) Creatinine 2.2 mg/dL (0.6-1.0) 1.7 mg/dL (0.6-1.0) Estimated GFR (Cockcroft-Gault) 25.8 34.7 BUN/Creatinine Ratio 30 (6-20) Glucose Level 228 mg/dL (70-99) 130 mg/dL (70-99) Calcium Level 10.1 mg/dL (8.5-10.1) 9.4 mg/dL (8.5-10.1) Total Bilirubin 0.5 mg/dL (0.2-1.0) Aspartate Amino Transf (AST/SGOT) 55 U/L (15-37) Alanine Aminotransferase (ALT/SGPT) 7 U/L (14-59) Alkaline Phosphatase 68 U/L (46-116) Total Protein 8.0 g/dL (6.4-8.2) Albumin 2.8 g/dL (3.4-5.0) Albumin/Globulin Ratio 0.5 (1.0-1.7) Lipase 164 U/L (73-393) Review of Systems Review of Systems Pertinent as per HPI otherwise 10 point review of system is negative Assessment and Plan Assessmemt and Plan Problems Medical Problems: (1) MELISSA (acute kidney injury) Status: Acute (2) Dehydration Status: Acute Comment Review of Relevant I have reviewed the following items presley (where applicable) has been applied. Labs Laboratory Tests Test 04/02/20 19:00 04/03/20 10:50 White Blood Count 12.2 x10^3/uL (4.0-11.0) 10.2 x10^3/uL (4.0-11.0) Red Blood Count 3.31 x10^6/uL (3.50-5.40) 3.09 x10^6/uL (3.50-5.40) Hemoglobin 9.4 g/dL (12.0-15.5) 9.1 g/dL (12.0-15.5) Hematocrit 28.8 % (36.0-47.0) 27.2 % (36.0-47.0) Mean Corpuscular Volume 87 fL (79-100) 88 fL (79-100) Mean Corpuscular Hemoglobin 29 pg (25-35) 30 pg (25-35) Mean Corpuscular Hemoglobin Concent 33 g/dL (31-37) 34 g/dL (31-37) Red Cell Distribution Width 13.9 % (11.5-14.5) 14.0 % (11.5-14.5) Platelet Count 317 x10^3/uL (140-400) 305 x10^3/uL (140-400) Neutrophils (%) (Auto) 84 % (31-73) 84 % (31-73) Lymphocytes (%) (Auto) 10 % (24-48) 8 % (24-48) Monocytes (%) (Auto) 6 % (0-9) 7 % (0-9) Eosinophils (%) (Auto) 0 % (0-3) 0 % (0-3) Basophils (%) (Auto) 1 % (0-3) 0 % (0-3) Neutrophils # (Auto) 10.2 x10^3/uL (1.8-7.7) 8.6 x10^3/uL (1.8-7.7) Lymphocytes # (Auto) 1.2 x10^3/uL (1.0-4.8) 0.9 x10^3/uL (1.0-4.8) Monocytes # (Auto) 0.7 x10^3/uL (0.0-1.1) 0.7 x10^3/uL (0.0-1.1) Eosinophils # (Auto) 0.0 x10^3/uL (0.0-0.7) 0.0 x10^3/uL (0.0-0.7) Basophils # (Auto) 0.1 x10^3/uL (0.0-0.2) 0.0 x10^3/uL (0.0-0.2) Sodium Level 135 mmol/L (136-145) 138 mmol/L (136-145) Potassium Level 3.8 mmol/L (3.5-5.1) 3.8 mmol/L (3.5-5.1) Chloride Level 98 mmol/L (98-107) 102 mmol/L (98-107) Carbon Dioxide Level 22 mmol/L (21-32) 24 mmol/L (21-32) Anion Gap 15 (6-14) 12 (6-14) Blood Urea Nitrogen 65 mg/dL (7-20) 56 mg/dL (7-20) Creatinine 2.2 mg/dL (0.6-1.0) 1.7 mg/dL (0.6-1.0) Estimated GFR (Cockcroft-Gault) 25.8 34.7 BUN/Creatinine Ratio 30 (6-20) Glucose Level 228 mg/dL (70-99) 130 mg/dL (70-99) Calcium Level 10.1 mg/dL (8.5-10.1) 9.4 mg/dL (8.5-10.1) Total Bilirubin 0.5 mg/dL (0.2-1.0) Aspartate Amino Transf (AST/SGOT) 55 U/L (15-37) Alanine Aminotransferase (ALT/SGPT) 7 U/L (14-59) Alkaline Phosphatase 68 U/L (46-116) Total Protein 8.0 g/dL (6.4-8.2) Albumin 2.8 g/dL (3.4-5.0) Albumin/Globulin Ratio 0.5 (1.0-1.7) Lipase 164 U/L (73-393) Laboratory Tests Test 04/02/20 19:00 04/03/20 10:50 White Blood Count 12.2 x10^3/uL (4.0-11.0) 10.2 x10^3/uL (4.0-11.0) Red Blood Count 3.31 x10^6/uL (3.50-5.40) 3.09 x10^6/uL (3.50-5.40) Hemoglobin 9.4 g/dL (12.0-15.5) 9.1 g/dL (12.0-15.5) Hematocrit 28.8 % (36.0-47.0) 27.2 % (36.0-47.0) Mean Corpuscular Volume 87 fL (79-100) 88 fL (79-100) Mean Corpuscular Hemoglobin 29 pg (25-35) 30 pg (25-35) Mean Corpuscular Hemoglobin Concent 33 g/dL (31-37) 34 g/dL (31-37) Red Cell Distribution Width 13.9 % (11.5-14.5) 14.0 % (11.5-14.5) Platelet Count 317 x10^3/uL (140-400) 305 x10^3/uL (140-400) Neutrophils (%) (Auto) 84 % (31-73) 84 % (31-73) Lymphocytes (%) (Auto) 10 % (24-48) 8 % (24-48) Monocytes (%) (Auto) 6 % (0-9) 7 % (0-9) Eosinophils (%) (Auto) 0 % (0-3) 0 % (0-3) Basophils (%) (Auto) 1 % (0-3) 0 % (0-3) Neutrophils # (Auto) 10.2 x10^3/uL (1.8-7.7) 8.6 x10^3/uL (1.8-7.7) Lymphocytes # (Auto) 1.2 x10^3/uL (1.0-4.8) 0.9 x10^3/uL (1.0-4.8) Monocytes # (Auto) 0.7 x10^3/uL (0.0-1.1) 0.7 x10^3/uL (0.0-1.1) Eosinophils # (Auto) 0.0 x10^3/uL (0.0-0.7) 0.0 x10^3/uL (0.0-0.7) Basophils # (Auto) 0.1 x10^3/uL (0.0-0.2) 0.0 x10^3/uL (0.0-0.2) Sodium Level 135 mmol/L (136-145) 138 mmol/L (136-145) Potassium Level 3.8 mmol/L (3.5-5.1) 3.8 mmol/L (3.5-5.1) Chloride Level 98 mmol/L (98-107) 102 mmol/L (98-107) Carbon Dioxide Level 22 mmol/L (21-32) 24 mmol/L (21-32) Anion Gap 15 (6-14) 12 (6-14) Blood Urea Nitrogen 65 mg/dL (7-20) 56 mg/dL (7-20) Creatinine 2.2 mg/dL (0.6-1.0) 1.7 mg/dL (0.6-1.0) Estimated GFR (Cockcroft-Gault) 25.8 34.7 BUN/Creatinine Ratio 30 (6-20) Glucose Level 228 mg/dL (70-99) 130 mg/dL (70-99) Calcium Level 10.1 mg/dL (8.5-10.1) 9.4 mg/dL (8.5-10.1) Total Bilirubin 0.5 mg/dL (0.2-1.0) Aspartate Amino Transf (AST/SGOT) 55 U/L (15-37) Alanine Aminotransferase (ALT/SGPT) 7 U/L (14-59) Alkaline Phosphatase 68 U/L (46-116) Total Protein 8.0 g/dL (6.4-8.2) Albumin 2.8 g/dL (3.4-5.0) Albumin/Globulin Ratio 0.5 (1.0-1.7) Lipase 164 U/L (73-393) Medications Current Medications Sodium Chloride 1,000 ml @ 1,000 mls/hr 1X ONCE IV Last administered on 04/02/20at 20:30; Start 04/02/20 at 20:30; Stop 04/02/20 at 21:29; Status DC Sodium Chloride 1,000 ml @ 100 mls/hr Q10H IV Last administered on 04/02/20at 23:36; Start 04/02/20 at 22:00; Stop 04/03/20 at 07:59; Status DC Sodium Chloride 1,000 ml @ 100 mls/hr Q10H IV Last administered on 04/03/20at 09:39; Start 04/02/20 at 22:30 Ondansetron HCl (Zofran) 4 mg PRN Q4HRS PRN IV NAUSEA/VOMITING; Start 04/02/20 at 22:30 Zolpidem Tartrate (Ambien) 5 mg PRN QHS PRN PO INSOMNIA; Start 04/02/20 at 22:30 Acetaminophen (Tylenol) 650 mg PRN Q4HRS PRN PO TEMP OVER 100.4F OR MILD PAIN Last administered on 04/03/20at 12:49; Start 04/02/20 at 22:30 Docusate Sodium (Colace) 100 mg PRN BID PRN PO HARD STOOLS; Start 04/02/20 at 22:30 Albuterol Sulfate (Ventolin Neb Soln) 2.5 mg PRN Q4HRS PRN NEB SHORTNESS OF BREATH; Start 04/02/20 at 22:30 Guaifenesin (Robitussin) 200 mg PRN Q4HRS PRN PO COUGH; Start 04/02/20 at 22:30 Lorazepam (Ativan) 0.5 mg PRN Q4HRS PRN PO ANXIETY / AGITATION; Start 04/02/20 at 22:30 Enoxaparin Sodium (Lovenox 30mg Syringe) 30 mg Q24H SQ Last administered on 04/02/20at 23:38; Start 04/02/20 at 22:30 Amlodipine Besylate (Norvasc) 10 mg DAILY PO Last administered on 04/03/20 09:44; Start 04/03/20 at 09:00 Chlorthalidone (Thalitone) 25 mg DAILY PO Last administered on 04/03/20 09:44; Start 04/03/20 at 09:00 Donepezil HCl (Aricept) 10 mg DAILY PO Last administered on 04/03/20at 09:43; Start 04/03/20 at 09:00 Hydralazine HCl (Apresoline) 50 mg TID PO Last administered on 04/03/20at 14:49; Start 04/02/20 at 22:30 Acetaminophen/ Hydrocodone Bitart (Lortab 5/325) 0.5 tab PRN Q6HRS PRN PO PAIN; Start 04/02/20 at 22:30 Acetaminophen/ Hydrocodone Bitart (Lortab 5/325) 1 tab PRN Q6HRS PRN PO PAIN; Start 04/02/20 at 22:30 Acetaminophen/ Hydrocodone Bitart (Lortab 5/325) 1 tab PRN Q6HRS PRN PO PAIN; Start 04/02/20 at 22:30; Status UNV Losartan Potassium (Cozaar) 50 mg DAILY PO Last administered on 04/03/20at 09:43; Start 04/03/20 at 09:00 Oxycodone/ Acetaminophen (Percocet 5/325) 1 tab PRN TID PRN PO PAIN; Start 04/02/20 at 22:30 Potassium Chloride (Klor-Con) 20 meq DAILYWBKFT PO Last administered on 04/03/20at 09:42; Start 04/03/20 at 08:00 Prednisone (Prednisone) 40 mg DAILY PO Last administered on 04/03/20at 09:42; Start 04/03/20 at 09:00 Glimepiride (Amaryl) 4 mg DAILY PO Last administered on 04/03/20at 09:43; Start 04/03/20 at 09:00 Non-Formulary Medication (Hydrocodone Bit/ Acetaminophen (Hydrocodone-Apap 5- 300)) 1 tab PRN TID PRN PO pain; Start 04/02/20 at 22:30; Status UNV Metoprolol Succinate (Toprol Xl) 200 mg DAILY PO Last administered on 04/03/20at 09:45; Start 04/03/20 at 09:00 Multi-Ingredient Mouthwash/Gargle (Magic Mouthwash) 10 ml PRN QID PRN PO MOUTH PAIN; Start 04/03/20 at 09:15 Active Scripts Active Cephalexin 500 Mg Tablet 1 Tab PO TID 10 Days Endocet 5-325 Tablet (Oxycodone Hcl/Acetaminophen) 1 Each Tablet 1 Tab PO PRN TID PRN MDD 3 Tablet(s) 30 Days Hydrocodone-Apap 5-325 (Hydrocodone Bit/Acetaminophen) 1 Tab Tablet 0.5 Tab PO PRN Q6HRS PRN 3 Days [place] 5-325 Tablet (Acetaminophen/Hydrocodone Bitart) 1 Each Tablet 1 Tab PO PRN Q6HRS PRN Prednisone 20 Mg Tablet 40 Mg PO DAILY 5 Days [place] 5-325 Tablet (Acetaminophen/Hydrocodone Bitart) 1 Each Tablet 1 Tab PO PRN Q6HRS PRN Hydrocodone-Apap 5-300 (Hydrocodone Bit/Acetaminophen) 1 Each Tablet 1 Tab PO PRN TID PRN MDD 3 Tablet(s) 5 Days Reported Aricept (Donepezil Hcl) 10 Mg Tablet 10 Mg PO DAILY Potassium Chloride (Potassium Chloride) 20 Meq Tablet.er 1 Tab PO DAILY 30 Days Losartan Potassium 50 Mg Tablet 50 Mg PO DAILY Hydralazine Hcl 50 Mg Tablet 1 Tab PO TID Chlorthalidone (Chlorthalidone) 25 Mg Tablet 25 Mg PO DAILY Amlodipine Besylate 10 Mg Tablet 10 Mg PO DAILY Acetaminophen 500 Mg Tablet 2 Tab PO PRN Q6HRS PRN 15 Days Metoprolol Succinate ( Xl ) (Metoprolol Succinate) 200 Mg Tab.er.24h 1 Tab PO IN THE MORNING Glimepiride 4 Mg Tablet 1 Tab PO DAILY Vitals/I & O Vital Sign - Last 24 Hours 04/02/20 04/02/20 04/02/20 04/02/20 15:56 16:20 16:50 17:50 Temp 98.4 98.4 Pulse 99 81 80 102 Resp 20 B/P (MAP) 123/85 (98) 131/82 (98) 140/80 (100) 84/70 (75) Pulse Ox 95 100 90 O2 Delivery Room Air Room Air Room Air Room Air 04/02/20 04/02/20 04/02/20 04/02/20 19:07 20:07 20:50 21:50 Pulse 100 92 88 81 B/P (MAP) 125/79 (94) 127/82 (97) 123/87 (99) 136/83 (100) Pulse Ox 92 95 99 99 O2 Delivery Room Air Room Air Room Air Room Air 04/02/20 04/02/20 04/02/20 04/03/20 22:30 23:00 23:38 02:34 Temp 97.8 97.8 Pulse 84 70 70 Resp 20 B/P (MAP) 131/81 (98) 127/65 (85) 127/65 Pulse Ox 99 100 O2 Delivery Room Air Room Air Room Air 04/03/20 04/03/20 04/03/20 04/03/20 03:03 07:59 08:00 09:43 Temp 98.0 97.8 98.0 97.8 Pulse 66 63 63 Resp 18 18 B/P (MAP) 135/69 (91) 139/84 (102) 139/84 Pulse Ox 96 93 O2 Delivery Room Air Room Air Room Air 04/03/20 04/03/20 04/03/20 04/03/20 09:44 09:44 09:45 11:59 Temp 97.8 97.8 Pulse 63 63 63 60 Resp 18 B/P (MAP) 139/84 139/84 139/84 115/75 (88) Pulse Ox 96 O2 Delivery Room Air 04/03/20 14:49 Pulse 60 B/P (MAP) 115/75 Intake and Output 04/02/20 04/02/20 04/03/20 15:00 23:00 07:00 Intake Total 1000 ml Output Total 0 ml Balance 1000 ml 0 ml Justicifation of Admission Dx: Justifications for Admission: Justification of Admission Dx: Yes KRISTI JONES MD Apr 03, 2020 14:58
[2020-04-03 15:59] VITALS: BP 104/65
[2020-04-03 19:00] VITALS: BP 117/67
[2020-04-03] MEDS: ENOXAPARIN 30 MG/0.3 ML SYRINGE. SQ SCH (20:31)
[2020-04-03] MEDS: HYDROcodone/APAP 5/325MG 1 TAB TABLET PO PRN (20:32)
[2020-04-03] MEDS ORDERED: DEXTROSE 50% 25 GM / 50ML DISP.SYRIN. IV PRN (20:45)
[2020-04-03] MEDS: INSULIN LISPRO 300 UNITS/3 ML VIAL. SQ SCH (20:58)
[2020-04-03 23:01] VITALS: BP 123/62
[2020-04-04 03:30] VITALS: BP 138/77
[2020-04-04] MEDS: IV NORMAL SALINE 1000ML BAG 1,000 ML IV SCH (06:05)
[2020-04-04] MEDS: INSULIN LISPRO 300 UNITS/3 ML VIAL. SQ SCH ×4 (07:30→21:13)
[2020-04-04 07:34] VITALS: BP 114/60
[2020-04-04] MEDS: HYDROcodone/APAP 5/325MG 1 TAB TABLET PO PRN ×2 (09:14→15:29)
[2020-04-04] MEDS: CHLORTHALIDONE 25 MG TABLET. PO SCH (09:14)
[2020-04-04] MEDS: LOSARTAN POTASSIUM 50 MG TABLET. PO SCH (09:15)
[2020-04-04] MEDS: GLIMEPIRIDE 2 MG TABLET. PO SCH (09:15)
[2020-04-04] MEDS: amLODIPine BESYLATE 10 MG TABLET PO SCH (09:16)
[2020-04-04] MEDS: POTASSIUM CHLORIDE 20 MEQ TABLET.ER. PO SCH (09:16)
[2020-04-04] MEDS: DONEPEZIL HCL 10 MG TABLET. PO SCH (09:18)
[2020-04-04] MEDS: predniSONE 20 MG TABLET PO SCH (09:20)
[2020-04-04] MEDS: METOPROLOL SUCC 24HR ER 100 MG TAB.ER.24H. PO SCH (09:20)
--- NOTE | 2020-04-04 10:11 | NUR ---
SW following. Discussed with RN, pt from home with son, regular diet, room air. Pt SBA, wanting to go home. RN advised no SW needs at this time. SW will continue to follow.
[2020-04-04 11:17] VITALS: BP 113/68
--- NOTE | 2020-04-04 12:39 | PDOC ---
PROGRESS NOTES Chief Complaint Chief Complaint Assessment/Plan Acute renal failure vasomotor etiology most likely Stomatitis? History of rectal cancer status post chemoradiation Leukocytosis most likely secondary to hemoconcentration Hyponatremia Severe protein calorie malnutrition Normocytic anemia of chronic disease Plan DC IV fluids Pain management Magic mouthwash Resume home medications once available for review May need nutritional consultation early next week Encouraged to follow-up with oncology if she wants to pursue further treatment if not I will have the conversation with her son Efraín as well regarding hospice care which in this case will be quite appropriate attempt was made to contact son Efraín at [phone]. Detailed message was left and requested to call back, will try to call again later in the day DVT prophylaxis with Lovenox History of Present Illness History of Present Illness Tried to call patient's son again Mr. Kenny and left a detailed message again, hoping that we can transition to a hospice care situation since the patient does not seem to be interested in continuing any sort of medical treatment. Vitals Vitals Vital Signs Date Time Temp Pulse Resp B/P (MAP) Pulse Ox O2 Delivery O2 Flow Rate FiO2 04/04/20 11:17 98.0 60 18 113/68 (83) 99 Room Air 98.0 Physical Exam Physical Exam Physical Exam GEN.: Cachectic looking, no apparent distress. Alert and oriented. HEENT: Head is normocephalic, atraumatic NECK: Supple. LUNGS: Clear to auscultation. HEART: RRR, S1, S2 present. Peripheral pulses intact ABDOMEN: Soft, nontender. Positive bowel sounds. EXTREMITIES: Without any cyanosis. NEUROLOGIC: Normal speech, normal tone PSYCHIATRIC: Normal affect, normal mood. SKIN: No ulcerations Lungs: Other Labs LABS Laboratory Tests Test 04/03/20 17:06 04/03/20 20:28 04/04/20 07:42 04/04/20 11:39 Glucose (Fingerstick) 217 mg/dL (70-99) 289 mg/dL (70-99) 81 mg/dL (70-99) 86 mg/dL (70-99) Assessment and Plan Assessmemt and Plan Problems Medical Problems: (1) MELISSA (acute kidney injury) Status: Acute (2) Dehydration Status: Acute Comment Review of Relevant I have reviewed the following items presley (where applicable) has been applied. Labs Laboratory Tests Test 04/02/20 19:00 04/03/20 10:50 04/03/20 17:06 04/03/20 20:28 White Blood Count 12.2 x10^3/uL (4.0-11.0) 10.2 x10^3/uL (4.0-11.0) Red Blood Count 3.31 x10^6/uL (3.50-5.40) 3.09 x10^6/uL (3.50-5.40) Hemoglobin 9.4 g/dL (12.0-15.5) 9.1 g/dL (12.0-15.5) Hematocrit 28.8 % (36.0-47.0) 27.2 % (36.0-47.0) Mean Corpuscular Volume 87 fL (79-100) 88 fL (79-100) Mean Corpuscular Hemoglobin 29 pg (25-35) 30 pg (25-35) Mean Corpuscular Hemoglobin Concent 33 g/dL (31-37) 34 g/dL (31-37) Red Cell Distribution Width 13.9 % (11.5-14.5) 14.0 % (11.5-14.5) Platelet Count 317 x10^3/uL (140-400) 305 x10^3/uL (140-400) Neutrophils (%) (Auto) 84 % (31-73) 84 % (31-73) Lymphocytes (%) (Auto) 10 % (24-48) 8 % (24-48) Monocytes (%) (Auto) 6 % (0-9) 7 % (0-9) Eosinophils (%) (Auto) 0 % (0-3) 0 % (0-3) Basophils (%) (Auto) 1 % (0-3) 0 % (0-3) Neutrophils # (Auto) 10.2 x10^3/uL (1.8-7.7) 8.6 x10^3/uL (1.8-7.7) Lymphocytes # (Auto) 1.2 x10^3/uL (1.0-4.8) 0.9 x10^3/uL (1.0-4.8) Monocytes # (Auto) 0.7 x10^3/uL (0.0-1.1) 0.7 x10^3/uL (0.0-1.1) Eosinophils # (Auto) 0.0 x10^3/uL (0.0-0.7) 0.0 x10^3/uL (0.0-0.7) Basophils # (Auto) 0.1 x10^3/uL (0.0-0.2) 0.0 x10^3/uL (0.0-0.2) Sodium Level 135 mmol/L (136-145) 138 mmol/L (136-145) Potassium Level 3.8 mmol/L (3.5-5.1) 3.8 mmol/L (3.5-5.1) Chloride Level 98 mmol/L (98-107) 102 mmol/L (98-107) Carbon Dioxide Level 22 mmol/L (21-32) 24 mmol/L (21-32) Anion Gap 15 (6-14) 12 (6-14) Blood Urea Nitrogen 65 mg/dL (7-20) 56 mg/dL (7-20) Creatinine 2.2 mg/dL (0.6-1.0) 1.7 mg/dL (0.6-1.0) Estimated GFR (Cockcroft-Gault) 25.8 34.7 BUN/Creatinine Ratio 30 (6-20) Glucose Level 228 mg/dL (70-99) 130 mg/dL (70-99) Calcium Level 10.1 mg/dL (8.5-10.1) 9.4 mg/dL (8.5-10.1) Total Bilirubin 0.5 mg/dL (0.2-1.0) Aspartate Amino Transf (AST/SGOT) 55 U/L (15-37) Alanine Aminotransferase (ALT/SGPT) 7 U/L (14-59) Alkaline Phosphatase 68 U/L (46-116) Total Protein 8.0 g/dL (6.4-8.2) Albumin 2.8 g/dL (3.4-5.0) Albumin/Globulin Ratio 0.5 (1.0-1.7) Lipase 164 U/L (73-393) Glucose (Fingerstick) 217 mg/dL (70-99) 289 mg/dL (70-99) Test 04/04/20 07:42 04/04/20 11:39 Glucose (Fingerstick) 81 mg/dL (70-99) 86 mg/dL (70-99) Laboratory Tests Test 04/03/20 17:06 04/03/20 20:28 04/04/20 07:42 04/04/20 11:39 Glucose (Fingerstick) 217 mg/dL (70-99) 289 mg/dL (70-99) 81 mg/dL (70-99) 86 mg/dL (70-99) Medications Current Medications Sodium Chloride 1,000 ml @ 1,000 mls/hr 1X ONCE IV Last administered on 04/02/20at 20:30; Start 04/02/20 at 20:30; Stop 04/02/20 at 21:29; Status DC Sodium Chloride 1,000 ml @ 100 mls/hr Q10H IV Last administered on 04/02/20at 23:36; Start 04/02/20 at 22:00; Stop 04/03/20 at 07:59; Status DC Sodium Chloride 1,000 ml @ 100 mls/hr Q10H IV Last administered on 04/04/20at 06:05; Start 04/02/20 at 22:30 Ondansetron HCl (Zofran) 4 mg PRN Q4HRS PRN IV NAUSEA/VOMITING; Start 04/02/20 at 22:30 Zolpidem Tartrate (Ambien) 5 mg PRN QHS PRN PO INSOMNIA; Start 04/02/20 at 22:30 Acetaminophen (Tylenol) 650 mg PRN Q4HRS PRN PO TEMP OVER 100.4F OR MILD PAIN Last administered on 04/03/20at 12:49; Start 04/02/20 at 22:30 Docusate Sodium (Colace) 100 mg PRN BID PRN PO HARD STOOLS; Start 04/02/20 at 22:30 Albuterol Sulfate (Ventolin Neb Soln) 2.5 mg PRN Q4HRS PRN NEB SHORTNESS OF BREATH; Start 04/02/20 at 22:30 Guaifenesin (Robitussin) 200 mg PRN Q4HRS PRN PO COUGH; Start 04/02/20 at 22:30 Lorazepam (Ativan) 0.5 mg PRN Q4HRS PRN PO ANXIETY / AGITATION; Start 04/02/20 at 22:30 Enoxaparin Sodium (Lovenox 30mg Syringe) 30 mg Q24H SQ Last administered on 04/03/20 20:31; Start 04/02/20 at 22:30 Amlodipine Besylate (Norvasc) 10 mg DAILY PO Last administered on 04/04/20 09:16; Start 04/03/20 at 09:00 Chlorthalidone (Thalitone) 25 mg DAILY PO Last administered on 04/04/20 09:14; Start 04/03/20 at 09:00 Donepezil HCl (Aricept) 10 mg DAILY PO Last administered on 04/03/20 09:43; Start 04/03/20 at 09:00 Hydralazine HCl (Apresoline) 50 mg TID PO Last administered on 04/04/20 09:19; Start 04/02/20 at 22:30 Acetaminophen/ Hydrocodone Bitart (Lortab 5/325) 0.5 tab PRN Q6HRS PRN PO PAIN; Start 04/02/20 at 22:30 Acetaminophen/ Hydrocodone Bitart (Lortab 5/325) 1 tab PRN Q6HRS PRN PO PAIN Last administered on 04/04/20 09:14; Start 04/02/20 at 22:30 Acetaminophen/ Hydrocodone Bitart (Lortab 5/325) 1 tab PRN Q6HRS PRN PO PAIN; Start 04/02/20 at 22:30; Status UNV Losartan Potassium (Cozaar) 50 mg DAILY PO Last administered on 04/04/20at 09:15; Start 04/03/20 at 09:00 Oxycodone/ Acetaminophen (Percocet 5/325) 1 tab PRN TID PRN PO PAIN; Start 04/02/20 at 22:30 Potassium Chloride (Klor-Con) 20 meq [id number] PO Last administered on 04/04/20 09:16; Start 04/03/20 at 08:00 Prednisone (Prednisone) 40 mg DAILY PO Last administered on 04/04/20 09:20; Start 04/03/20 at 09:00 Glimepiride (Amaryl) 4 mg DAILY PO Last administered on 04/04/20 09:15; Start 04/03/20 at 09:00 Non-Formulary Medication (Hydrocodone Bit/ Acetaminophen (Hydrocodone-Apap 5- 300)) 1 tab PRN TID PRN PO pain; Start 04/02/20 at 22:30; Status UNV Metoprolol Succinate (Toprol Xl) 200 mg DAILY PO Last administered on 04/04/20at 09:20; Start 04/03/20 at 09:00 Multi-Ingredient Mouthwash/Gargle (Magic Mouthwash) 10 ml PRN QID PRN PO MOUTH PAIN; Start 04/03/20 at 09:15 Insulin Human Lispro (HumaLOG) 0-7 UNITS TIDACHC SQ Last administered on 04/03/20at 20:58; Start 04/03/20 at 21:00 Dextrose (Dextrose 50%-Water Syringe) 12.5 gm PRN Q15MIN PRN IV SEE COMMENTS; Start 04/03/20 at 20:45 Active Scripts Active Cephalexin 500 Mg Tablet 1 Tab PO TID 10 Days Endocet 5-325 Tablet (Oxycodone Hcl/Acetaminophen) 1 Each Tablet 1 Tab PO PRN TID PRN MDD 3 Tablet(s) 30 Days Hydrocodone-Apap 5-325 (Hydrocodone Bit/Acetaminophen) 1 Tab Tablet 0.5 Tab PO PRN Q6HRS PRN 3 Days [place] 5-325 Tablet (Acetaminophen/Hydrocodone Bitart) 1 Each Tablet 1 Tab PO PRN Q6HRS PRN Prednisone 20 Mg Tablet 40 Mg PO DAILY 5 Days [place] 5-325 Tablet (Acetaminophen/Hydrocodone Bitart) 1 Each Tablet 1 Tab PO PRN Q6HRS PRN Hydrocodone-Apap 5-300 (Hydrocodone Bit/Acetaminophen) 1 Each Tablet 1 Tab PO PRN TID PRN MDD 3 Tablet(s) 5 Days Reported Aricept (Donepezil Hcl) 10 Mg Tablet 10 Mg PO DAILY Potassium Chloride (Potassium Chloride) 20 Meq Tablet.er 1 Tab PO DAILY 30 Days Losartan Potassium 50 Mg Tablet 50 Mg PO DAILY Hydralazine Hcl 50 Mg Tablet 1 Tab PO TID Chlorthalidone (Chlorthalidone) 25 Mg Tablet 25 Mg PO DAILY Amlodipine Besylate 10 Mg Tablet 10 Mg PO DAILY Acetaminophen 500 Mg Tablet 2 Tab PO PRN Q6HRS PRN 15 Days Metoprolol Succinate ( Xl ) (Metoprolol Succinate) 200 Mg Tab.er.24h 1 Tab PO IN THE MORNING Glimepiride 4 Mg Tablet 1 Tab PO DAILY Vitals/I & O Vital Sign - Last 24 Hours 04/03/20 04/03/20 04/03/20 04/03/20 14:49 15:59 19:00 20:01 Temp 97.4 98.0 97.4 98.0 Pulse 60 60 62 Resp 18 18 B/P (MAP) 115/75 104/65 (78) 117/67 (84) Pulse Ox 98 98 O2 Delivery Room Air Room Air Room Air 04/03/20 04/03/20 04/03/20 04/03/20 20:30 20:32 21:42 23:01 Temp 97.6 97.6 Pulse 62 75 Resp 18 18 18 B/P (MAP) 117/67 123/62 (82) Pulse Ox 98 98 97 O2 Delivery Room Air Room Air Room Air 04/04/20 04/04/20 04/04/20 04/04/20 03:30 07:34 08:05 09:14 Temp 98.1 97.9 98.1 97.9 Pulse 59 61 Resp 18 18 B/P (MAP) 138/77 (97) 114/60 (78) Pulse Ox 98 93 O2 Delivery Room Air Room Air Room Air Room Air 04/04/20 04/04/20 04/04/20 04/04/20 09:15 09:16 09:19 09:20 Pulse 61 61 61 61 B/P (MAP) 114/60 114/60 114/60 114/60 04/04/20 04/04/20 10:20 11:17 Temp 98.0 98.0 Pulse 60 Resp 18 B/P (MAP) 113/68 (83) Pulse Ox 99 O2 Delivery Room Air Room Air Intake and Output 04/03/20 04/03/20 04/04/20 15:00 23:00 07:00 Intake Total 120 ml Balance 120 ml Nutrition Consultation Dietary Evaluation: Recommendations by RD: Dietary education by RD, Increase Calorie Intake, Protein supplementation Comments: regular diet w/ ensure tid Expected Outcomes/Goals: to meet > 75% est nutrition needs Malnutrition Findings: Food and Nutrition Intake (Sev: <50% est energy req 5days Weight Status: Underweight Justicifation of Admission Dx: Justifications for Admission: Justification of Admission Dx: Yes KRISTI JONES MD Apr 04, 2020 12:39
[2020-04-04 15:16] VITALS: BP 101/62
[2020-04-04] MEDS ORDERED: HYDROmorphone 2 MG/ML VIAL IV PRN (16:45)
[2020-04-04] MEDS ORDERED: HYDROcodone/APAP 7.5/325MG 1 TAB TABLET PO PRN (16:45)
[2020-04-04 19:00] VITALS: BP 116/80
[2020-04-04] MEDS: ENOXAPARIN 30 MG/0.3 ML SYRINGE. SQ SCH (21:09)
[2020-04-04 23:00] VITALS: BP 97/72
[2020-04-05 03:00] VITALS: BP 125/77
[2020-04-05] MEDS: LORazepam 0.5 MG TABLET PO PRN ×2 (04:38→18:28)
--- NOTE | 2020-04-05 04:43 | NUR ---
[place] patient jamin from nurses station, entered room to assess situation. Patient crying, confused, asking what time it is and what day it is. Informed patient of the date/time. Reinforced that she is at the hospital and she is safe. Patient requesting for me to call a few numbers she has listed in a notebook. Called 3 different numbers without success. Patient had been refusing to let anyone change her brief all night, but were able to reinforce importance of changing brief and she allowed us to do so. Linens and gown changed as well. Patient again requested to call numbers listed in notebook. Patient got ahold of one of the people listed. Patient crying still. Repeatedly asking to turn on the light although the light had been turned on at the first request. Reinforced that the lights were on and that patient was safe. Patient continued to cry. Left room while patient was on phone talking to relative to look at eMAR for possible anxiety medication order. See eMAR for details. Patient continues to talk to family member at this time. Bed low, locked, call light within reach, bed alarm confirmed to be ON. Will continue to monitor.
[2020-04-05 07:00] VITALS: BP 114/65
[2020-04-05] MEDS: INSULIN LISPRO 300 UNITS/3 ML VIAL. SQ SCH ×4 (07:30→21:19)
[2020-04-05] MEDS: HYDROcodone/APAP 5/325MG 1 TAB TABLET PO PRN (08:33)
[2020-04-05] MEDS: predniSONE 20 MG TABLET PO SCH (08:35)
[2020-04-05] MEDS: METOPROLOL SUCC 24HR ER 100 MG TAB.ER.24H. PO SCH (08:35)
[2020-04-05] MEDS: POTASSIUM CHLORIDE 20 MEQ TABLET.ER. PO SCH (08:37)
[2020-04-05] MEDS: CHLORTHALIDONE 25 MG TABLET. PO SCH (08:39)
[2020-04-05] MEDS: amLODIPine BESYLATE 10 MG TABLET PO SCH (08:39)
[2020-04-05] MEDS: DONEPEZIL HCL 10 MG TABLET. PO SCH (08:39)
[2020-04-05] MEDS: LOSARTAN POTASSIUM 50 MG TABLET. PO SCH (08:39)
[2020-04-05] MEDS: GLIMEPIRIDE 2 MG TABLET. PO SCH (08:39)
--- NOTE | 2020-04-05 08:51 | PDOC ---
PROGRESS NOTES Chief Complaint Chief Complaint Assessment/Plan Acute renal failure vasomotor nephropathy most likely Stomatitis seems less likely her mouth discomfort has subsided with magic mouthwash History of rectal cancer status post chemoradiation Leukocytosis most likely secondary to hemoconcentration Hyponatremia Severe protein calorie malnutrition Normocytic anemia of chronic disease Plan awaiting call from son who is dpoa for disposition Pain management Magic mouthwash Resume home medications once available for review May need nutritional consultation early next week Encouraged to follow-up with oncology if she wants to pursue further treatment if not I will have the conversation with her son Efraín as well regarding hospice care which in this case will be quite appropriate attempt was made to contact son Efraín at [phone]. Detailed message was left and requested to call back, will try to call again later in the day DVT prophylaxis with Lovenox Disposition: will try to talk with son regarding the options which at the moment given the patient's wishes, hospice would be very appropriate. History of Present Illness History of Present Illness Tried to call patient's son again Mr. Kenny through the patient's phone and unfortunately he did not oyster picker the phone again nursing staff and I left a det liza message again, hoping that we can transition to a hospice care situation since the patient does not seem to be interested in continuing any sort of medical treatment. No acute events reported overnight, case discussed with nursing staff patient in no acute distress no complaints during my visit Vitals Vitals Vital Signs Date Time Temp Pulse Resp B/P (MAP) Pulse Ox O2 Delivery O2 Flow Rate FiO2 04/05/20 08:39 62 114/65 04/05/20 07:00 98.6 18 99 Room Air 98.6 Physical Exam Physical Exam Physical Exam GEN.: Cachectic looking, no apparent distress. Alert and oriented. HEENT: Head is normocephalic, atraumatic NECK: Supple. LUNGS: Clear to auscultation. HEART: RRR, S1, S2 present. Peripheral pulses intact ABDOMEN: Soft, nontender. Positive bowel sounds. EXTREMITIES: Without any cyanosis. NEUROLOGIC: Normal speech, normal tone PSYCHIATRIC: Normal affect, normal mood. SKIN: No ulcerations Lungs: Other Labs LABS Laboratory Tests Test 04/04/20 11:39 04/04/20 16:40 04/04/20 21:07 04/05/20 07:38 Glucose (Fingerstick) 86 mg/dL (70-99) 267 mg/dL (70-99) 229 mg/dL (70-99) 96 mg/dL (70-99) Assessment and Plan Assessmemt and Plan Problems Medical Problems: (1) MELISSA (acute kidney injury) Status: Acute (2) Dehydration Status: Acute Comment Review of Relevant I have reviewed the following items presley (where applicable) has been applied. Labs Laboratory Tests Test 04/03/20 10:50 04/03/20 17:06 04/03/20 20:28 04/04/20 07:42 White Blood Count 10.2 x10^3/uL (4.0-11.0) Red Blood Count 3.09 x10^6/uL (3.50-5.40) Hemoglobin 9.1 g/dL (12.0-15.5) Hematocrit 27.2 % (36.0-47.0) Mean Corpuscular Volume 88 fL (79-100) Mean Corpuscular Hemoglobin 30 pg (25-35) Mean Corpuscular Hemoglobin Concent 34 g/dL (31-37) Red Cell Distribution Width 14.0 % (11.5-14.5) Platelet Count 305 x10^3/uL (140-400) Neutrophils (%) (Auto) 84 % (31-73) Lymphocytes (%) (Auto) 8 % (24-48) Monocytes (%) (Auto) 7 % (0-9) Eosinophils (%) (Auto) 0 % (0-3) Basophils (%) (Auto) 0 % (0-3) Neutrophils # (Auto) 8.6 x10^3/uL (1.8-7.7) Lymphocytes # (Auto) 0.9 x10^3/uL (1.0-4.8) Monocytes # (Auto) 0.7 x10^3/uL (0.0-1.1) Eosinophils # (Auto) 0.0 x10^3/uL (0.0-0.7) Basophils # (Auto) 0.0 x10^3/uL (0.0-0.2) Sodium Level 138 mmol/L (136-145) Potassium Level 3.8 mmol/L (3.5-5.1) Chloride Level 102 mmol/L (98-107) Carbon Dioxide Level 24 mmol/L (21-32) Anion Gap 12 (6-14) Blood Urea Nitrogen 56 mg/dL (7-20) Creatinine 1.7 mg/dL (0.6-1.0) Estimated GFR (Cockcroft-Gault) 34.7 Glucose Level 130 mg/dL (70-99) Calcium Level 9.4 mg/dL (8.5-10.1) Glucose (Fingerstick) 217 mg/dL (70-99) 289 mg/dL (70-99) 81 mg/dL (70-99) Test 04/04/20 11:39 04/04/20 16:40 04/04/20 21:07 04/05/20 07:38 Glucose (Fingerstick) 86 mg/dL (70-99) 267 mg/dL (70-99) 229 mg/dL (70-99) 96 mg/dL (70-99) Laboratory Tests Test 04/04/20 11:39 04/04/20 16:40 04/04/20 21:07 04/05/20 07:38 Glucose (Fingerstick) 86 mg/dL (70-99) 267 mg/dL (70-99) 229 mg/dL (70-99) 96 mg/dL (70-99) Medications Current Medications Sodium Chloride 1,000 ml @ 1,000 mls/hr 1X ONCE IV Last administered on 04/02/20at 20:30; Start 04/02/20 at 20:30; Stop 04/02/20 at 21:29; Status DC Sodium Chloride 1,000 ml @ 100 mls/hr Q10H IV Last administered on 04/02/20at 23:36; Start 04/02/20 at 22:00; Stop 04/03/20 at 07:59; Status DC Sodium Chloride 1,000 ml @ 100 mls/hr Q10H IV Last administered on 04/04/20at 06:05; Start 04/02/20 at 22:30; Stop 04/04/20 at 12:19; Status DC Ondansetron HCl (Zofran) 4 mg PRN Q4HRS PRN IV NAUSEA/VOMITING; Start 04/02/20 at 22:30 Zolpidem Tartrate (Ambien) 5 mg PRN QHS PRN PO INSOMNIA; Start 04/02/20 at 22:30 Acetaminophen (Tylenol) 650 mg PRN Q4HRS PRN PO TEMP OVER 100.4F OR MILD PAIN Last administered on 04/03/20at 12:49; Start 04/02/20 at 22:30 Docusate Sodium (Colace) 100 mg PRN BID PRN PO HARD STOOLS; Start 04/02/20 at 22:30 Albuterol Sulfate (Ventolin Neb Soln) 2.5 mg PRN Q4HRS PRN NEB SHORTNESS OF BREATH; Start 04/02/20 at 22:30 Guaifenesin (Robitussin) 200 mg PRN Q4HRS PRN PO COUGH; Start 04/02/20 at 22:30 Lorazepam (Ativan) 0.5 mg PRN Q4HRS PRN PO ANXIETY / AGITATION Last administered on 04/05/20at 04:38; Start 04/02/20 at 22:30 Enoxaparin Sodium (Lovenox 30mg Syringe) 30 mg Q24H SQ Last administered on 04/04/20at 21:09; Start 04/02/20 at 22:30 Amlodipine Besylate (Norvasc) 10 mg DAILY PO Last administered on 04/05/20at 0 8:39; Start 04/03/20 at 09:00 Chlorthalidone (Thalitone) 25 mg DAILY PO Last administered on 04/05/20at 08:39; Start 04/03/20 at 09:00 Donepezil HCl (Aricept) 10 mg DAILY PO Last administered on 04/05/20at 08:39; Start 04/03/20 at 09:00 Hydralazine HCl (Apresoline) 50 mg TID PO Last administered on 04/05/20at 08:35; Start 04/02/20 at 22:30 Acetaminophen/ Hydrocodone Bitart (Lortab 5/325) 0.5 tab PRN Q6HRS PRN PO PAIN; Start 04/02/20 at 22:30 Acetaminophen/ Hydrocodone Bitart (Lortab 5/325) 1 tab PRN Q6HRS PRN PO PAIN Last administered on 04/05/20at 08:33; Start 04/02/20 at 22:30 Acetaminophen/ Hydrocodone Bitart (Lortab 5/325) 1 tab PRN Q6HRS PRN PO PAIN; Start 04/02/20 at 22:30; Status UNV Losartan Potassium (Cozaar) 50 mg DAILY PO Last administered on 04/05/20 08:39; Start 04/03/20 at 09:00 Oxycodone/ Acetaminophen (Percocet 5/325) 1 tab PRN TID PRN PO PAIN; Start 04/02/20 at 22:30 Potassium Chloride (Klor-Con) 20 meq DAILYWBKFT PO Last administered on 04/05/20at 08:37; Start 04/03/20 at 08:00 Prednisone (Prednisone) 40 mg DAILY PO Last administered on 04/05/20 08:35; Start 04/03/20 at 09:00 Glimepiride (Amaryl) 4 mg DAILY PO Last administered on 04/05/20 08:39; Start 04/03/20 at 09:00 Non-Formulary Medication (Hydrocodone Bit/ Acetaminophen (Hydrocodone-Apap 5- 300)) 1 tab PRN TID PRN PO pain; Start 04/02/20 at 22:30; Status UNV Metoprolol Succinate (Toprol Xl) 200 mg DAILY PO Last administered on 04/05/20at 08:35; Start 04/03/20 at 09:00 Multi-Ingredient Mouthwash/Gargle (Magic Mouthwash) 10 ml PRN QID PRN PO MOUTH PAIN; Start 04/03/20 at 09:15 Insulin Human Lispro (HumaLOG) 0-7 UNITS TIDACHC SQ Last administered on 03/10 03/28at 21:13; Start 04/03/20 at 21:00 Dextrose (Dextrose 50%-Water Syringe) 12.5 gm PRN Q15MIN PRN IV SEE COMMENTS; Start 04/03/20 at 20:45 Hydromorphone HCl (Dilaudid) 1 mg PRN Q4HRS PRN IV MODERATE TO SEVERE PAIN Last administered on 04/04/20at 17:07; Start 04/04/20 at 16:45 Acetaminophen/ Hydrocodone Bitart (Lortab 7.5/325) 2 tab PRN Q6HRS PRN PO MODERATE PAIN; Start 04/04/20 at 16:45 Active Scripts Active Cephalexin 500 Mg Tablet 1 Tab PO TID 10 Days Endocet 5-325 Tablet (Oxycodone Hcl/Acetaminophen) 1 Each Tablet 1 Tab PO PRN TID PRN MDD 3 Tablet(s) 30 Days Hydrocodone-Apap 5-325 (Hydrocodone Bit/Acetaminophen) 1 Tab Tablet 0.5 Tab PO PRN Q6HRS PRN 3 Days Thompson 5-325 Tablet (Acetaminophen/Hydrocodone Bitart) 1 Each Tablet 1 Tab PO PRN Q6HRS PRN Prednisone 20 Mg Tablet 40 Mg PO DAILY 5 Days [place] 5-325 Tablet (Acetaminophen/Hydrocodone Bitart) 1 Each Tablet 1 Tab PO PRN Q6HRS PRN Hydrocodone-Apap 5-300 (Hydrocodone Bit/Acetaminophen) 1 Each Tablet 1 Tab PO PRN TID PRN MDD 3 Tablet(s) 5 Days Reported Aricept (Donepezil Hcl) 10 Mg Tablet 10 Mg PO DAILY Potassium Chloride (Potassium Chloride) 20 Meq Tablet.er 1 Tab PO DAILY 30 Days Losartan Potassium 50 Mg Tablet 50 Mg PO DAILY Hydralazine Hcl 50 Mg Tablet 1 Tab PO TID Chlorthalidone (Chlorthalidone) 25 Mg Tablet 25 Mg PO DAILY Amlodipine Besylate 10 Mg Tablet 10 Mg PO DAILY Acetaminophen 500 Mg Tablet 2 Tab PO PRN Q6HRS PRN 15 Days Metoprolol Succinate ( Xl ) (Metoprolol Succinate) 200 Mg Tab.er.24h 1 Tab PO IN THE MORNING Glimepiride 4 Mg Tablet 1 Tab PO DAILY Vitals/I & O Vital Sign - Last 24 Hours 04/04/20 04/04/20 04/04/20 04/04/20 09:14 09:15 09:16 09:19 Pulse 61 61 61 B/P (MAP) 114/60 114/60 114/60 O2 Delivery Room Air 04/04/20 04/04/20 04/04/20 04/04/20 09:20 10:20 11:17 15:16 Temp 98.0 98.0 98.0 98.0 Pulse 61 60 70 Resp 18 18 B/P (MAP) 114/60 113/68 (83) 101/62 (75) Pulse Ox 99 100 O2 Delivery Room Air Room Air Room Air 04/04/20 04/04/20 04/04/20 04/04/20 15:29 15:30 16:30 17:07 Pulse 70 B/P (MAP) 101/62 O2 Delivery Room Air Room Air Room Air 04/04/20 04/04/20 04/04/20 04/04/20 18:00 19:00 20:00 21:08 Temp 97.9 97.9 Pulse 60 60 Resp 18 B/P (MAP) 116/80 (92) 116/80 Pulse Ox 95 O2 Delivery Room Air Room Air 04/04/20 04/05/20 04/05/20 04/05/20 23:00 03:00 07:00 08:35 Temp 97.6 97.6 98.6 97.6 97.6 98.6 Pulse 60 56 62 62 Resp 18 20 18 B/P (MAP) 97/72 (80) 125/77 (93) 114/65 (81) 114/65 Pulse Ox 93 99 99 O2 Delivery Room Air Room Air Room Air 04/05/20 04/05/20 04/05/20 08:35 08:39 08:39 Pulse 62 62 62 B/P (MAP) 114/65 114/65 114/65 Intake and Output 04/04/20 04/04/20 04/05/20 15:00 23:00 07:00 Intake Total 600 ml 250 ml 200 ml Balance 600 ml 250 ml 200 ml Nutrition Consultation Dietary Evaluation: Recommendations by RD: Dietary education by RD, Increase Calorie Intake, Protein supplementation Comments: regular diet w/ ensure tid Expected Outcomes/Goals: to meet > 75% est nutrition needs Malnutrition Findings: Food and Nutrition Intake (Sev: <50% est energy req 5days Weight Status: Underweight Justicifation of Admission Dx: Justifications for Admission: Justification of Admission Dx: Yes KRISTI JONES MD Apr 05, 2020 08:51
--- NOTE | 2020-04-05 10:44 | NUR ---
JULIEN following. Discussed with RN, pt very confused last night. RN and physician unable to reach pt's son, Efraín (DPOA), which is also the son who pt lives with. JULIEN sent text message from phone in case Efraín responds to text messages. RN advised she even tried calling Efraín from pt's cellphone, but no answer. JULIEN will continue to follow. Addendum: 04/05/20 at 1256 by ISIS VICTORIA JULIEN met with pt's son, Ham[place] and DIL, Guillermina. They advised pt was living with her daughter, Lacey, but is hard to manage at home and does not let people assist with taking care of her. Per family, pt gets around okay. Lacey apparently has DPOA for healthcare. JULIEN discussed with family about options for placement - pt does not have medicaid, so would have to be medicaid pending. JULIEN also discussed possibility of hospice at home (physician note states hospice appropriate), family gave permission for JULIEN to fax referral to [facility] to determine if pt qualifies for hospice. Guillermina asked JULIEN to call Lacey to discuss hospice, if pt does qualify. JULIEN received message from [facility] stating pt appears to look appropriate on paper for hospice. JULIEN contacted Lacey to discuss, Lacey advised pt does not want hospice, she has never wanted hospice - Lacey wants to 'respect her wishes." JULIEN questioned if she would like home health, Lacey declined. Lacey plans on taking patient home, even today - wanted to know if Guillermina was still here to transport her home. JULIEN spoke with Guillermina, they are still here, they want to verify with Lacey. JULIEN notified RN and Dr. Crespo of discharge with self care. Awaiting discharge orders. JULIEN will continue to follow. Pt is a high risk readmission. Addendum: 04/05/20 at 1305 by ISIS VICTORIA Lacey is now agreeable to hospice. Pt will go home with [facility]. Anup contacting family to discuss plan. Most likely discharge tomorrow home with hospice. NGUYEN notified. JULIEN will continue to follow. Addendum: 04/05/20 at 1552 by ISIS VICTORIA Pt signed on with [facility]. Equipment will be delivered this evening. Plan for discharge home with [facility] tomorrow (04/06/2020). RN and Dr. Crespo notified.
[2020-04-05 11:00] VITALS: BP 95/62
[2020-04-05] MEDS: oxyCODONE/APAP 5/325 1 TAB TABLET PO PRN ×2 (11:58→21:11)
[2020-04-05 15:00] VITALS: BP 101/64
[2020-04-05 19:00] VITALS: BP 109/67
[2020-04-05] MEDS: ENOXAPARIN 30 MG/0.3 ML SYRINGE. SQ SCH (21:11)
[2020-04-05 23:00] VITALS: BP 115/70
[2020-04-06 03:00] VITALS: BP 110/70
[2020-04-06] MEDS: INSULIN LISPRO 300 UNITS/3 ML VIAL. SQ SCH (07:30)
[2020-04-06 07:56] VITALS: BP 113/69
[2020-04-06] MEDS: METOPROLOL SUCC 24HR ER 100 MG TAB.ER.24H. PO SCH (08:02)
[2020-04-06] MEDS: LOSARTAN POTASSIUM 50 MG TABLET. PO SCH (08:03)
[2020-04-06] MEDS: POTASSIUM CHLORIDE 20 MEQ TABLET.ER. PO SCH (08:03)
[2020-04-06] MEDS: predniSONE 20 MG TABLET PO SCH (08:03)
[2020-04-06] MEDS: CHLORTHALIDONE 25 MG TABLET. PO SCH (08:03)
[2020-04-06 08:04] VITALS: BP 113/69
[2020-04-06] MEDS: DONEPEZIL HCL 10 MG TABLET. PO SCH (08:04)
[2020-04-06] MEDS: amLODIPine BESYLATE 10 MG TABLET PO SCH (08:04)
--- NOTE | 2020-04-06 08:58 | SNU/HH DC ---
DISCHARGE ORDERS DISCHARGE INFORMATION: FINAL DIAGNOSIS Problems Medical Problems: (1) MELISSA (acute kidney injury) Status: Acute (2) Dehydration Status: Acute CONDITION ON DISCHARGE: Stable CODE STATUS: Code Status: Full PRISON: SNF STAY <30 DAYS: No HOSPICE: HOSPICE: Yes HOSPICE EVAL & TREAT: Yes LTAC: ADMIT TO LTAC: No POST DISCHARGE ORDERS: ACTIVITY ORDERS: Resume previous activity WEIGHT BEARING STATUS: As tolerated DIET AFTER DISCHARGE: Cardiac CHECKS AFTER DISCHARGE: CHECKS AFTER DISCHARGE: Check blood sugar, ac/hs TREATMENT/EQUIPMENT ORDERS: ADAPTIVE EQUIPMENT NEEDED: Walker DISCHARGE MEDICATIONS: Home Meds Active Scripts Cephalexin (CEPHALEXIN) 500 Mg Tablet, 1 TAB PO TID for 10 Days, #30 TAB Prov:TAYLOR HUDSON [employer]IEUTENANT GOVERNOR 03/31/20 Oxycodone Hcl/Acetaminophen (ENDOCET 5-325 TABLET) 1 Each Tablet, 1 TAB PO PRN TID PRN for PAIN MDD 3 Tablet(s) for 30 Days, #20 TAB 0 Refills Prov:CLARA LEDESMA I DO 03/19/20 Hydrocodone Bit/Acetaminophen (HYDROCODONE-APAP 5-325 ) 1 Tab Tablet, 0.5 TAB PO PRN Q6HRS PRN for PAIN for 3 Days, #10 TAB 0 Refills Prov:QUYNH GRIMES [employer]ENA[employer] GOVERNOR 03/05/20 Hydrocodone/Apap 5-325 (NORCO 5-325 TABLET) 1 Each Tablet, 1 TAB PO PRN Q6HRS PRN for PAIN, #12 TAB 0 Refills Prov:MAYITO VIDES [employer]ENA[employer] GOVERNOR 02/14/20 Prednisone (PREDNISONE) 20 Mg Tablet, 40 MG PO DAILY for 5 Days, #10 TAB Prov:YUDI LOPEZ MD 08/18/19 Hydrocodone/Apap 5-325 (NORCO 5-325 TABLET) 1 Each Tablet, 1 TAB PO PRN Q6HRS PRN for PAIN, #10 TAB 0 Refills Prov:MAYRA PICHARDO MD 08/12/19 Hydrocodone Bit/Acetaminophen (HYDROCODONE-APAP 5-300) 1 Each Tablet, 1 TAB PO PRN TID PRN for pain MDD 3 Tablet(s) for 5 Days, #15 TAB 0 Refills Prov:LELAND SCHAEFER DO 07/25/19 Reported Medications Donepezil Hcl (ARICEPT) 10 Mg Tablet, 10 MG PO DAILY for , TAB 11/15/19 Potassium Chloride (POTASSIUM CHLORIDE ) 20 Meq Tablet.er, 1 TAB PO DAILY for rplacement for 30 Days, #30 TAB 0 Refills 07/20/19 Losartan Potassium (LOSARTAN POTASSIUM) 50 Mg Tablet, 50 MG PO DAILY for HYPERTENSION, TAB 07/20/19 Hydralazine Hcl (HYDRALAZINE HCL) 50 Mg Tablet, 1 TAB PO TID for bp, #270 TAB 3 Refills 07/20/19 Chlorthalidone (CHLORTHALIDONE ) 25 Mg Tablet, 25 MG PO DAILY for DIURETIC, TAB 07/20/19 Amlodipine Besylate (AMLODIPINE BESYLATE) 10 Mg Tablet, 10 MG PO DAILY for BP, TAB 07/20/19 Acetaminophen (ACETAMINOPHEN) 500 Mg Tablet, 2 TAB PO PRN Q6HRS PRN for pain or fever for 15 Days, #60 TAB 0 Refills 07/20/19 Metoprolol Succinate (METOPROLOL SUCCINATE ( XL )) 200 Mg Tab.er.24h, 1 TAB PO in the morning, #30 TAB 5 Refills 09/26/14 Glimepiride (GLIMEPIRIDE) 4 Mg Tablet, 1 TAB PO DAILY, #30 TAB 5 Refills 09/24/14 CAMMIE CHONG III DO Apr 06, 2020 08:58
[2020-04-06] MEDS: GLIMEPIRIDE 2 MG TABLET. PO SCH (09:00)
--- NOTE | 2020-04-06 09:17 | PDOC ---
[facility] [facility] PROGRESS NOTE Chief Complaint Chief Complaint Assessment/Plan Acute renal failure vasomotor nephropathy most likely Stomatitis seems less likely her mouth discomfort has subsided with magic mouthwash History of rectal cancer status post chemoradiation Leukocytosis most likely secondary to hemoconcentration Hyponatremia Severe protein calorie malnutrition Normocytic anemia of chronic disease History of Present Illness History of Present Illness Tried to call patient's son again Mr. Kenny through the patient's phone and unfortunately he did not apple picking supervisor the phone again nursing staff and I left a detailed message again, hoping that we can transition to a hospice care situa tion since the patient does not seem to be interested in continuing any sort of medical treatment. No acute events reported overnight, case discussed with nursing staff patient in no acute distress no complaints during my visit Vitals/I&O Vitals/I&O: Vital Signs Date Time Temp Pulse Resp B/P (MAP) Pulse Ox O2 Delivery O2 Flow Rate FiO2 04/06/20 08:04 61 113/69 04/06/20 07:56 98.0 16 94 Room Air 98.0 I & O 04/05/20 04/05/20 04/06/20 15:00 23:00 07:00 Intake Total 100 ml 200 ml Balance 100 ml 200 ml Physical Exam Physical Exam: Physical Exam GEN.: Cachectic looking, no apparent distress. Alert and oriented. HEENT: Head is normocephalic, atraumatic NECK: Supple. LUNGS: Clear to auscultation. HEART: RRR, S1, S2 present. Peripheral pulses intact ABDOMEN: Soft, nontender. Positive bowel sounds. EXTREMITIES: Without any cyanosis. NEUROLOGIC: Normal speech, normal tone PSYCHIATRIC: Normal affect, normal mood. SKIN: No ulcerations General: Alert, Cooperative Heart: Regular rate Lungs: Clear Abdomen: No tenderness Extremities: No cyanosis Skin: No significant lesion Labs Labs: Laboratory Tests Test 04/05/20 11:40 04/05/20 16:29 04/06/20 07:26 Glucose (Fingerstick) 213 mg/dL (70-99) 227 mg/dL (70-99) 47 mg/dL (70-99) Review of Systems Review of Systems: Pertinent as per HPI otherwise 10 point review of system is negative Assessment and Plan Assessmemt and Plan Problems Medical Problems: (1) MELISSA (acute kidney injury) Status: Acute (2) Dehydration Status: Acute ASSESSMENT Acute renal failure, vasomotor nephropathy most likely History of rectal cancer status post chemoradiation Leukocytosis most likely secondary to hemoconcentration Hyponatremia Severe protein calorie malnutrition Normocytic anemia of chronic disease PLAN Discharge hospice Pain management Magic mouthwash Resume home medications May need nutritional consultation early next week Comment Review of Relevant I have reviewed the following items presley (where applicable) has been applied. Justicifation of Admission Dx: Justifications for Admission: Justification of Admission Dx: Yes CAMMIE CHONG III DO Apr 06, 2020 09:17
--- NOTE | 2020-04-06 10:04 | NUR ---
SW following. Discussed with RN, discharge orders for home with hospice. SW faxed to [facility]. SW spoke with Guillermina, they will pick pt up between 1130 and 1200. RN notified. No further SW needs.
--- NOTE | 2020-04-06 11:55 | NUR ---
Discharge Note: JAMIL GONZALEZ [place] Discharge instructions and discharge home medications reviewed with Patient and a copy given. All questions have been answered and understanding verbalized. The following instructions and handouts were given: Patient given education regarding medications. Discontinued lines and drains: Iv removed per protocol. Patient discharged home with hospice, picked up by family member.
--- NOTE | 2020-05-03 12:48 | DS ---
DATE OF DISCHARGE: 04/06/2020 ADMISSION DIAGNOSIS: Acute renal failure, dehydration. DISCHARGE DIAGNOSES: Resolving acute renal failure, resolving dehydration, history of rectal cancer, history of chemotherapy and radiation, leukocytosis, hyponatremia and malnutrition. CONSULTS: None. PROCEDURES: None. HOSPITAL COURSE: The patient is a pleasant middle-aged female who has colon cancer, presented with dehydration and acute kidney injury. She was admitted. We gave her fluids and encourage p.o. intake. We did some physical therapy and occupational therapy. Over the next few days, she returned to her baseline. We discharged to home. DISPOSITION: Home. ACTIVITY: As tolerated. DIET: Low sodium. MEDICATIONS: Please see the MRAD. TOTAL TIME: 33 minutes. CAMMIE CHONG DO DR: ALEE/ozzie JOB#: [id number] / [id number]
== END 2020-04-06 11:45 | disposition hospice, home (50) | DRG 682 ==
LOC: ER 15:09 → 5 NORTH 21:41 → OBSVTOIN 04-03 20:45
PROVIDERS: ADMIT Internal Medicine; ATTEND Internal Medicine
DX: N17.0 Acute kidney failure with tubular necrosis (principal); E43 Unspecified severe protein-calorie malnutrition; E87.1 Hypo-osmolality and hyponatremia; D63.8 Anemia in other chronic diseases classified elsewhere; D72.829 Elevated white blood cell count, unspecified; E11.22 Type 2 diabetes mellitus with diabetic chronic kidney disease; E78.5 Hyperlipidemia, unspecified; K21.9 Gastro-esophageal reflux disease without esophagitis; E86.0 Dehydration; F03.90 Unspecified dementia, unspecified severity, without behavioral disturbance, psychotic disturbance, mood disturbance, and anxiety; I12.9 Hypertensive chronic kidney disease with stage 1 through stage 4 chronic kidney disease, or unspecified chronic kidney disease; N18.9 Chronic kidney disease, unspecified; Z83.3 Family history of diabetes mellitus; Z85.048 Personal history of other malignant neoplasm of rectum, rectosigmoid junction, and anus; Z87.891 Personal history of nicotine dependence; Z90.710 Acquired absence of both cervix and uterus; Z92.21 Personal history of antineoplastic chemotherapy; Z92.3 Personal history of irradiation; Z68.21 Body mass index [BMI] 21.0-21.9, adult
CPT/HCPCS: 36415; 71045; 80048; 80053; 82962; 83690; 85025; 96360; 96361; 99285; G0378; G0379; J1170; J1650; J1815; J7030; J7512